=== PATIENT | male | born 1935 | race Caucasian/White ===

== ENCOUNTER 2022-06-15 12:22 | Inpatient (IN) | payer MEDICARE, SELFPAY ==
[2022-06-15] VITALS (39 sets, daily range): BP systolic 111–175; BP diastolic 77–107; PULSE 53–82; RESP 13–32; TEMP 36.3–36.6; O2SAT 97–100; BMI 18.9; BMI 19.1
--- NOTE | ~2022-06-15 | CT_ITS ---
CT head without contrast Indication: Confusion Technique: Serial scans were obtained through the brain without the administration of contrast. Dose reduction technique was used on this scan by utilizing automated exposure control and iterative recon struction technique. The dose-length product (DLP) was 605.33 mGy-cm. Findings: There is no evidence of intracranial hemorrhage, mass lesion, or acute infarct. The ventri cles and subarachnoid spaces are dilated, consistent with mild atrophy. Low attenuation regions are seen within the periventricular white matter bilaterally, likely representing changes from chronic mi crovascular ischemic disease. There is no evidence of edema, mass effect or midline shift. There is chronic left maxillary sinusitis. The remaining visualized paranasal sinuses and mastoid air cells ar e clear. Impression: No intracranial hemorrhage, mass, or acute infarct. Atrophy and chronic white matter changes, as above. Reviewed, dictated and finalized at location . Impression: No intracranial hemorrhage, mass, or acute infarct. Atrophy and chronic white matter changes, as above.
--- NOTE | ~2022-06-15 | XR_ITS ---
EXAMINATION: XR chest 1V DATE: 06/15/2022 13:25 INDICATION: Shortness of breath. Chest pressure. TECHNIQUE: A single frontal view of the chest was obtained. COMPARISON: None. FINDINGS: There are airspace opacities at left lung base. There is a small left pleural effusion. No pneumothorax. Cardiomegaly is noted. There are bilateral shoulder arthroplasties. Surgical clips over lie the mediastinum. IMPRESSION: 1. Airspace opacities at left lung base, consistent with atelectasis versus pneumonia. 2. Small left pleural effusion. 3. Cardiomegaly. Reviewed, dictated and finalized at location A. IMPRESSION: 1. Airspace opacities at left lung base, consistent with atelectasis versus pne umonia. 2. Small left pleural effusion. 3. Cardiomegaly.
--- NOTE | 2022-06-15 12:48 | ECG_ITS ---
Measurements Intervals [place] Rate: 68 P: [place]: 0 QRS: -1 QRSD: 99 T: 116 QT: 399 QTc: 427 Interpretive Statements ATRIAL FIBRILLATION WITH ABERRANT CONDUCTION OR VENTRICULAR PREMATURE COMPLEXES INCOMPLETE RIGHT BUNDLE BRANCH BLOCK [90+ ms QRS DURATION, TERMINAL R IN V1/V2, 40+ ms S IN I/aVL/V4/V5/V6] SEPTAL MYOCARDIAL INFARCTION , PROBABLY OLD [40+ ms Q WAVE IN V1/V2] NO PREVIOUS ECG AVAILABLE FOR COMPARISON Electronically Signed On 06-15-2022 18:19:34 CDT by Maribell Daniel M.D.
[2022-06-15 13:13] LABS: Basophils Absolute Auto 0.1 K/mm3 (0.0-0.1); Basophils Percent Auto 1.2 % (0.2-1.2); Eosinophils Absolute Auto 0.1 K/mm3 (0-0.3); Eosinophils Percent Auto 0.9 % (0-4.4); Hematocrit 44.5 % (42.0-52.0); Hemoglobin 13.6 g/dL (14.0-18.0); Immature Granulocyte Absolute 0.02 K/mm3 (0.00-0.031); Immature Granulocyte Percent A 0.3 % (0-0.5); Lymphocytes Absolute Auto 1.02 K/mm3 (0.9-3.2); Lymphocytes Percent Auto 14.7 % (18.3-44.2); Mean Corpuscular HGB Conc 30.6 g/dl (32-36); Mean Corpuscular Hemoglobin 33.1 pg (26-34); Mean Corpuscular Volume 108.3 fl (80-100); Monocytes Absolute Auto 0.7 K/mm3 (0.1-0.6); Monocytes Percent Auto 10.2 % (2.6-8.5); Neutrophils Absolute Auto 5.1 K/mm3 (1.3-6.7); Neutrophils Percent Auto 72.7 % (45.5-73.1); Platelet Count Result 187 k/mm3 (150-375); Red Blood Count 4.11 M/mm3 (4.6-6.20); Red Cell Distribution Width 17.2 % (11.5-14.5); White Blood Count 6.9 K/mm3 (4.5-10.0)
[2022-06-15 13:22] LABS: Alanine Aminotransferase 40 U/L (6-50); Albumin Level 3.9 g/dL (3.5-5.1); Alkaline Phosphatase 66 U/L (38-126); Anion Gap 7 mmol/L (8-16); Aspartate Amino Transferase 44 U/L (17-59); Bilirubin,Total 0.9 mg/dL (0.2-1.3); Blood Urea Nitrogen 29 mg/dL (9-20); Carbon Dioxide 24 mmol/L (22-30); Chloride 107 mmol/L (98-107); Estimated CRCL calculation 44 ml/min; Estimated Glomerular Filt Rate > 60; Glucose 101 mg/dL (65-110); Potassium 4.4 mmol/L (3.4-5.0); Sodium 138 mmol/L (137-145)
[2022-06-15 13:37] LABS: Platelet Estimate Adequate (Adequate)
[2022-06-15 13:38] LABS: Burr Cells 2+ (NORMAL); Macrocytosis 1+ (NORMAL); Schistocytes None Seen (NORMAL); Troponin I 0.083 ng/mL (0.000-0.034)
--- NOTE | 2022-06-15 13:59 | ED.SOB ---
HPI - SOB/Dyspnea General Chief Complaint: Shortness of Breath/Dyspnea <Socorro Bolanos PA-C - Last Filed: 06/15/22 15:47> Stated Complaint: sob <Socorro Bolanos PA-C - Last Filed: 06/15/22 15:47> Time Seen by Provider: 06/15/22 13:44 <Socorro Bolanos PA-C - Last Filed: 06/15/22 15:47> History of Present Illness HPI Narrative: Patient is an 87-year-old male with a history of atrial fibrillation on Eliquis, hypertension, here due to chest tightness and shortness of breath earlier today. Patient states that he was walking with his walker when he suddenly felt winded and had a tightness in the center of his chest. States that the pain disappeared at rest. Then about an hour later he had another episode of tightness and shortness of breath which prompted him to call an ambulance. At time the ambulance arrived he was asymptomatic and denied any chest tightness or shortness of breath. Patient currently denies any symptoms. He has never had chest tightness or shortness of breath like this in the past. He has had no cough, fevers, congestion or upper respiratory infectious symptoms. Reportedly patient was admitted for 5 days last month at [facility] for anemia and shortness of breath, but patient states I am never going back there in my life . He has never had a cardiac catheterization. <Socorro Bolanos PA-C - Last Filed: 06/15/22 15:47> Related Data Home Medications: Home Medications Medication Instructions Recorded Confirmed Allergy (chlorpheniramine) 4 mg PO HS 06/15/22 06/15/22 B Complex-Vitamin B12 1 tablet PO DAILY 06/15/22 06/15/22 Vitamin D3 25 mcg PO DAILY 06/15/22 06/15/22 Zaditor 1 drp EACH EYE BID 06/15/22 06/15/22 acetaminophen 1,000 mg PO BID 06/15/22 06/15/22 apixaban 5 mg tablet (Eliquis) 5 mg PO BID 06/15/22 06/15/22 ascorbic acid (vitamin C) 500 mg PO DAILY 06/15/22 06/15/22 azelastine 137 mcg (0.1 %) nasal 1 - 2 spray intranasal DIRECTED 06/15/22 06/15/22 spray aerosol benazepril 20 mg tablet 20 mg PO DAILY 06/15/22 06/15/22 cetirizine 10 mg PO DAILY 06/15/22 06/15/22 coenzyme Q10 10 mg PO DAILY 06/15/22 06/15/22 denosumab 60 mg subcut DIRECTED 06/15/22 06/15/22 ferrous sulfate 325 mg PO BID 06/15/22 06/15/22 finasteride 5 mg tablet 5 mg PO DIRECTED 06/15/22 06/15/22 latanoprost 0.005 % eye drops 1 drp EACH EYE HS 06/15/22 06/15/22 metoprolol succinate 25 mg 25 mg PO DAILY 06/15/22 06/15/22 tablet,extended release 24 hr <Socorro Bolanos PA-C - Last Filed: 06/15/22 15:47> Allergies/Adverse Reactions: Allergies Allergy/AdvReac Type Severity Reaction Status Date / Time clarithromycin [From Biaxin] Allergy Gastrointestinal Verified 06/15/22 14:15 Upset atorvastatin AdvReac Muscle Pain Verified 06/15/22 20:27 rofecoxib AdvReac Nausea and Verified 06/15/22 20:28 Vomiting [id number] Reductase AdvReac Muscle Pain Verified 06/15/22 20:28 Inhibitor <Socorro Bolanos PA-C - Last Filed: 06/15/22 15:47> Review of Systems Review of Systems: Gen.: Denies fevers or chills Eyes: Denies eye pain or visual change ENT: Denies congestion Respiratory: reports shortness of breath CV: reports chest pain GI: Denies abdominal pain nausea, emesis or diarrhea : denies burning, urgency, frequency or hematuria Musculoskeletal: Denies back pain or muscle pain Neuro: Denies numbness, tingling, weakness or focal weakness Skin: Denies rash Except as documented, all other systems reviewed and negative <NIGEL Gan Last Filed: 06/15/22 15:47> [facility] Family History Family History: Family History (Updated 06/15/22 @ 19:58 by Stephon Syed RN) Mother Cerebrovascular accident Father Testicle cancer Sibling Malignant neoplasm of prostate <Socorro Bolanos PA-C - Last Filed: 06/15/22 15:47> Social History Social History: Social History Smoking packs per day: 3 Smo
--- NOTE | 2022-06-15 14:10 | PC.NURSE ---
Pt comes in c/o SOB earlier today. States his day started normally and while sitting down in his chair and started becoming SOB. States he had pressure in the middle of his chest. States he felt like he was being suffocated and while he was waiting to catch his breath, believes he fell asleep. States he woke up later with the symptoms resolved. A short time later started having the SOB and decided to be evaluated. States he had a similar episode that happened yesterday. Pt denies any SOB or chest pressure at this time. States every time these episodes have started he was in the cold.
[2022-06-15] MEDS: Please add drug allergy info to patient profile. 1 EACH XX (14:17)
--- NOTE | 2022-06-15 14:18 | PC.NURSE ---
States he was seen at [facility] in Apr for anemia. States his blood pressure medications were changed. States he was told to stop taking Amlodipine and start taking metoprolol.
[2022-06-15] MEDS: ASPIRIN 81 MG CHEWABLE TABLET 324 MG PO (14:26)
[2022-06-15 14:27] LABS: Magnesium 2.1 mg/dL (1.6-2.3)
[2022-06-15 14:36] LABS: INR 1.5; Prothrombin Time 17.6 Seconds (11.1-14.7)
[2022-06-15 14:37] LABS: NT Pro B Type Natriuretic Pept 11700 pg/mL (19.9-100)
[2022-06-15 17:03] LABS: Troponin I 0.086 ng/mL (0.000-0.034)
--- NOTE | 2022-06-15 18:24 | PC.NURSE ---
While getting pt ready to be taken upstairs, he started c/o chest tightness in the middle of his chest that started about 10-15 minutes prior. Rates the pain a 2/10 at this time. Reported to ERP who agreed to administer a PRN nitro. RN completes orders.
[2022-06-15] MEDS: NITROGLYCERIN SL 0.4 MG TABLET SUBLINGUAL (18:26)
--- NOTE | 2022-06-15 19:11 | ADMGEN ---
Addendum entered by Glendy Romero RN 06/15/22 19:11: patient arrived at 1841 Original Note: This patient, Jamey Cuadra, was admitted to IMU Room 231-01. Patient/family oriented to hospital policies and general routines including ID bracelet, bed and alarms, visiting hours, pain management, procedures, bathroom and other care routines, personal items, smoking policy, room service/diet, and visiting hours. Information on how to activate the Rapid Response Team has been discussed. Patient/Family are encouraged to report perceived risks to care and to ask questions if they do not understand what they are told or what they should do.
--- NOTE | 2022-06-15 20:31 | PM.IMHP ---
H&P: HPI History of Present Illness Date/Time: 06/15/22 20:31 Chief Complaint: Shortness of breath Narrative: This is an 87-year-old male patient who has a history of a atrial fibrillation on Eliquis and he has hypertension. The patient has had no prior history of coronary artery disease. The patient came to the emergency room today with complaints of chest tightness and shortness of breath. This happened all of a sudden when he was walking with his walker. The patient felt winded and had the tightness in his chest. The pain will disappear with rest. The pain then came back when he attempted to ambulate again. Therefore an ambulance was notified. When the ambulance arrived he was asymptomatic and denied any further chest tightness or shortness of breath. The patient was recently admitted to [facility] with anemia and shortness of breath. The patient stated that he did not want to go back to [facility]. His H&H is 13.6 and 44.5. MCV is 108.3. His troponin is 0.083, 0.086, [place] 0[place] [address]. EKG was read as atrial fibrillation heart rate in the 60s. The patient has a known history of AFib and is on Eliquis. Chest x-ray was read as the following?Airspace opacities at left lung base, consistent with atelectasis versus pneumonia. 2. Small left pleural effusion. 3. Cardiomegaly. The patient was given an aspirin in the emergency room. Cardiology has been consulted. The patient is being admitted to observation status on the date of service of 06/15/2022 Review of Systems Review of Systems: All systems reviewed & are unremarkable except as noted in HPI and below Constitutional: Constitutional: Reports as per HPI and Reports no additional constitutional complaints Eyes: Eyes: Reports as per HPI and Reports no additional eye complaints ENT: Reports system reviewed and no additional complaints, except as documented and Reports Normal hearing present Cardiovascular: Cardiovascular: Reports no additional cardiovascular complaints Respiratory: Respiratory: Reports no additional respiratory complaints and Reports no additional respiratory complaints Gastrointestinal: Gastrointestinal: Reports as per HPI and Reports no additional gastrointestinal complaints Musculoskeletal: Musculoskeletal: Reports no additional musculoskeletal complaints Integumentary/Breasts: Skin/Breast: Reports system reviewed and no additional complaints, except as docu and Reports as per HPI Neurologic: Reports system reviewed and no additional complaints, except as documented, Reports as per HPI and Reports Normal hearing present Psychiatric: Psychiatric: Reports no additional psychiatric complaints and Reports as per HPI Endocrine: Endocrine: Reports no additional endocrine complaints Hematologic/Lymphatic: Hematologic/Lymphatic: Reports no additional hematologic/lymphatic complaints Allergic/Immunologic: Allergic/Immunologic: Reports no additional allergic/immunologic complaints [facility] Past Medical History Medical History (Updated 06/16/22 @ 00:49 by Sis Mueller NP) Atrial fibrillation Basal cell carcinoma Glaucoma Hypertension Iron deficiency anemia Surgical History Surgical History (Updated 06/16/22 @ 00:44 by Sis Mueller NP) H/O cataract extraction H/O hemorrhoidectomy H/O shoulder replacement H/O thyroidectomy History of removal of skin mole History of tonsillectomy Family History Family History Mother Cerebrovascular accident Father Testicle cancer Sibling Malignant neoplasm of prostate Social History Social History (Updated 06/16/22 @ 00:45 by Sis Mueller NP) Social History: 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 He has 1 child. Code status full code Smoking packs per day: 3 Smoking cigarettes per day: 60.0 Years smoked: 31 Smoking pack-years: 93.00 Smoking status: Former smoker
[2022-06-15 21:26] LABS: Troponin I 0.092 ng/mL (0.000-0.034)
[2022-06-16] VITALS (13 sets, daily range): BP systolic 130–157; BP diastolic 71–90; PULSE 64–110; RESP 18–24; TEMP 36.2–36.5; O2SAT 95–100
--- NOTE | 2022-06-16 | ECHO_ITS ---
Patient Info Name: Jamey Cuadra Age: 87 years : 1935 Gender: Male Ht: 68 in Wt: 125 lbs BSA: 1.64 m2 HR: 83 bpm BP: 126 / 69 mmHg Heart Rhythm: Atrial Fibrillation Exam Date: 06/16/2022 10:20 AM Exam Location: [facility] Patient Status: Inpatient Admit Date: 06/15/2022 Staff Ordering Physician: Sis Mueller NP Ecology Teacher: Trev Weaver, MIKE, RT Attending Provider: Benji Morales MD Referring Physician: Ami ROBBINS; Exam Type: CA echo doppler color flow Study Info Indications R07.9 - Chest pain, unspecified Complete two-dimensional, color flow and Doppler transthoracic echocardiogram is performed. Strain analysis performed. Summary 1. Complete two-dimensional, color flow and Doppler transthoracic echocardiogram is performed. 2. Left ventricular chamber dimension is normal. 3. Left ventricular systolic function is severely reduced, estimated at 15-20%. 4. There is moderately increased left ventricular wall thickness. 5. Right ventricular systolic function is reduced. 6. Left atrial chamber dimension is moderately enlarged. 7. Right atrial chamber dimension is moderately enlarged. 8. The mitral valve has thickened leaflets. 9. The mitral valve annulus is mildly calcified. 10. There is severe mitral valve regurgitation. 11. There is mild tricuspid valve regurgitation. 12. Dilated inferior vena cava with >50% collapse upon inspiration consistent with elevated right atrial pressure, 8 mmHg. 13. There is trivial pericardial effusion. 14. Left pleural effusion present. Left Ventricle Left ventricular chamber dimension is normal. Left ventricular systolic function is severely reduced, estimated at 15-20%. There is moderately increased left ventricular wall thickness. Global longitudinal strain is abnormal at -8 %. Right Ventricle Right ventricular chamber dimension is normal. Right ventricular systolic function is reduced. Left Atria Left atrial chamber dimension is moderately enlarged. Right Atria Right atrial chamber dimension is moderately enlarged. Aortic Valve The aortic valve is probable trileaflet. There is no aortic valve stenosis. There is no aortic valve regurgitation. There is moderate aortic valve calcification. Pulmonic Valve The pulmonic valve is not well visualized. Mitral Valve The mitral valve has thickened leaflets. There is severe mitral valve regurgitation. The mitral valve annulus is mildly calcified. Tricuspid Valve There is mild tricuspid valve regurgitation. Pericardium/Pleural Left pleural effusion present. There is trivial pericardial effusion. Inferior Vena Cava Dilated inferior vena cava with >50% collapse upon inspiration consistent with elevated right atrial pressure, 8 mmHg. Aorta The aortic root size at the sinus of Valsalva is normal. Left Ventricular Outflow Tract Name Value Normal LVOT 2D LVOT Diameter 2.1 cm LVOT Doppler LVOT Peak Gradient 1 mmHg LVOT Mean Gradient 1 mmHg LVOT VTI 9 cm LVOT VTI
[2022-06-16 05:08] LABS: Basophils Absolute Auto 0.1 K/mm3 (0.0-0.1); Basophils Percent Auto 1.2 % (0.2-1.2); Eosinophils Absolute Auto 0.1 K/mm3 (0-0.3); Eosinophils Percent Auto 1.5 % (0-4.4); Hematocrit 43.3 % (42.0-52.0); Hemoglobin 13.4 g/dL (14.0-18.0); Immature Granulocyte Absolute 0.03 K/mm3 (0.00-0.031); Immature Granulocyte Percent A 0.4 % (0-0.5); Lymphocytes Absolute Auto 1.36 K/mm3 (0.9-3.2); Lymphocytes Percent Auto 18.4 % (18.3-44.2); Mean Corpuscular HGB Conc 30.9 g/dl (32-36); Mean Corpuscular Hemoglobin 32.6 pg (26-34); Mean Corpuscular Volume 105.4 fl (80-100); Monocytes Absolute Auto 0.8 K/mm3 (0.1-0.6); Monocytes Percent Auto 11.4 % (2.6-8.5); Neutrophils Percent Auto 67.1 % (45.5-73.1); Platelet Count Result 195 k/mm3 (150-375); Red Blood Count 4.11 M/mm3 (4.6-6.20); Red Cell Distribution Width 17.2 % (11.5-14.5); White Blood Count 7.4 K/mm3 (4.5-10.0)
[2022-06-16 05:23] LABS: Alanine Aminotransferase 39 U/L (6-50); Albumin Level 3.7 g/dL (3.5-5.1); Alkaline Phosphatase 69 U/L (38-126); Anion Gap 8 mmol/L (8-16); Aspartate Amino Transferase 48 U/L (17-59); Bilirubin,Total 0.8 mg/dL (0.2-1.3); Blood Urea Nitrogen 32 mg/dL (9-20); Calcium 8.5 mg/dL (8.4-10.2); Carbon Dioxide 27 mmol/L (22-30); Chloride 104 mmol/L (98-107); Estimated CRCL calculation 29 ml/min; Estimated Glomerular Filt Rate 52; Glucose 87 mg/dL (65-110); Lipase 121 U/L (23-300); Potassium 4.1 mmol/L (3.4-5.0); Sodium 139 mmol/L (137-145)
[2022-06-16 05:38] LABS: Macrocytosis 2+ (NORMAL); Platelet Estimate Adequate (Adequate)
[2022-06-16 05:40] LABS: Schistocytes None Seen (NORMAL)
[2022-06-16 05:43] LABS: Lactic Acid Reflex 1.3 mmol/L (0.7-2.0)
--- NOTE | 2022-06-16 06:24 | PC.NURSE ---
Patient had 12 beat run of v-tach at 0345. Patient asymptomatic. Notified Dr. Schwab. No new orders continue to monitor.
[2022-06-16] MEDS: VITAMIN B COMPLEX CAPSULE 1 CAP PO (08:18)
[2022-06-16] MEDS: METOPROLOL SUCCINATE EXT REL 25 MG TABCR PO (08:18)
[2022-06-16] MEDS: FINASTERIDE 5 MG TABLET PO (08:18)
[2022-06-16] MEDS: lisinopriL 20 MG TABLET PO (08:19)
[2022-06-16] MEDS: FERROUS SULFATE 324 MG TABLET PO (08:19)
--- NOTE | 2022-06-16 12:19 | PM.IMPN ---
Progress Note: A&P Assessment and Plan (1) Chest pain: Code(s): R07.9 - Chest pain, unspecified Status: Acute Assessment and Plan: The patient was having chest pain with exertion. Chest pain was relieved with rest Continue with an aspirin Continue with metoprolol Had mildly elevated troponin but they are all level Cardiology has been consulted An echo has been ordered (2) Glaucoma: Code(s): H40.9 - Unspecified glaucoma Status: Acute Assessment and Plan: Continue with home eye drops. (3) Iron deficiency anemia: Code(s): D50.9 - Iron deficiency anemia, unspecified Status: Acute Assessment and Plan: Continue with ferrous sulfate (4) Hypertension: Code(s): I10 - Essential (primary) hypertension Status: Acute Assessment and Plan: Continue with metoprolol Continue with benazepril (5) Atrial fibrillation: Code(s): I48.91 - Unspecified atrial fibrillation Status: Acute Assessment and Plan: Continue with metoprolol on continue with Eliquis Rate is controlled. The patient remains in atrial fibrillation. Subjective Date/time seen: 06/16/22 12:19 Patient reports feeling short of breath although he is on room air Review of Systems Review of Systems: All systems reviewed & are unremarkable except as noted in HPI and below Constitutional: Constitutional: Reports as per HPI and Reports no additional constitutional complaints Eyes: Eyes: Reports as per HPI and Reports no additional eye complaints ENT: Reports system reviewed and no additional complaints, except as documented and Reports Normal hearing present Cardiovascular: Cardiovascular: Reports no additional cardiovascular complaints Respiratory: Respiratory: Reports no additional respiratory complaints and Reports no additional respiratory complaints Gastrointestinal: Gastrointestinal: Reports as per HPI and Reports no additional gastrointestinal complaints Musculoskeletal: Musculoskeletal: Reports no additional musculoskeletal complaints Integumentary/Breasts: Skin/Breast: Reports system reviewed and no additional complaints, except as docu and Reports as per HPI Neurologic: Reports system reviewed and no additional complaints, except as documented, Reports as per HPI and Reports Normal hearing present Psychiatric: Psychiatric: Reports no additional psychiatric complaints and Reports as per HPI Endocrine: Endocrine: Reports no additional endocrine complaints Hematologic/Lymphatic: Hematologic/Lymphatic: Reports no additional hematologic/lymphatic complaints Allergic/Immunologic: Allergic/Immunologic: Reports no additional allergic/immunologic complaints Exam Const: General: cooperative, healthy appearing, comfortable, no acute distress, well developed, alert, awake, Physically active and thin Nutritional Appearance: thin Orientation/consciousness: oriented to person and oriented to place Limitations: no limitations HENMT: Head: normal to inspection, No palpable skull fracture present, normocephalic, atraumatic and abrasion Ears: external ears normal, TM's normal bilaterally and hearing grossly impaired Face/Nose/Sinus: Normal external nose present and Normal nares present Eyes: General: appearance normal, both eyes and all related structures Alignment and Position: alignment normal Periorbital: periorbital findings normal Eyelids: eyelids normal Sclera: sclerae normal Pupils: Equal, round and reactive pupils present EOM: EOMs intact bilaterally Neck: Neck: normal visual inspection, full ROM, no lymphadenopathy, trachea midline and supple Carotids: normal carotid upstroke Chest: Chest palpation & inspection: normal inspection of the chest Resp: Effort & Inspection: normal respiratory effort Auscultation: clear to auscultation bilaterally Cardio: Palpation: normal PMI Rate: regular rate Rhythm: abnormal rhythm irregularly irregular Heart sounds: S1 hiram
[2022-06-16] MEDS: APIXABAN 5 MG TABLET PO (12:32)
[2022-06-16] MEDS: FUROSEMIDE 40 MG TABLET PO (12:32)
--- NOTE | 2022-06-16 16:46 | PM.CNCAR ---
Assessment and Plan Assessment and plan (1) Chest pain: Code(s): R07.9 - Chest pain, unspecified Status: Acute Assessment and Plan: Atypical symptoms. Troponins are flat. EKG without ischemic changes. Reportedly had a pharmacologic MPI done at [facility] about a month ago for similar symptoms and was reportedly negative. Will obtain a copy of his MPI results from [facility]. Records requested. Requested cardiology records from [facility]. Does not clearly appear to be ACS. Echo pending. Has small left pleural effusion, given dose of Lasix, possible component of heart failure to his symptoms. Medical management as this time. Does not clearly appear to be ACS. Given his advanced age, patient does not want invasive procedures at this time anyways and prefers medical management. (2) Elevated troponin: Code(s): R77.8 - Other specified abnormalities of plasma proteins Status: Acute Assessment and Plan: Atypical symptoms. Troponins are flat. EKG without ischemic changes. Reportedly had a pharmacologic MPI done at [facility] about a month ago for similar symptoms and was reportedly negative. Will obtain a copy of his MPI results from [facility]. Records requested. Requested cardiology records from [facility]. Does not clearly appear to be ACS. Echo pending. (3) Atrial fibrillation: Code(s): I48.91 - Unspecified atrial fibrillation Status: Acute Assessment and Plan: Chronic. Rate controlled. Continue beta kristina and Eliquis. History of Present Illness History of Present Illness Consult date/time: 06/16/22 16:46 Requesting physician: Sis Mueller NP Consult reason: chest pain Reason For Visit: NSTEMI Narrative: We are consulted for elevated troponins. This is an 87-year-old male with a history of atrial fibrillation on Eliquis, recent anemia requiring blood transfusion about a month ago at [facility], hypertension who presented with chest tightness. Patient reports chest tightness and shortness of breath that occurs intermittently. No clear association with exertion. Had similar symptoms when he was admitted to [facility] about a month ago. Patient reports that he had anemia that required blood transfusion. Underwent chemical stress test that was negative. Was supposed to follow up with Cardiology at [facility] but has difficulty getting to his clinic appointments there due to difficulty in parking. Patient is not very functional. Cannot walk much, and when he does, he requires walker. EKG showed rate controlled atrial fibrillation, IRBBB, probably old septal infarction. No prior EKG available for comparison. Troponins have been flat with 0.083 --> 0.086 --> 0.092. BNP elevated at 11,700. CXR with small left pleural effusion. Review of Systems Review of Systems: All systems reviewed & are unremarkable except as noted in HPI and below (HPI) [facility] Past Medical History Medical History Atrial fibrillation Basal cell carcinoma Glaucoma Hypertension Iron deficiency anemia Surgical History Surgical History H/O cataract extraction H/O hemorrhoidectomy H/O shoulder replacement H/O thyroidectomy History of removal of skin mole History of tonsillectomy Family History Family History Mother Cerebrovascular accident Father Testicle cancer Sibling Malignant neoplasm of prostate Social History Social History Social History: 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 He has 1 child. Code status full code Smoking packs per day: 3 Smoking cigarettes per day: 60.0 Years smoked: 31 Smoking pack-years: 93.00 Smoking status: Former smoker Tobacco type: cigarettes Alcohol intake: current Substance use: never Lack of Transportation: No Lack of Food:
[2022-06-16] MEDS: OLANZapine 10 MG INJ VIAL 5 MG IM (18:00)
[2022-06-16] MEDS: LORazepam INJ (*CRX) 2 MG/ML VIAL 1 MG IV PUSH (18:59)
--- NOTE | 2022-06-16 20:38 | PC.NURSE ---
Patient started to more frequently stand up and set off chair alarm around 1630. When asked where he was going, patient would say he just wanted to move around. Patient was educated on how high of a fall risk he was and that he couldn't be moving around in the room without supervision especially without his walker. Starting at 1645, supervisor public health nursing started to sit with patient to prevent a fall. at 1740, patient ripped off their electronic device monitor and said he was going to walk home. Family was called, after which patient would momentarily calm down. However, patient would soon become frustrated again and try to walk without walker and leave the room. It took several staff members to catch the patient as he stumbled around in his room and return him to his bed. Once he was in bed, he kept getting agitated and swinging at staffing members who were around his bed trying to talk to him and keep him in bed. Order for 5mg Zyprexa IM was obtained and administered in left upper arm. Patient then grabbed seafood technology specialist's arm and attempted to kick this nurse. Nichole hart was called. When help arrived, patient was moved safely back up in bed and soft wrist restraints were applied. Patient then attempted to sit on the side of the bed while restrained and kick this nurse again. Patient was then placed in bilateral soft ankle restraints. Dr. Lee arrived at bedside within 15minutes of restraints being placed to assess the patient and agree that they were necessary. Order placed.
[2022-06-16] MEDS: LATANOPROST 0.005% OP SOLN 2.5 ML BTL 1 DROP EACH EYE (21:15)
[2022-06-17] VITALS (15 sets, daily range): BP systolic 123–154; BP diastolic 61–109; PULSE 63–118; RESP 18–20; TEMP 36.2–37; O2SAT 90–100
[2022-06-17] MEDS: METOPROLOL SUCCINATE EXT REL 25 MG TABCR PO (08:56)
[2022-06-17] MEDS: FERROUS SULFATE 324 MG TABLET PO (08:56)
[2022-06-17] MEDS: VITAMIN B COMPLEX CAPSULE 1 CAP PO (08:57)
[2022-06-17] MEDS: lisinopriL 20 MG TABLET PO (08:57)
[2022-06-17] MEDS: APIXABAN 5 MG TABLET PO ×2 (08:57→17:10)
[2022-06-17] MEDS: FINASTERIDE 5 MG TABLET PO (08:57)
--- NOTE | 2022-06-17 11:37 | PM.IMPN ---
Progress Note: A&P Assessment and Plan (1) Chest pain: Code(s): R07.9 - Chest pain, unspecified Status: Acute Assessment and Plan: Continue with an aspirin Continue with metoprolol Had mildly elevated troponin but they are all level Cardiology has been consulted Echo shows severely depressed ejection fraction 15-20%. Also shows severe mitral regurgitation (2) Glaucoma: Code(s): H40.9 - Unspecified glaucoma Status: Acute Assessment and Plan: Continue with home eye drops. (3) Iron deficiency anemia: Code(s): D50.9 - Iron deficiency anemia, unspecified Status: Acute Assessment and Plan: Continue with ferrous sulfate (4) Hypertension: Code(s): I10 - Essential (primary) hypertension Status: Acute Assessment and Plan: Continue with metoprolol and benazepril (5) Atrial fibrillation: Code(s): I48.91 - Unspecified atrial fibrillation Status: Acute Assessment and Plan: Continue with metoprolol. continue with Eliquis Rate is controlled. The patient remains in atrial fibrillation. Plan Will consult PT and OT for possible placement. Subjective Date/time seen: 06/17/22 11:37 Patient is confused this morning and last night. I believe this is hospital induced delirium Review of Systems Review of Systems: ROS unobtainable: Yes unobtainable due to mental status Exam Const: Other: Elderly frail man HENMT: Mouth: Yes moist mucous membranes Eyes: General: appearance normal, both eyes and all related structures Sclera: sclerae normal Resp: Effort & Inspection: normal respiratory effort Auscultation: diminished lung sounds Cardio: Rhythm: abnormal rhythm irregularly irregular GI: GI Palp: Yes Soft to palpation and No Tenderness to palpation present (GI) Skin: General skin exam: normal color Neuro: Speech: normal speech Extrem: General: normal to inspection Psych: Mental Status: mental status grossly normal Affect: normal affect Objective Data Vital Signs Vital Signs: Vital Signs - 24 hr 06/16/22 12:00 06/16/22 12:00 06/16/22 14:00 Temperature 97.1 F L Pulse Rate 70 81 100 Respiratory Rate 24 H Blood Pressure 157/84 H Pulse Oximetry 100 Oxygen Delivery 06/16/22 12:00 06/16/22 16:00 06/16/22 16:00 Temperature 97.3 F L Pulse Rate 78 78 Respiratory Rate 18 Blood Pressure 147/90 H Pulse Oximetry 100 Oxygen Delivery Room Air 06/16/22 16:00 06/16/22 17:40 06/16/22 20:00 Temperature 97.2 F L Pulse Rate 110 H 75 Respiratory Rate 20 Blood Pressure 130/71 Pulse Oximetry 100 Oxygen Delivery Room Air 06/16/22 20:00 06/17/22 00:00 06/17/22 04:00 Temperature Pulse Rate Respiratory Rate Blood Pressure Pulse Oximetry Oxygen Delivery Room Air Room Air Room Air 06/17/22 00:00 06/17/22 04:00 06/16/22 20:00 Temperature 98.6 F Pulse Rate 98 112 H 92 Respiratory Rate 20 18 Blood Pressure 145/70 H 123/95 H Pulse Oximetry 90 94 Oxygen Delivery 06/16/22 22:00 06/17/22 00:00 06/17/22 02:00 Temperature Pulse Rate 101 H 79 86 Respiratory Rate Blood Pressure Pulse Oximetry Oxygen Delivery 06/17/22 04:00 06/17/22 06:00 06/17/22 08:56 Temperature Pulse Rate 118 H 108 H 108 H Respiratory Rate Blood Pressure Pulse Oximetry Oxygen Delivery 06/17/22 08:00 06/17/22 08:00 06/17/22 10:00 Temperature 97.8 F Pulse Rate 110 H 95 98 Respiratory Rate 20 Blood Pressure 154/109 H Pulse Oximetry 95 Oxygen Delivery Intake/Output Intake/Output: Intake & Output 06/14/22 06/15/22 06/16/22 06/17/22 23:59 23:59 23:59 23:59 Intake Total 240 / 240 340 / 340 100 / 100 Output Total 600 / 600 Balance 240 / 240 -260 / -260 100 / 100 Meds/Results Medications: Active Medications Generic Name Dose Route Start Last Admin Trade Name Freq PRN Reason Stop Dose Admin Apixaban 5 mg
--- NOTE | 2022-06-17 12:56 | PM.PNCARD ---
Progress Note: A&P Assessment and Plan (1) Chest pain: Code(s): R07.9 - Chest pain, unspecified Status: Acute Assessment and Plan: Atypical symptoms. Troponins are flat. EKG without ischemic changes. Reportedly had a pharmacologic MPI done at [facility] about a month ago for similar symptoms and was reportedly negative. Requested cardiology records from [facility]. Does not clearly appear to be ACS, probably a component of heart failure to his symptoms as he does have a severe cardiomyopathy. Medical management is being pursued. (2) Elevated troponin: Code(s): R77.8 - Other specified abnormalities of plasma proteins Status: Acute Assessment and Plan: Atypical symptoms. Troponins are flat. EKG without ischemic changes. Reportedly had a pharmacologic MPI done at [facility] about a month ago for similar symptoms and was reportedly negative. (3) Atrial fibrillation: Code(s): I48.91 - Unspecified atrial fibrillation Status: Acute Assessment and Plan: Chronic. Rate controlled. Continue beta kristina and Eliquis. (4) Cardiomyopathy: Code(s): I42.9 - Cardiomyopathy, unspecified Status: Acute Assessment and Plan: Echocardiogram shows severe LV systolic function with an EF of 15-20%. According to the patient's family, this is a new finding. Discontinue lisinopril. Will shift to Entresto, may start 36 hours after last dose of lisinopril. Start Jardiance, spironolactone. Continue beta-kristina. Family unsure if they want to pursue life vest at this time Subjective Date/time seen: 06/17/22 12:56 cardiology follow-up for elevated troponin, cardiomyopathy He is confused today. He denies any chest pain, palpitations, shortness of breath. Family at the bedside. Review of Systems Review of Systems: All systems reviewed & are unremarkable except as noted in HPI and below (HPI) Exam Const: General: comfortable and no acute distress Other: Elderly frail man HENMT: Mouth: Yes moist mucous membranes Eyes: General: appearance normal, both eyes and all related structures Sclera: sclerae normal Resp: Effort & Inspection: normal respiratory effort Auscultation: diminished lung sounds Cardio: Rate: regular rate Rhythm: abnormal rhythm irregularly irregular Skin: General skin exam: normal color Neuro: Speech: normal speech Extrem: General: normal to inspection Other: No edema Psych: Mental Status: mental status grossly normal Affect: normal affect Objective Data Vital Signs Vital Signs: Vital Signs - 24 hr 06/16/22 14:00 06/16/22 16:00 06/16/22 16:00 Temperature 36.3 C L Pulse Rate 100 78 78 Respiratory Rate 18 Blood Pressure 147/90 H Pulse Oximetry 100 Oxygen Delivery 06/16/22 16:00 06/16/22 17:40 06/16/22 20:00 Temperature 36.2 C L Pulse Rate 110 H 75 Respiratory Rate 20 Blood Pressure 130/71 Pulse Oximetry 100 Oxygen Delivery Room Air 06/16/22 20:00 06/17/22 00:00 06/17/22 04:00 Temperature Pulse Rate Respiratory Rate Blood Pressure Pulse Oximetry Oxygen Delivery Room Air Room Air Room Air 06/17/22 00:00 06/17/22 04:00 06/16/22 20:00 Temperature 37.0 C Pulse Rate 98 112 H 92 Respiratory Rate 20 18 Blood Pressure 145/70 H 123/95 H Pulse Oximetry 90 94 Oxygen Delivery 06/16/22 22:00 06/17/22 00:00 06/17/22 02:00 Temperature Pulse Rate 101 H 79 86 Respiratory Rate Blood Pressure Pulse Oximetry Oxygen Delivery 06/17/22 04:00 06/17/22 06:00 06/17/22 08:56 Temperature Pulse Rate 118 H 108 H 108 H Respiratory Rate Blood Pressure Pulse Oximetry Oxygen Delivery 06/17/22 08:00 06/17/22 08:00 06/17/22 10:00 Temperature 36.6 C Pulse Rate 110 H 95 98 Respiratory Rate 20 Blood Pressure 154/109 H Pulse Oximetry 95 Oxygen Delivery 06/17/22 12:00 Temperature 36.5 C Pulse Rate 80 Respiratory Rate
--- NOTE | 2022-06-17 13:23 | PCCPR ---
Visited Rolling at bedside in IMU. His son there to visit. Overview of program discussed pt verbalized interest in program. His son agreed. His son mentioned he would be going to a rehab facility for strength trng before discharging to home. Explained we will follow up in a couple of weeks once we have an order from his MD.
[2022-06-17] MEDS: FUROSEMIDE 20 MG TABLET PO (17:10)
[2022-06-17] MEDS: LATANOPROST 0.005% OP SOLN 2.5 ML BTL 1 DROP EACH EYE (20:37)
[2022-06-17] MEDS: QUEtiapine FUMARATE 25 MG TABLET PO (20:38)
[2022-06-18] VITALS (17 sets, daily range): BP systolic 104–137; BP diastolic 58–75; PULSE 50–110; RESP 16–20; TEMP 36.1–36.7; O2SAT 94–100
[2022-06-18] MEDS: APIXABAN 5 MG TABLET PO ×2 (10:04→18:21)
[2022-06-18] MEDS: EMPAGLIFLOZIN 10 MG TABLET PO (10:05)
[2022-06-18] MEDS: FERROUS SULFATE 324 MG TABLET PO (10:05)
[2022-06-18] MEDS: FUROSEMIDE 20 MG TABLET PO (10:05)
[2022-06-18] MEDS: SPIRONOLACTONE 12.5 MG TABLET PO (10:06)
[2022-06-18] MEDS: VITAMIN B COMPLEX CAPSULE 1 CAP PO (10:06)
[2022-06-18] MEDS: METOPROLOL SUCCINATE EXT REL 25 MG TABCR PO (10:06)
--- NOTE | 2022-06-18 11:49 | PM.IMPN ---
Progress Note: A&P Assessment and Plan (1) Chest pain: Code(s): R07.9 - Chest pain, unspecified Status: Acute Assessment and Plan: Continue aspirin, metoprolol, troponin slightly elevated but flattened, do not suspect ACS Echo shows severely depressed ejection fraction 15-20%. Also shows severe mitral regurgitation Working on GDMT, Entresto to be started, Jardiance, appreciate cardiology consultation (2) Glaucoma: Code(s): H40.9 - Unspecified glaucoma Status: Acute Assessment and Plan: Continue with home eye drops. (3) Iron deficiency anemia: Code(s): D50.9 - Iron deficiency anemia, unspecified Status: Acute Assessment and Plan: Continue with ferrous sulfate (4) Hypertension: Code(s): I10 - Essential (primary) hypertension Status: Acute Assessment and Plan: Continue with metoprolol and benazepril (5) Atrial fibrillation: Code(s): I48.91 - Unspecified atrial fibrillation Status: Acute Assessment and Plan: Continue with metoprolol. continue with Eliquis Rate is controlled. The patient remains in atrial fibrillation. Plan DVT prophylaxis with eliquis GI prophylaxis not indicated Code status full code Subjective Date/time seen: 06/18/22 11:49 Interval history: 87-year-old male with history of AFib on Eliquis and hypertension is presenting with shortness of breath and chest pain and found to have severe heart failure with an EF of 15-20%. No overnight events noted. No nausea, vomiting or diarrhea. No fevers or chills. He is complaining of severe shortness of breath and chest tightness, about the same as yesterday. Review of Systems Review of Systems: 12 point review of systems was assessed and was negative except as noted in the HPI Exam Narrative: General: No acute distress, alert and oriented per baseline HEENT: Atraumatic, normocephalic, mucous membranes moist CV: Irregularly irregular, S1, S2 Lungs: Clear to auscultation throughout, somewhat diminished at bases Abdomen: Soft, nontender, nondistended Extremities: Normal to inspection, no edema Skin: No rashes noted, no lesions or wounds seen Psych: Euthymic, normal affect Objective Data Vital Signs Vital Signs: Vital Signs - 24 hr 06/17/22 12:00 06/17/22 13:05 06/17/22 12:00 Temperature 97.7 F Pulse Rate 80 Respiratory Rate 20 Blood Pressure 140/79 Pulse Oximetry 98 Oxygen Delivery Room Air Room Air 06/17/22 16:08 06/17/22 12:00 06/17/22 14:00 Temperature 97.2 F L Pulse Rate 100 117 H 112 H Respiratory Rate Blood Pressure 131/69 Pulse Oximetry 99 Oxygen Delivery 06/17/22 16:00 06/17/22 18:00 06/17/22 16:00 Temperature Pulse Rate 106 H 110 H Respiratory Rate Blood Pressure Pulse Oximetry Oxygen Delivery Room Air 06/17/22 20:00 06/17/22 20:00 06/17/22 20:00 Temperature 97.8 F Pulse Rate 72 97 Respiratory Rate 20 Blood Pressure 139/68 Pulse Oximetry 100 Oxygen Delivery Room Air 06/17/22 23:42 06/17/22 22:00 06/18/22 00:00 Temperature 97.7 F Pulse Rate 63 74 63 Respiratory Rate 18 Blood Pressure 128/61 Pulse Oximetry 98 Oxygen Delivery 06/18/22 00:00 06/18/22 02:00 06/18/22 04:00 Temperature 97.6 F Pulse Rate 75 79 Respiratory Rate 16 Blood Pressure 131/69 Pulse Oximetry 99 Oxygen Delivery Room Air 06/18/22 04:00 06/18/22 04:00 06/18/22 06:00 Temperature Pulse Rate 50 L 82 Respiratory Rate Blood Pressure Pulse Oximetry Oxygen Delivery Room Air 06/18/22 08:00 06/18/22 08:35 06/18/22 08:00 Temperature 97.7 F Pulse Rate 69 72 Respiratory Rate 20 Blood Pressure 125/67 Pulse Oximetry 94 Oxygen Delivery Room Air 06/18/22 10:06 06/18/22 10:00 Temperature Pulse Rate 102 H 88 Respiratory Rate Blood Pressure Pulse Oximetry Oxygen Delivery
[2022-06-18] MEDS: QUEtiapine FUMARATE 25 MG TABLET PO (20:42)
[2022-06-18] MEDS: LATANOPROST 0.005% OP SOLN 2.5 ML BTL 1 DROP EACH EYE (20:42)
[2022-06-19] VITALS (16 sets, daily range): BP systolic 102–153; BP diastolic 54–86; PULSE 52–97; RESP 16–20; TEMP 35.7–36.8; O2SAT 96–100
[2022-06-19] MEDS: VITAMIN B COMPLEX CAPSULE 1 CAP PO (08:48)
[2022-06-19] MEDS: FUROSEMIDE 20 MG TABLET PO (08:48)
[2022-06-19] MEDS: EMPAGLIFLOZIN 10 MG TABLET PO (08:48)
[2022-06-19] MEDS: METOPROLOL SUCCINATE EXT REL 25 MG TABCR PO (08:48)
[2022-06-19] MEDS: APIXABAN 5 MG TABLET PO ×2 (08:48→16:39)
[2022-06-19] MEDS: SPIRONOLACTONE 12.5 MG TABLET PO (08:48)
[2022-06-19] MEDS: FERROUS SULFATE 324 MG TABLET PO (08:49)
--- NOTE | 2022-06-19 13:11 | PM.IMPN ---
Progress Note: A&P Assessment and Plan (1) Chest pain: Code(s): R07.9 - Chest pain, unspecified Status: Acute Assessment and Plan: Continue aspirin, metoprolol, troponin slightly elevated but flattened, do not suspect ACS Echo shows severely depressed ejection fraction 15-20%. Also shows severe mitral regurgitation Working on GDMT, Entresto to be started, Jardiance, appreciate cardiology consultation (2) Glaucoma: Code(s): H40.9 - Unspecified glaucoma Status: Acute Assessment and Plan: Continue with home eye drops. (3) Iron deficiency anemia: Code(s): D50.9 - Iron deficiency anemia, unspecified Status: Acute Assessment and Plan: Continue with ferrous sulfate (4) Hypertension: Code(s): I10 - Essential (primary) hypertension Status: Acute Assessment and Plan: Continue with metoprolol and benazepril (5) Atrial fibrillation: Code(s): I48.91 - Unspecified atrial fibrillation Status: Acute Assessment and Plan: Continue with metoprolol. continue with Eliquis Rate is controlled. The patient remains in atrial fibrillation. Plan DVT prophylaxis with eliquis GI prophylaxis not indicated Code status full code Subjective Date/time seen: 06/19/22 13:11 Interval history: 87-year-old male with history of AFib on Eliquis and hypertension is presenting with shortness of breath and chest pain and found to have severe heart failure with an EF of 15-20%. No overnight events noted. No nausea, vomiting or diarrhea. No fevers or chills. He states he feels much better than yesterday. Review of Systems Review of Systems: 12 point review of systems was assessed and was negative except as noted in the HPI Exam Narrative: General: No acute distress, alert and oriented per baseline HEENT: Atraumatic, normocephalic, mucous membranes moist CV: Regular rate and rhythm, S1, S2 Lungs: Clear to auscultation bilaterally, no rales or crackles noted, no wheezes, good air entry Abdomen: Soft, nontender, nondistended Extremities: Normal to inspection Skin: No rashes noted, no lesions or wounds seen Psych: Euthymic, normal affect Objective Data Vital Signs Vital Signs: Vital Signs - 24 hr 06/18/22 14:00 06/18/22 16:00 06/18/22 17:32 Temperature 97.7 F Pulse Rate 77 78 83 Respiratory Rate 20 Blood Pressure 104/58 L Pulse Oximetry 100 Oxygen Delivery 06/18/22 18:00 06/18/22 16:00 06/18/22 20:00 Temperature 97.5 F L Pulse Rate 85 110 H Respiratory Rate 18 Blood Pressure 110/58 L Pulse Oximetry 98 Oxygen Delivery Room Air 06/18/22 23:17 06/19/22 04:00 06/18/22 20:00 Temperature 98.1 F 98.1 F Pulse Rate 70 63 Respiratory Rate 16 16 Blood Pressure 129/75 136/78 Pulse Oximetry 99 99 Oxygen Delivery Room Air 06/19/22 00:00 06/19/22 04:00 06/18/22 20:00 Temperature Pulse Rate 66 Respiratory Rate Blood Pressure Pulse Oximetry Oxygen Delivery Room Air Room Air 06/18/22 22:00 06/19/22 00:00 06/19/22 02:00 Temperature Pulse Rate 65 65 65 Respiratory Rate Blood Pressure Pulse Oximetry Oxygen Delivery 06/19/22 04:00 06/19/22 06:00 06/19/22 08:17 Temperature 96.2 F L Pulse Rate 52 L 79 86 Respiratory Rate 20 Blood Pressure 153/86 H Pulse Oximetry 96 Oxygen Delivery 06/19/22 08:48 06/19/22 08:00 06/19/22 08:00 Temperature Pulse Rate 93 60 Respiratory Rate Blood Pressure Pulse Oximetry Oxygen Delivery Room Air 06/19/22 10:00 06/19/22 12:31 Temperature 97.1 F L Pulse Rate 97 90 Respiratory Rate 18 Blood Pressure 120/54 L Pulse Oximetry 96 Oxygen Delivery Intake/Output Intake/Output: Intake & Output 06/16/22 06/17/22 06/18/22 06/19/22 23:59 23:59 23:59 23:59 Intake Total 340 880 720 840 Output Total 600 1000 1625 400 Yeavjlc -260 120 -560 440 M
--- NOTE | 2022-06-19 15:19 | PM.PNCARD ---
Progress Note: A&P Assessment and Plan (1) Cardiomyopathy: Code(s): I42.9 - Cardiomyopathy, unspecified Status: Acute Assessment and Plan: Echocardiogram shows severe LV systolic function with an EF of 15-20%. According to the patient's family, this is a new finding. Started Jardiance, spironolactone. Continue beta-kristina. Tolerating the changes so far, titrate later. Start Entresto now since he has been off his THONG-inhibitor Will hold Lasix since the patient appears euvolemic, and he may need a little volume to tolerate Entresto. Family unsure if they want to pursue life vest at this time Check BMP Hopefully discharge tomorrow. (2) Chest pain: Code(s): R07.9 - Chest pain, unspecified Status: Acute Assessment and Plan: Atypical symptoms. Troponins are flat. EKG without ischemic changes. Reportedly had a pharmacologic MPI done at [facility] about a month ago for similar symptoms and was reportedly negative. Requested cardiology records from [facility]. Does not clearly appear to be ACS, probably a component of heart failure to his symptoms as he does have a severe cardiomyopathy. Medical management is being pursued. (3) Atrial fibrillation: Code(s): I48.91 - Unspecified atrial fibrillation Status: Acute Assessment and Plan: Chronic. Rate controlled. Continue beta kristina and Eliquis. (4) Acute on chronic systolic CHF (congestive heart failure): Code(s): I50.23 - Acute on chronic systolic (congestive) heart failure Status: Acute Assessment and Plan: Currently taking furosemide 20 mg daily. Appears euvolemic, will hold for now and push CHF medications instead. (5) Nonsustained ventricular tachycardia: Code(s): I47.29 - Other ventricular tachycardia Status: Acute Assessment and Plan: Patient has had some PVCs and nonsustained VT of 5-6 beats. --continue beta-kristina --check potassium and magnesium Subjective Date/time seen: Cardiology follow-up for atypical chest pain and elevated troponin, cardiomyopathy with EF 15-20%, mild CHF, persistent atrial fibrillation. 06/17/2022: He is confused today.? He denies any chest pain, palpitations, shortness of breath.? Family at the bedside. Stop lisinopril, start Entresto after 36 hours, start Jardiance and spironolactone. Family unsure if they want a LifeVest. 06/19/22 15:19 diuresing. On room air. Seems to be tolerating the medication changes with systolic blood pressure of 100-120 mmHg. Hoping to get Vinson out and home soon. Review of Systems Review of Systems: No chest pain, shortness of breath, dizziness or abdominal discomfort. Had have a Vinson placed because of urinary retention yesterday. Exam Const: General: cooperative and comfortable; No confusion Orientation/consciousness: oriented to person, patient oriented x3 and No confusion Other: Thin, frail older male sitting up in chair, family surrounding him, no distress. Quite alert and conversant. HENMT: Mouth: Yes moist mucous membranes Eyes: General: appearance normal, both eyes and all related structures Neck: Neck: supple and no JVD Resp: Effort & Inspection: normal respiratory effort Auscultation: clear to auscultation bilaterally Cardio: Rate: regular rate Rhythm: regular rhythm and abnormal rhythm irregularly irregular Heart sounds: Murmur heart sound present Other: 1/6 GOKUL left sternal border GI: Inspection: normal to inspection GI Palp: No abdominal tenderness Urinary Catheter: Urinary Catheter: patent and draining and urine clear Skin: General skin exam: normal color and no rashes or lesions noted Neuro: General: oriented to person, patient oriented x3 and No confusion Other: Asked intelligent questions, do not seem confused today. Extrem: Right lower extremity: no edema Left lower extremity: no edema Psych: Appearance: grossly normal Mental Status: mental status grossly nor
[2022-06-19] MEDS: LATANOPROST 0.005% OP SOLN 2.5 ML BTL 1 DROP EACH EYE (20:59)
[2022-06-19] MEDS: QUEtiapine FUMARATE 25 MG TABLET PO (20:59)
[2022-06-19] MEDS: SACUBITRIL/VALSARTAN 12-13 MG TABLET 1 TAB PO (20:59)
[2022-06-20] VITALS (14 sets, daily range): BP systolic 105–130; BP diastolic 64–79; PULSE 52–109; RESP 16–20; TEMP 36.3–36.8; O2SAT 98–100
[2022-06-20 05:09] LABS: Anion Gap 6 mmol/L (8-16); Blood Urea Nitrogen 38 mg/dL (9-20); Calcium 7.9 mg/dL (8.4-10.2); Carbon Dioxide 35 mmol/L (22-30); Chloride 100 mmol/L (98-107); Estimated CRCL calculation 38 ml/min; Estimated Glomerular Filt Rate > 60; Glucose 107 mg/dL (65-110); Potassium 3.7 mmol/L (3.4-5.0); Sodium 141 mmol/L (137-145)
[2022-06-20] MEDS: ACETAMINOPHEN 500 MG TABLET 1000 MG PO (05:35)
--- NOTE | 2022-06-20 08:23 | PCPTNOTE ---
Attempted to see patient for PT, however patient was having to eat his breakfast.
[2022-06-20] MEDS: VITAMIN B COMPLEX CAPSULE 1 CAP PO (09:09)
[2022-06-20] MEDS: METOPROLOL SUCCINATE EXT REL 25 MG TABCR PO (09:09)
[2022-06-20] MEDS: FERROUS SULFATE 324 MG TABLET PO (09:09)
[2022-06-20] MEDS: EMPAGLIFLOZIN 10 MG TABLET PO (09:09)
[2022-06-20] MEDS: APIXABAN 5 MG TABLET PO ×2 (09:09→16:48)
[2022-06-20] MEDS: SPIRONOLACTONE 12.5 MG TABLET PO (09:09)
[2022-06-20] MEDS: FINASTERIDE 5 MG TABLET PO (09:10)
[2022-06-20] MEDS: SACUBITRIL/VALSARTAN 12-13 MG TABLET 1 TAB PO ×2 (09:10→20:44)
--- NOTE | 2022-06-20 14:27 | PC.NURSE ---
Patient bladder appeared distended. Patient was able to void 100 ml, postvoid bladder scan noted to have greater than 680 ml of urine present in bladder. Notified Dr. Garcia, orders obtained to reinsert alas catheter, and consult urology.
--- NOTE | 2022-06-20 14:38 | PM.IMPN ---
Progress Note: A&P Assessment and Plan (1) Chest pain: Code(s): R07.9 - Chest pain, unspecified Status: Acute Assessment and Plan: Continue aspirin, metoprolol, troponin slightly elevated but flattened, do not suspect ACS Echo shows severely depressed ejection fraction 15-20%. Also shows severe mitral regurgitation Working on GDMT, Entresto to be started, Jardiance, appreciate cardiology consultation Labs are good this AM unfortunately pt is unable to pass urine easily and alas has been placed and urology consulted (2) Glaucoma: Code(s): H40.9 - Unspecified glaucoma Status: Acute Assessment and Plan: Continue with home eye drops. (3) Iron deficiency anemia: Code(s): D50.9 - Iron deficiency anemia, unspecified Status: Acute Assessment and Plan: Continue with ferrous sulfate (4) Hypertension: Code(s): I10 - Essential (primary) hypertension Status: Acute Assessment and Plan: Continue with metoprolol and benazepril (5) Atrial fibrillation: Code(s): I48.91 - Unspecified atrial fibrillation Status: Acute Assessment and Plan: Continue with metoprolol. continue with Eliquis Rate is controlled. Subjective Date/time seen: 06/20/22 14:38 Interval history: 87-year-old male with history of AFib on Eliquis and hypertension is presenting with shortness of breath and chest pain and found to have severe heart failure with an EF of 15-20%. Labs this morning were good bp is ok unfortunately pt is unable to urinate today alas placed and urology consulted. Pt and family wants to take the patient home on DC not to SNF Review of Systems Review of Systems: Mild SOB on ambulation, no chest pain All systems reviewed & are unremarkable except as noted in HPI and below ROS unobtainable: Yes unobtainable due to mental status Exam Narrative: General: No acute distress HEENT: Atraumatic, normocephalic, mucous membranes moist CV: Regular rate and rhythm, S1, S2 Lungs: Clear to auscultation bilaterally, no rales or crackles noted, no wheezes, good air entry Abdomen: Soft, nontender, nondistended Extremities: Normal to inspection Skin: No rashes noted, no lesions or wounds seen Psych: Euthymic, normal affect Objective Data Vital Signs Vital Signs: Vital Signs - 24 hr 06/19/22 15:30 06/19/22 16:00 06/19/22 16:00 Temperature 36.2 C L Pulse Rate 80 78 Respiratory Rate 18 Blood Pressure 102/72 Pulse Oximetry 100 Oxygen Delivery Room Air 06/19/22 18:00 06/19/22 20:00 06/19/22 20:00 Temperature 36.8 C Pulse Rate 81 76 68 Respiratory Rate 16 Blood Pressure 122/70 Pulse Oximetry 99 Oxygen Delivery 06/19/22 20:00 06/19/22 22:00 06/20/22 00:00 Temperature 36.6 C Pulse Rate 66 57 L Respiratory Rate 18 Blood Pressure 130/67 Pulse Oximetry 99 100 Oxygen Delivery Room Air 06/20/22 00:00 06/20/22 00:00 06/20/22 02:00 Temperature Pulse Rate 61 109 H Respiratory Rate Blood Pressure Pulse Oximetry 100 Oxygen Delivery Room Air 06/20/22 04:00 06/20/22 04:00 06/20/22 04:00 Temperature 36.8 C Pulse Rate 87 52 L Respiratory Rate 16 Blood Pressure 127/79 Pulse Oximetry 100 100 Oxygen Delivery Room Air 06/20/22 06:00 06/20/22 08:00 06/20/22 09:09 Temperature Pulse Rate 78 64 85 Respiratory Rate Blood Pressure Pulse Oximetry Oxygen Delivery 06/20/22 08:00 06/20/22 08:00 06/20/22 10:00 Temperature 36.3 C L Pulse Rate 82 85 80 Respiratory Rate 20 20 Blood Pressure 113/74 Pulse Oximetry 98 98 Oxygen Delivery Room Air 06/20/22 12:00 06/20/22 12:00 06/20/22 12:00 Temperature 36.6 C Pulse Rate 76 81 80 Respiratory Rate 16 Blood Pressure 105/64 Pulse Oximetry 100 Oxygen Delivery Room Air Intake/Output Intake/Output: Intake & Output 06/17/22 06/18/22 06/19/22
--- NOTE | 2022-06-20 16:26 | WPDURCON ---
Assessment and Plan Assessment and plan (1) Retention of urine: Code(s): R33.9 - Retention of urine, unspecified Status: Acute Assessment and Plan: Procced with alas placement. We discussed the need to keep alas in for 7-10 days and f/u in the office for a voiding trial. He is unable to add Tamsulosin d/t hypotension. (2) BPH (benign prostatic hyperplasia): Code(s): N40.0 - Benign prostatic hyperplasia without lower urinary tract symptoms Status: Acute Assessment and Plan: Start taking Finasteride daily instead of 3x/week. If he fails a voiding trial in the office we discussed evaluation in preparation of a TURP. Ok to discharge home with alas at anytime per urology. Urology Consult Note HPI Date Seen: 06/20/22 Time Seen: 16:15 Requesting Physician: Benji Morales MD Primary Care Provider: STONEWORK TRACER PHYSICIAN Consult Narrative Reason for consult: Retention Narrative: Jamey Cuadra is a 87 year old male who was admitted to the hospital on 06/15/22 for evaluation of chest pain and shortness of breath. He had a catheter placed and removed, and unfortunately failed a voiding trial today. His bladder scan is 680cc today and he is unable to urinate more than 100cc. He has the urge to go but cannot. He has been on Finasteride for years and is a patient of Dr. Sanchez. He states he did not have any trouble urinating at home prior to coming into the hospital. WBC is 7.4, Creatinine 1.00. He states he was taking Finasteride only 3 days a week for years as this was effective for him. Review of Systems Cardiovascular: Cardiovascular: Denies chest pain Respiratory: Respiratory: Reports no additional respiratory complaints Gastrointestinal: Gastrointestinal: Denies abdominal pain, Denies nausea and Denies vomiting Genitourinary: Genitourinary: Denies hematuria, Denies dysuria, Denies flank pain, Denies urinary frequency, Denies urinary hesitancy, Denies urinary incontinence and Denies urinary urgency FOR[facility] Past Medical History Medical History Atrial fibrillation Basal cell carcinoma Glaucoma Hypertension Iron deficiency anemia Surgical History Surgical History H/O cataract extraction H/O hemorrhoidectomy H/O shoulder replacement H/O thyroidectomy History of removal of skin mole History of tonsillectomy Family History Family History Mother Cerebrovascular accident Father Testicle cancer Sibling Malignant neoplasm of prostate Social History Social History Social History: The patient is and he is retired from [employer]. 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 He has 1 child. Code status full code Smoking packs per day: 3 Smoking cigarettes per day: 60.0 Years smoked: 31 Smoking pack-years: 93.00 Smoking status: Former smoker Tobacco type: cigarettes Alcohol intake: current Substance use: never Lack of Transportation: No Lack of Food: Never True Current Housing: I Have Housing Concerned About Future Housing: No Difficulty Paying Gas/Electric Bills: No Difficulty Paying for Meds: No Currently Unemployed: No Education: High School Diploma/GED Difficulty w/ Childcare or Family Care: No Spiritual care concerns: No (Methodist) Meds Home Medications and Allergies Home Medications Medication Instructions Recorded Confirmed Type Allergy (chlorpheniramine) 4 mg PO HS 06/15/22 06/15/22 History B Complex-Vitamin B12 1 tablet PO DAILY 06/15/22 06/15/22 History Vitamin D3 25 mcg PO DAILY 06/15/22 06/15/22 History Zaditor 1 drp EACH EYE BID 06/15/22 06/15/22 History acetaminophen 1,000 mg PO BID 06/15/22 06/15/22 History apixaban 5 mg tablet (Eliquis) 5 mg PO BID 06/15/22 06/15/22 History ascorbic acid (ty
[2022-06-20] MEDS: QUEtiapine FUMARATE 25 MG TABLET PO (20:44)
[2022-06-20] MEDS: LATANOPROST 0.005% OP SOLN 2.5 ML BTL 1 DROP EACH EYE (20:50)
[2022-06-21] VITALS (10 sets, daily range): BP systolic 112–118; BP diastolic 57–74; PULSE 56–94; RESP 14–16; TEMP 36.6–36.9; O2SAT 98–100
--- NOTE | 2022-06-21 02:30 | PC.NURSE ---
Spoke with DR. Leyva regarding 10 beat run of vtach. New orders received
[2022-06-21 04:58] LABS: Anion Gap 1 mmol/L (8-16); Blood Urea Nitrogen 37 mg/dL (9-20); Calcium 7.5 mg/dL (8.4-10.2); Carbon Dioxide 34 mmol/L (22-30); Chloride 101 mmol/L (98-107); Estimated CRCL calculation 38 ml/min; Estimated Glomerular Filt Rate > 60; Glucose 98 mg/dL (65-110); Magnesium 2.1 mg/dL (1.6-2.3); Phosphorus 3.4 mg/dL (2.5-4.5); Potassium 4.1 mmol/L (3.4-5.0); Sodium 136 mmol/L (137-145)
[2022-06-21] MEDS: VITAMIN B COMPLEX CAPSULE 1 CAP PO (08:19)
[2022-06-21] MEDS: APIXABAN 5 MG TABLET PO (08:19)
[2022-06-21] MEDS: SPIRONOLACTONE 12.5 MG TABLET PO (08:19)
[2022-06-21] MEDS: FINASTERIDE 5 MG TABLET PO (08:20)
[2022-06-21] MEDS: FERROUS SULFATE 324 MG TABLET PO (08:20)
[2022-06-21] MEDS: SACUBITRIL/VALSARTAN 12-13 MG TABLET 1 TAB PO (08:20)
[2022-06-21] MEDS: METOPROLOL SUCCINATE EXT REL 25 MG TABCR PO (08:20)
[2022-06-21] MEDS: EMPAGLIFLOZIN 10 MG TABLET PO (08:20)
--- NOTE | 2022-06-21 15:08 | PM.DS ---
DS: Admitting Diagnosis Discharge Date 06/21/2022 Admitting Diagnosis Shortness of breath DS: Discharge Diagnosis Discharge Diagnosis (1) Chest pain: Code(s): R07.9 - Chest pain, unspecified Status: Acute Assessment and Plan: Continue aspirin, metoprolol, troponin slightly elevated but flattened, do not suspect ACS Echo shows severely depressed ejection fraction 15-20%. Also shows severe mitral regurgitation Working on GDMT, Entresto to be started, Jardiance, appreciate cardiology consultation Labs are good this AM unfortunately pt is unable to pass urine easily and alas has been placed and urology consulted. Pt dc with alas in situ (2) Glaucoma: Code(s): H40.9 - Unspecified glaucoma Status: Acute Assessment and Plan: Continue with home eye drops. (3) Iron deficiency anemia: Code(s): D50.9 - Iron deficiency anemia, unspecified Status: Acute Assessment and Plan: Continue with ferrous sulfate (4) Hypertension: Code(s): I10 - Essential (primary) hypertension Status: Acute Assessment and Plan: Continue with metoprolol and benazepril (5) Atrial fibrillation: Code(s): I48.91 - Unspecified atrial fibrillation Status: Acute Assessment and Plan: Continue with metoprolol. continue with Eliquis Rate is controlled. DS: Summary Hospital Course Hospital Course: 87-year-old male with history of AFib on Eliquis and hypertension is presenting with shortness of breath and chest pain and found to have severe heart failure with an EF of 15-20%. Labs this morning were good bp is ok unfortunately pt is unable to urinate today alas placed and urology consulted. Pt discharged with alas insitu. Pt and family wants to take the patient home on DC not to SNF Time Spent with Patient Time attestation: Total time spent providing and/or coordinating discharge services: Exam Narrative: General: No acute distress HEENT: Atraumatic, normocephalic, mucous membranes moist CV: Regular rate and rhythm, S1, S2 Lungs: Clear to auscultation bilaterally, no rales or crackles noted, no wheezes, good air entry Abdomen: Soft, nontender, nondistended Extremities: Normal to inspection Skin: No rashes noted, no lesions or wounds seen Psych: Euthymic, normal affect DS: Data Data Completed and Pending Labs on day of discharge: Labs from last 24 hours 04/18/23 04:29 Sodium 136 L Potassium 4.1 Chloride 101 Carbon Dioxide 34 H Anion Gap 1 L BUN 37 H Creatinine 1.00 Estim Creat Clear Calc 38 Estimated GFR > 60 Glucose 98 Calcium 7.5 L Phosphorus 3.4 Magnesium 2.1 Discharge Plan Discharge Attending physician on discharge: Olivia Butterfield Consulting providers: Seng Hutson; Maribell Danile; Rosamaria Ochoa; Sis Mueller; Nohemi Shields; Olivia Butterfield; Benji Morales; Antony Murillo V.; Tanesha Alexandra; Rajesh Matute; Brad Cameron Discharging Clinician: Olivia Butterfield Patient Disposition: Home, Self-Care Activity: as tolerated Diet: as tolerated and heart healthy Discharge Instructions: dc with alas in situ Patient Instructions: Antibiotic Form, Apixaban (By mouth) Stand Alone Forms: General Discharge Information Follow-up/Referrals: Jarvis Ness MD [Physician] - PHYSICIAN,AIRCRAFT DETAIL DRAFTSPERSON [Primary Care Provider] - Heber Fisher MD [Physician] - Discharge Medications: New Jardiance 10 mg Tablet 10 mg PO DAILY 30 Days Qty: 30 0RF quetiapine [Seroquel] 25 mg Tablet 25 mg PO HS 30 Days Qty: 30 0RF furosemide 20 mg Tablet 20 mg PO DAILY 30 Days Qty: 30 0RF spironolactone [Aldactone] 25 mg tablet 12.5 mg PO DAILY 30 Days Qty: 15 0RF tamsulosin 0.4 mg capsule 0.4 mg PO DAILY Qty: 30 1RF Continued metoprolol succinate 25 mg tablet extended release 24 hr 25 mg PO DAILY azelastine 13
== END 2022-06-21 15:53 | disposition home or self-care (01) | DRG 291 ==
LOC: ANHED 15:47 → ANHIMU 17:37
PROVIDERS: Emergency Medicine; Internal Medicine; Internal Medicine Cardiovascular Disease; Nurse Practitioner; Admitting Provider Family Medicine; Emergency Provider Physician Assistant; Visit Provider Family Medicine
DX: I11.0 Hypertensive heart disease with heart failure (principal); I50.23 Acute on chronic systolic (congestive) heart failure; I47.29 Other ventricular tachycardia; I48.19 Other persistent atrial fibrillation; I43 Cardiomyopathy in diseases classified elsewhere; H40.9 Unspecified glaucoma; I34.0 Nonrheumatic mitral (valve) insufficiency; I25.10 Atherosclerotic heart disease of native coronary artery without angina pectoris; D50.9 Iron deficiency anemia, unspecified; R77.8 Other specified abnormalities of plasma proteins; R41.0 Disorientation, unspecified; N40.0 Benign prostatic hyperplasia without lower urinary tract symptoms; R33.8 Other retention of urine; Z79.01 Long term (current) use of anticoagulants; Z87.891 Personal history of nicotine dependence; Z85.828 Personal history of other malignant neoplasm of skin; Z98.49 Cataract extraction status, unspecified eye; Z90.89 Acquired absence of other organs; Z96.619 Presence of unspecified artificial shoulder joint
CPT/HCPCS: 36415; 70450; 71045; 80048; 80053; 83605; 83690; 83735; 83880; 84100; 84443; 84484; 85025; 85610; 85730; 93005; 93306; 96372; 97110; 97116; 97162; 97166; 97530; 97535; 99285; A9270; G0378; J2060

== ENCOUNTER 2023-05-11 14:47 | Outpatient (CLI) | payer MEDICARE, SELFPAY ==
--- NOTE | ~2023-05-11 | XR_ITS ---
EXAMINATION: XR chest 2V DATE: 05/11/2023 15:07 INDICATION: Shortness of breath. TECHNIQUE: Frontal and lateral views of the chest were obtained. COMPARISON: Chest single view 06/15/2022 FINDINGS: There are airspace opacities at the lung bases. No pleural effusion or pneumothorax. Cardio megaly is noted. There is a prominent left paracardial fat pad. There are bilateral shoulder arthropl asties. Surgical clips overlie the superior mediastinum. IMPRESSION: 1. Airspace opacities at the lung bases, consistent with atelectasis versus pneumonia. 2. Cardiomegaly. Reviewed, dictated and finalized at location E. ILE SAW SETUP OPERATOR IMPRESSION: 1. Airspace opacities at the lung bases, consistent with atelectasis versus pne umonia. 2. Cardiomegaly.
== END 2023-05-11 14:48 | disposition home or self-care (01) ==
PROVIDERS: Visit Provider Nurse Practitioner Adult Health
DX: R91.8 Other nonspecific abnormal finding of lung field (principal); I51.7 Cardiomegaly; R06.02 Shortness of breath
CPT/HCPCS: 71046

== ENCOUNTER 2023-07-18 13:51 | Inpatient (IN) | payer MEDICARE, SELFPAY ==
--- NOTE | ~2023-07-18 | XR_ITS ---
EXAMINATION: XR chest 1V portable Exam Date/Time: 07/23/2023 18:40 CDT HISTORY: sob Comparison: 07/18/2023. RESULT: Lines, tubes, and devices: Bilateral shoulder arthroplasty hardware. Surgical clips over the base of the neck. Lungs and pleura: Increasing mild diffuse reticular opacities. Increasing bilateral costophrenic ang le blunting. Increased segmental left and subsegmental right basilar opacities. Cardiomediastinal silhouette: Stable. Other: No acute osseous or upper abdominal finding. IMPRESSION: Increasing segmental left and subsegmental right basilar atelectasis/consolidation. Increasing but st ill small bilateral effusions, slightly greater on the left. Slightly worsening interstitial edema. Reviewed, dictated and finalized at location K. IMPRESSION: Increasing segmental left and subsegmental right basilar atelectasis/consolidat ion. Increasing but still small bilateral effusions, slightly greater on the le ft. Slightly worsening interstitial edema.
--- NOTE | ~2023-07-18 | US_ITS ---
EXAMINATION: US arterial duplex LE DATE: 07/23/2023 14:35 INDICATION: Peripheral vascular disease. TECHNIQUE: Multiple grayscale and Doppler ultrasound images of the lower extremity arteries were obta ined. COMPARISON: None FINDINGS: On the right, peak systolic velocity is 83 cm/s in common femoral artery, 52 cm/s in profun da femoral artery, 88 cm/s in proximal superficial femoral artery, 64 cm/s in mid superficial femoral artery, 63 cm/s in distal superficial femoral artery, 54 cm/s in proximal popliteal artery, 62 cm/s in distal popliteal artery, 73 cm/s in posterior tibial artery, 32 cm/s in anterior tibial artery, an d 17 cm/s in dorsalis pedis. On the left, peak systolic velocity is 60 cm/s in common femoral artery, 63 cm/s in profunda femoral artery, 38 cm/s in proximal superficial femoral artery, 75 cm/s and in superficial femoral artery, 54 cm/s in distal superficial femoral artery, 71 cm/s in proximal popliteal artery, 46 cm/s in distal p opliteal artery, 67 cm/s in posterior tibial artery, 63 cm/s in anterior tibial artery, and 60 cm/s d orsalis pedis. IMPRESSION: 1. No significant arterial occlusive disease. Reviewed, dictated and finalized at location A.
--- NOTE | ~2023-07-18 | CT_ITS ---
EXAMINATION: CT brain wo con DATE: 07/18/2023 15:25 INDICATION: head injury . TECHNIQUE: Computed tomography (CT) of the head was performed without intravenous contrast. The mA wa s adjusted according to patient size. Iterative reconstruction technique was employed. The dose-lengt h product was 756.67 mGy-cm. COMPARISON: 06/16/2022. FINDINGS: No acute intracranial hemorrhage or extra-axial fluid collection. No hydrocephalus, mass, or herniation. No acute ischemic infarct. Unremarkable dural venous sinus attenuation. No acute osseous abnormality. Metastases maxillary opacification and surrounding sclerosis, the remaining aerated spaces are clear. Moderate atrophy and chronic white matter change. Atherosclerotic intracranial calcification. Bilater al lens replacements. IMPRESSION: No acute intracranial process. Chronic left maxillary sinusitis. Reviewed, dictated and finalized at location K.
--- NOTE | ~2023-07-18 | XR_ITS ---
EXAMINATION: XR chest 2V DATE: 07/18/2023 14:18 INDICATION: Weakness. Falls. TECHNIQUE: Frontal and lateral views of the chest were obtained. COMPARISON: Chest 2 views 05/11/2023 FINDINGS: There are small pleural effusions. There is an interstitial pattern in the lungs, consisten t with mild pulmonary edema. There are airspace opacities at left lung base. No pneumothorax. Cardiom egaly is noted. There are bilateral shoulder arthroplasties. Surgical clips overlie the neck. IMPRESSION: 1. Mild pulmonary edema. 2. Small pleural effusions. 3. Airspace opacities at left lung base, consistent with atelectasis versus pneumonia. 4. Cardiomegaly. Reviewed, dictated and finalized at location A. IMPRESSION: 1. Mild pulmonary edema. 2. Small pleural effusions. 3. Airspace opacities at left lung base, consistent with atelectasis versus pne umonia. 4. Cardiomegaly.
[2023-07-18 13:53] VITALS: BP 107/92; PULSE 91; RESP 20; TEMP 36.6; O2SAT 100
--- NOTE | 2023-07-18 13:56 | ECG_ITS ---
SEE SCANNED COPY FOR CONFIRMED REPORT MTDD
[2023-07-18 14:12] LABS: Basophils Percent Auto 0.4 % (0.2-1.2); Eosinophils Percent Auto 0.1 % (0-4.4); Hematocrit 43.2 % (42.0-52.0); Hemoglobin 14.1 g/dL (14.0-18.0); Immature Granulocyte Absolute 0.02 K/mm3 (0.00-0.031); Immature Granulocyte Percent A 0.3 % (0-0.5); Lymphocytes Percent Auto 5.1 % (18.3-44.2); Mean Corpuscular HGB Conc 32.6 g/dl (32-36); Mean Corpuscular Hemoglobin 35.1 pg (26-34); Mean Corpuscular Volume 107.5 fl (80-100); Mean Platelet Volume 11.5 fl (7.4-10.4); Monocytes Absolute Auto 0.8 K/mm3 (0.1-0.6); Neutrophils Absolute Auto 6.5 K/mm3 (1.3-6.7); Neutrophils Percent Auto 84.1 % (45.5-73.1); Platelet Count Result 196 k/mm3 (150-375); Red Blood Count 4.02 M/mm3 (4.6-6.20); Red Cell Distribution Width 14.8 % (11.5-14.5); White Blood Count 7.8 K/mm3 (4.5-10.0)
[2023-07-18 14:22] LABS: Alanine Aminotransferase 28 U/L (6-50); Albumin Level 3.5 g/dL (3.5-5.1); Alkaline Phosphatase 86 U/L (38-126); Anion Gap 5 mmol/L (4-12); Aspartate Amino Transferase 45 U/L (17-59); Bilirubin,Total 1.5 mg/dL (0.2-1.3); Blood Urea Nitrogen 33 mg/dL (9-20); Calcium 8.5 mg/dL (8.4-10.2); Carbon Dioxide 25 mmol/L (22-30); Chloride 111 mmol/L (98-107); Estimated CRCL calculation 41 ml/min; Estimated Glomerular Filt Rate > 60; Glucose 103 mg/dL (65-110); Potassium 4.1 mmol/L (3.4-5.0); Sodium 141 mmol/L (137-145)
[2023-07-18 14:27] LABS: Macrocytosis 1+ (NORMAL); Platelet Estimate Adequate (Adequate); Schistocytes None Seen
--- NOTE | 2023-07-18 15:20 | ED.FALL ---
HPI - Fall General Chief Complaint: Fall Stated Complaint: frequent falls Time Seen by Provider: 07/18/23 14:52 History of Present Illness HPI Narrative: 88-year-old male present to the emergency department for evaluation for increased generalized weakness over the course of the last 3 months. Patient did have COVID over winter and parents state that he has had worsening weakest since then. Patient does have a prior history of CVA. Patient does live at home with his son. Patient states he has had multiple falls over the last few days. Patient's son states that the patient has also been noncompliant with his medications a few times over the last few days. Patient states he has struck his head. Patient does have multiple abrasions secondary to the falls. Patient has a slow healing wound on his left lower extremity. Related Data Home Medications Medication Instructions Recorded Confirmed Allergy (chlorpheniramine) 4 mg PO HS 06/15/22 06/15/22 B Complex-Vitamin B12 1 tablet PO DAILY 06/15/22 06/15/22 Vitamin D3 25 mcg PO DAILY 06/15/22 06/15/22 Zaditor 1 drp EACH EYE BID 06/15/22 06/15/22 acetaminophen 1,000 mg PO BID 06/15/22 06/15/22 apixaban 5 mg tablet (Eliquis) 5 mg PO BID 06/15/22 06/15/22 ascorbic acid (vitamin C) 500 mg PO DAILY 06/15/22 06/15/22 azelastine 137 mcg (0.1 %) nasal 1 - 2 spray intranasal DIRECTED 06/15/22 06/15/22 spray aerosol cetirizine 10 mg PO DAILY 06/15/22 06/15/22 coenzyme Q10 10 mg PO DAILY 06/15/22 06/15/22 denosumab 60 mg subcut DIRECTED 06/15/22 06/15/22 ferrous sulfate 325 mg PO BID 06/15/22 06/15/22 finasteride 5 mg tablet 5 mg PO DIRECTED 06/15/22 06/15/22 latanoprost 0.005 % eye drops 1 drp EACH EYE HS 06/15/22 06/15/22 metoprolol succinate 25 mg 25 mg PO DAILY 06/15/22 06/15/22 tablet,extended release 24 hr Allergies Allergy/AdvReac Type Severity Reaction Status Date / Time clarithromycin [From Biaxin] Allergy Gastrointestinal Verified 06/15/22 14:15 Upset atorvastatin AdvReac Muscle Pain Verified 06/15/22 20:27 rofecoxib AdvReac Nausea and Verified 06/15/22 20:28 Vomiting [id number] Reductase AdvReac Muscle Pain Verified 06/15/22 20:28 Inhibitor Review of Systems Review of Systems: All systems reviewed & are unremarkable except as noted in HPI and below PMFSH Past Medical History Medical History Atrial fibrillation Basal cell carcinoma Glaucoma Hypertension Iron deficiency anemia Surgical History Surgical History H/O cataract extraction H/O hemorrhoidectomy H/O shoulder replacement H/O thyroidectomy History of removal of skin mole History of tonsillectomy Family History Family History Mother Cerebrovascular accident Father Testicle cancer Sibling Malignant neoplasm of prostate Social History Social History Social History: 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 He has 1 child. Code status full code Smoking packs per day: 3 Smoking cigarettes per day: 60.0 Years smoked: 31 Smoking pack-years: 93.00 Smoking status: Former smoker Tobacco type: cigarettes Alcohol intake: current Substance use: never Lack of Transportation: No Lack of Food: Never True Current Housing: I Have Housing Concerned About Future Housing: No Difficulty Paying Gas/Electric Bills: No Difficulty Paying for Meds: No Currently Unemployed: No Education: High School Diploma/GED Difficulty w/ Childcare or Family Care: No Spiritual care concerns: No (Hindu) Exam Narrative: APPEARANCE: Well appearing, no pain, no distress, well-nourished. HEAD: normocephalic, atraumatic. EYES: PERRLA/EOMI, conjunctivae clear. NOSE: Normal no drainage EARS:T
[2023-07-18 16:28] VITALS: BP 138/78; PULSE 77; RESP 20; O2SAT 100
[2023-07-18 16:30] LABS: Influenza A QL RT-PCR Negative (Negative); Influenza B QL RT-PCR Negative (Negative); RSV RNA, RT-PCR Negative (Negative); SARS-CoV-2 RNA PCR Negative (Negative)
[2023-07-18 17:12] LABS: Appearance Urine Cloudy (Clear); Bacteria Urine None Seen /hpf; Bilirubin Urine Negative (Negative); Blood Urine 1+ (Negative); Color Urine Yellow (Yellow); Glucose Urine UA Negative (Negative); Ketones Urine Trace mg/dL (Negative); Leukocyte Esterase Ur 2+ LEU/UL (Negative); Nitrate Urine Negative (Negative); Non Pathogenic Casts 0-2; Protein Urine 3+ mg/dL (Negative); Specific Grav Ur 1.022 (1.001-1.035); Squamous Epithelial Cell Urine None Seen /hpf (Few); WBC Urine >100 /hpf (0-3); pH Urine 5.5 (5.0-9.0)
[2023-07-18 17:15] LABS: Add Urine Microscopic? YES
[2023-07-18 17:51] VITALS: BP 124/82; PULSE 75; RESP 20; O2SAT 97
[2023-07-18 18:45] VITALS: BP 141/90; PULSE 87; RESP 18; O2SAT 98
[2023-07-18 19:30] VITALS: BP 157/87; PULSE 76; RESP 18; O2SAT 98
[2023-07-18 20:15] VITALS: BP 122/69; PULSE 66; RESP 24; TEMP 36.8; O2SAT 94
[2023-07-18 20:58] VITALS: BMI 21.4
--- NOTE | 2023-07-18 21:02 | ADMGEN ---
This patient, Jamey Cuadra, was admitted to 3 [facility] Surg Room 322-01. Patient/family oriented to hospital policies and general routines including ID bracelet, bed and alarms, visiting hours, pain management, procedures, bathroom and other care routines, personal items, smoking policy, room service/diet, and visiting hours. Information on how to activate the Rapid Response Team has been discussed. Patient/Family are encouraged to report perceived risks to care and to ask questions if they do not understand what they are told or what they should do.
--- NOTE | 2023-07-18 23:54 | PM.IMHP ---
H&P: HPI History of Present Illness Date/Time: 07/18/23 22:45 Chief Complaint: Weakness and falls. Narrative: This is an 88-year-old male with history of stroke, heart failure with reduced ejection fraction, paroxysmal atrial fibrillation, and hypertension who presented to the emergency department via private vehicle accompanied by family members for evaluation of weakness and falls. The patient is quite confused and is unable to provide much in the way of history. Family members are not available at this hour and thus a majority the following is obtained via a review of his EMR. He lives with his son who reports that the patient had COVID in winter of 2022 and seems to have gone downhill since that time. He is becoming progressively more weak and he has had several falls in the last few days, 1 in which he did strike his head but there was no loss of consciousness. He has been refusing to take his medicines for couple of days as well. At the time of my evaluation the patient is aware that he is in the hospital but cannot provide me with any information as to why he was brought here or kept in the hospital overnight. He is unable to tell me how he has been falling. He denies headache, fever, chest pain, shortness of breath, abdominal pain, nausea, vomiting, diarrhea, dysuria, and joint pain. In the ED: He was afebrile on arrival with stable vital signs. Labs were significant for WBC count of 7.8, hemoglobin 14.1, MCV 107.5, platelet 196, BUN 33, creatinine 0.90, total bilirubin 1.5. Urine was positive for 3+ protein, trace ketones, 1+ blood, 2+ leukocyte esterase, 3 to 5 RBC, greater than 100 WBC. He tested negative for influenza, RSV, and COVID. No acute findings were noted on brain CT. Chest x-ray showed mild pulmonary edema with small effusions, cardiomegaly, airspace opacities the left lung base consistent with atelectasis versus pneumonia. He was given a dose of ceftriaxone is being admitted in this setting for further treatment and evaluation. Review of Systems Review of Systems: Unable to be obtained accurately given clinical condition. FORMERLY [facility] Past Medical History Medical History (Updated 07/19/23 @ 00:04 by Carito Cherry PA-C) Atrial fibrillation Basal cell carcinoma Chronic anticoagulation Glaucoma 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 Hypertension Iron deficiency anemia Surgical History Surgical History H/O cataract extraction H/O hemorrhoidectomy H/O shoulder replacement H/O thyroidectomy History of removal of skin mole History of tonsillectomy Family History Family History Mother Cerebrovascular accident Father Testicle cancer Sibling Malignant neoplasm of prostate Social History Social History (Updated 07/18/23 @ 23:59 by Carito Cherry PA-C) Social History: Code status: Do not resuscitate. Smoking packs per day: 3 Smoking cigarettes per day: 60.0 Years smoked: 31 Smoking pack-years: 93.00 Smoking status: Former smoker Tobacco type: cigarettes Second hand tobacco smoke exposure: No Alcohol intake: never Substance use: never Substance use type: does not use Do You Feel Safe in your Home?: Yes Lack of Transportation: No Lack of Food: Never True Current Housing: I Have Housing Concerned About Future Housing: No Difficulty Paying Gas/Electric Bills: No Difficulty Paying for Meds: No Currently Unemployed: No Education: Associate Degree Difficulty w/ Childcare or Family Care: No Additional living arrangements comments: Lives with son. 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 Spiritual care concerns: No Meds Home Medications and Allergies Home Medications Medication Instructions Rec
[2023-07-19] MEDS: FUROSEMIDE INJ 40 MG/4 ML VIAL 20 MG IV PUSH (02:46)
[2023-07-19 05:30] VITALS: BP 131/65; PULSE 62; RESP 18; TEMP 36.7; O2SAT 95
[2023-07-19 05:45] LABS: Anion Gap 10 mmol/L (4-12); Blood Urea Nitrogen 30 mg/dL (9-20); Calcium 8.2 mg/dL (8.4-10.2); Carbon Dioxide 23 mmol/L (22-30); Chloride 112 mmol/L (98-107); Estimated CRCL calculation 46 ml/min; Estimated Glomerular Filt Rate > 60; Glucose 102 mg/dL (65-110); Magnesium 2.1 mg/dL (1.6-2.3); Potassium 3.7 mmol/L (3.4-5.0); Sodium 145 mmol/L (137-145)
[2023-07-19 06:47] LABS: Folic Acid 11.6 ng/mL (2.76->20)
[2023-07-19 08:00] VITALS: BP 134/83; PULSE 74; RESP 18; TEMP 36.3; O2SAT 99
[2023-07-19 14:00] VITALS: BP 123/85; PULSE 77; RESP 18; TEMP 36.3; O2SAT 99
--- NOTE | 2023-07-19 14:04 | PM.IMPN ---
Progress Note: A&P Assessment and Plan (1) Heart failure with reduced ejection fraction: Code(s): I50.20 - Unspecified systolic (congestive) heart failure Status: Acute (2) Frequent falls: Code(s): R29.6 - Repeated falls Status: Acute (3) UTI (urinary tract infection): Code(s): N39.0 - Urinary tract infection, site not specified Status: Acute (4) General weakness: Code(s): R53.1 - Weakness Status: Acute (5) Abnormal urinalysis: Code(s): R82.90 - Unspecified abnormal findings in urine Status: Acute (6) Elevated MCV: Code(s): R71.8 - Other abnormality of red blood cells Status: Acute (7) Atrial fibrillation: Code(s): I48.91 - Unspecified atrial fibrillation Status: Acute (8) Chronic anticoagulation: Code(s): Z79.01 - [facility] (current) use of anticoagulants Status: Acute Plan The patient presented to the emergency department for evaluation of frequent falls and increasing weakness as detailed in HPI. PT/OT has been consulted. Check orthostatic vital signs. Anticoagulation will be held. Urine is abnormal and he has been started on ceftriaxone, pending urine culture. . His home medications will be reviewed and resumed as appropriate. We will have to get in touch with his family members tomorrow to see if confusion is new or an old finding for the patient. Pt is very confused wanting to go home Possibility of early dementia. Subjective Date/time seen: 07/19/23 14:04 Interval history: 88-year-old male with history of stroke, heart failure with reduced ejection fraction, paroxysmal atrial fibrillation, and hypertension who presented to the emergency department via private vehicle accompanied by family members for evaluation of weakness and falls. The patient is quite confused and is unable to provide much in the way of history. Family members are not available at this hour and thus a majority the following is obtained via a review of his EMR. He lives with his son who reports that the patient had COVID in winter of 2022 and seems to have gone downhill since that time. He is becoming progressively more weak and he has had several falls in the last few days, 1 in which he did strike his head but there was no loss of consciousness. He has been refusing to take his medicines for couple of days as well. At the time of my evaluation the patient is aware that he is in the hospital but cannot provide me with any information as to why he was brought here or kept in the hospital overnight. Pt will confusion ? likely early dementia and falls and UTI Review of Systems Review of Systems: Pt will confused statements, pt wants to go home Exam Narrative: General: Thin, frail elderly gentleman in the semi-Randhawa position in bed. Weight: 63.9 kg. BMI: 24.1. HEENT: PERRL, EOMI. Sclera anicteric. Tacky mucous membranes. Neck: Supple. No obvious bruits though he had difficulties holding his breath. No midline vertebral tenderness. Respiratory: Respirations are nonlabored lung sounds are clear to auscultation. Cardiovascular: Regular rate and rhythm with S1-S2. Soft murmur at the left lower sternal border. Gastrointestinal: Abdomen is soft, scaphoid nontender with positive bowel. Skin: Warm and dry. Bruising noted throughout the back and left lower leg into the left foot and toes. There is a skin tear on the left lateral mid curry. Extremities: No cyanosis or clubbing. Lower extremities are edematous. Musculoskeletal: No pain with active and passive range of motion of the hips, knees, and ankles. Neurological: Alert to name and age. He is aware that he is in the hospital but cannot provide me and what contacts. He did not answer any other orientation questions. Cranial nerves 2-12 are grossly intact. Speech is clear. No facial asymmetry. No obvious pronator drift. Hand hydrodynamicist and foot pushes are equal bilaterally. He did not participate in
[2023-07-19 18:53] VITALS: BP 118/83; BP 121/61; O2SAT 100; O2SAT 74
--- NOTE | 2023-07-19 21:18 | PC.NURSE ---
Pt refusing to take HS medications, very difficult to redirect, did not want to return to his bed after using the bathroom. Attempted to call family member to help with redirecting left a message for family to call back. Pt currently sitting in chair at bedside with alarm active and call light in reach.
[2023-07-19 22:00] VITALS: BP 134/82; PULSE 76; RESP 16; TEMP 36.7; O2SAT 98
[2023-07-20] VITALS (10 sets, daily range): BP systolic 120–154; BP diastolic 68–97; PULSE 60–102; RESP 18; TEMP 36.2–36.6; O2SAT 93–100
[2023-07-20 06:28] LABS: Hematocrit 46.8 % (42.0-52.0); Hemoglobin 14.5 g/dL (14.0-18.0); Mean Corpuscular Hemoglobin 34.4 pg (26-34); Mean Corpuscular Volume 111.2 fl (80-100); Mean Platelet Volume 11.7 fl (7.4-10.4); Platelet Count Result 214 k/mm3 (150-375); Red Blood Count 4.21 M/mm3 (4.6-6.20); Red Cell Distribution Width 14.6 % (11.5-14.5); White Blood Count 7.2 K/mm3 (4.5-10.0)
[2023-07-20 06:52] LABS: Anion Gap 8 mmol/L (4-12); Blood Urea Nitrogen 26 mg/dL (9-20); Calcium 7.7 mg/dL (8.4-10.2); Carbon Dioxide 25 mmol/L (22-30); Chloride 107 mmol/L (98-107); Estimated CRCL calculation 45 ml/min; Estimated Glomerular Filt Rate > 60; Glucose 112 mg/dL (65-110); Potassium 3.6 mmol/L (3.4-5.0); Sodium 140 mmol/L (137-145)
[2023-07-20] MEDS: METOPROLOL SUCCINATE EXT REL 25 MG TABCR PO (08:49)
[2023-07-20] MEDS: SACUBITRIL/VALSARTAN 24-26 MG TABLET 1 TAB PO ×2 (08:49→22:14)
[2023-07-20] MEDS: TAMSULOSIN HCL 0.4 MG CAPSULE PO (08:49)
[2023-07-20] MEDS: APIXABAN 5 MG TABLET PO ×2 (08:50→22:14)
[2023-07-20] MEDS: ACETAMINOPHEN 500 MG TABLET 1000 MG PO ×2 (08:50→17:21)
[2023-07-20] MEDS: FERROUS SULFATE 325 MG TABLET DR PO ×2 (08:50→17:21)
[2023-07-20] MEDS: FINASTERIDE 5 MG TABLET PO (08:55)
--- NOTE | 2023-07-20 10:51 | PM.IMPN ---
Progress Note: A&P Assessment and Plan (1) Heart failure with reduced ejection fraction: Code(s): I50.20 - Unspecified systolic (congestive) heart failure Status: Acute (2) Frequent falls: Code(s): R29.6 - Repeated falls Status: Acute (3) UTI (urinary tract infection): Code(s): N39.0 - Urinary tract infection, site not specified Status: Acute (4) General weakness: Code(s): R53.1 - Weakness Status: Acute (5) Abnormal urinalysis: Code(s): R82.90 - Unspecified abnormal findings in urine Status: Acute (6) Elevated MCV: Code(s): R71.8 - Other abnormality of red blood cells Status: Acute (7) Atrial fibrillation: Code(s): I48.91 - Unspecified atrial fibrillation Status: Acute (8) Chronic anticoagulation: Code(s): Z79.01 - [facility] home (current) use of anticoagulants Status: Acute Plan The patient presented to the emergency department for evaluation of frequent falls and increasing weakness as detailed in HPI. PT/OT has been consulted. Check orthostatic vital signs. Anticoagulation will be held. Urine is abnormal and he has been started on ceftriaxone, pending urine culture. . His home medications will be reviewed and resumed as appropriate. We will have to get in touch with his family members tomorrow to see if confusion is new or an old finding for the patient. Pt is very confused wanting to go home Possibility of early dementia. CXR 1. Mild pulmonary edema. 2. Small pleural effusions. 3. Airspace opacities at left lung base, consistent with atelectasis versus pneumonia. 4. Cardiomegaly. CT head is negative Pt to have SLUMS assessment with ST Pt will benefit from placement UC is negative SCD for DVT prop Subjective Date/time seen: 07/20/23 10:51 Interval history: 88-year-old male with history of stroke, heart failure with reduced ejection fraction, paroxysmal atrial fibrillation, and hypertension who presented to the emergency department via private vehicle accompanied by family members for evaluation of weakness and falls. The patient is quite confused and is unable to provide much in the way of history. Family members are not available at this hour and thus a majority the following is obtained via a review of his EMR. He lives with his son who reports that the patient had COVID in winter of 2022 and seems to have gone downhill since that time. He is becoming progressively more weak and he has had several falls in the last few days, 1 in which he did strike his head but there was no loss of consciousness. He has been refusing to take his medicines for couple of days as well. At the time of my evaluation the patient is aware that he is in the hospital but cannot provide me with any information as to why he was brought here or kept in the hospital overnight. Pt will confusion ? likely early dementia and falls and UTI long discussion with pt we will do SLUMs assessment in hospital ST consulted Pt will likely need placement for MCI pt not taking his meds at home forgetting things at home safety risk for himself as per his son Review of Systems Review of Systems: short term memory forgetting confused Exam Narrative: General: Thin, frail elderly gentleman confused statements Respiratory: Respirations are nonlabored lung sounds are clear to auscultation. Cardiovascular: Regular rate and rhythm with S1-S2. Soft murmur at the left lower sternal border. Gastrointestinal: Abdomen is soft, scaphoid nontender with positive bowel. Extremities: No cyanosis or clubbing. Lower extremities are edematous. Musculoskeletal: No pain with active and passive range of motion of the hips, knees, and ankles. Neurological: Alert to name and age. confused statements, where am i? etc Cranial nerves 2-12 are grossly intact. Speech is clear. No facial asymmetry. Psychiatric: Confused, but pleasant Objective Data Vital Signs Vital
[2023-07-20] MEDS: LATANOPROST 0.005% OP SOLN 2.5 ML BTL 1 DROP EACH EYE (22:14)
[2023-07-21 06:00] VITALS: BP 124/81; PULSE 60; RESP 18; TEMP 35.8; O2SAT 93
[2023-07-21 08:00] VITALS: BP 126/58; PULSE 98; RESP 18; TEMP 36.3; O2SAT 97
[2023-07-21] MEDS: METOPROLOL SUCCINATE EXT REL 25 MG TABCR PO (09:53)
[2023-07-21] MEDS: ACETAMINOPHEN 500 MG TABLET 1000 MG PO ×2 (09:53→18:17)
[2023-07-21] MEDS: FERROUS SULFATE 325 MG TABLET DR PO ×2 (09:53→18:17)
[2023-07-21] MEDS: SACUBITRIL/VALSARTAN 24-26 MG TABLET 1 TAB PO (09:54)
[2023-07-21] MEDS: APIXABAN 5 MG TABLET PO (09:54)
[2023-07-21] MEDS: TAMSULOSIN HCL 0.4 MG CAPSULE PO (09:54)
[2023-07-21] MEDS: FINASTERIDE 5 MG TABLET PO (09:57)
[2023-07-21 13:46] VITALS: BP 116/68; PULSE 71; RESP 18; TEMP 36.3; O2SAT 97
--- NOTE | 2023-07-21 13:54 | PM.IMPN ---
Progress Note: A&P Assessment and Plan (1) Heart failure with reduced ejection fraction: Code(s): I50.20 - Unspecified systolic (congestive) heart failure Status: Acute (2) Frequent falls: Code(s): R29.6 - Repeated falls Status: Acute (3) UTI (urinary tract infection): Code(s): N39.0 - Urinary tract infection, site not specified Status: Acute (4) General weakness: Code(s): R53.1 - Weakness Status: Acute (5) Abnormal urinalysis: Code(s): R82.90 - Unspecified abnormal findings in urine Status: Acute (6) Elevated MCV: Code(s): R71.8 - Other abnormality of red blood cells Status: Acute (7) Atrial fibrillation: Code(s): I48.91 - Unspecified atrial fibrillation Status: Acute (8) Chronic anticoagulation: Code(s): Z79.01 - [facility] use of anticoagulants Status: Acute Plan 88-year-old male with history of stroke, heart failure with reduced ejection fraction, paroxysmal atrial fibrillation, and hypertension who presented to the emergency department via private vehicle accompanied by family members for evaluation of weakness and falls. The patient lives with his son who reports that the patient had COVID in winter of 2022 and seems to have gone downhill since that time. He is becoming progressively more weak and he has had several falls in the last few days, 1 in which he did strike his head but there was no loss of consciousness. He has been refusing to take his medicines for couple of days as well. He was afebrile stable signs on ED evaluation. Labs were significant for WBC count of 7.8 hemoglobin of 14.1 platelet of 196 BUN 33 creatinine 0.9 total bilirubin is 1.5. Urine was positive for 3+ protein trace ketones 1+ blood 2+ leukocyte esterase 3-5 RBC greater than 100 WBC. He tested negative for influenza RSV and COVID. Head CT was negative for any acute abnormality. Chest x-ray showed mild pulmonary edema with small effusions cardiomegaly airspace opacities left lung base consistent with atelectasis versus pneumonia. He received ceftriaxone and was admitted for further treatment. Leg ulcer with black necrotic tissue. Possibly need some debridement in the area. Continue IV ceftriaxone. Will add vancomycin IV. Wound Care was consulted. Recommended general surgery consultation for debridement. Subjective Date/time seen: 07/21/23 13:54 Interval history: 88-year-old male with history of stroke, heart failure with reduced ejection fraction, paroxysmal atrial fibrillation, and hypertension who presented to the emergency department via private vehicle accompanied by family members for evaluation of weakness and falls. The patient lives with his son who reports that the patient had COVID in winter of 2022 and seems to have gone downhill since that time. He is becoming progressively more weak and he has had several falls in the last few days, 1 in which he did strike his head but there was no loss of consciousness. He has been refusing to take his medicines for couple of days as well. He was afebrile stable signs on ED evaluation. Labs were significant for WBC count of 7.8 hemoglobin of 14.1 platelet of 196 BUN 33 creatinine 0.9 total bilirubin is 1.5. Urine was positive for 3+ protein trace ketones 1+ blood 2+ leukocyte esterase 3-5 RBC greater than 100 WBC. He tested negative for influenza RSV and COVID. Head CT was negative for any acute abnormality. Chest x-ray showed mild pulmonary edema with small effusions cardiomegaly airspace opacities left lung base consistent with atelectasis versus pneumonia. He received ceftriaxone and was admitted for further treatment. Leg ulcer with black necrotic tissue. Possibly need some debridement in the area. Continue IV ceftriaxone Review of Systems Review of Systems: All systems reviewed & are unremarkable except as noted in HPI and below Exam Narrative: General: Thin, frail
[2023-07-21] MEDS: VANCOMYCIN 1,750 MG/NS 500 ML 1,750 MG/500 ML BAG 250 MG IVPB (17:19)
[2023-07-21 17:29] VITALS: BP 110/72; PULSE 72; RESP 18; TEMP 36.3; O2SAT 97
[2023-07-21 17:30] VITALS: BP 134/82; PULSE 81; RESP 18; TEMP 36.3; O2SAT 97
[2023-07-21] MEDS: FLUTICASONE PROPIONATE 0.05% NA SPR 16 GM BTL (*BKC) 1 SPRAY NASAL (18:17)
[2023-07-21 20:01] VITALS: BP 150/94; PULSE 50; RESP 18; TEMP 36.7; O2SAT 94
[2023-07-22 06:02] VITALS: BP 137/92; PULSE 90; TEMP 36.6; O2SAT 97
[2023-07-22 07:34] LABS: Basophils Absolute Auto 0.1 K/mm3 (0.0-0.1); Eosinophils Absolute Auto 0.1 K/mm3 (0-0.3); Eosinophils Percent Auto 1.4 % (0-4.4); Hematocrit 44.5 % (42.0-52.0); Hemoglobin 14.5 g/dL (14.0-18.0); Immature Granulocyte Absolute 0.02 K/mm3 (0.00-0.031); Immature Granulocyte Percent A 0.4 % (0-0.5); Lymphocytes Percent Auto 11.8 % (18.3-44.2); Mean Corpuscular HGB Conc 32.6 g/dl (32-36); Mean Corpuscular Hemoglobin 34.7 pg (26-34); Mean Corpuscular Volume 106.5 fl (80-100); Mean Platelet Volume 11.5 fl (7.4-10.4); Monocytes Absolute Auto 0.5 K/mm3 (0.1-0.6); Neutrophils Absolute Auto 3.8 K/mm3 (1.3-6.7); Neutrophils Percent Auto 75.4 % (45.5-73.1); Platelet Count Result 195 k/mm3 (150-375); Red Blood Count 4.18 M/mm3 (4.6-6.20); Red Cell Distribution Width 14.5 % (11.5-14.5); White Blood Count 5.1 K/mm3 (4.5-10.0)
[2023-07-22 07:50] LABS: Alanine Aminotransferase 23 U/L (6-50); Albumin Level 3.3 g/dL (3.5-5.1); Alkaline Phosphatase 90 U/L (38-126); Anion Gap 6 mmol/L (4-12); Aspartate Amino Transferase 36 U/L (17-59); Blood Urea Nitrogen 28 mg/dL (9-20); Calcium 7.7 mg/dL (8.4-10.2); Carbon Dioxide 26 mmol/L (22-30); Chloride 106 mmol/L (98-107); Estimated CRCL calculation 61 ml/min; Estimated Glomerular Filt Rate > 60; Glucose 94 mg/dL (65-110); Magnesium 2.1 mg/dL (1.6-2.3); Potassium 3.6 mmol/L (3.4-5.0); Sodium 138 mmol/L (137-145)
[2023-07-22 08:46] VITALS: PULSE 80
[2023-07-22] MEDS: SACUBITRIL/VALSARTAN 24-26 MG TABLET 1 TAB PO (08:46)
[2023-07-22] MEDS: ACETAMINOPHEN 500 MG TABLET 1000 MG PO ×2 (08:46→17:44)
[2023-07-22] MEDS: FERROUS SULFATE 325 MG TABLET DR PO ×2 (08:46→17:44)
[2023-07-22] MEDS: TAMSULOSIN HCL 0.4 MG CAPSULE PO (08:46)
[2023-07-22] MEDS: METOPROLOL SUCCINATE EXT REL 25 MG TABCR PO (08:46)
[2023-07-22] MEDS: LORATADINE 10 MG TABLET PO (08:47)
[2023-07-22] MEDS: APIXABAN 5 MG TABLET PO (08:47)
[2023-07-22] MEDS: FLUTICASONE PROPIONATE 0.05% NA SPR 16 GM BTL (*BKC) 1 SPRAY NASAL ×2 (09:05→17:43)
[2023-07-22 10:27] LABS: Macrocytosis 1+ (NORMAL); Poikilocytosis 1+; Schistocytes None Seen
[2023-07-22 10:28] LABS: Platelet Estimate Adequate (Adequate)
--- NOTE | 2023-07-22 11:10 | WPDCN ---
Assessment and Plan Assessment and plan (1) Leg wound, left: Code(s): S81.802A - Unspecified open wound, left lower leg, initial encounter Status: Acute Assessment and Plan: Left lower extremity wound has a necrotic eschar with some mild cellulitis. There may be some more necrotic tissue underneath it as sharp. Plan on surgical debridement of the eschar and any nonviable tissue underneath. Then allowed the wound to heal by secondary intention. Continue present management. We will try to get him on schedule for early next week. He will not need to stop his Eliquis for the debridement. HPI Data of Consult Date/Time: 07/22/23 11:10 Requesting Physician: Belle Rock MD Primary Care Provider: PHYSICIAN NOT ON STAFF Consult Narrative Reason for consult: Left lower extremity Narrative: Jamey Cuadra is a 88 year old male admitted to the hospital for weakness. 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 A dry black eschar on it and draining a small amount fluid. The traumatic since he is on chronic anticoagulation and had developed a hematoma which has now drained and has chronic skin. I have been asked to evaluate the patient for possible debridement of the necrotic eschar. Review of Systems Review of Systems: The remainder of the review of systems to include constitutional, HEENT, cardiovascular, respiratory, GI, , integumentary, musculoskeletal, endocrine, immunologic, hematologic, psychiatric, and neurologic are all negative except for which is mentioned above in the HPI. [facility] Past Medical History Medical History Atrial fibrillation Basal cell carcinoma Chronic anticoagulation Glaucoma 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 Hypertension Iron deficiency anemia Surgical History Surgical History H/O cataract extraction H/O hemorrhoidectomy H/O shoulder replacement H/O thyroidectomy History of removal of skin mole History of tonsillectomy Family History Family History Mother Cerebrovascular accident Father Testicle cancer Sibling Malignant neoplasm of prostate Social History Social History Social History: Code status: Do not resuscitate. Smoking packs per day: 3 Smoking cigarettes per day: 60.0 Years smoked: 31 Smoking pack-years: 93.00 Smoking status: Former smoker Tobacco type: cigarettes Second hand tobacco smoke exposure: No Alcohol intake: never Substance use: never Substance use type: does not use Do You Feel Safe in your Home?: Yes Lack of Transportation: No Lack of Food: Never True Current Housing: I Have Housing Concerned About Future Housing: No Difficulty Paying Gas/Electric Bills: No Difficulty Paying for Meds: No Currently Unemployed: No Education: Associate Degree Difficulty w/ Childcare or Family Care: No Additional living arrangements comments: Lives with son. 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 Spiritual care concerns: No Meds Home Medications and Allergies Home Medications Medication Instructions Recorded Confirmed Type Allergy (chlorpheniramine) 4 mg PO HS 06/15/22 07/19/23 History Zaditor 1 drp EACH EYE BID 06/15/22 07/19/23 History acetaminophen 1,000 mg PO BID 06/15/22 07/19/23 History apixaban 5 mg tablet (Eliquis) 5 mg PO BID 06/15/22 07/19/23 History azelastine 137 mcg (0.1 %) nasal 1 - 2 spray intranasal DIRECTED 06/15/22 07/19/23 History spray aerosol cetirizine 10 mg PO DAILY 06/15/22 07/19/23 History ferrous sulfate 325 mg PO BID 06/15/22
--- NOTE | 2023-07-22 12:17 | PM.IMPN ---
Progress Note: A&P Assessment and Plan (1) Heart failure with reduced ejection fraction: Code(s): I50.20 - Unspecified systolic (congestive) heart failure Status: Acute (2) Frequent falls: Code(s): R29.6 - Repeated falls Status: Acute (3) UTI (urinary tract infection): Code(s): N39.0 - Urinary tract infection, site not specified Status: Acute (4) General weakness: Code(s): R53.1 - Weakness Status: Acute (5) Abnormal urinalysis: Code(s): R82.90 - Unspecified abnormal findings in urine Status: Acute (6) Elevated MCV: Code(s): R71.8 - Other abnormality of red blood cells Status: Acute (7) Atrial fibrillation: Code(s): I48.91 - Unspecified atrial fibrillation Status: Acute (8) Chronic anticoagulation: Code(s): Z79.01 - [facility] (current) use of anticoagulants Status: Acute Plan 88-year-old male with history of stroke, heart failure with reduced ejection fraction, paroxysmal atrial fibrillation, and hypertension who presented to the emergency department via private vehicle accompanied by family members for evaluation of weakness and falls. The patient lives with his son who reports that the patient had COVID in winter of 2022 and seems to have gone downhill since that time. He is becoming progressively more weak and he has had several falls in the last few days, 1 in which he did strike his head but there was no loss of consciousness. He has been refusing to take his medicines for couple of days as well. He was afebrile stable signs on ED evaluation. Labs were significant for WBC count of 7.8 hemoglobin of 14.1 platelet of 196 BUN 33 creatinine 0.9 total bilirubin is 1.5. Urine was positive for 3+ protein trace ketones 1+ blood 2+ leukocyte esterase 3-5 RBC greater than 100 WBC. He tested negative for influenza RSV and COVID. Head CT was negative for any acute abnormality. Chest x-ray showed mild pulmonary edema with small effusions cardiomegaly airspace opacities left lung base consistent with atelectasis versus pneumonia. He received ceftriaxone and was admitted for further treatment. Leg ulcer with black necrotic tissue. Possibly need some debridement in the area. Continue IV ceftriaxone. Will add vancomycin IV. Wound Care was consulted. Recommended general surgery consultation for debridement. General surgery consulted and plan for debridement next week Subjective Date/time seen: 07/22/23 12:17 Interval history: Feels better no new complaints. Awaiting General surgery evaluation. Review of Systems Review of Systems: All systems reviewed & are unremarkable except as noted in HPI and below Exam Narrative: General: Thin, frail elderly gentleman confused statements Respiratory: Respirations are nonlabored lung sounds are clear to auscultation. Cardiovascular: Regular rate and rhythm with S1-S2. Soft murmur at the left lower sternal border. Gastrointestinal: Abdomen is soft, scaphoid nontender with positive bowel. Extremities: No cyanosis or clubbing. Lower extremities are edematous. Musculoskeletal: No pain with active and passive range of motion of the hips, knees, and ankles. Neurological: Alert to name and age. confused statements, where am i? etc Cranial nerves 2-12 are grossly intact. Speech is clear. No facial asymmetry. Psychiatric: Confused, but pleasant Objective Data Vital Signs Vital Signs: Vital Signs - 24 hr 07/21/23 13:46 07/21/23 17:29 07/21/23 17:30 Temperature 97.3 F L 97.4 F L 97.4 F L Pulse Rate 71 72 81 Respiratory Rate 18 18 18 Blood Pressure 116/68 110/72 134/82 Pulse Oximetry 97 97 97 Oxygen Delivery 07/21/23 20:01 07/22/23 06:02 07/22/23 08:46 Temperature 98.1 F 97.9 F Pulse Rate 50 L 90 80 Respiratory Rate 18 Blood Pressure 150/94 H 137/92 H Pulse Oximetry 94 97 Oxygen Delivery 07/22/23 08:45 Temperature Pulse Rate Respiratory Rate Blo
[2023-07-22] MEDS: VANCOMYCIN 1,250 MG/NS 250 ML 1,250 MG/250 ML BAG 166.67 MG IVPB (13:09)
[2023-07-22 13:48] VITALS: BP 117/62; PULSE 56; RESP 16; TEMP 36.3; O2SAT 98
[2023-07-22 21:04] VITALS: PULSE 82; RESP 24; O2SAT 97
[2023-07-23 03:00] VITALS: BP 162/80; PULSE 87; RESP 22; TEMP 36.3; O2SAT 95
[2023-07-23 05:34] VITALS: BP 151/100; RESP 20; TEMP 36.5; O2SAT 95
[2023-07-23 06:40] LABS: Estimated CRCL calculation 55 ml/min; Estimated Glomerular Filt Rate > 60
[2023-07-23 06:49] LABS: Vancomycin Trough 13.6 ug/mL (10.0-20.0)
[2023-07-23 08:45] VITALS: PULSE 85
[2023-07-23] MEDS: APIXABAN 5 MG TABLET PO ×2 (08:45→20:17)
[2023-07-23] MEDS: FERROUS SULFATE 325 MG TABLET DR PO ×2 (08:45→17:59)
[2023-07-23] MEDS: METOPROLOL SUCCINATE EXT REL 25 MG TABCR PO (08:45)
[2023-07-23] MEDS: SACUBITRIL/VALSARTAN 24-26 MG TABLET 1 TAB PO ×2 (08:45→20:17)
[2023-07-23] MEDS: LORATADINE 10 MG TABLET PO (08:45)
[2023-07-23] MEDS: FLUTICASONE PROPIONATE 0.05% NA SPR 16 GM BTL (*BKC) 1 SPRAY NASAL ×2 (08:46→17:59)
[2023-07-23] MEDS: AZELASTINE HCL NASAL 0.1% 137 MCG/SPR 30 ML BTL 1 SPRAY NASAL ×2 (08:46→17:59)
[2023-07-23] MEDS: VANCOMYCIN 1,500 MG/NS 500 ML 1,500 MG/500 ML BAG 333.33 MG IVPB (08:48)
--- NOTE | 2023-07-23 09:39 | WPDPN ---
Progress Note: A&P Assessment and Plan (1) Leg wound, left: Code(s): S81.802A - Unspecified open wound, left lower leg, initial encounter Status: Acute Assessment and Plan: Left lower leg wound is stable. Will need operative debridement of the necrotic as showing underlying tissue tomorrow. We will try to add onto the surgical schedule for tomorrow to be done under IV sedation. NPO after midnight in case surgery can be done tomorrow. Subjective Date/time seen: 07/23/23 09:39 Interval history: Patient doing well without acute changes surgically. Exam Extrem: Other: Left lower extremity anterior tibial wound still with necrotic as shower and drainage of serous fluid. No spreading erythema. Objective Data Vital Signs Vital Signs: Vital Signs - 24 hr 07/22/23 13:48 07/22/23 21:04 07/22/23 19:55 Temperature 36.3 C L Pulse Rate 56 L 82 Respiratory Rate 16 24 H Blood Pressure 117/62 Pulse Oximetry 98 97 Oxygen Delivery Room Air 07/23/23 03:00 07/23/23 05:34 07/23/23 08:45 Temperature 36.3 C L 36.5 C Pulse Rate 87 85 Respiratory Rate 22 H 20 Blood Pressure 162/80 H 151/100 H Pulse Oximetry 95 95 Oxygen Delivery Intake/Output Intake/Output: Intake & Output 07/20/23 07/21/23 07/22/23 07/23/23 23:59 23:59 23:59 23:59 Intake Total 2308 1710 1680 Output Total 1 Balance 2308 1710 1679 Meds/Results Medications: Active Medications Generic Name Dose Route Start Last Admin Trade Name Freq PRN Reason Stop Dose Admin Acetaminophen 650 mg 07/19/23 00:08 Acetaminophen 325 Mg Tablet PO Q6H PRN Mild Pain (1-3) or Fever Acetaminophen 1,000 mg 07/20/23 09:00 07/23/23 08:47 Acetaminophen 500 Mg Tablet PO 08/19/23 08:59 Not Given BID OMID Apixaban 5 mg 07/20/23 09:00 07/23/23 08:45 Apixaban 5 Mg Tablet PO 5 mg Q12HR OMID Administration Azelastine HCl 1 spray 07/21/23 17:00 07/23/23 08:46 Azelastine Hcl Nasal 0.1% 137 Mcg/Spr 30 Ml Btl NASAL 1 spray BID OMID Administration Ferrous Sulfate 325 mg 07/20/23 09:00 07/23/23 08:45 Ferrous Sulfate [address] PO 08/19/23 08:59 325 mg BID OMID Administration Finasteride 5 mg 07/20/23 09:00 07/21/23 09:57 Finasteride 5 Mg Tablet PO 5 mg [id number] OMID Administration Fluticasone Propionate 1 spray 07/21/23 17:00 07/23/23 08:46 Fluticasone Propionate 0.05% Na Spr 16 Gm Btl (*Bkc) NASAL 1 spray BID [facility] Administration Ceftriaxone Sodium 1 gm in 50 mls @ 100 mls/hr 07/19/23 18:00 07/22/23 17:43 Rocephin 1 Gm/Ns 50 Ml IVPB 100 mls/hr Q24H [facility] Administration Vancomycin HCl 1,500 mg in 500 mls @ 333.333 mls/hr 07/23/23 08:00 07/23/23 08:48 Vancomycin 1,500 Mg/Ns 500 Ml IVPB 333.33 mls/hr Q18H [facility] Administration Latanoprost 1 drop 07/19/23 21:00 07/22/23 21:37 Latanoprost 0.005% Op Soln 2.5 Ml Btl EACH EYE Not Given HS OMID Loratadine 10 mg 07/22/23 09:00 07/23/23 08:45 Loratadine 10 Mg Tablet PO 10 mg QAM [facility] Administration Metoprolol Succinate 25 mg 07/20/23 09:00 07/23/23 08:45 Metoprolol Succinate Ext Rel 25 Mg Tabcr PO 25 mg DAILY [facility] Administration Miscellaneous Information 1 each 07/22/23 00:01 07/23/23 00:35 Nonformulary Drug (Zaditor 1 Drop) Can XX 08/21/23 00:00 Not Given CLARIFY [facility] Non-Formulary Medication 1 drop 07/20/23 09:00 Zaditor EACH EYE 08/19/23 08:59 BID OMID Sacubitril/Valsartan 1 tab 07/19/23 21:00 07/23/23 08:45 Sacubitril/Valsartan 24-26 Mg Tablet PO 1 tab Q12HR [facility] Administration Tamsulosin HCl 0.4 mg 07/20/23 09:00 07/23/23 08:45 Tamsulosin Hcl 0.4 Mg Capsule PO Not Given DAILY [facility] Radiology Results: ITS Impressions Chest X-Ray 07/18/23 14:26 IMPRESSION: 1. Mild pulmonary edema. 2. Small pleural effusions. 3. Airspace opacities at left lung base, consistent with atelectasis versus pneumonia. 4.
--- NOTE | 2023-07-23 13:11 | PM.IMPN ---
Progress Note: A&P Assessment and Plan (1) Heart failure with reduced ejection fraction: Code(s): I50.20 - Unspecified systolic (congestive) heart failure Status: Acute (2) Frequent falls: Code(s): R29.6 - Repeated falls Status: Acute (3) UTI (urinary tract infection): Code(s): N39.0 - Urinary tract infection, site not specified Status: Acute (4) General weakness: Code(s): R53.1 - Weakness Status: Acute (5) Abnormal urinalysis: Code(s): R82.90 - Unspecified abnormal findings in urine Status: Acute (6) Elevated MCV: Code(s): R71.8 - Other abnormality of red blood cells Status: Acute (7) Atrial fibrillation: Code(s): I48.91 - Unspecified atrial fibrillation Status: Acute (8) Chronic anticoagulation: Code(s): Z79.01 - halfway (current) use of anticoagulants Status: Acute Plan 88-year-old male with history of stroke, heart failure with reduced ejection fraction, paroxysmal atrial fibrillation, and hypertension who presented to the emergency department via private vehicle accompanied by family members for evaluation of weakness and falls. The patient lives with his son who reports that the patient had COVID in winter of 2022 and seems to have gone downhill since that time. He is becoming progressively more weak and he has had several falls in the last few days, 1 in which he did strike his head but there was no loss of consciousness. He has been refusing to take his medicines for couple of days as well. He was afebrile stable signs on ED evaluation. Labs were significant for WBC count of 7.8 hemoglobin of 14.1 platelet of 196 BUN 33 creatinine 0.9 total bilirubin is 1.5. Urine was positive for 3+ protein trace ketones 1+ blood 2+ leukocyte esterase 3-5 RBC greater than 100 WBC. He tested negative for influenza RSV and COVID. Head CT was negative for any acute abnormality. Chest x-ray showed mild pulmonary edema with small effusions cardiomegaly airspace opacities left lung base consistent with atelectasis versus pneumonia. He received ceftriaxone and was admitted for further treatment. Leg ulcer with black necrotic tissue. Possibly need some debridement in the area. Continue IV ceftriaxone. Will add vancomycin IV. Wound Care was consulted. Recommended general surgery consultation for debridement. General surgery consulted and plan for debridement next week Lower extremity edema bruise discoloration will check LORELEI. Give a dose of Lasix oral right. Echo 0 06/26 with EF 50-20%. Co on November 2022 with EF 50-55% moderate MR moderate concentric left ventricular hypertrophy reduced right ventricular systolic function severe LUE severe RA E go Atrial fibrillation metoprolol and Eliquis Congestive heart failure chronic diastolic systolic DVT prophylaxis Eliquis Subjective Date/time seen: 07/23/23 13:11 Interval history: No overnight events. Right leg is a bit swollen. Remains afebrile. Review of Systems Review of Systems: All systems reviewed & are unremarkable except as noted in HPI and below Exam Narrative: General: Thin, frail elderly gentleman confused statements Respiratory: Respirations are nonlabored lung sounds are clear to auscultation. Cardiovascular: Regular rate and rhythm with S1-S2. Soft murmur at the left lower sternal border. Gastrointestinal: Abdomen is soft, scaphoid nontender with positive bowel. Extremities: No cyanosis or clubbing. Lower extremities are edematous. Right more than left Musculoskeletal: No pain with active and passive range of motion of the hips, knees, and ankles. Neurological: Alert and oriented to time place and person Cranial nerves 2-12 are grossly intact. Speech is clear. No facial asymmetry. Psychiatric: Confused, but pleasant Objective Data Vital Signs Vital Signs: Vital Signs - 24 hr 07/22/23 13:48 07/22/23 21:04 07/22/23 19:55 Temperature 97.3 F
[2023-07-23 14:00] VITALS: BP 132/62; PULSE 96; RESP 18; TEMP 36.5; O2SAT 98
[2023-07-23] MEDS: FUROSEMIDE INJ 40 MG/4 ML VIAL 20 MG IV PUSH (18:03)
[2023-07-23] MEDS: ACETAMINOPHEN 325 MG TABLET 650 MG PO (20:17)
[2023-07-23] MEDS: LATANOPROST 0.005% OP SOLN 2.5 ML BTL 1 DROP EACH EYE (20:18)
[2023-07-23 21:23] VITALS: BP 135/101; PULSE 72; RESP 16; TEMP 36.3; O2SAT 98
[2023-07-24] VITALS (19 sets, daily range): BP systolic 110–146; BP diastolic 63–95; PULSE 54–88; RESP 16–25; TEMP 36.2–36.8; O2SAT 85–100
--- NOTE | 2023-07-24 | ECHO_ITS ---
Patient Info Name: Jamey Cuadra Age: 88 years : 1935 Gender: Male Ht: 68 in Wt: 152 lbs BSA: 1.82 m2 HR: 75 bpm BP: 134 / 91 mmHg Heart Rhythm: Atrial Fibrillation Technical Quality: Fair Exam Date: 07/24/2023 8:43 AM Exam Location: Echo Lab Patient Status: Inpatient Admit Date: 07/19/2023 Staff Ordering Physician: Bairon Smyth MD Escrow Manager: Yady Chang RDCS Attending Provider: Belle Rock MD Exam Type: CA echo doppler color flow Study Info Indications - chf Complete two-dimensional, color flow and Doppler transthoracic echocardiogram is performed. Summary 1. Complete two-dimensional, color flow and Doppler transthoracic echocardiogram is performed. 2. Left ventricular enlargement with severe global hypokinesia and low ejection fraction. 3. Severe biatrial dilation. 4. Moderate mitral regurgitation. 5. Mildly sclerotic but not stenotic aortic valve. 6. Concentric LVH. 7. Atrial fibrillation. Left Ventricle Left ventricular chamber dimension is moderately enlarged. Left ventricular systolic function is severely reduced, estimated at 20-25%. Right Ventricle Right ventricular chamber dimension is mildly enlarged. Right ventricular systolic function is reduced. Left Atria Left atrial chamber dimension is severely enlarged. Right Atria Right atrial chamber dimension is severely enlarged. Aortic Valve The aortic valve is trileaflet. There is mild aortic valve sclerosis. Pulmonic Valve The pulmonic valve is normal. Mitral Valve The mitral valve has normal leaflets. There is moderate mitral valve regurgitation. Tricuspid Valve The tricuspid valve leaflets are normal. Pericardium/Pleural There is small circumferential pericardial effusion. Aorta The aortic root size at the sinus of Valsalva is normal. Left Ventricular Outflow Tract Name Value Normal LVOT 2D LVOT Diameter 2.1 cm LVOT Doppler LVOT Peak Gradient 1 mmHg LVOT Mean Gradient 0 mmHg LVOT VTI 8 cm LVOT VTI/AV VTI Ratio 0.4 LVOT Stroke Volume 25 ml LVOT CO 1.7 l/min LVOT CI 0.9 l/min/m2 Pulmonic Valve Name Value Normal RVOT Doppler RVOT Peak Gradient 1 mmHg PV Doppler PV Peak Gradient 2 mmHg Mitral Valve Name Value Normal MV Doppler MV Decel [place] 798 cm/s2 MV PHT 37 ms MV Area (PHT)
[2023-07-24] MEDS: VANCOMYCIN 1,500 MG/NS 500 ML 1,500 MG/500 ML BAG 333 MG IVPB (02:56)
[2023-07-24] MEDS: SODIUM CHLORIDE 0.9% IV 250 ML 10 ML (02:56)
[2023-07-24 06:39] LABS: Basophils Absolute Auto 0.1 K/mm3 (0.0-0.1); Basophils Percent Auto 0.9 % (0.2-1.2); Eosinophils Absolute Auto 0.1 K/mm3 (0-0.3); Eosinophils Percent Auto 1.4 % (0-4.4); Hematocrit 43.9 % (42.0-52.0); Immature Granulocyte Absolute 0.02 K/mm3 (0.00-0.031); Immature Granulocyte Percent A 0.4 % (0-0.5); Lymphocytes Absolute Auto 0.62 K/mm3 (0.9-3.2); Mean Corpuscular HGB Conc 31.9 g/dl (32-36); Mean Corpuscular Hemoglobin 34.7 pg (26-34); Mean Corpuscular Volume 108.7 fl (80-100); Mean Platelet Volume 11.4 fl (7.4-10.4); Monocytes Absolute Auto 0.7 K/mm3 (0.1-0.6); Monocytes Percent Auto 11.7 % (2.6-8.5); Neutrophils Absolute Auto 4.2 K/mm3 (1.3-6.7); Neutrophils Percent Auto 74.6 % (45.5-73.1); Platelet Count Result 189 k/mm3 (150-375); Red Blood Count 4.04 M/mm3 (4.6-6.20); Red Cell Distribution Width 14.6 % (11.5-14.5); White Blood Count 5.6 K/mm3 (4.5-10.0)
[2023-07-24 06:50] LABS: Alanine Aminotransferase 27 U/L (6-50); Albumin Level 3.1 g/dL (3.5-5.1); Alkaline Phosphatase 100 U/L (38-126); Anion Gap 4 mmol/L (4-12); Aspartate Amino Transferase 40 U/L (17-59); Bilirubin,Total 0.8 mg/dL (0.2-1.3); Blood Urea Nitrogen 26 mg/dL (9-20); Calcium 7.5 mg/dL (8.4-10.2); Carbon Dioxide 24 mmol/L (22-30); Chloride 110 mmol/L (98-107); Estimated CRCL calculation 55 ml/min; Estimated Glomerular Filt Rate > 60; Glucose 93 mg/dL (65-110); Magnesium 2.1 mg/dL (1.6-2.3); Potassium 3.6 mmol/L (3.4-5.0); Sodium 138 mmol/L (137-145)
[2023-07-24 07:10] LABS: Anisocytosis 1+; Platelet Estimate Adequate (Adequate); Schistocytes None Seen
[2023-07-24] MEDS: FINASTERIDE 5 MG TABLET PO (07:44)
[2023-07-24] MEDS: FERROUS SULFATE 325 MG TABLET DR PO ×2 (07:44→17:05)
[2023-07-24] MEDS: ACETAMINOPHEN 500 MG TABLET 1000 MG PO ×2 (07:44→17:05)
[2023-07-24] MEDS: TAMSULOSIN HCL 0.4 MG CAPSULE PO (07:44)
[2023-07-24] MEDS: FLUTICASONE PROPIONATE 0.05% NA SPR 16 GM BTL (*BKC) 1 SPRAY NASAL (07:44)
[2023-07-24] MEDS: FUROSEMIDE 40 MG TABLET PO (07:44)
[2023-07-24] MEDS: SACUBITRIL/VALSARTAN 24-26 MG TABLET 1 TAB PO ×2 (07:44→20:37)
[2023-07-24] MEDS: METOPROLOL SUCCINATE EXT REL 25 MG TABCR PO (07:44)
[2023-07-24] MEDS: LORATADINE 10 MG TABLET PO (07:45)
[2023-07-24] MEDS: AZELASTINE HCL NASAL 0.1% 137 MCG/SPR 30 ML BTL 1 SPRAY NASAL (07:45)
--- NOTE | 2023-07-24 08:50 | PCOTNOTE ---
Attempted to see pt. for occupational therapy treatment. Pt. currently getting testing done in room with plan for I&D this afternoon. Following.
--- NOTE | 2023-07-24 11:17 | PC.NURSE ---
Pt. down to pre-op via bed.
--- NOTE | 2023-07-24 11:30 | PCOTNOTE ---
Attempted to see Patient at this time. Patient out of the room, Per RN, Patient went down for an IND procedure.
--- NOTE | 2023-07-24 11:48 | WPDHPUPDATE1 ---
History and Physical Update Update Date/Time: 07/24/23 11:48 History and Physical has been reviewed, including an updated exam of the patient. There are NO changes in the patient's condition. Risks, benefits, and alternatives have been discussed and questions answered. Patient agrees to proceed with procedure.
--- NOTE | 2023-07-24 11:57 | WPDANESEPPF ---
Anes - Initial Pre Proc Eval Procedure: Operation Date: 07/24/23 12:30 Proposed Procedures p Incision and Drainage Left Leg Wound - Davy Sandra MD Date/Time: 07/24/23 11:57 Surgeon: Belle Rock MD Pre Op Diagnosis: UTI,Frequent Falls Patient Data Age: 88 Gender: M Height: 1.73 m Weight: 68.6 kg Last Vital Signs Temp 97.3 F L 07/24/23 05: Pulse 76 07/24/23 09:40 Resp 18 07/24/23 05:27 BP 129/90 07/24/23 09:40 Pulse Ox 95 07/24/23 08:40 O2 Del Method Nasal Cannula 07/24/23 08:40 O2 Flow Rate 2 07/24/23 08:40 Allergies Allergy/AdvReac Type Severity Reaction Status Date / Time atorvastatin AdvReac Muscle Pain Verified 06/15/22 20:27 clarithromycin [From Biaxin] AdvReac Gastrointestinal Verified 07/23/23 13:16 Upset rofecoxib AdvReac Nausea and Verified 06/15/22 20:28 Vomiting [id number] Reductase AdvReac Muscle Pain Verified 06/15/22 20:28 Inhibitor Home Medications Medication Instructions Recorded Confirmed Type Allergy (chlorpheniramine) 4 mg PO HS 06/15/22 07/19/23 History Zaditor 1 drp EACH EYE BID 06/15/22 07/19/23 History acetaminophen 1,000 mg PO BID 06/15/22 07/19/23 History apixaban 5 mg tablet (Eliquis) 5 mg PO BID 06/15/22 07/19/23 History azelastine 137 mcg (0.1 %) nasal 1 - 2 spray intranasal DIRECTED 06/15/22 07/19/23 History spray aerosol cetirizine 10 mg PO DAILY 06/15/22 07/19/23 History ferrous sulfate 325 mg PO BID 06/15/22 07/19/23 History finasteride 5 mg tablet 5 mg PO DIRECTED 06/15/22 07/19/23 History latanoprost 0.005 % eye drops 1 drp EACH EYE HS 06/15/22 07/19/23 History metoprolol succinate 25 mg 25 mg PO DAILY 06/15/22 07/19/23 History tablet,extended release 24 hr tamsulosin 0.4 mg capsule 0.4 mg PO DAILY #30 caps 06/21/22 07/19/23 Rx sacubitril 24 mg-valsartan 26 mg 1 tablet PO BID 07/19/23 07/19/23 History tablet (Entresto) fluticasone propionate 50 1 spray intranasal BID 07/20/23 07/20/23 History mcg/actuation nasal spray,suspension Laboratory Tests 07/24/23 06:07 WBC 5.6 K/mm3 (4.5-10.0) RBC 4.04 L M/mm3 (4.6-6.20) Hgb 14.0 g/dL (14.0-18.0) Hct 43.9 % (42.0-52.0) MCV 108.7 H fl (80-100) MCH 34.7 H pg (26-34) MCHC 31.9 L g/dl (32-36) RDW 14.6 H % (11.5-14.5) Plt Count 189 k/mm3 (150-375) MPV 11.4 H fl (7.4-10.4) Immature Gran % (Auto) 0.4 % (0-0.5) Neut % (Auto) 74.6 H % (45.5-73.1) Lymph % (Auto) 11.0 L % (18.3-44.2) [place] % (Auto) 11.7 H % (2.6-8.5) Eos % (Auto) 1.4 % (0-4.4) Baso % (Auto) 0.9 % (0.2-1.2) Lymph # (Auto) 0.62 L K/mm3 (0.9-3.2) [place] # (Auto) 0.7 H K/mm3 (0.1-0.6) Eos # (Auto) 0.1 K/mm3 (0-0.3) Baso # (Auto) 0.1 K/mm3 (0.0-0.1) Abs Immat Gran (auto) 0.02 K/mm3 (0.00-0.031) Absolute Neuts (auto) 4.2 K/mm3 (1.3-6.7) Absolute Nucleated RBC 0.000 K/mm3 (0.0-0.012) Nucleated RBC % 0.0 % (0.0-0.2) Platelet Estimate Adequate (Adequate) Anisocytosis 1+ Schistocytes None seen Sodium 138 mmol/L (137-145) Potassium 3.6 mmol/L (3.4-5.0) Chloride 110 H mmol/L (98-107) Carbon Dioxide 24 mmol/L (22-30) Anion Gap 4 mmol/L (4-12) BUN 26 H mg/dL (9-20) Creatinine 0.80 mg/dL (0.7-1.3) Estim Creat Clear Calc 55 ml/min Estimated GFR > 60 (59 - ) Glucose 93 mg/dL (65-110) Calcium 7.5 L mg/dL (8.4-10.2) Magnesium 2.1 mg/dL (1.6-2.3) Total Bilirubin 0.8 mg/dL (0.2-1.3) AST 40 U/L (17-59) ALT 27 U/L (6-50) Alkaline Phosphatase 100 U/L (38-126) Total Protein 6.0 L g/dL (6.3-8.2) Albumin 3.1 L g/dL (3.5-5.1) Patient hx anesthesia problems: none Family hx anesthesia problems: none Results Review: All pre-operative results and documents have been reviewed as part of the pre-operative evaluation. [facility]
[2023-07-24] MEDS: LIDO 1%/EPINEPHRINE/PF 1:200,000 30 ML VIAL 5 ML XX (12:18)
[2023-07-24] MEDS: BUPivacaine HCL 0.5% 10 ML AMP 5 ML INFILTRATE (12:42)
--- NOTE | 2023-07-24 12:44 | PM.OP ---
Procedure Note - Brief Procedure Note - Brief Date of procedure: 07/24/23 LLE infected hematoma Post-op diagnosis: Same Surgeon: Davy Sandra MD Anesthesia: MAC Findings: 4 x 3 x 1 cm hematoma cavity LLE. Implants: none Estimated blood loss (mL): 10 Urine output (mL): 225 Drains: No Packing: Yes ( quarter-inch iodoform gauze) Pathology: None sent Complications: No immediate complications Condition: Stable Disposition: PACU
--- NOTE | 2023-07-24 13:44 | PC.NURSE ---
Pt. back from surgery at 1330.
--- NOTE | 2023-07-24 15:59 | PM.IMPN ---
Progress Note: A&P Assessment and Plan (1) Heart failure with reduced ejection fraction: Code(s): I50.20 - Unspecified systolic (congestive) heart failure Status: Acute (2) Frequent falls: Code(s): R29.6 - Repeated falls Status: Acute (3) UTI (urinary tract infection): Code(s): N39.0 - Urinary tract infection, site not specified Status: Acute (4) General weakness: Code(s): R53.1 - Weakness Status: Acute (5) Abnormal urinalysis: Code(s): R82.90 - Unspecified abnormal findings in urine Status: Acute (6) Elevated MCV: Code(s): R71.8 - Other abnormality of red blood cells Status: Acute (7) Atrial fibrillation: Code(s): I48.91 - Unspecified atrial fibrillation Status: Acute (8) Chronic anticoagulation: Code(s): Z79.01 - custodial (current) use of anticoagulants Status: Acute Plan 88-year-old male with history of stroke, heart failure with reduced ejection fraction, paroxysmal atrial fibrillation, and hypertension who presented to the emergency department via private vehicle accompanied by family members for evaluation of weakness and falls. The patient lives with his son who reports that the patient had COVID in winter of 2022 and seems to have gone downhill since that time. He is becoming progressively more weak and he has had several falls in the last few days, 1 in which he did strike his head but there was no loss of consciousness. He has been refusing to take his medicines for couple of days as well. He was afebrile stable signs on ED evaluation. Labs were significant for WBC count of 7.8 hemoglobin of 14.1 platelet of 196 BUN 33 creatinine 0.9 total bilirubin is 1.5. Urine was positive for 3+ protein trace ketones 1+ blood 2+ leukocyte esterase 3-5 RBC greater than 100 WBC. He tested negative for influenza RSV and COVID. Head CT was negative for any acute abnormality. Chest x-ray showed mild pulmonary edema with small effusions cardiomegaly airspace opacities left lung base consistent with atelectasis versus pneumonia. He received ceftriaxone and was admitted for further treatment. Leg ulcer with black necrotic tissue. Possibly need some debridement in the area. Continue IV ceftriaxone. Will add vancomycin IV. Wound Care was consulted. Recommended general surgery consultation for debridement. General surgery consulted and plan for debridement today Lower extremity edema bruise discoloration ultrasound duplex with no significant arterial occlusive disease. Echo 0 06/26 with EF 15-20%. Echo on November 2022 with EF 50-55% moderate MR moderate concentric left ventricular hypertrophy reduced right ventricular systolic function severe LUE severe RA E . Repeat echo with worsening EF down to 20-25% severe biatrial dilation moderate MR concentric LVH Atrial fibrillation metoprolol and Eliquis Congestive heart failure chronic diastolic systolic acute on chronic chest x-ray with congestive changes. EF as lower down to 20 25%. Continue diuresis follow-up with cardiology DVT prophylaxis Eliquis Subjective Date/time seen: 07/24/23 15:59 Interval history: confused overnight needed sitter. Was hypoxic needing oxygen supplementation. Denies any new complaints to me. No cough. Discussed with nursing staff. Discussed with General surgery. Going for debridement today. Review of Systems Review of Systems: All systems reviewed & are unremarkable except as noted in HPI and below Exam Narrative: General: Thin, frail elderly gentleman confused statements Respiratory: Respirations are nonlabored lung sounds are clear to auscultation. Cardiovascular: Regular rate and rhythm with S1-S2. Soft murmur at the left lower sternal border. Gastrointestinal: Abdomen is soft, scaphoid nontender with positive bowel. Extremities: No cyanosis or clubbing. Lower extremities are edematous. Right more than left This is improved Mus
--- NOTE | 2023-07-24 17:29 | P.OP_ITS ---
Procedure Note - Detailed Date of Procedure 07/24/23 Pre-op Diagnosis Left lower extremity hematoma Post-op Diagnosis Same Procedure Performed Incision and drainage of infected left lower extremity hematoma Surgeon Davy Sandra MD Anesthesia MAC Indications Patient is a 88-year-old gentleman who apparently had some trauma to his left lower extremity. He developed a hematoma in the anterior lateral mid tibia region which had redness and swelling around it and now a necrotic eschar on top of the area. He appears to infected hematoma. Presents now for incision drainage of the hematoma. Findings Patient had a hematoma with overlying necrotic skin and small amount of necrotic subcutaneous tissue. After removing the necrotic as shower and removing the hematoma the wound measured approximately [id number]. Description of Procedure After informed consent was obtained patient brought to the operating room was placed supine position and then IV sedation was administered by anesthesia. The procedure was performed in the patient's hospital bed. Time-out was then performed correctly identifying the patient as well as procedure to be performed. Site marking was verified. He was already on scheduled IV ant ibiotics. The left lower extremity was then prepped and draped usual sterile fashion. 1% lidocaine with epinephrine was injected around the wound for local anesthetic effect. I then used a scalpel to then sharply excised the necrotic eschar expose the underlying clotted blood I then removed the clot from the surrounding subcutaneous tissues and then irrigated out the with copious sterile saline solution. The resulting cavity measured [id number]. The underlying tissue and the surrounding skin after the excision of the necrotic eschar appeared healthy. Some bleeding from the base of the wound. Hemostasis was achieved utilized electrocautery. I packed the wound utilizing quarter-inch iodoform gauze. It was then covered with dry gauze and wrapped with Kerlix gauze. The patient tolerated the procedure well no complications. All sponges, needles, and instrument counts were correct at the end procedure. EBL was _10__cc. The patient was awakened and taken to recovery in stable and satisfactory condition. Implants None Estimated Blood Loss 10 Urine Output 225 Drains No Packing Yes (Quarter-inch iodoform gauze) Pathology None sent Complications No immediate complications Condition Stable Disposition PACU [facility] Billing Surgery - Charge Forward: Surgery Billing
[2023-07-24 19:40] LABS: Vancomycin Trough 18.3 ug/mL (10.0-20.0)
[2023-07-24] MEDS: ACETAMINOPHEN 325 MG TABLET 650 MG PO (20:37)
[2023-07-24] MEDS: APIXABAN 5 MG TABLET PO (20:37)
[2023-07-24] MEDS: LATANOPROST 0.005% OP SOLN 2.5 ML BTL 1 DROP EACH EYE (20:38)
[2023-07-24] MEDS: VANCOMYCIN 1,500 MG/NS 500 ML 1,500 MG/500 ML BAG 333.33 MG IVPB (20:38)
[2023-07-25 04:00] VITALS: BP 133/65; PULSE 63; RESP 20; TEMP 36.4; O2SAT 99
[2023-07-25 06:45] LABS: Basophils Absolute Auto 0.1 K/mm3 (0.0-0.1); Basophils Percent Auto 1.2 % (0.2-1.2); Eosinophils Absolute Auto 0.1 K/mm3 (0-0.3); Eosinophils Percent Auto 1.6 % (0-4.4); Hematocrit 43.3 % (42.0-52.0); Hemoglobin 13.7 g/dL (14.0-18.0); Immature Granulocyte Absolute 0.02 K/mm3 (0.00-0.031); Immature Granulocyte Percent A 0.4 % (0-0.5); Lymphocytes Absolute Auto 0.67 K/mm3 (0.9-3.2); Lymphocytes Percent Auto 13.2 % (18.3-44.2); Mean Corpuscular HGB Conc 31.6 g/dl (32-36); Mean Corpuscular Hemoglobin 34.5 pg (26-34); Mean Corpuscular Volume 109.1 fl (80-100); Mean Platelet Volume 11.8 fl (7.4-10.4); Monocytes Absolute Auto 0.6 K/mm3 (0.1-0.6); Monocytes Percent Auto 11.9 % (2.6-8.5); Neutrophils Absolute Auto 3.6 K/mm3 (1.3-6.7); Neutrophils Percent Auto 71.7 % (45.5-73.1); Platelet Count Result 194 k/mm3 (150-375); Red Blood Count 3.97 M/mm3 (4.6-6.20); Red Cell Distribution Width 14.5 % (11.5-14.5); White Blood Count 5.1 K/mm3 (4.5-10.0)
[2023-07-25 06:55] LABS: Alanine Aminotransferase 26 U/L (6-50); Albumin Level 2.9 g/dL (3.5-5.1); Alkaline Phosphatase 89 U/L (38-126); Anion Gap 6 mmol/L (4-12); Aspartate Amino Transferase 44 U/L (17-59); Bilirubin,Total 0.8 mg/dL (0.2-1.3); Blood Urea Nitrogen 24 mg/dL (9-20); Calcium 7.6 mg/dL (8.4-10.2); Carbon Dioxide 28 mmol/L (22-30); Chloride 107 mmol/L (98-107); Estimated CRCL calculation 55 ml/min; Estimated Glomerular Filt Rate > 60; Glucose 82 mg/dL (65-110); Potassium 3.3 mmol/L (3.4-5.0); Sodium 141 mmol/L (137-145)
[2023-07-25 07:45] VITALS: BP 121/93; PULSE 85; RESP 20; TEMP 36.2; O2SAT 98
[2023-07-25 08:00] VITALS: BP 140/81; PULSE 84; O2SAT 96
[2023-07-25] MEDS: TAMSULOSIN HCL 0.4 MG CAPSULE PO (08:00)
[2023-07-25] MEDS: SACUBITRIL/VALSARTAN 24-26 MG TABLET 1 TAB PO (08:00)
[2023-07-25] MEDS: LORATADINE 10 MG TABLET PO (08:01)
[2023-07-25] MEDS: FERROUS SULFATE 325 MG TABLET DR PO (08:01)
[2023-07-25] MEDS: APIXABAN 5 MG TABLET PO (08:01)
[2023-07-25] MEDS: FLUTICASONE PROPIONATE 0.05% NA SPR 16 GM BTL (*BKC) 1 SPRAY NASAL (08:06)
[2023-07-25] MEDS: AZELASTINE HCL NASAL 0.1% 137 MCG/SPR 30 ML BTL 1 SPRAY NASAL (08:06)
[2023-07-25 08:07] VITALS: PULSE 84
[2023-07-25] MEDS: METOPROLOL SUCCINATE EXT REL 25 MG TABCR PO (08:07)
[2023-07-25 08:14] LABS: Anisocytosis 1+; Ovalocytes 1+; Platelet Estimate Adequate (Adequate); Schistocytes None Seen
[2023-07-25] MEDS: FINASTERIDE 5 MG TABLET PO (09:29)
--- NOTE | 2023-07-25 10:34 | P.PNAN_ITS ---
Anes - Prog Note Post-Op Date/Time: 07/25/23 10:34 Cardiovascular status: normal Respiratory status: normal Airway patency: baseline Mental status: baseline Post-Op hydration status: normal Vital Signs: Last Vital Signs Temp 36.2 C L 07/25/23 07:45 Pulse 84 07/25/23 08:07 Resp 20 07/25/23 07:45 BP 140/81 07/25/23 08:00 Pulse Ox 96 07/25/23 08:00 O2 Del Method Room Air 07/25/23 08:00 O2 Flow Rate 2 07/24/23 11:58 Pain Score (VAS): 04/15 I/O: Intake & Output 07/24/23 07/25/23 07/25/23 23:59 07:59 15:59 Intake Total 838 0 240 Output Total 525 Balance 313 0 240 Laboratory Tests 07/25/23 06:16 07/25/23 06:16 07/24/23 07/25/23 19:06 06:16 WBC 5.1 RBC 3.97 L Hgb 13.7 L Hct 43.3 MCV 109.1 H MCH 34.5 H MCHC 31.6 L RDW 14.5 Plt Count 194 MPV 11.8 H Immature Gran % (Auto) 0.4 Neut % (Auto) 71.7 Lymph % (Auto) 13.2 L [place] % (Auto) 11.9 H Eos % (Auto) 1.6 Baso % (Auto) 1.2 Lymph # (Auto) 0.67 L [place] # (Auto) 0.6 Eos # (Auto) 0.1 Baso # (Auto) 0.1 Abs Immat Gran (auto) 0.02 Absolute Neuts (auto) 3.6 Absolute Nucleated RBC 0.000 Nucleated RBC % 0.0 Platelet Estimate Adequate Anisocytosis 1+ Ovalocytes 1+ Schistocytes None seen Sodium 141 Potassium 3.3 L Chloride 107 Carbon Dioxide 28 Anion Gap 6 BUN 24 H Creatinine 0.80 Estim Creat Clear Calc 55 Estimated GFR > 60 Glucose 82 Calcium 7.6 L Magnesium 2.0 Total Bilirubin 0.8 AST 44 ALT 26 Alkaline Phosphatase 89 Total Protein 6.0 L Albumin 2.9 L Vancomycin Trough 18.3 Post-procedural complaints: none Patient Feedback: Patient satisfied with anesthetic care.
[2023-07-25 12:00] VITALS: BP 131/60; PULSE 73; RESP 16; TEMP 36.4; O2SAT 97
--- NOTE | 2023-07-25 12:43 | PM.PNGS ---
Progress Note: A&P Assessment and Plan (1) Leg wound, left: Code(s): S81.802A - Unspecified open wound, left lower leg, initial encounter Status: Acute Assessment and Plan: Healing well s/p incision and drainage of infected left lower extremity hematoma. Continue daily iodoform packing dressing changes. Patient is surgically stable for discharge from our standpoint when medically stable. He can follow-up in 1-[address] Sandra in our office. The patient will discharge home with home health. His son is going to stay with the patient for a few weeks since he lives at home alone. I spoke with his son today who will do his dressing changes on the days that home health will not be available. Plan I have discussed the patient's case and plan of care with Dr. Sandra. Subjective Subjective Date/Time Seen: 07/25/23 12:43 Post Op day: 1 (Incision and drainage of infected left lower extremity hematoma) Patient reports: no new complaints and afebrile Interval history: Patient doing well today. He denies any pain in his left leg. No specific complaints at this time. Exam Const: General: comfortable and no acute distress Orientation/consciousness: patient oriented x3 Extrem: Other: Left lower leg dressing removed. There is a left lower extremity anterior tibial open wound with pink healthy tissue following clot evacuation, no active bleeding. No spreading erythema. Objective Data Vital Signs Vital Signs: Vital Signs - 24 hr 07/24/23 12:45 07/24/23 13:00 07/24/23 13:15 Temperature 98.2 F Pulse Rate 72 73 70 Respiratory Rate 25 H 19 18 Blood Pressure 130/71 130/71 146/80 H Pulse Oximetry 94 94 92 Oxygen Delivery Room Air Room Air Room Air 07/24/23 13:37 07/24/23 13:45 07/24/23 14:15 Temperature 97.7 F 97.8 F 97.6 F Pulse Rate 70 66 73 Respiratory Rate 20 20 20 Blood Pressure 110/71 120/85 137/95 H Pulse Oximetry 94 100 93 Oxygen Delivery 07/24/23 15:15 07/24/23 19:24 07/24/23 19:15 Temperature 97.7 F 97.7 F Pulse Rate 61 62 70 Respiratory Rate 22 H 18 Blood Pressure 111/63 117/63 115/77 Pulse Oximetry 96 98 Oxygen Delivery 07/24/23 19:20 07/24/23 19:25 07/24/23 23:34 Temperature 97.6 F Pulse Rate 82 81 75 Respiratory Rate 22 H Blood Pressure 111/64 126/92 H 119/83 Pulse Oximetry 95 Oxygen Delivery 07/25/23 04:00 07/25/23 07:45 07/25/23 08:07 Temperature 97.6 F 97.2 F L Pulse Rate 63 85 84 Respiratory Rate 20 20 Blood Pressure 133/65 121/93 H Pulse Oximetry 99 98 Oxygen Delivery 07/25/23 08:00 07/25/23 08:00 07/25/23 12:00 Temperature 97.5 F L Pulse Rate 84 73 Respiratory Rate 16 Blood Pressure 140/81 131/60 Pulse Oximetry 96 96 97 Oxygen Delivery Room Air Intake/Output Intake/Output: Intake & Output 07/22/23 07/23/23 07/24/23 07/25/23 23:59 23:59 23:59 23:59 Intake Total 1730 1820 838 240 Output Total 1 975 Balance 1729 1820 -137 240 Meds/Results Medications: Active Medications Generic Name Dose Route Start Last Admin Trade Name Freq PRN Reason Stop Dose Admin Acetaminophen 650 mg 07/19/23 00:08 07/24/23 20:37 Acetaminophen 325 Mg Tablet PO 650 mg Q6H PRN Administration Mild Pain (1-3) or Fever Acetaminophen 1,000 mg 07/20/23 09:00 07/25/23 09:26 Acetaminophen 500 Mg Tablet PO 08/19/23 08:59 Not Given BID OMID Apixaban 5 mg 07/20/23 09:00 07/25/23 08:01 Apixaban 5 Mg Tablet PO 5 mg Q12HR OMID Administration Azelastine HCl 1 spray 07/21/23 17:00 07/25/23 08:06 Azelastine Hcl Nasal 0.1% 137 Mcg/Spr 30 Ml Btl NASAL 1 spray BID OMID Administration Ferrous Sulfate 325 mg 07/20/23 09:00 07/25/23 08:01 Ferrous Sulfate [address] PO 08/19/23 08:59 325 mg BID OMID Administration Finasteride 5 mg 07/20/23 09:00 07/25/23 09:29 Finasteride 5 Mg Tablet PO 5 mg [id number]@0900 OMID Administration Fluticasone Propionate 1 spray 07/04
--- NOTE | 2023-07-25 13:59 | PM.DS ---
DS: Admitting Diagnosis Discharge Date 07/25/2023 Admitting Diagnosis Fall weakness DS: Discharge Diagnosis Discharge Diagnosis (1) Heart failure with reduced ejection fraction: Code(s): I50.20 - Unspecified systolic (congestive) heart failure Status: Acute (2) Frequent falls: Code(s): R29.6 - Repeated falls Status: Acute (3) UTI (urinary tract infection): Code(s): N39.0 - Urinary tract infection, site not specified Status: Acute (4) General weakness: Code(s): R53.1 - Weakness Status: Acute (5) Abnormal urinalysis: Code(s): R82.90 - Unspecified abnormal findings in urine Status: Acute (6) Elevated MCV: Code(s): R71.8 - Other abnormality of red blood cells Status: Acute (7) Atrial fibrillation: Code(s): I48.91 - Unspecified atrial fibrillation Status: Acute (8) Chronic anticoagulation: Code(s): Z79.01 - terminal superintendent (current) use of anticoagulants Status: Acute DS: Summary Hospital Course Hospital Course: 88-year-old male with history of stroke, heart failure with reduced ejection fraction, paroxysmal atrial fibrillation, and hypertension who presented to the emergency department via private vehicle accompanied by family members for evaluation of weakness and falls.? The patient lives with his son who reports that the patient had COVID in winter and seems to have gone downhill since that time. He is becoming progressively more weak and he has had several falls in the last few days, 1 in which he did strike his head but there was no loss of consciousness. He has been refusing to take his medicines for couple of days as well. He was afebrile stable signs on ED evaluation.? Labs were significant for WBC count of 7.8 hemoglobin of 14.1 platelet of 196 BUN 33 creatinine 0.9 total bilirubin is 1.5.? Urine was positive for 3+ protein trace ketones 1+ blood 2+ leukocyte esterase 3-5 RBC greater than 100 WBC.? He tested negative for influenza RSV and COVID.? Head CT was negative for any acute abnormality.? Chest x-ray showed mild pulmonary edema with small effusions cardiomegaly airspace opacities left lung base consistent with atelectasis versus pneumonia.? He received ceftriaxone for UTI and was admitted for further treatment.? So noted to have left Leg ulcer with black necrotic tissue.? Possibly need some debridement in the area.? Continue IV ceftriaxone.? Will add vancomycin IV.? Wound Care was consulted.? Recommended general surgery consultation for debridement.? General surgery consulted and?status post debridement on 07/24/2023. Noted to hematoma without much infection. He finished antibiotic course during the hospital antibiotics recommended. Will need wound care which will be done at home and home health will be arranged. Lower extremity edema bruise discoloration ? ultrasound duplex with no significant arterial occlusive disease. ? Echo 0 06/26 with EF? 15-20%.? ? Echo on November 2022 with EF 50-55% moderate MR moderate concentric left ventricular hypertrophy reduced right ventricular systolic function severe LUE severe RA E .? Repeat echo with worsening EF down to 20-25% severe biatrial dilation moderate MR concentric LVH Atrial fibrillation metoprolol and Eliquis Congestive heart failure chronic diastolic systolic acute on chronic chest x-ray with congestive changes.? EF as lower down to 20 25%.? Continue diuresis follow-up with cardiology. He did have these and worsening congestion the hospital stay with improved stone small dose of diuretic at discharge and allergy as an outpatient basis. DVT prophylaxis Eliquis Time Spent with Patient Time attestation: Total time spent providing and/or coordinating discharge services: 35 minutes Exam Narrative: General: Thin, frail elderly gentleman confused statements Respiratory: Respirations are nonlabored lung sounds are clear to auscultation. Cardiovascular: Regular rate
[2023-07-25] MEDS: POTASSIUM CHLORIDE 20 MEQ ER TABLET 40 MEQ PO (16:22)
== END 2023-07-25 16:35 | disposition home health service (06) | DRG 987 ==
LOC: ANHED 17:42 → ANH3MEDSUR 18:18
PROVIDERS: Family Medicine; Physician Assistant; Surgery; Admitting Provider General Practice; Emergency Provider Emergency Medicine; Visit Provider Internal Medicine
PROC: 0JCP0ZZ Extirpation of Matter from Left Lower Leg Subcutaneous Tissue and Fascia, Open Approach (ICD-10-PCS; principal; 2023-07-24 12:30)
DX: N39.0 Urinary tract infection, site not specified (principal); I50.43 Acute on chronic combined systolic (congestive) and diastolic (congestive) heart failure; L03.116 Cellulitis of left lower limb; S80.12XA Contusion of left lower leg, initial encounter; I11.0 Hypertensive heart disease with heart failure; I48.0 Paroxysmal atrial fibrillation; D50.9 Iron deficiency anemia, unspecified; R29.6 Repeated falls; Z20.822 Contact with and (suspected) exposure to COVID-19; Z96.619 Presence of unspecified artificial shoulder joint; Z79.01 Long term (current) use of anticoagulants; Z87.891 Personal history of nicotine dependence; Z86.73 Personal history of transient ischemic attack (TIA), and cerebral infarction without residual deficits
CPT/HCPCS: 36415; 70450; 71045; 71046; 80048; 80053; 80202; 81001; 82565; 82607; 82746; 83735; 84443; 85025; 85027; 87040; 87086; 87637; 92523; 93005; 93306; 93925; 96365; 96375; 97110; 97116; 97161; 97166; 97530; 97535; 99285; A9270; G0378; J0696; J1940; J2405; J2704; J3370; J7050

== ENCOUNTER 2023-08-01 14:21 | Outpatient (NON) | payer MEDICARE, SELFPAY ==
[2023-08-01 15:03] LABS: Anion Gap 8 mmol/L (4-12); Blood Urea Nitrogen 32 mg/dL (9-20); Calcium 8.5 mg/dL (8.4-10.2); Carbon Dioxide 29 mmol/L (22-30); Chloride 106 mmol/L (98-107); Estimated Glomerular Filt Rate > 60; Glucose 95 mg/dL (65-110); Potassium 4.3 mmol/L (3.4-5.0); Sodium 143 mmol/L (137-145)
== END 2023-08-01 14:22 | disposition home or self-care (01) ==
LOC: ANHLAB 14:28 → HOME HLTH 14:31
DX: I50.20 Unspecified systolic (congestive) heart failure (principal); N39.0 Urinary tract infection, site not specified
CPT/HCPCS: 80048

== ENCOUNTER 2023-08-08 09:51 | Inpatient (IN) | payer MEDICARE, SELFPAY ==
[2023-08-08] VITALS (7 sets, daily range): BP systolic 104–134; BP diastolic 51–83; PULSE 64–75; RESP 14–20; TEMP 36.9–37.6; O2SAT 96–98; BMI 20.7
--- NOTE | ~2023-08-08 | US_ITS ---
EXAMINATION: US venous doppler UE RT DATE: 08/11/2023 08:08 INDICATION: Right upper limb pain. TECHNIQUE: Grayscale ultrasound images without and with compression and Doppler ultrasound images of the right upper extremity veins were obtained. COMPARISON: None. FINDINGS: The visualized portions of the right internal jugular vein, subclavian vein, axillary vein, brachial veins, basilic vein, cephalic vein, radial vein, and ulnar vein are patent. IMPRESSION: 1. No deep venous thrombosis. Reviewed, dictated and finalized at location A.
--- NOTE | ~2023-08-08 | XR_ITS ---
Clinical Indication: Weakness, hypoxia AP and lateral views of the chest: Comparison: 07/23/2023 Findings: Small bilateral pleural effusions are present, left greater than right.. Cardiomediastinal silhouette is stable. Bilateral shoulder arthroplasties are again present. Impression: Small bilateral pleural effusions, left greater than right Reviewed, dictated and finalized at location . Impression: Small bilateral pleural effusions, left greater than right
--- NOTE | 2023-08-08 09:59 | ECG_ITS ---
[facility] [address] Test Date: 2023-08-08 Pat Name: Jamey Cuadra Department: Room: Gender: M Responder: : [id number] Requested By: Austyn Wyman Order Number: [id number] Kristina MD: Maribell Daniel M.D. Measurements Intervals Stollings Rate: 70 P: 0 OK: 0 QRS: -35 QRSD: 105 T: 248 QT: 391 QTc: 423 Interpretive Statements ATRIAL FIBRILLATION WITH ABERRANT CONDUCTION OR VENTRICULAR PREMATURE COMPLEXES MARKED LEFT AXIS DEVIATION [QRS AXIS < -30] INCOMPLETE RIGHT BUNDLE BRANCH BLOCK [90+ ms QRS DURATION, TERMINAL R IN V1/V2, 40+ ms S IN I/aVL/V4/V5/V6] MODERATE T-WAVE ABNORMALITY, CONSIDER INFERIOR ISCHEMIA [-0.1+ mV T WAVE IN II/aVF] No previous ECG available for comparison Electronically Signed On 08-08-2023 14:21:19 CDT by Maribell Daniel M.D.
[2023-08-08 10:21] LABS: Basophils Percent Auto 0.2 % (0.2-1.2); Hematocrit 48.5 % (42.0-52.0); Hemoglobin 15.9 g/dL (14.0-18.0); Immature Granulocyte Absolute 0.04 K/mm3 (0.00-0.031); Immature Granulocyte Percent A 0.4 % (0-0.5); Lymphocytes Absolute Auto 0.26 K/mm3 (0.9-3.2); Lymphocytes Percent Auto 2.9 % (18.3-44.2); Mean Corpuscular HGB Conc 32.8 g/dl (32-36); Mean Corpuscular Hemoglobin 35.3 pg (26-34); Mean Corpuscular Volume 107.5 fl (80-100); Mean Platelet Volume 11.7 fl (7.4-10.4); Monocytes Absolute Auto 0.7 K/mm3 (0.1-0.6); Monocytes Percent Auto 7.5 % (2.6-8.5); Platelet Count Result 175 k/mm3 (150-375); Red Blood Count 4.51 M/mm3 (4.6-6.20); Red Cell Distribution Width 15.3 % (11.5-14.5)
[2023-08-08 10:32] LABS: Alanine Aminotransferase 35 U/L (6-50); Albumin Level 3.8 g/dL (3.5-5.1); Alkaline Phosphatase 104 U/L (38-126); Anion Gap 10 mmol/L (4-12); Anisocytosis 1+; Aspartate Amino Transferase 56 U/L (17-59); Bilirubin,Total 1.8 mg/dL (0.2-1.3); Blood Urea Nitrogen 45 mg/dL (9-20); Calcium 8.6 mg/dL (8.4-10.2); Carbon Dioxide 26 mmol/L (22-30); Chloride 108 mmol/L (98-107); Estimated CRCL calculation 34 ml/min; Estimated Glomerular Filt Rate 57; Glucose 115 mg/dL (65-110); Macrocytosis 1+ (NORMAL); Platelet Estimate Adequate (Adequate); Potassium 3.9 mmol/L (3.4-5.0); Schistocytes None Seen; Sodium 144 mmol/L (137-145)
[2023-08-08 10:50] LABS: Appearance Urine Cloudy (Clear); Bacteria Urine None Seen /hpf; Bilirubin Urine Negative (Negative); Blood Urine 1+ (Negative); Color Urine Dark Yellow (Yellow); Glucose Urine UA Negative (Negative); Ketones Urine Trace mg/dL (Negative); Leukocyte Esterase Ur Trace LEU/UL (Negative); Need Manual Microscopic Reviewed; Nitrate Urine Negative (Negative); Protein Urine 3+ mg/dL (Negative); RBC Urine 0-2 /hpf (0-2); Specific Grav Ur 1.023 (1.001-1.035); Squamous Epithelial Cell Urine None Seen /hpf (Few); WBC Urine 0-5 /hpf (0-3)
[2023-08-08 10:51] LABS: Add Urine Microscopic? YES
[2023-08-08 11:12] LABS: NT Pro B Type Natriuretic Pept 17400 pg/mL (19.9-100)
--- NOTE | 2023-08-08 12:48 | ED.WEAKNESS ---
HPI - Weakness General Chief complaint: Weakness Stated complaint: weakness Time Seen by Provider: 08/08/23 10:02 Source: patient, family and EMS Mode of arrival: EMS Limitations: no limitations History of Present Illness HPI Narrative: 88-year-old with a history of AFib, CHF with EF of 15-20%, chronic wound to his left leg was brought in from home with the complaints of sudden onset of weakness. As per the son he was on the toilet was unable to get up. They were scheduled to see Dr. Sandra this morning for his leg ulcer. No history of fever or chills denies any chest pain. He also states that he has not been taking his Lasix for past 1 week. Family also reports that he was complaining of shortness of breath. He also states that his legs have been weeping for past few days MD Complaint: generalized weakness Duration: constant Related Data Home Medications Medication Instructions Recorded Confirmed Allergy (chlorpheniramine) 4 mg PO HS 06/15/22 07/19/23 Zaditor 1 drp EACH EYE BID 06/15/22 07/19/23 acetaminophen 1,000 mg PO BID 06/15/22 07/19/23 apixaban 5 mg tablet (Eliquis) 5 mg PO BID 06/15/22 07/19/23 azelastine 137 mcg (0.1 %) nasal 1 - 2 spray intranasal DIRECTED 06/15/22 07/19/23 spray aerosol cetirizine 10 mg PO DAILY 06/15/22 07/19/23 ferrous sulfate 325 mg PO BID 06/15/22 07/19/23 finasteride 5 mg tablet 5 mg PO DIRECTED 06/15/22 07/19/23 latanoprost 0.005 % eye drops 1 drp EACH EYE HS 06/15/22 07/19/23 metoprolol succinate 25 mg 25 mg PO DAILY 06/15/22 07/19/23 tablet,extended release 24 hr sacubitril 24 mg-valsartan 26 mg 1 tablet PO BID 07/19/23 07/19/23 tablet (Entresto) fluticasone propionate 50 1 spray intranasal BID 07/20/23 07/20/23 mcg/actuation nasal spray,suspension Allergies Allergy/AdvReac Type Severity Reaction Status Date / Time atorvastatin AdvReac Muscle Pain Verified 08/08/23 11:13 clarithromycin [From Biaxin] AdvReac Gastrointestinal Verified 08/08/23 11:13 Upset rofecoxib AdvReac Nausea and Verified 08/08/23 11:13 Vomiting [id number]-[id number] Reductase AdvReac Muscle Pain Verified 08/08/23 11:13 Inhibitor PMFSH Past Medical History Medical History Atrial fibrillation Basal cell carcinoma Chronic anticoagulation Glaucoma 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 Hypertension Iron deficiency anemia Surgical History Surgical History H/O cataract extraction H/O hemorrhoidectomy H/O shoulder replacement H/O thyroidectomy History of removal of skin mole History of tonsillectomy Family History Family History Mother Cerebrovascular accident Father Testicle cancer Sibling Malignant neoplasm of prostate Social History Social History Social History: Code status: Do not resuscitate. Smoking packs per day: 3 Smoking cigarettes per day: 60.0 Years smoked: 31 Smoking pack-years: 93.00 Smoking status: Former smoker Tobacco type: cigarettes Second hand tobacco smoke exposure: No Alcohol intake: never Substance use: never Substance use type: does not use Do You Feel Safe in your Home?: Yes Lack of Transportation: No Lack of Food: Never True Current Housing: I Have Housing Concerned About Future Housing: No Difficulty Paying Gas/Electric Bills: No Difficulty Paying for Meds: No Currently Unemployed: No Education: Associate Degree Difficulty w/ Childcare or Family Care: No Additional living arrangements comments: Lives with son. 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 Spiritual care concerns: No Exam Narrative: GENERAL: ill-appearing,thin and frai
[2023-08-08] MEDS: FUROSEMIDE INJ 40 MG/4 ML VIAL IV PUSH (13:32)
--- NOTE | 2023-08-08 14:34 | PC.NURSE ---
Pt complaining that he has to urinate but unable to go. Bladder scanner shows >600 in his bladder. VORB for alas.
--- NOTE | 2023-08-08 15:03 | ADMGEN ---
This patient, Jamey Cuadra, was admitted to Medical Room 244-. Patient/family oriented to hospital policies and general routines including ID bracelet, bed and alarms, visiting hours, pain management, procedures, bathroom and other care routines, personal items, smoking policy, room service/diet, and visiting hours. Information on how to activate the Rapid Response Team has been discussed. Patient/Family are encouraged to report perceived risks to care and to ask questions if they do not understand what they are told or what they should do.
--- NOTE | 2023-08-08 18:31 | PM.IMHP ---
H&P: HPI History of Present Illness Date/Time: 08/08/23 18:31 Chief Complaint: unresponsive short of breath Narrative: patient is a 88-year-old male with history of atrial fibrillation, CHF with reduced ejection fraction of 15-20%, in May and then the repeat 2D echo in November showed EF of 50%. chronic wound on the leg was brought to the emergency room complaining of sudden onset of weakness. As per the son patient was in the toilet and was unable to get up. Patient has been following the wound Dr. Kyle for his leg ulcers patient denied any fever or chills or any chest pain at the time of admission. Most of the history obtained through the medical records patient had the time of evaluation it is partially unresponsive but opens eyes spontaneously appears very pale and disconnected. In trying to get hold of the son as the prognosis looks poor patient is DNR spoke to the nursing staff in detail multiple times and. Patient had multiple runs of V-tach nonsustained Review of Systems Review of Systems: ROS unobtainable: Yes unobtainable due to medical condition PMFSH Past Medical History Medical History Atrial fibrillation Basal cell carcinoma Chronic anticoagulation Glaucoma 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 Hypertension Iron deficiency anemia Surgical History Surgical History H/O cataract extraction H/O hemorrhoidectomy H/O shoulder replacement H/O thyroidectomy History of removal of skin mole History of tonsillectomy Family History Family History Mother Cerebrovascular accident Father Testicle cancer Sibling Malignant neoplasm of prostate Social History Social History Social History: Code status: Do not resuscitate. Smoking packs per day: 3 Smoking cigarettes per day: 60.0 Years smoked: 31 Smoking pack-years: 93.00 Smoking status: Former smoker Tobacco type: cigarettes Second hand tobacco smoke exposure: No Alcohol intake: never Substance use: never Substance use type: does not use Do You Feel Safe in your Home?: Yes Lack of Transportation: No Lack of Food: Never True Current Housing: I Have Housing Concerned About Future Housing: No Difficulty Paying Gas/Electric Bills: No Difficulty Paying for Meds: No Currently Unemployed: No Education: High School Diploma/GED Difficulty w/ Childcare or Family Care: No Additional living arrangements comments: Lives with son. 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 Spiritual care concerns: No Meds Home Medications and Allergies Home Medications Medication Instructions Recorded Confirmed Type apixaban 5 mg tablet (Eliquis) 5 mg PO BID 06/15/22 08/08/23 History cetirizine 10 mg PO DAILY 06/15/22 08/08/23 History ferrous sulfate 325 mg PO BID 06/15/22 08/08/23 History finasteride 5 mg tablet 5 mg PO DAILY 06/15/22 08/08/23 History metoprolol succinate 25 mg 25 mg PO DAILY 06/15/22 08/08/23 History tablet,extended release 24 hr tamsulosin 0.4 mg capsule 0.4 mg PO DAILY #30 caps 06/21/22 08/08/23 Rx sacubitril 24 mg-valsartan 26 mg 1 tablet PO BID 07/19/23 08/08/23 History tablet (Entresto) furosemide 20 mg tablet (Lasix) 20 mg PO DAILY #30 tabs 07/25/23 08/08/23 Rx latanoprost 0.005 % eye drops See Rx Instructions .Route .COMPLEX 08/08/23 08/08/23 History Allergies Allergy/AdvReac Type Severity Reaction Status Date / Time atorvastatin AdvReac Muscle Pain Verified 08/08/23 11:13 clarithromycin [From Biaxin] AdvReac Gastrointestinal Verified 08/08/23 11:13 Upset rofecoxib AdvReac Nausea and Verified 08/08/23 11:13 Vomiting [id number]-[id number]-F
[2023-08-08] MEDS: APIXABAN 5 MG TABLET PO (21:28)
[2023-08-08] MEDS: SACUBITRIL/VALSARTAN 24-26 MG TABLET 1 TAB PO (21:28)
[2023-08-08] MEDS: FAMOTIDINE 20 MG/2 ML VIAL IV PUSH (21:28)
[2023-08-09] VITALS (12 sets, daily range): BP systolic 106–146; BP diastolic 52–80; PULSE 66–89; RESP 16–18; TEMP 36.6–37.2; O2SAT 95–100; BMI 20.7
[2023-08-09 04:52] LABS: Anion Gap 5 mmol/L (4-12); Blood Urea Nitrogen 38 mg/dL (9-20); Calcium 8.2 mg/dL (8.4-10.2); Carbon Dioxide 31 mmol/L (22-30); Chloride 107 mmol/L (98-107); Estimated CRCL calculation 40 ml/min; Estimated Glomerular Filt Rate > 60; Glucose 83 mg/dL (65-110); Potassium 3.4 mmol/L (3.4-5.0); Sodium 143 mmol/L (137-145)
[2023-08-09] MEDS: TAMSULOSIN HCL 0.4 MG CAPSULE PO (08:32)
[2023-08-09] MEDS: FERROUS SULFATE 325 MG TABLET DR PO ×2 (08:32→18:06)
[2023-08-09] MEDS: METOPROLOL SUCCINATE EXT REL 25 MG TABCR PO (08:33)
[2023-08-09] MEDS: FUROSEMIDE 20 MG TABLET PO (08:35)
[2023-08-09] MEDS: FINASTERIDE 5 MG TABLET PO (08:35)
[2023-08-09] MEDS: SACUBITRIL/VALSARTAN 24-26 MG TABLET 1 TAB PO ×2 (08:35→20:09)
[2023-08-09] MEDS: FAMOTIDINE 20 MG/2 ML VIAL IV PUSH ×2 (08:35→20:09)
[2023-08-09] MEDS: APIXABAN 5 MG TABLET PO ×2 (08:35→20:09)
--- NOTE | 2023-08-09 09:17 | PM.IMPN ---
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 Patient is DNR DNI per son. EKG BNP 85013 Chest x-ray Small bilateral pleural effusions are present, left greater than right. TTE EF 55% November 2022 Optimize Michael inhibitors and beta-kristina.Continue Entresto, metoprolol Daily weights Antiplatelet & Statin therapy Loop diuretics as indicate Optimize blood pressure < 130/80 Fall risk assessment Pneumonia and flu vaccine advised slitter helper recommended blood cultures and urine cultures pending gait instability fall precautions. PT OT eval and treat. Atrial fibrillation./ventricular arrhythmia Continue anticoagulation. With Eliquis Optimize beta-kristina and Michael inhibitors. Metoprolol Use GI prophylaxis with anticoagulation. 2D echo results as above. monitor heart rate. EDEMA /venous ulcers Chronic venous insufficiency Recommended leg elevation, exercise, compression therapy. Watch for local infections and wound care Watch for lymphedema Low-salt diet, Check serum albumin, urinalysis, Liver functions and CMP history of BPH cont finasteride. History of anemia continue ferrous sulfate Possible discharge tomorrow back to the senior living medically stable Subjective Date/time seen: 08/09/23 09:17 Interval history: Patient surprisingly much better alert and awake answering all questions sitting up on the chair eating very well has tolerated around 180 degree since last night. Understand follow commands makes proper complications engages and discussion no chest pain shortness are breath Review of Systems Review of Systems: All systems reviewed & are unremarkable except as noted in HPI and below Exam Narrative: GENERAL: Well appearing, no acute distress. HEAD: Normocephalic, atraumatic. NECK: Supple. No adenopathy, no masses. RESPIRATORY: respirations nonlabored. , no rales, wheezing. CARDIOVASCULAR: IRRegular rate and rhythm without murmurs, . Peripheral pulses 2+ and equal bilaterally. ABDOMINAL: Soft, nontender, nondistended, no hepatosplenomegaly. Normoactive BS. MUSCULOSKELETAL: no Epigastric and no hypochondrial tenderness SKIN: Warm, dry, NEURO: A&O X3. Moves all extremities Objective Data Vital Signs Vital Signs: Vital Signs - 24 hr 08/08/23 09:52 08/08/23 11:12 08/08/23 12:47 Temperature 36.9 C Pulse Rate 72 70 72 Respiratory Rate 14 16 20 Blood Pressure 124/83 104/77 128/71 Pulse Oximetry 96 96 98 Oxygen Delivery Room Air 08/08/23 13:39 08/08/23 15:08 08/08/23 15:03 Temperature 37.1 C Pulse Rate 74 66 Respiratory Rate 16 16 Blood Pressure 134/64 131/77 Pulse Oximetry 97 98 Oxygen Delivery Room A
[2023-08-09 09:38] LABS: Hematocrit 45.9 % (42.0-52.0); Hemoglobin 14.5 g/dL (14.0-18.0); Mean Corpuscular HGB Conc 31.6 g/dl (32-36); Mean Corpuscular Volume 110.9 fl (80-100); Mean Platelet Volume 12.3 fl (7.4-10.4); Platelet Count Result 167 k/mm3 (150-375); Red Blood Count 4.14 M/mm3 (4.6-6.20); Red Cell Distribution Width 15.7 % (11.5-14.5); White Blood Count 7.5 K/mm3 (4.5-10.0)
[2023-08-09 09:46] LABS: Alanine Aminotransferase 34 U/L (6-50); Albumin Level 3.2 g/dL (3.5-5.1); Alkaline Phosphatase 81 U/L (38-126); Aspartate Amino Transferase 65 U/L (17-59); Bilirubin,Total 1.9 mg/dL (0.2-1.3)
[2023-08-09 09:56] LABS: NT Pro B Type Natriuretic Pept 12000 pg/mL (19.9-100)
--- NOTE | 2023-08-09 15:18 | P.CDI_ITS ---
CDI Query Clarification Request BMI 20.7 Nutritional Diagnostic Statement: Severe Protein Calorie Malnutrition as related to inadequate protein intake with increased protein-energy needs in setting of chronic disease as evidenced by minimal oral intake reported; severe subcutaneous fat loss (orbital fat pads) and severe muscle wasting (temporalis): 2+edma at legs. Please refer to the comprehensive nutrition assessment for further information. If you agree with the diagnosis of protein calorie malnutrition, please add to the problem list specifying severity: * Mild * Moderate * Severe * Other/Unknown <HENRY Terry - Last Filed: 08/09/23 15:20> Clarified Diagnosis Clarified Diagnosis: severe protein calorie malnutrition <Milind Knapp MD - Last Filed: 08/10/23 07:32>
--- NOTE | 2023-08-09 15:39 | PM.CNGS ---
Assessment and Plan Assessment and plan (1) Wound, open, leg: Qualifiers: Encounter type: subsequent encounter Laterality: left Qualified Code(s): S81.802D - Unspecified open wound, left lower leg, subsequent encounter Code(s): S81.809A - Unspecified open wound, unspecified lower leg, initial encounter Status: Acute Assessment and Plan: This is the reason for our consultation. The patient is s/p incision and drainage infected left lower leg hematoma on 07/24/23 and now has an open wound that is coming down in size and appears stable. He has edema in the right leg, but his left leg does not have any significant swelling that would be impairing the healing process of this wound. We would recommend to continue local wound care daily with silver gel and gauze dressing changes. No indication for any surgical intervention at this time. It appears his overall health and mental status have declined since seen last and there is potential for discharge to correction instead of back home, which seems appropriate. They can continue local wound care at the SNF and if he does end up going back home, then he could eventually follow-up in the wound clinic until this heals. We will sign off at this time. Please call with any surgical questions or concerns. Plan I have discussed the patient's case and plan of care with Dr. Sandra. History of Present Illness Consult details Consult date: 08/09/23 Reason for consult: other (Left lower leg ulcer) Requesting physician: Austyn Wyman MD Narrative: This is an 88-year-old man who is known to our service from a recent incision and drainage of infected left lower extremity hematoma by Dr. Sandra on 07/24/2023. He lives at home alone and was discharged home with home health. The plan on discharge from the hospitalization was that son would help with dressing changes on the days home health would not be coming to the house. He has a history of atrial fibrillation on Eliquis and congestive heart failure with an EF of 20-25%. The patient is currently lethargic and unable to provide any history, therefore his history is obtained by review of the electronic medical record. He was brought into the ER for evaluation yesterday for sudden onset of generalized weakness. He was unable to get up off of the toilet[place] [address]. Chest x-ray showed small bilateral pleural effusions. He was admitted for his CHF and has also been having episodes of nonsustained V-tach on telemetry. Our service was consulted by the ED physician for wound care of the left lower extremity wound. Per nursing he has been confused all day and has been more lethargic this afternoon. She also reports that he was similar to this yesterday afternoon and then woke up and was more alert this morning. He ate his breakfast and was able to hold a conversation. He has no complaints with his left lower extremity. Per staff, he has also been combative at times. He was calm for me and would answer a few questions and quickly fall back asleep. Review of Systems Review of Systems: ROS unobtainable: Yes unobtainable due to mental status PMFSH Past Medical History Medical History (Updated 08/09/23 @ 16:10 by SITA Desouza) Atrial fibrillation Basal cell carcinoma Chronic anticoagulation Glaucoma 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 Hypertension Iron deficiency anemia Surgical History Surgical History H/O cataract extraction H/O hemorrhoidectomy H/O shoulder replacement H/O thyroidectomy History of incision and drainage I&D of infected left lower extremity hematoma by Dr. Sandra on 07/24/23 History of removal of skin mole History of tonsillectomy Family History Family History Mother
[2023-08-09] MEDS: LATANOPROST 0.005% OP SOLN 2.5 ML BTL 1 DROP EACH EYE (20:09)
[2023-08-10] VITALS (9 sets, daily range): BP systolic 101–142; BP diastolic 62–86; PULSE 62–90; RESP 16–18; TEMP 36.3–36.6; O2SAT 96–100
[2023-08-10 08:20] LABS: Glucose Point of Care 84 mg/dl (65-105)
--- NOTE | 2023-08-10 08:29 | PM.DS ---
DS: Admitting Diagnosis Discharge Date 08/10/2023 Admitting Diagnosis Congestive heart failure DS: Discharge Diagnosis Discharge Diagnosis (1) Wound, open, leg: Qualifiers: Encounter type: subsequent encounter Laterality: left Qualified Code(s): S81.802D - Unspecified open wound, left lower leg, subsequent encounter Code(s): S81.809A - Unspecified open wound, unspecified lower leg, initial encounter Status: Acute (2) Leg edema: Code(s): R60.0 - Localized edema Status: Acute (3) Non-healing ulcer of lower extremity: Qualifiers: Laterality: left Non-pressure ulcer stage: with fat layer exposed Qualified Code(s): L97.922 - Non-pressure chronic ulcer of unspecified part of left lower leg with fat layer exposed Code(s): L97.909 - Non-pressure chronic ulcer of unspecified part of unspecified lower leg with unspecified severity Status: Acute (4) Heart failure with reduced ejection fraction: Code(s): I50.20 - Unspecified systolic (congestive) heart failure Status: Acute (5) Chronic anticoagulation: Code(s): Z79.01 - FPC (current) use of anticoagulants Status: Acute (6) Frequent falls: Code(s): R29.6 - Repeated falls Status: Acute (7) General weakness: Code(s): R53.1 - Weakness Status: Acute DS: Summary Hospital Course Reason for hospitalization: Shortness of breath atrial fibrillation Hospital Course: patient is a 88-year-old male with history of atrial fibrillation, CHF with reduced ejection fraction of 15-20%, in May and then the repeat 2D echo in November showed EF of 50%. chronic wound on the leg was brought to the emergency room complaining of sudden onset of weakness. As per the son patient was in the toilet and was unable to get up. Patient has been following the wound Dr. Kyle for his leg ulcers patient denied any fever or chills or any chest pain at the time of admission. Most of the history obtained through the medical records patient had the time of evaluation it is partially unresponsive but opens eyes spontaneously appears very pale and disconnected. In trying to get hold of the son as the prognosis looks poor patient is DNR spoke to the nursing staff in detail multiple times and. Patient had multiple runs of V-tach nonsustained. During the hospital stay patient became more unresponsive and started having some arrhythmia for literally 24 hours. Spoke to son regarding the long-term care still stated as DNR patient . Patient denied any chest pain shortness was much more alert awake oriented time place and person wound Care is following for his leg venous stasis and ulcers patient is cleared for discharge patient has severe protein calorie malnutrition advised to see the dietitian. Patient's most recent echo shows severe biatrial dilatation with EF of 25% prognosis is poor. Patient has severe global hypokinesis EF family aware Status at Discharge Cognitive/behavioral status at discharge: Stable Time Spent with Patient Time attestation: Total time spent providing and/or coordinating discharge services: Exam Narrative: GENERAL: Well appearing, no acute distress. HEAD: Normocephalic, atraumatic. NECK: Supple. No adenopathy, no masses. RESPIRATORY: respirations nonlabored. , no rales, wheezing. CARDIOVASCULAR: IRRegular rate and rhythm without murmurs, . Peripheral pulses 2+ and equal bilaterally. ABDOMINAL: Soft, nontender, nondistended, no hepatosplenomegaly. Normoactive BS. MUSCULOSKELETAL: no Epigastric and no hypochondrial tenderness SKIN: Warm, dry, NEURO: A&O X3. Moves all extremities DS: Data Data Completed and Pending Labs on day of discharge: Labs from last 24 hours 08/10/23 08/09/23 08:05 04:04 WBC 7.5 RBC 4.14 L Hgb 14.5 Hct 45.9 MCV 110.9 H MCH 35.0 H MCHC 31.6 L RDW 15.7 H Plt Count 167 MPV 12.3 H POC Capillary Glucose 84 Total
[2023-08-10] MEDS: FINASTERIDE 5 MG TABLET PO (08:46)
[2023-08-10] MEDS: METOPROLOL SUCCINATE EXT REL 25 MG TABCR PO (08:46)
[2023-08-10] MEDS: APIXABAN 5 MG TABLET PO ×2 (08:46→20:04)
[2023-08-10] MEDS: FERROUS SULFATE 325 MG TABLET DR PO (08:46)
[2023-08-10] MEDS: TAMSULOSIN HCL 0.4 MG CAPSULE PO (08:47)
[2023-08-10] MEDS: FUROSEMIDE 20 MG TABLET PO (08:47)
[2023-08-10] MEDS: FAMOTIDINE 20 MG/2 ML VIAL IV PUSH (08:47)
[2023-08-10] MEDS: SACUBITRIL/VALSARTAN 24-26 MG TABLET 1 TAB PO ×2 (08:47→20:04)
[2023-08-10 08:50] LABS: Hematocrit 47.1 % (42.0-52.0); Mean Corpuscular HGB Conc 31.8 g/dl (32-36); Mean Corpuscular Volume 109.8 fl (80-100); Mean Platelet Volume 11.8 fl (7.4-10.4); Platelet Count Result 158 k/mm3 (150-375); Red Blood Count 4.29 M/mm3 (4.6-6.20); White Blood Count 6.5 K/mm3 (4.5-10.0)
[2023-08-10 09:38] LABS: Alanine Aminotransferase 33 U/L (6-50); Albumin Level 3.2 g/dL (3.5-5.1); Alkaline Phosphatase 83 U/L (38-126); Anion Gap 6 mmol/L (4-12); Aspartate Amino Transferase 56 U/L (17-59); Bilirubin,Total 1.5 mg/dL (0.2-1.3); Blood Urea Nitrogen 37 mg/dL (9-20); Calcium 7.7 mg/dL (8.4-10.2); Carbon Dioxide 31 mmol/L (22-30); Chloride 106 mmol/L (98-107); Estimated CRCL calculation 40 ml/min; Estimated Glomerular Filt Rate > 60; Glucose 92 mg/dL (65-110); Potassium 3.3 mmol/L (3.4-5.0); Sodium 143 mmol/L (137-145)
[2023-08-10] MEDS: ACETAMINOPHEN 325 MG TABLET 650 MG PO (13:56)
[2023-08-10 14:06] LABS: SARS-CoV-2 RNA PCR Negative (Negative)
--- NOTE | 2023-08-10 14:44 | PCOTNOTE ---
Per RN, Patient is supposed to be discharged. RN stated she went in the room to notify Patient and he is complaining of increased pain. Per RN, Patient is going to go down for a test, Patient is yelling in the room and not appropriate to be seen at this time.
[2023-08-10] MEDS: HYDROcodone/acetaminophen (*CRX) 5-325 MG TABLET 1 TAB PO (18:04)
--- NOTE | 2023-08-10 18:23 | PC.NURSE ---
Patient refusing medication. Refused doppler of R UE. Refusing to put child monitor back on. Refusing IV placement. Patient using vulgar language and yelling at staff members. MD aware of patient refusal.
[2023-08-10] MEDS: LATANOPROST 0.005% OP SOLN 2.5 ML BTL 1 DROP EACH EYE (20:06)
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
[2023-08-11 06:47] VITALS: BP 117/74; PULSE 76; RESP 20; TEMP 36.3; O2SAT 98
[2023-08-11] MEDS: TAMSULOSIN HCL 0.4 MG CAPSULE PO (08:34)
[2023-08-11 08:35] VITALS: PULSE 78
[2023-08-11] MEDS: ACETAMINOPHEN 325 MG TABLET 650 MG PO (08:35)
[2023-08-11] MEDS: FINASTERIDE 5 MG TABLET PO (08:35)
[2023-08-11] MEDS: SACUBITRIL/VALSARTAN 24-26 MG TABLET 1 TAB PO (08:35)
[2023-08-11] MEDS: METOPROLOL SUCCINATE EXT REL 25 MG TABCR PO (08:35)
[2023-08-11] MEDS: FERROUS SULFATE 325 MG TABLET DR PO (08:35)
[2023-08-11] MEDS: FUROSEMIDE 20 MG TABLET PO (08:35)
[2023-08-11] MEDS: APIXABAN 5 MG TABLET PO (08:35)
--- NOTE | 2023-08-11 12:07 | PM.DS ---
DS: Admitting Diagnosis Discharge Date 08/11/2023 Admitting Diagnosis Non healing ulcer of lower extremity Heart failure with reduced EF Chronic anticoagulation General weakness Nonsustained vtach BPH Frequent falls DS: Discharge Diagnosis Discharge Diagnosis (1) Wound, open, leg: Qualifiers: Encounter type: subsequent encounter Laterality: left Qualified Code(s): S81.802D - Unspecified open wound, left lower leg, subsequent encounter Code(s): S81.809A - Unspecified open wound, unspecified lower leg, initial encounter Status: Acute (2) Leg edema: Code(s): R60.0 - Localized edema Status: Acute (3) Non-healing ulcer of lower extremity: Qualifiers: Laterality: left Non-pressure ulcer stage: with fat layer exposed Qualified Code(s): L97.922 - Non-pressure chronic ulcer of unspecified part of left lower leg with fat layer exposed Code(s): L97.909 - Non-pressure chronic ulcer of unspecified part of unspecified lower leg with unspecified severity Status: Acute (4) Heart failure with reduced ejection fraction: Code(s): I50.20 - Unspecified systolic (congestive) heart failure Status: Acute (5) Chronic anticoagulation: Code(s): Z79.01 - buttermaker continuous churn (current) use of anticoagulants Status: Acute (6) Frequent falls: Code(s): R29.6 - Repeated falls Status: Acute (7) General weakness: Code(s): R53.1 - Weakness Status: Acute DS: Summary Hospital Course Reason for hospitalization: Non healing ulcer of lower extremity Heart failure with reduced EF Chronic anticoagulation General weakness Nonsustained vtach BPH Frequent falls Hospital Course: 88-year-old male with history of atrial fibrillation, CHF with reduced ejection fraction of 15-20% and a chronic wound on the leg was brought to the emergency room complaining of sudden onset of weakness. Heart failure GDMT optimized during admission. Per son patient has been noncompliant with his medications. Patient was mildly hypokalemic on lasix. Started on potassium supplement and will obtain a CMP outpatient. Surgery consulted for the left lower extremity wound and there was no indication for surigcal intervention this admission. Patient is to continue having wound care treat this area. Patient was suppose to be discharged yesterday, however he complained of right arm pain. A venous doppler was ordered and negative for DVT. Prior to discharge patient denied any pain and was able to move his arm without noted pain. Patient discharged to SNF in a stable condition. He is to follow up with his PCP in 1 week. Status at Discharge Functional status at discharge: uses cane/walker Time Spent with Patient Time attestation: Total time spent providing and/or coordinating discharge services: Time spent: Greater than 30 minutes Exam Narrative: General: male in no acute respiratory distress who is nontoxic appearing, sitting up in chair HEENT: Normocephalic. Atraumatic. Pupils equal round reactive to light. Extraocular movement intact. Sclera clear and anicteric. No facial asymmetry. Chest: Lungs are clear but diminished to auscultation bilaterally. No wheezes or crackles. CV: Heart was regular rate and rhythm. S1/S2. No murmurs, gallops, or rubs. Abd: Abdomen was soft. Nontender. Nondistended. Positive bowel sounds. No organomegaly or masses. Ext: No clubbing, cyanosis, or edema. 2+ DP pulses bilaterally. Neuro: Cranial nerves 2-12 are intact. Speech is clear. Psych: Normal mood and affect. Patient is pleasant and cooperative. Skin: Warm and dry. Gauze dressing on the left lower extremity wound. DS: Data Data Completed and Pending Completed studies during hospitalization: Venous doppler Chest XR Labs on day of discharge: Labs from last 24 hours 08/10/23 12:00 SARS-CoV-2 RNA (RT-PCR) Negative Preliminary micro results at discharge 08/08/23 19:03 Blood Culture -
--- NOTE | 2023-08-11 13:00 | PC.NURSE ---
pt refused wound care today, reviewed with pt and family that they will be doing a full skin check at [facility] when pt arrives, after being compliant today with PT. OT and US pt did not want any further treatments
== END 2023-08-11 13:02 | DRG 291 ==
LOC: ANHED 12:53 → ANH2MED 14:50
PROVIDERS: Admitting Provider Hospitalist; Emergency Provider Family Medicine; Visit Provider Internal Medicine
DX: I11.0 Hypertensive heart disease with heart failure (principal); E43 Unspecified severe protein-calorie malnutrition; I50.23 Acute on chronic systolic (congestive) heart failure; I48.20 Chronic atrial fibrillation, unspecified; L97.822 Non-pressure chronic ulcer of other part of left lower leg with fat layer exposed; I47.29 Other ventricular tachycardia; I87.2 Venous insufficiency (chronic) (peripheral); D50.9 Iron deficiency anemia, unspecified; N40.0 Benign prostatic hyperplasia without lower urinary tract symptoms; E87.6 Hypokalemia; M79.601 Pain in right arm; R29.6 Repeated falls; Z96.619 Presence of unspecified artificial shoulder joint; Z68.20 Body mass index [BMI] 20.0-20.9, adult; Z87.891 Personal history of nicotine dependence; Z79.01 Long term (current) use of anticoagulants; Z91.148 Patient's other noncompliance with medication regimen for other reason; Z11.52 Encounter for screening for COVID-19
CPT/HCPCS: 36415; 71046; 80048; 80053; 80076; 81001; 82948; 83880; 85025; 85027; 87040; 87086; 87635; 93005; 93971; 96374; 96375; 96376; 97110; 97161; 97165; 97530; 97535; 99285; A9270; G0378; J1940

== ENCOUNTER 2023-08-28 14:42 | Inpatient (IN) | payer MEDICARE, SELFPAY ==
[2023-08-28] VITALS (17 sets, daily range): BP systolic 110–140; BP diastolic 63–87; PULSE 76–106; RESP 20–30; TEMP 37.3–37.8; O2SAT 88–99
--- NOTE | ~2023-08-28 | XR_ITS ---
EXAMINATION: XR chest 1V portable DATE: 08/28/2023 16:11 INDICATION: Shortness of breath TECHNIQUE: frontal view of the chest was obtained. COMPARISON: Chest radiograph dated 08/08/2023 FINDINGS: Cardiomegaly with pulmonary vascular congestion. There is diffuse increased interstitial pattern thro ughout both lungs consistent with associated mild pulmonary edema. Small left and tiny right pleural effusions. Retrocardiac airspace opacities in the bilateral lower lungs most likely atelectasis altho ugh differential includes pneumonia. Atherosclerotic aorta. Bilateral shoulder arthroplasties. IMPRESSION: 1. Congestive heart failure with cardiomegaly and mild pulmonary edema. 2. Small left and tiny right pleural effusions with bibasilar opacities which could represent atelect asis or pneumonia. Reviewed, dictated and finalized at location B. IMPRESSION: 1. Congestive heart failure with cardiomegaly and mild pulmonary edema. 2. Small left and tiny right pleural effusions with bibasilar opacities which c ould represent atelectasis or pneumonia.
--- NOTE | ~2023-08-28 | CT_ITS ---
EXAMINATION: CTA chest PE protocol DATE: 09/02/2023 18:07 INDICATION: Shortness of breath. TECHNIQUE: Computed tomography angiography (CTA) of the chest was performed with 100 mL Omnipaque-350 intravenous contrast timed to evaluate the pulmonary arteries. Coronal maximum intensity projection 3D-reconstructions were created by the technologist. Automated exposure control and iterative reconst ruction technique were employed. The dose-length product was 292.82 mGy-cm. COMPARISON: None. FINDINGS: There is mild emphysema. There is septal thickening in the lungs. There are groundglass opa cities in the upper lobes. There are small pleural effusions. Cardiomegaly is noted. There are hilario ry artery calcifications. No pericardial effusion. There is no pulmonary embolus. There are cysts in the liver measuring up to 15 mm. There is severe thoracic spondylosis. IMPRESSION: 1. No pulmonary embolus. 2. Mild pulmonary edema. Pneumonia cannot be excluded. 3. Mild emphysema. 4. Small pleural effusions. Reviewed, dictated and finalized at location E.
--- NOTE | ~2023-08-28 | CT_ITS ---
CT cervical spine wo con Ordering provider: Shruthi Tinoco PA-C History: . falls . Comparison: None. Technique: CT of the cervical spine was performed without contrast. Sagittal and coronal reformatted images were also obtained and reviewed. Automated exposure control and iterative reconstruction leola hnique were employed. The dose-length product was 605.33 mGy-cm. FINDINGS: VERTEBRAE: Anterolisthesis seen at the level of C7-T1. Minimal anterolisthesis at the level of C4-C5. Minimal retrolisthesis at the level of C2-C3. Otherwise No subluxation or acute fracture. The occipi darin condyles are intact. Dextroscoliosis. DISC SPACES: Narrowing of the disc C3-C3, C3-C4, C4-C5, C5-C6, C6-C7 and C7/T1. Multilevel uncoverteb ral joint osteoarthritic changes. Multilevel facet joint disease. Bilateral narrowing of the foramina at the level of C3-C4, C4-C5, C5-C6 and C6-C7. PARASPINOUS SOFT TISSUES: Normal. Emphysematous changes of the lungs. Bilateral pleural effusion. IMPRESSION: Multilevel anterolisthesis with no definite fractures. Otherwise, No acute osseous abnormality cervic al spine. Multilevel degenerative disc disease. Reviewed, dictated and finalized at location A. IMPRESSION: Multilevel anterolisthesis with no definite fractures. Otherwise, No acute osse ous abnormality cervical spine. Multilevel degenerative disc disease.
--- NOTE | ~2023-08-28 | XR_ITS ---
XR ankle LT min 3V Ordering provider: Shruthi Tinoco PA-C History: . ulcer to distal left lateral tibia . Comparison: None. FINDINGS: BONES: No acute fracture or dislocation. Small chip of bone seen in the subcutaneous tissues on the dorsum and on the plantar aspect which may be soft tissue ossification or foreign bodies. JOINT SPACES: The ankle mortise is normal. SOFT TISSUES: Normal. IMPRESSION: No acute osseous abnormality left ankle. Reviewed, dictated and finalized at location A.
--- NOTE | ~2023-08-28 | US_ITS ---
RIGHT UPPER EXTREMITY VENOUS ULTRASOUND Ordering provider: Shruthi Tinoco PA-C History: . large heamtoma w/ pitting edema, r/o dvt . Comparison: None. FINDINGS: --JUGULAR: Patent and free of thrombus. Normal compressibility, phasic flow and augmentation. --SUBCLAVIAN: Patent and free of thrombus. Normal compressibility, phasic flow and augmentation. --AXILLARY: Patent and free of thrombus. Normal compressibility, phasic flow and augmentation. --BRACHIAL: Patent and free of thrombus. Normal compressibility, phasic flow and augmentation. --CEPHALIC: Patent and free of thrombus. Normal compressibility, phasic flow and augmentation. --BASILIC: Patent and free of thrombus. Normal compressibility, phasic flow and augmentation. --RADIAL: Patent and free of thrombus. Normal compressibility, phasic flow and augmentation. --ULNAR: Patent and free of thrombus. Normal compressibility, phasic flow and augmentation. IMPRESSION: Negative right upper extremity venous US. No deep vein thrombosis. Reviewed, dictated and finalized at location A.
--- NOTE | ~2023-08-28 | XR_ITS ---
EXAMINATION: XR chest 1V portable DATE: 08/31/2023 13:33 INDICATION: Congestive heart failure. TECHNIQUE: A single frontal view of the chest was obtained. COMPARISON: Chest single view 08/28/2023 FINDINGS: There is a diffuse interstitial pattern, consistent mild pulmonary edema. There are airspac e opacities at left lung base. There is a small left pleural effusion. No pneumothorax. Cardiomegaly is noted. There are bilateral shoulder arthroplasties. IMPRESSION: 1. Mild pulmonary edema. 2. Stable small left pleural effusion. 3. Worsened airspace opacities at left lung base, consistent with atelectasis versus pneumonia. 4. Cardiomegaly. Reviewed, dictated and finalized at location A. IMPRESSION: 1. Mild pulmonary edema. 2. Stable small left pleural effusion. 3. Worsened airspace opacities at left lung base, consistent with atelectasis v ersus pneumonia. 4. Cardiomegaly.
--- NOTE | ~2023-08-28 | CT_ITS ---
CT brain wo con Ordering provider: Shruthi Tinoco PA-C History: 88 years Male with . falls . Comparison: July 18, 2023 Technique: CT of the head without contrast. Radiation reduction technique utilized. DLP is 605.33 mGy . FINDINGS: BRAIN PARENCHYMA AND CSF SPACES: Mild leukoaraiosis and diffuse cortical atrophy. Mild atheromatous d isease. No midline shift, mass effect or hemorrhage. The brain parenchyma and CSF spaces are otherwi se normal. VISUALIZED PARANASAL SINUSES: Cause of thickening of the left maxillary sinus with thickening of the bone suggestive of chronic sinusitis. MASTOIDS: Well aerated. BONES: The bones appear intact. SOFT TISSUES: Visualized nasopharynx is normal. Superficial soft tissues are normal. IMPRESSION: No acute intracranial findings. Reviewed, dictated and finalized at location A.
--- NOTE | 2023-08-28 15:16 | ECG_ITS ---
Test Date: 2023-08-28 15:49:56 Measurements Intervals [place] Rate: 89 P: 0 AR: 0 QRS: 41 QRSD: 98 T: 125 QT: 358 QTc: 436 Interpretive Statements ATRIAL FIBRILLATION WITH ABERRANT CONDUCTION OR VENTRICULAR PREMATURE COMPLEXES SEPTAL MYOCARDIAL INFARCTION , PROBABLY OLD [40+ ms Q WAVE IN V1/V2] NONSPECIFIC T-WAVE ABNORMALITY ABNORMAL ECG Compared to ECG 08/08/2023 09:57:52 PVC ARE FEWER Electronically Signed On 08-28-2023 16:04:28 CDT by Brad Cameron M.D.
[2023-08-28 15:28] LABS: Basophils Percent Auto 0.3 % (0.2-1.2); Eosinophils Percent Auto 0.3 % (0-4.4); Hematocrit 38.2 % (42.0-52.0); Hemoglobin 12.5 g/dL (14.0-18.0); Immature Granulocyte Absolute 0.03 K/mm3 (0.00-0.031); Immature Granulocyte Percent A 0.4 % (0-0.5); Lymphocytes Absolute Auto 0.34 K/mm3 (0.9-3.2); Lymphocytes Percent Auto 4.7 % (18.3-44.2); Mean Corpuscular HGB Conc 32.7 g/dl (32-36); Mean Corpuscular Hemoglobin 35.3 pg (26-34); Mean Corpuscular Volume 107.9 fl (80-100); Mean Platelet Volume 10.9 fl (7.4-10.4); Monocytes Absolute Auto 0.7 K/mm3 (0.1-0.6); Monocytes Percent Auto 9.4 % (2.6-8.5); Neutrophils Absolute Auto 6.1 K/mm3 (1.3-6.7); Neutrophils Percent Auto 84.9 % (45.5-73.1); Platelet Count Result 234 k/mm3 (150-375); Red Blood Count 3.54 M/mm3 (4.6-6.20); Red Cell Distribution Width 13.8 % (11.5-14.5); White Blood Count 7.2 K/mm3 (4.5-10.0)
[2023-08-28 15:46] LABS: Alanine Aminotransferase 25 U/L (6-50); Albumin Level 3.5 g/dL (3.5-5.1); Alkaline Phosphatase 86 U/L (38-126); Anion Gap 6 mmol/L (4-12); Aspartate Amino Transferase 37 U/L (17-59); Bilirubin,Total 1.5 mg/dL (0.2-1.3); Blood Urea Nitrogen 28 mg/dL (9-20); Calcium 7.5 mg/dL (8.4-10.2); Carbon Dioxide 32 mmol/L (22-30); Chloride 105 mmol/L (98-107); Estimated CRCL calculation 56 ml/min; Estimated Glomerular Filt Rate > 60; Glucose 89 mg/dL (65-110); Potassium 3.9 mmol/L (3.4-5.0); Sodium 143 mmol/L (137-145)
[2023-08-28 15:55] LABS: Troponin I 0.112 ng/mL (0.000-0.034)
[2023-08-28 15:56] LABS: INR 1.5; Prothrombin Time 18.7 Seconds (11.1-14.7)
[2023-08-28 15:57] LABS: Partial Thromboplastin Time 40.6 Seconds (22.3-36.8)
[2023-08-28 16:01] LABS: Anisocytosis 1+; Platelet Estimate Adequate (Adequate)
[2023-08-28 16:02] LABS: Macrocytosis 1+ (NORMAL); Schistocytes None Seen
[2023-08-28 16:20] LABS: NT Pro B Type Natriuretic Pept 12100 pg/mL (19.9-100)
--- NOTE | 2023-08-28 19:02 | ED.SOB ---
HPI - SOB/Dyspnea General Chief Complaint: Shortness of Breath/Dyspnea <Shruthi Tinoco PA-C - Last Filed: 08/29/23 02:22> Stated Complaint: DYSPNEA <Shruthi Tinoco PA-C - Last Filed: 08/29/23 02:22> Time Seen by Provider: 08/28/23 18:34 <Shruthi Tinoco PA-C - Last Filed: 08/29/23 02:22> History of Present Illness HPI Narrative: 88-year-old male with history of left distal tibia chronic wound, BPH, cardiomyopathy, systolic CHF, AFib chronically anticoagulated on Eliquis presents to the emergency department for shortness of breath and acute hypoxic respiratory failure. Patient presents via EMS from [facility] with his son at bedside. The son states that the patient has had increased frequent falls, had a fall a few days ago where he injured his right arm which is edematous with diffuse ecchymosis. States he had an x-ray performed at [facility] which was negative. He states that the patient has had increasing shortness of breath over the past few weeks. The patient denies chest pain but he is endorsing some shortness of breath and lower extremity edema. He denies abdominal pain, nausea vomiting, cough or congestion, head injury or trauma. He denies vision changes, focal numbness or weakness. The son states that the patient seems more confused over the past few weeks as well but is unsure of any head injury, however does state the patient is frequently falling. Patient's son also notes that the patient was not compliant with his Lasix prior to being admitted to [facility] on 08/11/2023. States he believes he has been compliant with medications while in [facility]. Pt was placed on 2L nasal cannula prior to arrival. He is not on O2 at baseline. Per chart review, patient was taken to the OR with While on 07/24/2023 for an infected ulceration to the lateral left tibia. Patient's son states that [facility] has been dressing the wound daily. echo on 07/24/2023 showed: 1. Complete two-dimensional, color flow and Doppler transthoracic echocardiogram is performed. 2. Left ventricular enlargement with severe global hypokinesia and low ejection fraction. - EF 20-25% 3. Severe biatrial dilation. 4. Moderate mitral regurgitation. 5. Mildly sclerotic but not stenotic aortic valve. 6. Concentric LVH. 7. Atrial fibrillation Discussed code status with patient's son/ POA at bedside who states patient is DNR/DNI but still desires full treatment. <Shruthi Tinoco PA-C - Last Filed: 08/29/23 02:22> Related Data Home Medications: Home Medications Medication Instructions Recorded Confirmed apixaban 5 mg tablet (Eliquis) 5 mg PO BID 06/15/22 08/29/23 cetirizine 10 mg PO DAILY 06/15/22 08/29/23 ferrous sulfate 325 mg PO BID 06/15/22 08/29/23 finasteride 5 mg tablet 5 mg PO DAILY 06/15/22 08/29/23 metoprolol succinate 25 mg 25 mg PO DAILY 06/15/22 08/29/23 tablet,extended release 24 hr sacubitril 24 mg-valsartan 26 mg 1 tablet PO BID 07/19/23 08/29/23 tablet (Entresto) latanoprost 0.005 % eye drops 1 drp EACH EYE HS 08/08/23 08/29/23 arginine-vitamin C-vitamin E oral 9.2 g PO BID 08/29/23 08/29/23 4.5 gram-156 mg/9.2 gram powder pkt (Arginaid) azelastine 137 mcg (0.1 %) nasal 137 mcg intranasal DAILY 08/29/23 08/29/23 spray aerosol chlorpheniramine maleate 4 mg 4 mg PO BID PRN allergy relief 08/29/23 08/29/23 tablet fluticasone propionate 50 2 spray intranasal DAILY 08/29/23 08/29/23 mcg/actuation nasal spray,suspension furosemide 20 mg tablet 20 mg PO DAILY 08/29/23 08/29/23 furosemide 20 mg tablet (Lasix) 40 mg PO DAILY 08/29/23 08/29/23 <Shruthi Tinoco PA-C - Last Filed: 08/29/23 02:22> Allergies/Adverse Reactions: Allergies Allergy/AdvReac Type Severity Reaction Status Date / Time atorvastatin AdvReac Muscle Pain Verified 08/28/23 16:02 clarithromycin [From Biaxin] AdvReac Gastrointestinal Verified 08/28/23 16:02 Upset r
[2023-08-28] MEDS: FUROSEMIDE INJ 40 MG/4 ML VIAL IV PUSH (19:12)
--- NOTE | 2023-08-28 19:41 | ECG_ITS ---
Test Date: 2023-08-28 19:46:47 Measurements Intervals [place] Rate: 93 P: 0 WA: 0 QRS: 12 QRSD: 101 T: 93 QT: 384 QTc: 478 Interpretive Statements ATRIAL FIBRILLATION WITH ABERRANT CONDUCTION OR VENTRICULAR PREMATURE COMPLEXES SEPTAL MYOCARDIAL INFARCTION , PROBABLY OLD [40+ ms Q WAVE IN V1/V2] NONSPECIFIC T-WAVE ABNORMALITY Compared to ECG 08/28/2023 15:49:56 NO SIGNIFICANT CHANGES Electronically Signed On 08-29-2023 13:30:18 CDT by Maribell Daniel M.D.
[2023-08-28] MEDS: PIPERACILLN/TAZ 3.375GM/NS50ML 3.375 GM/50 ML BAG IVPB (19:45)
[2023-08-28 19:47] LABS: Alveolar/Arterial O2 Gradient 76.3 mmHg; Base Excess ABG 3.8 mEq/l (+/-2.0); Fractional Inspired Oxygen 30 %; HCO3 ABG 26.6 mEq/l (22.0-26.0); Oxygen Content ABG 17.2 %vol (16.0-22.0); PCO2 ABG 34.1 mmHg (35.0-45.0); PO2 ABG 97.5 mmHg (80.0-100.0); PO2 FiO2 Ratio Arterial Blood 3.25 %; Total Hemoglobin 12.5 g/dL (12.0-18.0)
[2023-08-28] MEDS: ACETAMINOPHEN 325 MG TABLET 650 MG PO (19:49)
[2023-08-28 19:51] LABS: Device NON-INVASIVE VENT; Site Drawn LEFT BRACHIAL
[2023-08-28 19:52] LABS: Non-Invasive Expiratory Pressure 5 CMH2O; Non-Invasive Inspiratory Pressure 12 CMH2O; Non-Invasive Vent Rate 14 /MIN
[2023-08-28 19:58] LABS: Appearance Urine Clear (Clear); Bacteria Urine None Seen /hpf; Bilirubin Urine Negative (Negative); Blood Urine Negative (Negative); Color Urine Yellow (Yellow); Glucose Urine UA Negative (Negative); Ketones Urine Negative (Negative); Leukocyte Esterase Ur Trace LEU/UL (Negative); Nitrate Urine Negative (Negative); Protein Urine 2+ mg/dL (Negative); RBC Urine 0-2 /hpf (0-2); Specific Grav Ur 1.016 (1.001-1.035); Squamous Epithelial Cell Urine None Seen /hpf (Few); WBC Urine 0-5 /hpf (0-3)
[2023-08-28 20:05] LABS: Lactic Acid Reflex 1.6 mmol/L (0.7-2.0); Magnesium 1.9 mg/dL (1.6-2.3)
[2023-08-28 20:17] LABS: Add Urine Microscopic? YES
[2023-08-28 20:19] LABS: Troponin I 0.114 ng/mL (0.000-0.034)
[2023-08-28] MEDS: VANCOMYCIN 1,500 MG/NS 500 ML 1,500 MG/500 ML BAG 250 MG IVPB (20:39)
[2023-08-28 21:40] LABS: MRSA (PCR) NOT DETECTED (NOT DETECTE)
--- NOTE | 2023-08-28 21:47 | PC.NURSE ---
EDP Shruthi VORB 1mg IVP ativan. This RN overrode medication in pyxis and verbalized dosage at bedside.
[2023-08-28] MEDS: LORazepam INJ (*CRX) 2 MG/ML VIAL 1 MG IV PUSH (21:49)
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
[2023-08-28 23:32] LABS: Troponin I 0.108 ng/mL (0.000-0.034)
[2023-08-29] VITALS (25 sets, daily range): BP systolic 103–150; BP diastolic 58–87; PULSE 74–100; RESP 17–40; TEMP 36.2–37.1; O2SAT 91–100; BMI 20.5; BMI 20.2
[2023-08-29] MEDS: TETANUS,DIPHTHERIA,AC PERTUSSIS ADULT (0.5 ML) BOOSTRIX IM (00:37)
--- NOTE | 2023-08-29 00:55 | PM.IMHP ---
H&P: HPI History of Present Illness Date/Time: 08/29/23 00:55 Chief Complaint: sob Narrative: This is an 88 [facility] male [facility] with CHF EF=15%,non healing wound, multiple falls. Was brought for evaluation to ED due to sob, has been falling, AMS. In ED patient became hypoxic requiring BiPAP. AT the time of my visit patient was obtunded and on continuous BiPAP, unable to contribute to history taking. Preliminary work up was significant for chest xr with likely infiltrate, also found to have infected ulcer. Patient has been admitted for further evaluation, management and treatment. EXAMINATION: XR chest 1V portable DATE: 08/28/2023 16:11 INDICATION: Shortness of breath TECHNIQUE: frontal view of the chest was obtained. COMPARISON: Chest radiograph dated 08/08/2023 FINDINGS: Cardiomegaly with pulmonary vascular congestion. There is diffuse increased interstitial pattern throughout both lungs consistent with associated mild pulmonary edema. Small left and tiny right pleural effusions. Retrocardiac airspace opacities in the bilateral lower lungs most likely atelectasis although differential includes pneumonia. Atherosclerotic aorta. Bilateral shoulder arthroplasties. IMPRESSION: 1. Congestive heart failure with cardiomegaly and mild pulmonary edema. 2. Small left and tiny right pleural effusions with bibasilar opacities which could represent atelectasis or pneumonia. RIGHT UPPER EXTREMITY VENOUS ULTRASOUND Ordering provider: Shruthi Tinoco PA-C History: . large heamtoma w/ pitting edema, r/o dvt . Comparison: None. FINDINGS: --JUGULAR: Patent and free of thrombus. Normal compressibility, phasic flow and augmentation. --SUBCLAVIAN: Patent and free of thrombus. Normal compressibility, phasic flow and augmentation. --AXILLARY: Patent and free of thrombus. Normal compressibility, phasic flow and augmentation. --BRACHIAL: Patent and free of thrombus. Normal compressibility, phasic flow and augmentation. --CEPHALIC: Patent and free of thrombus. Normal compressibility, phasic flow and augmentation. --BASILIC: Patent and free of thrombus. Normal compressibility, phasic flow and augmentation. --RADIAL: Patent and free of thrombus. Normal compressibility, phasic flow and augmentation. --ULNAR: Patent and free of thrombus. Normal compressibility, phasic flow and augmentation. IMPRESSION: Negative right upper extremity venous US. No deep vein thrombosis. CT brain wo con Ordering provider: Shruthi Tinoco PA-C History: 88 years Male with . falls . Comparison: July 18, 2023 Technique: CT of the head without contrast. Radiation reduction technique utilized. DLP is 605.33 mGy. FINDINGS: BRAIN PARENCHYMA AND CSF SPACES: Mild leukoaraiosis and diffuse cortical atrophy. Mild atheromatous disease. No midline shift, mass effect or hemorrhage. The brain parenchyma and CSF spaces are otherwise normal. VISUALIZED PARANASAL SINUSES: Cause of thickening of the left maxillary sinus with thickening of the bone suggestive of chronic sinusitis. MASTOIDS: Well aerated. BONES: The bones appear intact. SOFT TISSUES: Visualized nasopharynx is normal. Superficial soft tissues are normal. IMPRESSION: No acute intracranial findings. Review of Systems Review of Systems: ROS unobtainable: Yes unobtainable due to mental status (lethargy/obtundation) [facility] Past Medical History Medical History Atrial fibrillation Basal cell carcinoma Chronic anticoagulation Glaucoma 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 Hypertension Iron deficiency anemia Surgical History Surgical History H/O cataract extraction H/O hemorrhoidectomy H/O shoulder replacement H/O thyroidectomy H
--- NOTE | 2023-08-29 01:47 | ADMGEN ---
This patient, Jamey Cuadra, was admitted to IMU Room 213-01. Patient/family oriented to hospital policies and general routines including ID bracelet, bed and alarms, visiting hours, pain management, procedures, bathroom and other care routines, personal items, smoking policy, room service/diet, and visiting hours. Information on how to activate the Rapid Response Team has been discussed. Patient/Family are encouraged to report perceived risks to care and to ask questions if they do not understand what they are told or what they should do. Pt arrived to room 213 at 0140
[2023-08-29] MEDS: PIPERACILLN/TAZ 3.375GM/NS50ML 3.375 GM/50 ML BAG IVPB ×2 (02:24→05:24)
[2023-08-29 04:35] LABS: Estimated CRCL calculation 55 ml/min; Estimated Glomerular Filt Rate > 60
[2023-08-29] MEDS: APIXABAN 5 MG TABLET PO (08:30)
[2023-08-29] MEDS: METOPROLOL SUCCINATE EXT REL 25 MG TABCR PO (08:30)
[2023-08-29] MEDS: SACUBITRIL/VALSARTAN 24-26 MG TABLET 1 TAB PO ×2 (08:31→20:25)
[2023-08-29] MEDS: LORATADINE 10 MG TABLET PO (08:31)
[2023-08-29] MEDS: FINASTERIDE 5 MG TABLET PO (08:31)
[2023-08-29] MEDS: AZELASTINE HCL NASAL 0.1% 137 MCG/SPR 30 ML BTL 2 SPRAY NASAL (08:31)
[2023-08-29] MEDS: TAMSULOSIN HCL 0.4 MG CAPSULE PO (08:31)
[2023-08-29] MEDS: FLUTICASONE PROPIONATE 0.05% NA SPR 16 GM BTL (*BKC) 2 SPRAY NASAL (08:31)
[2023-08-29] MEDS: FERROUS SULFATE 325 MG TABLET DR BY MOUTH ×2 (08:31→17:06)
--- NOTE | 2023-08-29 10:20 | PM.IMPN ---
Progress Note: A&P Assessment and Plan (1) Acute hypoxic respiratory failure: Code(s): J96.01 - Acute respiratory failure with hypoxia Status: Acute Assessment and Plan: Admit to IMU Currently on continuous BiPAP Combined pneumonia/pulmonary edema as suspected cause Cover for healthcare related pneumonia, MRSA nares negative (2) CAP (community acquired pneumonia): Qualifiers: Laterality: unspecified laterality Qualified Code(s): J18.9 - Pneumonia, unspecified organism Code(s): J18.9 - Pneumonia, unspecified organism Status: Acute Assessment and Plan: On Vanc, Flagyl and Zosyn await cx 08/28: High dose Zosyn and doxycycline to preserve renal function after conversation with ID Pharmacist ID Pharm consult ordered (3) Infected stasis ulcer: Qualifiers: Laterality: left Qualified Code(s): I83.229 - Varicose veins of left lower extremity with both ulcer of unspecified site and inflammation; L97.929 - Non-pressure chronic ulcer of unspecified part of left lower leg with unspecified severity Code(s): I83.209 - Varicose veins of unspecified lower extremity with both ulcer of unspecified site and inflammation; L97.909 - Non-pressure chronic ulcer of unspecified part of unspecified lower leg with unspecified severity Status: Acute Assessment and Plan: Local care (4) Frequent falls: Code(s): R29.6 - Repeated falls Status: Acute Assessment and Plan: Fall precautions (5) Altered mental state: Qualifiers: Altered mental status type: delirium Qualified Code(s): R41.0 - Disorientation, unspecified Code(s): R41.82 - Altered mental status, unspecified Status: Acute Assessment and Plan: likely secondary to multifactorial reasons (6) Acute on chronic systolic CHF (congestive heart failure): Code(s): I50.23 - Acute on chronic systolic (congestive) heart failure Status: Acute Assessment and Plan: EF=15-20% Daily intake and output gentle diuresis (7) Cardiomyopathy: Code(s): I42.9 - Cardiomyopathy, unspecified Status: Acute Assessment and Plan: continue home meds as needed (8) Severe protein-calorie malnutrition: Code(s): E43 - Unspecified severe protein-calorie malnutrition Status: Acute Assessment and Plan: Severe protein calorie malnutrition related to chronic loss of appetite as evidenced by intakes <75% needs > month; weight loss 6%/1 month; moderate fat loss and severe muscle wasting to temporalis, clavicles (9) Atrial fibrillation: Code(s): I48.91 - Unspecified atrial fibrillation Status: Acute Assessment and Plan: on eliquis and metoprolol afib controlled ventricular response with PVCs on school lunch monitor per my interpretation Time Spent With Patient Time with patient: Greater than 35 minutes Subjective Date/time seen: 08/29/23 10:20 Interval history: This is an 88-year-old male patient resides at local nursing facility admitted to the hospital due to hypoxic respiratory failure likely combination pneumonia and pulmonary edema. Patient also suffers multiple falls or healing peripheral vascular disease heart failure with EF 15-20% who has not been taking his Lasix as prescribed because he does not want to urinate at night. Patient admitted BiPAP initially altered mental status and obtunded treated with vancomycin and Zosyn for severe pneumonia possibly healthcare related pneumonia. Patient does have extensive prior smoking history 3 packs a day for 31 years. patient was asleep on BiPAP but when he awakened to participate in examination he became tachypneic mildly anxious. He was more alert and able to answer questions. He denied pain with stated he was having difficulty breathing. Patient reported he was feeling thirsty. Cardiology was consulted to assist in medical management of severe heart failure and hypoxic res
--- NOTE | 2023-08-29 11:02 | PM.CNCAR ---
Assessment and Plan Assessment and plan (1) Acute hypoxic respiratory failure: Code(s): J96.01 - Acute respiratory failure with hypoxia Status: Acute Assessment and Plan: Secondary to pneumonia and CHF. Improving with diuresis and antibiotics. BiPAP. Management per hospitalist service. (2) CAP (community acquired pneumonia): Qualifiers: Laterality: unspecified laterality Qualified Code(s): J18.9 - Pneumonia, unspecified organism Code(s): J18.9 - Pneumonia, unspecified organism Status: Acute Assessment and Plan: Abx and management per hospitalist service. (3) Heart failure with reduced ejection fraction: Code(s): I50.20 - Unspecified systolic (congestive) heart failure Status: Acute Assessment and Plan: Acute on chronic systolic heart failure secondary to medication noncompliance. Continue diuresis with IV furosemide for now. Continue medical therapy with Entresto, Toprol XL. (4) Chronic anticoagulation: Code(s): Z79.01 - [facility] (current) use of anticoagulants Status: Acute Assessment and Plan: Apixaban dose adjusted because of age and weight. He also falls frequently so may need to consider stopping A/c altogether. (5) Acute on chronic systolic CHF (congestive heart failure): Code(s): I50.23 - Acute on chronic systolic (congestive) heart failure Status: Acute Assessment and Plan: Improving. Daily weights, accurate intake & output. History of Present Illness History of Present Illness Consult date/time: 08/29/23 11:02 Reason For Visit: Acute hypoxic respiratory failure Narrative: Jamey Cuadra Is an 88-year-old male with cardiomyopathy (EF 20-25%) and atrial fibrillation. He comes to the hospital with shortness of breath. Patient's son reports patient has not been taking his furosemide at home because he doesn't like getting up in the night to urinate. Has been compliant with other medications. Being treated with intermittent BiPAP for respiratory failure secondary to pneumonia and CHF. Cardiology has been asked to see him as he is an established patient of Dr. Daniel and for assistance with medical management. Review of Systems Review of Systems: All systems reviewed & are unremarkable except as noted in HPI and below PMFSH Past Medical History Medical History Atrial fibrillation Basal cell carcinoma Chronic anticoagulation Glaucoma 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 Hypertension Iron deficiency anemia Surgical History Surgical History H/O cataract extraction H/O hemorrhoidectomy H/O shoulder replacement H/O thyroidectomy History of incision and drainage I&D of infected left lower extremity hematoma by Dr. Sandra on 07/24/23 History of removal of skin mole History of tonsillectomy Family History Family History Mother Cerebrovascular accident Father Testicle cancer Sibling Malignant neoplasm of prostate Social History Social History Social History: Code status: Do not resuscitate. Smoking packs per day: 3 Smoking cigarettes per day: 60.0 Years smoked: 31 Smoking pack-years: 93.00 Smoking status: Unknown if ever smoked Tobacco type: cigarettes Second hand tobacco smoke exposure: No Alcohol intake: never Substance use: never Substance use type: does not use Do You Feel Safe in your Home?: Yes Lack of Transportation: No Lack of Food: Never True Current Housing: Decline to Answer Concerned About Future Housing: Decline to Answer Difficulty Paying Gas/Electric Bills: Decline to Answer Difficulty Paying for Meds: Decline
[2023-08-29] MEDS: DOXYCYCLINE HYCLATE 100 MG TABLET PO ×2 (12:17→20:25)
[2023-08-29] MEDS: MAGNESIUM OXIDE 400 MG TABLET PO (12:17)
[2023-08-29] MEDS: FUROSEMIDE INJ 40 MG/4 ML VIAL IV PUSH (12:17)
[2023-08-29] MEDS: POTASSIUM CHLORIDE 20 MEQ ER TABLET PO (12:17)
[2023-08-29] MEDS: PIPERACILLIN/TAZ 4.5G/NS 100ML 4.5 GM/100 ML BAG IVPB ×2 (12:17→17:06)
--- NOTE | 2023-08-29 12:45 | P.CDI_ITS ---
CDI Query Clarification Request BMI 20.2 Nutritional Diagnostic Statement: Severe protein calorie malnutrition related to chronic loss of appetite as evidenced by intakes <75% needs > month; weight loss 6%/1 month; moderate fat loss and severe muscle wasting to temporalis, clavicles Please refer to the comprehensive nutrition assessment for further information. If you agree with the diagnosis of protein calorie malnutrition, please add to problem list including severity: * Mild * Moderate * Severe * Other/Unknown <HENRY Terry - Last Filed: 08/29/23 12:47> Clarified Diagnosis Clarified Diagnosis: Severe protein calorie malnutrition related to chronic loss of appetite as evidenced by intakes <75% needs > month; weight loss 6%/1 month; moderate fat loss and severe muscle wasting to temporalis, clavicles <Jules Montenegro APRN - Last Filed: 08/29/23 13:07>
--- NOTE | 2023-08-29 13:17 | P.PNINF_ITS ---
Pharmacy ID Consult - Stewardship Interventions Type of Interventions: De-escalation, Escalation Pharmacy ID Note: Subjective Pharmacy was consulted by Julio César Montenegro regarding infectious diseases for Jamey Cuadra. Jamey Cuadra is a 88 year old M with concerns regarding pot ential pneumonia and skin and soft tissue infection. Background The patient is currently receiving Piperacillin/Tazobactam and Doxycycline (Full First Day for Both). The patient's PMH includes falls, AF, and HF among others as noted by provider notes. Additionally, the patient was started on vancomycin and zosyn initially on presentation and was requiring additional oxygen while not being on O2 at baseline. MRSA nares was negative (08/28/23) Ankle culture and blood cultures were obtained (below) and are pending with initial gram stain in wound culture showing gram-positive cocci. Microbiology 08/28/23 22:50 Ankle Left Wound Culture - Preliminary Assessment/Recommendation/Discussion Spoke with consulting provider earlier today regarding this patient. Emphasis was placed on conserving this patient's renal function to avoid possible nephrotoxicity especially with the (at the time current) combination of [place] ncomycin and Zosyn. It was noted that the MRSA nares was negative and for this patient's pulmonary infection, atypical coverage was not on board. In order to help reduce the risk of nephrotoxicity, continue covering for aspiration and community-acquired pneumonia as well as a skin infection that may require MRSA coverage, doxycycline (100 mg BID) was added and vancomycin was continued - current therapy Zosyn and Doxycycline to cover for S. pneumoniae, M. catarhallis, H. influenzae, atypical pathogens, P. aeruginosa (given recent admission for HF among other risk factors per provider), anaerobic pathogens, MSSA, MRSA, Beta-hemolytic Streptococcus and other skin and respiratory pathogens. Follow cultures to help target therapy upon patient improvement. Will continue to follow. Thank you for the interesting consult. Mckay Daniel, PharmD Infectious Disease/Antimicrobial Stewardship Pharmacist 08/29/23; 1317 WBC 7.2 K/mm3 (4.5-10.0) 08/28/23 15:19 Creatinine 0.70 mg/dL (0.7-1.3) 08/29/23 04:13 Estim Creat Clear Calc 55 ml/min 08/29/23 04:13
[2023-08-29] MEDS: ALBUTEROL SULFATE NEB 2.5 MG/3 ML INH INHALATION (13:45)
[2023-08-29] MEDS: APIXABAN 2.5 MG TABLET PO (20:25)
[2023-08-29] MEDS: LATANOPROST 0.005% OP SOLN 2.5 ML BTL 1 DROP EACH EYE (20:25)
[2023-08-30] VITALS (18 sets, daily range): BP systolic 96–124; BP diastolic 56–76; PULSE 64–94; RESP 20–32; TEMP 36.4–37.1; O2SAT 91–100
[2023-08-30] MEDS: PIPERACILLIN/TAZ 4.5G/NS 100ML 4.5 GM/100 ML BAG IVPB ×4 (01:19→18:00)
[2023-08-30 04:11] LABS: Basophils Absolute Auto 0.1 K/mm3 (0.0-0.1); Basophils Percent Auto 0.6 % (0.2-1.2); Eosinophils Absolute Auto 0.1 K/mm3 (0-0.3); Eosinophils Percent Auto 1.2 % (0-4.4); Hematocrit 34.5 % (42.0-52.0); Hemoglobin 11.3 g/dL (14.0-18.0); Immature Granulocyte Absolute 0.07 K/mm3 (0.00-0.031); Immature Granulocyte Percent A 0.8 % (0-0.5); Lymphocytes Absolute Auto 0.38 K/mm3 (0.9-3.2); Lymphocytes Percent Auto 4.5 % (18.3-44.2); Mean Corpuscular HGB Conc 32.8 g/dl (32-36); Mean Corpuscular Hemoglobin 35.1 pg (26-34); Mean Corpuscular Volume 107.1 fl (80-100); Mean Platelet Volume 10.7 fl (7.4-10.4); Monocytes Absolute Auto 0.7 K/mm3 (0.1-0.6); Monocytes Percent Auto 8.4 % (2.6-8.5); Neutrophils Absolute Auto 7.2 K/mm3 (1.3-6.7); Neutrophils Percent Auto 84.5 % (45.5-73.1); Platelet Count Result 237 k/mm3 (150-375); Red Blood Count 3.22 M/mm3 (4.6-6.20); Red Cell Distribution Width 13.5 % (11.5-14.5); White Blood Count 8.5 K/mm3 (4.5-10.0)
[2023-08-30 04:22] LABS: Alanine Aminotransferase 17 U/L (6-50); Albumin Level 2.7 g/dL (3.5-5.1); Alkaline Phosphatase 64 U/L (38-126); Anion Gap 5 mmol/L (4-12); Aspartate Amino Transferase 28 U/L (17-59); Bilirubin,Total 1.7 mg/dL (0.2-1.3); Blood Urea Nitrogen 28 mg/dL (9-20); Calcium 6.9 mg/dL (8.4-10.2); Carbon Dioxide 33 mmol/L (22-30); Chloride 102 mmol/L (98-107); Estimated CRCL calculation 39 ml/min; Estimated Glomerular Filt Rate > 60; Glucose 88 mg/dL (65-110); Magnesium 1.8 mg/dL (1.6-2.3); Sodium 140 mmol/L (137-145)
[2023-08-30 04:45] LABS: Anisocytosis 1+; Platelet Estimate Adequate (Adequate); Schistocytes None Seen
[2023-08-30] MEDS: POTASSIUM CHLORIDE 20 MEQ ER TABLET 40 MEQ PO (06:26)
[2023-08-30] MEDS: POTASSIUM CHLORIDE 20 MEQ ER TABLET PO (08:49)
[2023-08-30] MEDS: SACUBITRIL/VALSARTAN 24-26 MG TABLET 1 TAB PO ×2 (08:49→20:52)
[2023-08-30] MEDS: FERROUS SULFATE 325 MG TABLET DR BY MOUTH ×2 (08:49→18:00)
[2023-08-30] MEDS: TAMSULOSIN HCL 0.4 MG CAPSULE PO (08:50)
[2023-08-30] MEDS: DOXYCYCLINE HYCLATE 100 MG TABLET PO ×2 (08:50→20:52)
[2023-08-30] MEDS: FINASTERIDE 5 MG TABLET PO (08:50)
[2023-08-30] MEDS: METOPROLOL SUCCINATE EXT REL 25 MG TABCR PO (08:50)
[2023-08-30] MEDS: MAGNESIUM OXIDE 400 MG TABLET PO (08:50)
--- NOTE | 2023-08-30 08:51 | PM.IMPN ---
Progress Note: A&P Assessment and Plan (1) Severe protein-calorie malnutrition: Code(s): E43 - Unspecified severe protein-calorie malnutrition Status: Acute (2) Acute hypoxic respiratory failure: Code(s): J96.01 - Acute respiratory failure with hypoxia Status: Acute (3) CAP (community acquired pneumonia): Qualifiers: Laterality: unspecified laterality Qualified Code(s): J18.9 - Pneumonia, unspecified organism Code(s): J18.9 - Pneumonia, unspecified organism Status: Acute (4) Pulmonary edema: Qualifiers: Chronicity: acute Qualified Code(s): J81.0 - Acute pulmonary edema Code(s): J81.1 - Chronic pulmonary edema Status: Acute (5) Frequent falls: Code(s): R29.6 - Repeated falls Status: Acute (6) Altered mental state: Qualifiers: Altered mental status type: delirium Qualified Code(s): R41.0 - Disorientation, unspecified Code(s): R41.82 - Altered mental status, unspecified Status: Acute (7) Hypokalemia: Code(s): E87.6 - Hypokalemia Status: Acute (8) Wound, open, leg: Qualifiers: Encounter type: subsequent encounter Laterality: left Qualified Code(s): S81.802D - Unspecified open wound, left lower leg, subsequent encounter Code(s): S81.809A - Unspecified open wound, unspecified lower leg, initial encounter Status: Acute (9) Heart failure with reduced ejection fraction: Code(s): I50.20 - Unspecified systolic (congestive) heart failure Status: Acute (10) Chronic anticoagulation: Code(s): Z79.01 - detention (current) use of anticoagulants Status: Acute (11) General weakness: Code(s): R53.1 - Weakness Status: Acute (12) Atrial fibrillation: Code(s): I48.91 - Unspecified atrial fibrillation Status: Acute (13) Hypertension: Code(s): I10 - Essential (primary) hypertension Status: Acute Plan 88-year-old male with PMH paroxysmal atrial fibrillation on Eliquis, heart failure reduced ejection fraction, hypertension, iron deficiency anemia, recurrent falls, lower extremity wound, who was at permanent resident of [facility] presents with shortness of breath. Found to have pulmonary edema, patient was not taking Lasix because he did not want to urinate at night. Possible pneumonia. Admitted on 08/29/2023. # acute hypoxic respiratory failure due to acute decompensated heart failure reduced ejection fraction due to noncompliance -compliance encouraged -echo 07/27 severe global hypokinesia with EF 20-25% -presented requiring BiPAP. Now on 1 L. Continue to wean. -cardiology consulted. On [employer] Lasix 20 mg, currently on 40 mg IV daily. Continue [employer] metoprolol succinate 25 mg, Entresto 24-26 mg. on 08/29 starting spironolactone 25mg qday, consider starting jardiance if BP holds. -dailiy weights, I/O's, cardiac diet # paroxysmal atrial fibrillation -currently in a fib, rate controlled -eliquis reduced to 2.5mg po bid # infected leg wound, purulent -may require debridement. general surgery consulted -culture prelim gram stain gram positive cocci -cont zosyn and doxycycline -MRSA negative, vancomycin dc'ed # bacteria pneumonia -dxed with PNA on admission due to CXR findings. he has dry cough, no fever or leukocytosis -ctm for symptoms/sepsis. tailor abx to leg wound as above. # acute hypokalemia -08/29 3.0 --> replace with 40meq PO, starting spironolactone. # frequent falls, severe malnutrition, cardiac cachexia - PT/OT consulted. pt does not want to stop blood thinner at the moment. baseline uses wheeled walker at [facility] - dietary supplements Chronic Conditions -HTN: cont BP meds per CHF plan -iron def anemia: cont supplement F/E/N: Saline lock IV, replacing potassium. Cardiac diet with dietary supplements GI prophylaxis: Not indicated DVT prophylaxis: Eliquis 2.5 mg p.o. b.i.d. Lines: Peripheral IV. Remove Vinson
[2023-08-30] MEDS: LORATADINE 10 MG TABLET PO (09:00)
[2023-08-30] MEDS: FUROSEMIDE INJ 40 MG/4 ML VIAL IV PUSH (09:00)
[2023-08-30] MEDS: APIXABAN 2.5 MG TABLET PO (09:00)
--- NOTE | 2023-08-30 10:12 | PM.PNCARD ---
Progress Note: A&P Assessment and Plan (1) Acute hypoxic respiratory failure: Code(s): J96.01 - Acute respiratory failure with hypoxia Status: Acute Assessment and Plan: Secondary to pneumonia and CHF. Improving with diuresis and antibiotics. (2) Heart failure with reduced ejection fraction: Code(s): I50.20 - Unspecified systolic (congestive) heart failure Status: Acute Assessment and Plan: Continue IV Lasix for now. Continue Entresto. Continue Toprol. Spironolactone started today, if he tolerates this, then will plan to add Jardiance. (3) CAP (community acquired pneumonia): Qualifiers: Laterality: unspecified laterality Qualified Code(s): J18.9 - Pneumonia, unspecified organism Code(s): J18.9 - Pneumonia, unspecified organism Status: Acute Assessment and Plan: On antibiotics as per primary team. (4) Atrial fibrillation: Code(s): I48.91 - Unspecified atrial fibrillation Status: Acute Assessment and Plan: Rate controlled. Continue Toprol for rate control. Apixaban dose adjusted because of age and weight. He also falls frequently so may need to consider stopping anticoagulation altogether. Discussed this with the patient and risks vs benefits of continuing anticoagulation. Patient prefers to continue with anticoagulation for now, however, if issues with bleeding/bruising occur, then will revisit stopping anticoagulation then. 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 He also falls frequently so may need to consider stopping anticoagulation altogether. Discussed this with the patient and risks vs benefits of continuing anticoagulation. Patient prefers to continue with anticoagulation for now, however, if issues with bleeding/bruising occur, then will revisit stopping anticoagulation then. Plan Recommendations and plan discussed with Hospitalist. Subjective Date/time seen: 08/30/23 10:12 Interval history: Reason for visit: CHF HPI: Jamey Cuadra is an 88-year-old male with cardiomyopathy (EF 20-25%) and atrial fibrillation. He comes to the hospital with shortness of breath. Patient's son reports patient has not been taking his furosemide at home because he doesn't like getting up in the night to urinate. Has been compliant with other medications. Being treated with intermittent BiPAP for respiratory failure secondary to pneumonia and CHF. Cardiology has been asked to see him as he is an established patient of Dr. Daniel and for assistance with medical management. Date of service 08/29: Still with shortness of breath. No lower extremity swelling. Review of Systems Review of Systems: All systems reviewed & are unremarkable except as noted in HPI and below (HPI) Exam Const: General: no acute distress Other: Elderly frail appearing male HENMT: Mouth: Yes moist mucous membranes Eyes: General: appearance normal, both eyes and all related structures Sclera: sclerae normal Resp: Effort & Inspection: normal respiratory effort Other: On supplemental oxygen via nasal cannula. Cardio: Rate: regular rate Rhythm: regular rhythm Skin: General skin exam: normal color Extrem: Other: Dressing on left lower leg Psych: Mental Status: mental status grossly normal Affect: normal affect Objective Data Vital Signs Vital Signs: Vital Signs - 24 hr 08/29/23 10:42 08/29/23 12:00 08/29/23 12:00 Temperature 36.2 C L Pulse Rate 97 94 Respiratory Rate 40 H Blood Pressure 150/64 H Pulse Oximetry 100 100 100 Oxygen Delivery Nasal Cannula BiPAP Oxygen Flow Rate 3 Fraction of Inspired Oxygen 30 08/29/23 12:00 08/29/23 13:46 08/29/23 13:45 Temperature Pulse Rate 100 95 91 Respiratory Rate 20 Blood Pressure Pulse Oximetry 96 O
[2023-08-30] MEDS: FLUTICASONE PROPIONATE 0.05% NA SPR 16 GM BTL (*BKC) 2 SPRAY NASAL (10:56)
[2023-08-30] MEDS: AZELASTINE HCL NASAL 0.1% 137 MCG/SPR 30 ML BTL 2 SPRAY NASAL (10:56)
--- NOTE | 2023-08-30 11:36 | PM.CNGS ---
Assessment and Plan Assessment and plan (1) Wound, open, leg: Qualifiers: Encounter type: subsequent encounter Laterality: left Qualified Code(s): S81.802D - Unspecified open wound, left lower leg, subsequent encounter Code(s): S81.809A - Unspecified open wound, unspecified lower leg, initial encounter Status: Acute Assessment and Plan: This is a chronic left lower leg wound following I&D of an infected hematoma in July that appears to be healing well. There are no signs of infection or surrounding cellulitis. He also has CHF with reduced ejection fraction of 20-25% and does not have any edema in the left lower extremity that would affect wound healing either. There is no need for antibiotic coverage for the left leg wound as it is not infected. We would recommend continued local wound care with silver gel dressing changes. No indication for any surgical management. We will sign off at this time. Please call with any surgical questions or concerns. Plan I have discussed the patient's case and plan of care with Dr. Sandra. History of Present Illness Consult details Consult date: 08/30/23 Reason for consult: other (Left lower extremity wound) Requesting physician: Belle Rock MD Narrative: This is an 88-year-old man who is known to our service from a left lower leg wound following incision and drainage of an infected hematoma by Dr. Sandra on 07/24/2023. He has been seen multiple times since his I and D, and has been at a snf receiving local wound care for his left lower extremity wound. He presented back to the ER yesterday for complaints of shortness of breath and recent falls. He has multiple medical problems and is on Eliquis for atrial fibrillation. He was admitted for this hospitalization for acute respiratory failure, CHF, and possible pneumonia. He was started on IV antibiotics and admitted to the hospitalist service. Wound care was consulted and evaluated the patient yesterday. They saw no signs of infection of the left lower extremity wound and continued local wound care. The patient is now seen in the IMU. He reports improvement in his shortness of breath and he is currently on nasal cannula. He denies any complaints with his left leg wound. Denies any pain in his lower extremities. He reports recent falls and has extensive bruising in both upper extremities due to his falls, right worse than left. He reports the swelling and pain in his right arm is much better than yesterday. Review of Systems Review of Systems: All systems reviewed & are unremarkable except as noted in HPI and below PMFSH Past Medical History Medical History Atrial fibrillation Basal cell carcinoma Chronic anticoagulation Glaucoma 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 Hypertension Iron deficiency anemia Surgical History Surgical History H/O cataract extraction H/O hemorrhoidectomy H/O shoulder replacement H/O thyroidectomy History of incision and drainage I&D of infected left lower extremity hematoma by Dr. Sandar on 07/24/23 History of removal of skin mole History of tonsillectomy Family History Family History Mother Cerebrovascular accident Father Testicle cancer Sibling Malignant neoplasm of prostate Social History Social History Social History: Code status: Do not resuscitate. Smoking packs per day: 3 Smoking cigarettes per day: 60.0 Years smoked: 31 Smoking pack-years: 93.00 Smoking status: Unknown if ever smoked Tobacco type: cigarettes Second hand tobacco smoke exposure: No Alcohol intake: never Substance use: never Substance use type: does n
[2023-08-30] MEDS: SPIRONOLACTONE 25 MG TABLET PO (12:29)
--- NOTE | 2023-08-30 16:00 | PC.NURSE ---
Pt with several runs of VTach on tele monitor. Pt is asymptomatic. BP 118/64. Dr. Daniel notified. Labs reviewed. No orders received at this time.
[2023-08-30] MEDS: LATANOPROST 0.005% OP SOLN 2.5 ML BTL 1 DROP EACH EYE (20:52)
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
[2023-08-31] VITALS (15 sets, daily range): BP systolic 99–145; BP diastolic 46–91; PULSE 59–108; RESP 20–40; TEMP 36.2–37.2; O2SAT 90–100
[2023-08-31] MEDS: PIPERACILLIN/TAZ 4.5G/NS 100ML 4.5 GM/100 ML BAG IVPB ×2 (00:44→05:24)
[2023-08-31 04:34] LABS: Basophils Absolute Auto 0.1 K/mm3 (0.0-0.1); Basophils Percent Auto 0.8 % (0.2-1.2); Eosinophils Absolute Auto 0.2 K/mm3 (0-0.3); Hematocrit 35.4 % (42.0-52.0); Hemoglobin 11.4 g/dL (14.0-18.0); Immature Granulocyte Absolute 0.06 K/mm3 (0.00-0.031); Immature Granulocyte Percent A 0.7 % (0-0.5); Lymphocytes Absolute Auto 0.53 K/mm3 (0.9-3.2); Lymphocytes Percent Auto 6.3 % (18.3-44.2); Mean Corpuscular HGB Conc 32.2 g/dl (32-36); Mean Corpuscular Hemoglobin 34.5 pg (26-34); Mean Corpuscular Volume 107.3 fl (80-100); Mean Platelet Volume 10.7 fl (7.4-10.4); Monocytes Absolute Auto 0.9 K/mm3 (0.1-0.6); Monocytes Percent Auto 10.2 % (2.6-8.5); Neutrophils Absolute Auto 6.7 K/mm3 (1.3-6.7); Platelet Count Result 261 k/mm3 (150-375); Red Cell Distribution Width 13.6 % (11.5-14.5); White Blood Count 8.4 K/mm3 (4.5-10.0)
[2023-08-31 04:47] LABS: Alanine Aminotransferase 18 U/L (6-50); Albumin Level 2.8 g/dL (3.5-5.1); Alkaline Phosphatase 89 U/L (38-126); Anion Gap 3 mmol/L (4-12); Aspartate Amino Transferase 39 U/L (17-59); Bilirubin,Total 1.4 mg/dL (0.2-1.3); Blood Urea Nitrogen 31 mg/dL (9-20); Calcium 7.2 mg/dL (8.4-10.2); Carbon Dioxide 32 mmol/L (22-30); Chloride 103 mmol/L (98-107); Estimated CRCL calculation 38 ml/min; Estimated Glomerular Filt Rate > 60; Glucose 109 mg/dL (65-110); Magnesium 1.8 mg/dL (1.6-2.3); Sodium 138 mmol/L (137-145)
[2023-08-31 05:12] LABS: Macrocytosis 1+ (NORMAL); Ovalocytes 1+; Platelet Estimate Adequate (Adequate); Schistocytes None Seen
[2023-08-31] MEDS: POTASSIUM CHLORIDE 20 MEQ ER TABLET PO (08:02)
[2023-08-31] MEDS: FINASTERIDE 5 MG TABLET PO (08:02)
[2023-08-31] MEDS: SACUBITRIL/VALSARTAN 24-26 MG TABLET 1 TAB PO ×2 (08:03→19:57)
[2023-08-31] MEDS: SPIRONOLACTONE 25 MG TABLET PO (08:03)
[2023-08-31] MEDS: MAGNESIUM OXIDE 400 MG TABLET PO (08:03)
[2023-08-31] MEDS: TAMSULOSIN HCL 0.4 MG CAPSULE PO (08:03)
[2023-08-31] MEDS: AZELASTINE HCL NASAL 0.1% 137 MCG/SPR 30 ML BTL 2 SPRAY NASAL (08:03)
[2023-08-31] MEDS: FUROSEMIDE INJ 40 MG/4 ML VIAL IV PUSH (08:03)
[2023-08-31] MEDS: FERROUS SULFATE 325 MG TABLET DR BY MOUTH ×2 (08:03→19:58)
[2023-08-31] MEDS: LORATADINE 10 MG TABLET PO (08:03)
[2023-08-31] MEDS: METOPROLOL SUCCINATE EXT REL 25 MG TABCR PO (08:03)
[2023-08-31] MEDS: DOXYCYCLINE HYCLATE 100 MG TABLET PO (08:03)
[2023-08-31] MEDS: FLUTICASONE PROPIONATE 0.05% NA SPR 16 GM BTL (*BKC) 2 SPRAY NASAL (08:04)
--- NOTE | 2023-08-31 10:11 | PHA.ABX.ID ---
Pharmacy ID Consult - Stewardship Interventions Type of Interventions: De-escalation Pharmacy ID Note: Spoke with hospitalist provider for patient today: Patient on Zosyn (D4/3.5) and doxycycline (day 3) for supposed pneumonia (though per provider concern is low for this as cause of respiratory concerns and perhaps more aligned with fluid overload) and cellulitis. Blood cultures are NGTD but MSSA was found in wound culture. Transitioning patient to Augmentin for MSSA coverage as well as potential coverage for a wide range of microbes that can cause CAP. Augmentin 875 mg BID started to finish a total 7-day course. Thank you for the interesting consult. Will sign off at this time. Mckay Daniel, PharmD Infectious Disease/Antimicrobial Stewardship Pharmacist 08/31/23; 1011 WBC 8.4 K/mm3 (4.5-10.0) 08/31/23 04:01 Creatinine 1.00 mg/dL (0.7-1.3) 08/31/23 04:01 Estim Creat Clear Calc 38 ml/min 08/31/23 04:01 Initial note copied Subjective Pharmacy was consulted by Julio César Montenegro regarding infectious diseases for Jamey Cuadra. Jamey Cuadra is a 88 year old M with concerns regarding potential pneumonia and skin and soft tissue infection. Background The patient is currently receiving Piperacillin/Tazobactam and Doxycycline (Full First Day for Both). The patient's PMH includes falls, AF, and HF among others as noted by provider notes. Additionally, the patient was started on vancomycin and zosyn initially on presentation and was requiring additional oxygen while not being on O2 at baseline. MRSA nares was negative (08/28/23) Ankle culture and blood cultures were obtained (below) and are pending with initial gram stain in wound culture showing gram-positive cocci. Microbiology 08/28/23 22:50 Ankle Left Wound Culture - Preliminary Assessment/Recommendation/Discussion Spoke with consulting provider earlier today regarding this patient. Emphasis was placed on conserving this patient's renal function to avoid possible nephrotoxicity especially with the (at the time current) combination of vancomycin and Zosyn. It was noted that the MRSA nares was negative and for this patient's pulmonary infection, atypical coverage was not on board. In order to help reduce the risk of nephrotoxicity, continue covering for aspiration and community-acquired pneumonia as well as a skin infection that may require MRSA coverage, doxycycline (100 mg BID) was added and vancomycin was continued - current therapy Zosyn and Doxycycline to cover for S. pneumoniae, M. catarhallis, H. influenzae, atypical pathogens, P. aeruginosa (given recent admission for HF among other risk factors per provider), anaerobic pathogens, MSSA, MRSA, Beta-hemolytic Streptococcus and other skin and respiratory pathogens. Follow cultures to help target therapy upon patient improvement. Will continue to follow. Thank you for the interesting consult. Mckay Daniel, PharmD Infectious Disease/Antimicrobial Stewardship Pharmacist 08/29/23; 1317 WBC 7.2 K/mm3 (4.5-10.0) 08/28/23 15:19 Creatinine 0.70 mg/dL (0.7-1.3) 08/29/23 04:13 Estim Creat Clear Calc 55 ml/min 08/29/23 04:13
--- NOTE | 2023-08-31 11:35 | PM.PNCARD ---
Progress Note: A&P Assessment and Plan (1) Acute hypoxic respiratory failure: Code(s): J96.01 - Acute respiratory failure with hypoxia Status: Acute Assessment and Plan: Secondary to pneumonia and CHF. Improving with diuresis and antibiotics. (2) Heart failure with reduced ejection fraction: Code(s): I50.20 - Unspecified systolic (congestive) heart failure Status: Acute Assessment and Plan: Continue IV Lasix for now. Will obtain CXR to see if any interval improvement. Hopefully transition to PO Lasix in the next day or so. Continue Entresto. Continue Toprol. Continue Spironolactone. Will start Jardiance today. (3) CAP (community acquired pneumonia): Qualifiers: Laterality: unspecified laterality Qualified Code(s): J18.9 - Pneumonia, unspecified organism Code(s): J18.9 - Pneumonia, unspecified organism Status: Acute Assessment and Plan: On antibiotics as per primary team. (4) Atrial fibrillation: Code(s): I48.91 - Unspecified atrial fibrillation Status: Acute Assessment and Plan: Rate controlled. Continue Toprol for rate control. Apixaban dose adjusted because of age and weight. He also falls frequently so may need to consider stopping anticoagulation altogether. Discussed this with the patient and risks vs benefits of continuing anticoagulation. Patient prefers to continue with anticoagulation for now, however, if issues with bleeding/bruising occur, then will revisit stopping anticoagulation then. (5) Chronic anticoagulation: Code(s): Z79.01 - FDC (current) use of anticoagulants Status: Acute Assessment and Plan: Apixaban dose adjusted because of age and weight. He also falls frequently so may need to consider stopping anticoagulation altogether. Discussed this with the patient and risks vs benefits of continuing anticoagulation. Patient prefers to continue with anticoagulation for now, however, if issues with bleeding/bruising occur, then will revisit stopping anticoagulation then. Plan Recommendations and plan discussed with Hospitalist. Subjective Date/time seen: 08/31/23 11:35 Interval history: Reason for visit: CHF HPI: Jamey Cuadra is an 88-year-old male with cardiomyopathy (EF 20-25%) and atrial fibrillation. He comes to the hospital with shortness of breath. Patient's son reports patient has not been taking his furosemide at home because he doesn't like getting up in the night to urinate. Has been compliant with other medications. Being treated with intermittent BiPAP for respiratory failure secondary to pneumonia and CHF. Cardiology has been asked to see him as he is an established patient of Dr. Daniel and for assistance with medical management. Date of service 08/29: Still with shortness of breath. No lower extremity swelling. Date of service 08/30: Shortness of breath is improving. Remains on supplemental oxygen -- not on home oxygen. Review of Systems Review of Systems: All systems reviewed & are unremarkable except as noted in HPI and below (HPI) Exam Const: General: no acute distress Other: Elderly frail appearing male HENMT: Mouth: Yes moist mucous membranes Eyes: General: appearance normal, both eyes and all related structures Sclera: sclerae normal Resp: Effort & Inspection: normal respiratory effort Other: On supplemental oxygen via nasal cannula. Cardio: Rhythm: abnormal rhythm irregularly irregular Skin: General skin exam: normal color Extrem: Other: Dressing on left lower leg Psych: Mental Status: mental status grossly normal Affect: normal affect Objective Data Vital Signs Vital Signs: Vital Signs - 24 hr 08/30/23 12:03 08/30/23 12:00 08/30/23 13:42 Temperature 36.4 C Pulse Rate 94 94 Respiratory Rate 32 H Blood Pressure 96/56 L Pulse Oximetry 96 98 Oxygen Delivery Nasal Cannula Oxygen Flow Rate 1
[2023-08-31] MEDS: EMPAGLIFLOZIN 10 MG TABLET PO (11:48)
[2023-08-31] MEDS: AMOXICILLIN/CLAVULANATE K 875-125 MG TAB 1 TABLET PO ×2 (11:48→19:58)
--- NOTE | 2023-08-31 12:04 | PCNFU ---
Nutrition Follow-Up Complete: Severe protein calorie malnutrition related to chronic loss of appetite as evidenced by intakes <75% needs > month; weight loss 6%/1 month; moderate fat loss and severe muscle wasting to temporalis, clavicles Goal:Improve PO intake to 50% meals and supplements Pt current nutrition is Heart healthy. Nutrition recommendation: continue with current plan of care Last recorded weight is 58.4 kg. Bowel Motility: +BM 08/29 Labs Reviewed: Hgb:11.4, HCT:35.4, Alb:2.8, BUN:31 Meds Noted: lasix, KCL Skin: chronic venous stasis Additional Notes: Pt continues on a heart healthy diet, intake good at 100%. Ensure compact TID with meals. Monitoring respiratory status, intakes, weights, labs, supplement tolerance, plan of care Follow up in 5 days
--- NOTE | 2023-08-31 17:42 | PM.IMPN ---
Progress Note: A&P Assessment and Plan (1) Severe protein-calorie malnutrition: Code(s): E43 - Unspecified severe protein-calorie malnutrition Status: Acute (2) Acute hypoxic respiratory failure: Code(s): J96.01 - Acute respiratory failure with hypoxia Status: Acute (3) CAP (community acquired pneumonia): Qualifiers: Laterality: unspecified laterality Qualified Code(s): J18.9 - Pneumonia, unspecified organism Code(s): J18.9 - Pneumonia, unspecified organism Status: Acute (4) Pulmonary edema: Qualifiers: Chronicity: acute Qualified Code(s): J81.0 - Acute pulmonary edema Code(s): J81.1 - Chronic pulmonary edema Status: Acute (5) Frequent falls: Code(s): R29.6 - Repeated falls Status: Acute (6) Altered mental state: Qualifiers: Altered mental status type: delirium Qualified Code(s): R41.0 - Disorientation, unspecified Code(s): R41.82 - Altered mental status, unspecified Status: Acute (7) Hypokalemia: Code(s): E87.6 - Hypokalemia Status: Acute (8) Wound, open, leg: Qualifiers: Encounter type: subsequent encounter Laterality: left Qualified Code(s): S81.802D - Unspecified open wound, left lower leg, subsequent encounter Code(s): S81.809A - Unspecified open wound, unspecified lower leg, initial encounter Status: Acute (9) Heart failure with reduced ejection fraction: Code(s): I50.20 - Unspecified systolic (congestive) heart failure Status: Acute (10) Chronic anticoagulation: Code(s): Z79.01 - jail (current) use of anticoagulants Status: Acute (11) General weakness: Code(s): R53.1 - Weakness Status: Acute (12) Atrial fibrillation: Code(s): I48.91 - Unspecified atrial fibrillation Status: Acute (13) Hypertension: Code(s): I10 - Essential (primary) hypertension Status: Acute Plan 88-year-old male with PMH paroxysmal atrial fibrillation on Eliquis, heart failure reduced ejection fraction, hypertension, iron deficiency anemia, recurrent falls, lower extremity wound, who was at permanent resident of [place] presents with shortness of breath. Found to have pulmonary edema, patient was not taking Lasix because he did not want to urinate at night. Possible pneumonia. Admitted on 08/29/2023. # acute hypoxic respiratory failure due to acute decompensated heart failure reduced ejection fraction due to noncompliance -compliance encouraged -echo 07/27 severe global hypokinesia with EF 20-25% -presented requiring BiPAP. Now on 1 L. Continue to wean. -cardiology consulted. On AIR EXPORT COORDINATOR Lasix 20 mg, currently on 40 mg IV daily. Continue AIR EXPORT COORDINATOR metoprolol succinate 25 mg, Entresto 24-26 mg. on 08/29 starting spironolactone 25mg qday, Jardiance started 08/31/2023. -dailiy weights, I/O's, cardiac diet # paroxysmal atrial fibrillation -currently in a fib, rate controlled -eliquis reduced to 2.5mg po bid # leg wound. -healing well per surgery status post infected hematoma. Continue wound care. -culture prelim gram stain gram positive cocci -Zosyn and doxycycline switch to Augmentin p.o.. -MRSA negative, vancomycin dc'ed # bacteria pneumonia -dxed with PNA on admission due to CXR findings. he has dry cough, no fever or leukocytosis -taking Augmentin. # acute hypokalemia -08/29 3.0 --> resolved status post 40 mEq p.o. supplementation. Spironolactone started on 08/29. # frequent falls, severe malnutrition, cardiac cachexia - PT/OT consulted. pt does not want to stop blood thinner at the moment. baseline uses wheeled walker at [place] - dietary supplements Chronic Conditions -HTN: cont BP meds per CHF plan -iron def anemia: cont supplement F/E/N: Saline lock IV, replace lytes needed. Cardiac diet with dietary supplements GI prophylaxis: Not indicated DVT prophylaxis: Eliquis 2.5 mg p.o. b.i.d. Lines: Peripheral IV
[2023-08-31] MEDS: LATANOPROST 0.005% OP SOLN 2.5 ML BTL 1 DROP EACH EYE (19:58)
[2023-08-31] MEDS: APIXABAN 2.5 MG TABLET PO (19:58)
[2023-09-01] VITALS (13 sets, daily range): BP systolic 107–126; BP diastolic 77–81; PULSE 75–101; RESP 18–24; TEMP 36.4–38.1; O2SAT 94–100
[2023-09-01 03:42] LABS: Basophils Absolute Auto 0.1 K/mm3 (0.0-0.1); Eosinophils Absolute Auto 0.3 K/mm3 (0-0.3); Eosinophils Percent Auto 3.7 % (0-4.4); Hematocrit 34.8 % (42.0-52.0); Hemoglobin 11.1 g/dL (14.0-18.0); Immature Granulocyte Absolute 0.04 K/mm3 (0.00-0.031); Immature Granulocyte Percent A 0.6 % (0-0.5); Lymphocytes Absolute Auto 0.47 K/mm3 (0.9-3.2); Lymphocytes Percent Auto 6.7 % (18.3-44.2); Mean Corpuscular HGB Conc 31.9 g/dl (32-36); Mean Corpuscular Hemoglobin 34.8 pg (26-34); Mean Corpuscular Volume 109.1 fl (80-100); Mean Platelet Volume 10.8 fl (7.4-10.4); Monocytes Absolute Auto 0.9 K/mm3 (0.1-0.6); Monocytes Percent Auto 13.1 % (2.6-8.5); Neutrophils Absolute Auto 5.3 K/mm3 (1.3-6.7); Neutrophils Percent Auto 74.9 % (45.5-73.1); Platelet Count Result 252 k/mm3 (150-375); Red Blood Count 3.19 M/mm3 (4.6-6.20); Red Cell Distribution Width 13.7 % (11.5-14.5)
[2023-09-01 03:52] LABS: Alanine Aminotransferase 17 U/L (6-50); Albumin Level 2.6 g/dL (3.5-5.1); Alkaline Phosphatase 69 U/L (38-126); Anion Gap 3 mmol/L (4-12); Aspartate Amino Transferase 35 U/L (17-59); Blood Urea Nitrogen 29 mg/dL (9-20); Calcium 7.5 mg/dL (8.4-10.2); Carbon Dioxide 32 mmol/L (22-30); Chloride 103 mmol/L (98-107); Estimated CRCL calculation 38 ml/min; Estimated Glomerular Filt Rate > 60; Glucose 109 mg/dL (65-110); Magnesium 1.9 mg/dL (1.6-2.3); Potassium 3.7 mmol/L (3.4-5.0); Sodium 138 mmol/L (137-145)
[2023-09-01 03:54] LABS: Anisocytosis 1+; Macrocytosis 1+ (NORMAL); Ovalocytes 1+; Platelet Estimate Adequate (Adequate); Schistocytes None Seen
--- NOTE | 2023-09-01 08:56 | PM.PNCARD ---
Progress Note: A&P Assessment and Plan (1) Acute hypoxic respiratory failure: Code(s): J96.01 - Acute respiratory failure with hypoxia Status: Acute Assessment and Plan: Secondary to pneumonia and CHF. Improving with diuresis and antibiotics. (2) Heart failure with reduced ejection fraction: Code(s): I50.20 - Unspecified systolic (congestive) heart failure Status: Acute Assessment and Plan: Shift to p.o. lasix today Continue Entresto. Continue Toprol. Continue Spironolactone. Continue Jardiance (3) CAP (community acquired pneumonia): Qualifiers: Laterality: unspecified laterality Qualified Code(s): J18.9 - Pneumonia, unspecified organism Code(s): J18.9 - Pneumonia, unspecified organism Status: Acute Assessment and Plan: On antibiotics as per primary team. (4) Atrial fibrillation: Code(s): I48.91 - Unspecified atrial fibrillation Status: Acute Assessment and Plan: Rate controlled. Continue Toprol for rate control. Apixaban dose adjusted because of age and weight. He also falls frequently so may need to consider stopping anticoagulation altogether. Discussed this with the patient and risks vs benefits of continuing anticoagulation. Patient prefers to continue with anticoagulation for now, however, if issues with bleeding/bruising occur, then will revisit stopping anticoagulation then. (5) Chronic anticoagulation: Code(s): Z79.01 - half-way (current) use of anticoagulants Status: Acute Assessment and Plan: Apixaban dose adjusted because of age and weight. He also falls frequently so may need to consider stopping anticoagulation altogether. Discussed this with the patient and risks vs benefits of continuing anticoagulation. Patient prefers to continue with anticoagulation for now, however, if issues with bleeding/bruising occur, then will revisit stopping anticoagulation then. Subjective Date/time seen: 09/01/23 08:56 Interval history: Reason for visit: CHF HPI: Jamey Cuadra is an 88-year-old male with cardiomyopathy (EF 20-25%) and atrial fibrillation. He comes to the hospital with shortness of breath. Patient's son reports patient has not been taking his furosemide at home because he doesn't like getting up in the night to urinate. Has been compliant with other medications. Being treated with intermittent BiPAP for respiratory failure secondary to pneumonia and CHF. Cardiology has been asked to see him as he is an established patient of Dr. Daniel and for assistance with medical management. Date of service 08/29: Still with shortness of breath. No lower extremity swelling. Date of service 08/30: Shortness of breath is improving. Remains on supplemental oxygen -- not on home oxygen. Date of service 09/01/2023: Feels about the same today, still has some shortness of breath but improving Review of Systems Review of Systems: All systems reviewed & are unremarkable except as noted in HPI and below (HPI) Exam Narrative: Elderly chronically ill-appearing, frail, and fragile Const: General: comfortable, no acute distress, alert and awake Orientation/consciousness: patient oriented x3 Other: Elderly frail appearing male HENMT: Head: normal to inspection Mouth: Yes moist mucous membranes Eyes: General: appearance normal, both eyes and all related structures Sclera: sclerae normal Pupils: Equal, round and reactive pupils present Neck: Neck: normal visual inspection, supple and no JVD Carotids: normal carotid upstroke Resp: Effort & Inspection: normal respiratory effort Auscultation: rales and rhonchi Other: On supplemental oxygen via nasal cannula. Cardio: Rate: regular rate Rhythm: regular rhythm and abnormal rhythm irregularly irregular Heart sounds: S1 normal heart sound present, S2 normal heart sound present and no murmurs GI: Auscultation: normal bowel sounds Skin: Gen
[2023-09-01] MEDS: EMPAGLIFLOZIN 10 MG TABLET PO (09:12)
[2023-09-01] MEDS: SACUBITRIL/VALSARTAN 24-26 MG TABLET 1 TAB PO ×2 (09:12→21:43)
[2023-09-01] MEDS: SPIRONOLACTONE 25 MG TABLET PO (09:12)
[2023-09-01] MEDS: TAMSULOSIN HCL 0.4 MG CAPSULE PO (09:12)
[2023-09-01] MEDS: FUROSEMIDE INJ 40 MG/4 ML VIAL IV PUSH (09:12)
[2023-09-01] MEDS: AMOXICILLIN/CLAVULANATE K 875-125 MG TAB 1 TABLET PO ×2 (09:12→21:43)
[2023-09-01] MEDS: LORATADINE 10 MG TABLET PO (09:12)
[2023-09-01] MEDS: APIXABAN 2.5 MG TABLET PO ×2 (09:12→21:43)
[2023-09-01] MEDS: POTASSIUM CHLORIDE 20 MEQ ER TABLET PO (09:12)
[2023-09-01] MEDS: MAGNESIUM OXIDE 400 MG TABLET PO (09:12)
[2023-09-01] MEDS: METOPROLOL SUCCINATE EXT REL 25 MG TABCR PO (09:12)
[2023-09-01] MEDS: FINASTERIDE 5 MG TABLET PO (09:12)
[2023-09-01] MEDS: FERROUS SULFATE 325 MG TABLET DR BY MOUTH ×2 (09:12→16:43)
[2023-09-01] MEDS: FLUTICASONE PROPIONATE 0.05% NA SPR 16 GM BTL (*BKC) 2 SPRAY NASAL (09:22)
[2023-09-01] MEDS: AZELASTINE HCL NASAL 0.1% 137 MCG/SPR 30 ML BTL 2 SPRAY NASAL (11:54)
--- NOTE | 2023-09-01 18:31 | PM.IMPN ---
Progress Note: A&P Assessment and Plan (1) Severe protein-calorie malnutrition: Code(s): E43 - Unspecified severe protein-calorie malnutrition Status: Acute (2) Acute hypoxic respiratory failure: Code(s): J96.01 - Acute respiratory failure with hypoxia Status: Acute (3) CAP (community acquired pneumonia): Qualifiers: Laterality: unspecified laterality Qualified Code(s): J18.9 - Pneumonia, unspecified organism Code(s): J18.9 - Pneumonia, unspecified organism Status: Acute (4) Pulmonary edema: Qualifiers: Chronicity: acute Qualified Code(s): J81.0 - Acute pulmonary edema Code(s): J81.1 - Chronic pulmonary edema Status: Acute (5) Frequent falls: Code(s): R29.6 - Repeated falls Status: Acute (6) Altered mental state: Qualifiers: Altered mental status type: delirium Qualified Code(s): R41.0 - Disorientation, unspecified Code(s): R41.82 - Altered mental status, unspecified Status: Acute (7) Hypokalemia: Code(s): E87.6 - Hypokalemia Status: Acute (8) Wound, open, leg: Qualifiers: Encounter type: subsequent encounter Laterality: left Qualified Code(s): S81.802D - Unspecified open wound, left lower leg, subsequent encounter Code(s): S81.809A - Unspecified open wound, unspecified lower leg, initial encounter Status: Acute (9) Heart failure with reduced ejection fraction: Code(s): I50.20 - Unspecified systolic (congestive) heart failure Status: Acute (10) Chronic anticoagulation: Code(s): Z79.01 - [facility]PC (current) use of anticoagulants Status: Acute (11) General weakness: Code(s): R53.1 - Weakness Status: Acute (12) Atrial fibrillation: Code(s): I48.91 - Unspecified atrial fibrillation Status: Acute (13) Hypertension: Code(s): I10 - Essential (primary) hypertension Status: Acute Plan 88-year-old male with PMH paroxysmal atrial fibrillation on Eliquis, heart failure reduced ejection fraction, hypertension, iron deficiency anemia, recurrent falls, lower extremity wound, who was at permanent resident of [place] presents with shortness of breath. Found to have pulmonary edema, patient was not taking Lasix because he did not want to urinate at night. Possible pneumonia. Admitted on 08/29/2023. # acute hypoxic respiratory failure due to acute decompensated heart failure reduced ejection fraction due to noncompliance -compliance encouraged. On 08/31 he is again saying he will not take Lasix at home. Again encouraged compliance and educated on the risk of medical noncompliance. -echo 07/27 severe global hypokinesia with EF 20-25% -presented requiring BiPAP. Was on 1 L and increased to 5 L on 08/30. On 08/31 able to taken back down to 3 L. -cardiology consulted. On OUTSIDE SALES REPRESENTATIVE Lasix 20 mg, currently on 40 mg IV daily. Continue OUTSIDE SALES REPRESENTATIVE metoprolol succinate 25 mg, Entresto 24-26 mg. on 08/29 starting spironolactone 25mg qday, Jardiance started 08/31/2023. -dailiy weights, I/O's, cardiac diet -need to continue another day of diuresis. # paroxysmal atrial fibrillation -currently in a fib, rate controlled -eliquis reduced to 2.5mg po bid # leg wound. -healing well per surgery status post infected hematoma. Continue wound care. -culture prelim gram stain gram positive cocci -Zosyn and doxycycline switch to Augmentin p.o.. -MRSA negative, vancomycin dc'ed # bacteria pneumonia -dxed with PNA on admission due to CXR findings. he has dry cough, no fever or leukocytosis -taking Augmentin. # acute hypokalemia -08/29 3.0 --> resolved status post 40 mEq p.o. supplementation. Spironolactone started on 08/29. # frequent falls, severe malnutrition, cardiac cachexia - PT/OT consulted. pt does not want to stop blood thinner at the moment. baseline uses wheeled walker at [place] - dietary supplements Chronic Conditions -HTN: cont BP me
--- NOTE | 2023-09-01 19:27 | PC.NURSE ---
This patient, Jamey Cuadra, was transferred to [facility] on 09/01/23 at 1927. Personal belongings sent with patient. Report given to Yazmin RAMIREZ. Appropriate documentation sent with patient.
[2023-09-01] MEDS: ALBUTEROL SULFATE NEB 2.5 MG/3 ML INH INHALATION (22:11)
[2023-09-01] MEDS: LATANOPROST 0.005% OP SOLN 2.5 ML BTL 1 DROP EACH EYE (22:12)
[2023-09-02] VITALS (12 sets, daily range): BP systolic 114–124; BP diastolic 61–67; PULSE 60–94; RESP 18–30; TEMP 36.5–37.7; O2SAT 97–100
[2023-09-02 05:23] LABS: Basophils Absolute Auto 0.1 K/mm3 (0.0-0.1); Basophils Percent Auto 0.9 % (0.2-1.2); Eosinophils Absolute Auto 0.2 K/mm3 (0-0.3); Eosinophils Percent Auto 3.1 % (0-4.4); Hematocrit 34.6 % (42.0-52.0); Hemoglobin 11.1 g/dL (14.0-18.0); Immature Granulocyte Absolute 0.07 K/mm3 (0.00-0.031); Immature Granulocyte Percent A 0.9 % (0-0.5); Lymphocytes Absolute Auto 0.43 K/mm3 (0.9-3.2); Lymphocytes Percent Auto 5.8 % (18.3-44.2); Mean Corpuscular HGB Conc 32.1 g/dl (32-36); Mean Corpuscular Hemoglobin 34.7 pg (26-34); Mean Corpuscular Volume 108.1 fl (80-100); Mean Platelet Volume 10.6 fl (7.4-10.4); Monocytes Absolute Auto 0.9 K/mm3 (0.1-0.6); Monocytes Percent Auto 12.3 % (2.6-8.5); Neutrophils Absolute Auto 5.7 K/mm3 (1.3-6.7); Platelet Count Result 254 k/mm3 (150-375); Red Cell Distribution Width 13.6 % (11.5-14.5); White Blood Count 7.4 K/mm3 (4.5-10.0)
[2023-09-02 05:27] LABS: Alanine Aminotransferase 16 U/L (6-50); Albumin Level 2.8 g/dL (3.5-5.1); Alkaline Phosphatase 65 U/L (38-126); Anion Gap 2 mmol/L (4-12); Aspartate Amino Transferase 25 U/L (17-59); Bilirubin,Total 1.1 mg/dL (0.2-1.3); Blood Urea Nitrogen 31 mg/dL (9-20); Carbon Dioxide 32 mmol/L (22-30); Chloride 103 mmol/L (98-107); Estimated CRCL calculation 47 ml/min; Estimated Glomerular Filt Rate > 60; Glucose 103 mg/dL (65-110); Potassium 4.1 mmol/L (3.4-5.0); Sodium 137 mmol/L (137-145)
[2023-09-02] MEDS: SACUBITRIL/VALSARTAN 24-26 MG TABLET 1 TAB PO ×2 (10:29→20:45)
[2023-09-02] MEDS: EMPAGLIFLOZIN 10 MG TABLET PO (10:29)
[2023-09-02] MEDS: LORATADINE 10 MG TABLET PO (10:29)
[2023-09-02] MEDS: TAMSULOSIN HCL 0.4 MG CAPSULE PO (10:29)
[2023-09-02] MEDS: POTASSIUM CHLORIDE 20 MEQ ER TABLET PO (10:30)
[2023-09-02] MEDS: METOPROLOL SUCCINATE EXT REL 25 MG TABCR PO (10:30)
[2023-09-02] MEDS: AMOXICILLIN/CLAVULANATE K 875-125 MG TAB 1 TABLET PO ×2 (10:30→20:45)
[2023-09-02] MEDS: MAGNESIUM OXIDE 400 MG TABLET PO (10:30)
[2023-09-02] MEDS: FUROSEMIDE INJ 40 MG/4 ML VIAL IV PUSH (10:31)
[2023-09-02] MEDS: APIXABAN 2.5 MG TABLET PO ×2 (10:31→20:45)
[2023-09-02] MEDS: FERROUS SULFATE 325 MG TABLET DR BY MOUTH ×2 (10:31→16:51)
[2023-09-02] MEDS: SPIRONOLACTONE 25 MG TABLET PO (10:32)
[2023-09-02] MEDS: FINASTERIDE 5 MG TABLET PO (10:32)
[2023-09-02] MEDS: FLUTICASONE PROPIONATE 0.05% NA SPR 16 GM BTL (*BKC) 2 SPRAY NASAL (10:38)
--- NOTE | 2023-09-02 12:14 | PM.PNCARD ---
Progress Note: A&P Assessment and Plan (1) Acute hypoxic respiratory failure: Code(s): J96.01 - Acute respiratory failure with hypoxia Status: Acute Assessment and Plan: Secondary to pneumonia and CHF. Improving with diuresis and antibiotics. (2) Heart failure with reduced ejection fraction: Code(s): I50.20 - Unspecified systolic (congestive) heart failure Status: Acute Assessment and Plan: Continue IV Lasix for now. Continue Entresto. Continue Toprol. Continue Spironolactone. Cont Jardiance. (3) CAP (community acquired pneumonia): Qualifiers: Laterality: unspecified laterality Qualified Code(s): J18.9 - Pneumonia, unspecified organism Code(s): J18.9 - Pneumonia, unspecified organism Status: Acute Assessment and Plan: On antibiotics as per primary team. (4) Atrial fibrillation: Code(s): I48.91 - Unspecified atrial fibrillation Status: Acute Assessment and Plan: Rate controlled. Continue Toprol for rate control. cont OAC (5) Chronic anticoagulation: Code(s): Z79.01 - detention (current) use of anticoagulants Status: Acute Assessment and Plan: Apixaban dose adjusted because of age and weight. He also falls frequently so may need to consider stopping anticoagulation altogether. Discussed this with the patient and risks vs benefits of continuing anticoagulation. Patient prefers to continue with anticoagulation for now, however, if issues with bleeding/bruising occur, then will revisit stopping anticoagulation then. Plan Recommendations and plan discussed with Hospitalist. Subjective Date/time seen: 09/02/23 12:14 Interval history: no acute events was on BIPAP earlier and discontinued for breakfast but was SOB during breakfast Review of Systems Review of Systems: All systems reviewed & are unremarkable except as noted in HPI and below Exam Const: General: comfortable and no acute distress Other: Able to lie flat HENMT: Face/Nose/Sinus: Normal nares present and no epistaxis Mouth: Yes moist mucous membranes Neck: Neck: supple and no JVD Carotids: no bruits Resp: Auscultation: clear to auscultation bilaterally and lung sounds not diminished Other: No chest wall tenderness Cardio: Rate: regular rate Rhythm: regular rhythm Heart sounds: no gallops, no murmurs and no rubs GI: GI Palp: Yes Soft to palpation and No Tenderness to palpation present (GI) Auscultation: normal bowel sounds Skin: General skin exam: normal color, rashes and/or lesions noted and no erythema Other: Warm Objective Data Vital Signs Vital Signs: Vital Signs - 24 hr 09/01/23 16:00 09/01/23 16:00 09/01/23 20:11 Temperature 38.1 C H 36.6 C Pulse Rate 101 H 95 94 Respiratory Rate 24 H 18 Blood Pressure 107/81 122/77 Pulse Oximetry 100 100 Oxygen Delivery Oxygen Flow Rate Fraction of Inspired Oxygen 09/01/23 22:00 09/01/23 22:12 09/01/23 22:13 Temperature Pulse Rate 94 92 75 Respiratory Rate 22 H 19 19 Blood Pressure Pulse Oximetry 98 Oxygen Delivery BiPAP Oxygen Flow Rate Fraction of Inspired Oxygen 09/01/23 20:00 09/02/23 02:16 09/02/23 04:31 Temperature 36.5 C Pulse Rate 80 Respiratory Rate 24 H 18 Blood Pressure 124/63 Pulse Oximetry 100 99 Oxygen Delivery Nasal Cannula BiPAP Oxygen Flow Rate 2 Fraction of Inspired Oxygen 09/01/23 20:00 09/02/23 00:00 09/02/23 08:04 Temperature Pulse Rate 81 90 68 Respiratory Rate 23 H Blood Pressure Pulse Oximetry 99 Oxygen Delivery BiPAP Oxygen Flow Rate Fraction of Inspired Oxygen 09/02/23 09:00 09/02/23 08:00 Temperature Pulse Rate 60 Respiratory Rate Blood Pressure Pulse Oximetry Oxygen Delivery BiPAP Oxygen Flow Rate Fraction of Inspired Oxygen 30 Intake/Output Intake/Output: Intake & Output 08/30/23 08/31/23 09/01/2309/01
--- NOTE | 2023-09-02 16:55 | PM.IMPN ---
Progress Note: A&P Assessment and Plan (1) Severe protein-calorie malnutrition: Code(s): E43 - Unspecified severe protein-calorie malnutrition Status: Acute (2) Acute hypoxic respiratory failure: Code(s): J96.01 - Acute respiratory failure with hypoxia Status: Acute (3) CAP (community acquired pneumonia): Qualifiers: Laterality: unspecified laterality Qualified Code(s): J18.9 - Pneumonia, unspecified organism Code(s): J18.9 - Pneumonia, unspecified organism Status: Acute (4) Pulmonary edema: Qualifiers: Chronicity: acute Qualified Code(s): J81.0 - Acute pulmonary edema Code(s): J81.1 - Chronic pulmonary edema Status: Acute (5) Frequent falls: Code(s): R29.6 - Repeated falls Status: Acute (6) Altered mental state: Qualifiers: Altered mental status type: delirium Qualified Code(s): R41.0 - Disorientation, unspecified Code(s): R41.82 - Altered mental status, unspecified Status: Acute (7) Hypokalemia: Code(s): E87.6 - Hypokalemia Status: Acute (8) Wound, open, leg: Qualifiers: Encounter type: subsequent encounter Laterality: left Qualified Code(s): S81.802D - Unspecified open wound, left lower leg, subsequent encounter Code(s): S81.809A - Unspecified open wound, unspecified lower leg, initial encounter Status: Acute (9) Heart failure with reduced ejection fraction: Code(s): I50.20 - Unspecified systolic (congestive) heart failure Status: Acute (10) Chronic anticoagulation: Code(s): Z79.01 - FPC (current) use of anticoagulants Status: Acute (11) General weakness: Code(s): R53.1 - Weakness Status: Acute (12) Atrial fibrillation: Code(s): I48.91 - Unspecified atrial fibrillation Status: Acute (13) Hypertension: Code(s): I10 - Essential (primary) hypertension Status: Acute Plan 88-year-old male with PMH paroxysmal atrial fibrillation on Eliquis, heart failure reduced ejection fraction, hypertension, iron deficiency anemia, recurrent falls, lower extremity wound, history of COVID pneumonia, who was at permanent resident of [place] presents with shortness of breath. Found to have pulmonary edema, patient was not taking Lasix because he did not want to urinate at night. Possible pneumonia. Admitted on 08/29/2023. # acute hypoxic respiratory failure due to acute decompensated heart failure reduced ejection fraction due to noncompliance -compliance encouraged. On 08/31 he is again saying he will not take Lasix at home. Again encouraged compliance and educated on the risk of medical noncompliance. -echo 07/27 severe global hypokinesia with EF 20-25% -presented requiring BiPAP. -cardiology consulted. On CRITICAL CARE PARAMEDIC Lasix 20 mg, currently on 40 mg IV daily. Continue CRITICAL CARE PARAMEDIC metoprolol succinate 25 mg, Entresto 24-26 mg. on 08/29 started spironolactone 25mg qday, Jardiance started 08/31/2023. -dailiy weights, I/O's, cardiac diet -09/01: Patient is net negative 1 L since admission. Unclear if this is accurate. Patient requiring BiPAP for tachypnea today and unable to be weaned off of oxygen. Attempt to remove BiPAP and check ABG 30 minutes post. Also check CTA chest. His respiratory failure may not be solely due to pneumonia or CHF. discussed with nurse Caldwell. His son reports since he had COVID he has slowly deteriorated. 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 A pulmonology consult may be in order, pending chest CT on ABG. # paroxysmal atrial fibrillation -currently in a fib, rate controlled -eliquis reduced to 2.5mg po bid # leg wound, chronic. -healing well per surgery status post infected hematoma. Continue wound care. -culture prelim gram stain gram positive cocci -Zosyn and doxycycline switch to Augmentin p.o.. -MRSA negative, vancomycin dc'ed # bacteria pneumonia -dxed with PNA on admission due t
[2023-09-02 17:31] LABS: Alveolar/Arterial O2 Gradient 83.4 mmHg; Base Excess ABG 8.2 mEq/l (+/-2.0); Carboxyhemoglobin 0.8 % THb (0-2.0); Fractional Inspired Oxygen 26 %; HCO3 ABG 32.8 mEq/l (22.0-26.0); Methemoglobin ABG 0.3 %THb (0-1.5); Oxygen Content ABG 15.6 %vol (16.0-22.0); PCO2 ABG 45.6 mmHg (35.0-45.0); PO2 FiO2 Ratio Arterial Blood 1.84 %; Reduced Hemoglobin 14.6 %THb (0-5.0); Total Hemoglobin 13.2 g/dL (12.0-18.0); pH ABG 7.475 (7.350-7.450)
[2023-09-02 17:33] LABS: Oxyhemoglobin 84.3 % THb (90.0-100.0); PO2 ABG 47.9 mmHg (80.0-100.0)
[2023-09-02 17:34] LABS: Device NASAL CANNULA; Liters per Minute 1.5 LPM; Site Drawn LEFT BRACHIAL
[2023-09-02] MEDS: LATANOPROST 0.005% OP SOLN 2.5 ML BTL 1 DROP EACH EYE (20:45)
[2023-09-03] VITALS (13 sets, daily range): BP systolic 118–124; BP diastolic 63–70; PULSE 61–100; RESP 20–24; TEMP 36.8–37.5; O2SAT 91–98
[2023-09-03 05:17] LABS: Basophils Absolute Auto 0.1 K/mm3 (0.0-0.1); Basophils Percent Auto 0.9 % (0.2-1.2); Eosinophils Absolute Auto 0.3 K/mm3 (0-0.3); Eosinophils Percent Auto 2.9 % (0-4.4); Hematocrit 36.4 % (42.0-52.0); Hemoglobin 11.9 g/dL (14.0-18.0); Immature Granulocyte Absolute 0.08 K/mm3 (0.00-0.031); Immature Granulocyte Percent A 0.9 % (0-0.5); Lymphocytes Absolute Auto 0.44 K/mm3 (0.9-3.2); Lymphocytes Percent Auto 4.9 % (18.3-44.2); Mean Corpuscular HGB Conc 32.7 g/dl (32-36); Mean Corpuscular Hemoglobin 35.5 pg (26-34); Mean Corpuscular Volume 108.7 fl (80-100); Mean Platelet Volume 10.5 fl (7.4-10.4); Monocytes Percent Auto 10.8 % (2.6-8.5); Neutrophils Absolute Auto 7.1 K/mm3 (1.3-6.7); Neutrophils Percent Auto 79.6 % (45.5-73.1); Platelet Count Result 267 k/mm3 (150-375); Red Blood Count 3.35 M/mm3 (4.6-6.20); Red Cell Distribution Width 13.7 % (11.5-14.5); White Blood Count 8.9 K/mm3 (4.5-10.0)
[2023-09-03 05:29] LABS: Alanine Aminotransferase 18 U/L (6-50); Albumin Level 3.1 g/dL (3.5-5.1); Alkaline Phosphatase 85 U/L (38-126); Anion Gap 0 mmol/L (4-12); Aspartate Amino Transferase 29 U/L (17-59); Blood Urea Nitrogen 34 mg/dL (9-20); Calcium 8.4 mg/dL (8.4-10.2); Carbon Dioxide 37 mmol/L (22-30); Chloride 102 mmol/L (98-107); Estimated CRCL calculation 42 ml/min; Estimated Glomerular Filt Rate > 60; Glucose 110 mg/dL (65-110); Magnesium 2.3 mg/dL (1.6-2.3); Potassium 4.5 mmol/L (3.4-5.0); Sodium 139 mmol/L (137-145)
[2023-09-03 05:50] LABS: Anisocytosis 1+; Ovalocytes 1+; Platelet Estimate Adequate (Adequate); Schistocytes None Seen
[2023-09-03] MEDS: METOPROLOL SUCCINATE EXT REL 25 MG TABCR PO (08:49)
[2023-09-03] MEDS: MAGNESIUM OXIDE 400 MG TABLET PO (08:50)
[2023-09-03] MEDS: SPIRONOLACTONE 25 MG TABLET PO (08:50)
[2023-09-03] MEDS: APIXABAN 2.5 MG TABLET PO ×2 (08:50→22:18)
[2023-09-03] MEDS: EMPAGLIFLOZIN 10 MG TABLET PO (08:50)
[2023-09-03] MEDS: POTASSIUM CHLORIDE 20 MEQ ER TABLET PO (08:50)
[2023-09-03] MEDS: TAMSULOSIN HCL 0.4 MG CAPSULE PO (08:50)
[2023-09-03] MEDS: SACUBITRIL/VALSARTAN 24-26 MG TABLET 1 TAB PO ×2 (08:50→22:18)
[2023-09-03] MEDS: AMOXICILLIN/CLAVULANATE K 875-125 MG TAB 1 TABLET PO ×2 (08:50→22:18)
[2023-09-03] MEDS: FERROUS SULFATE 325 MG TABLET DR BY MOUTH ×2 (08:50→17:26)
[2023-09-03] MEDS: LORATADINE 10 MG TABLET PO (08:50)
[2023-09-03] MEDS: FUROSEMIDE INJ 40 MG/4 ML VIAL IV PUSH (08:50)
[2023-09-03] MEDS: FINASTERIDE 5 MG TABLET PO (08:50)
[2023-09-03] MEDS: FLUTICASONE PROPIONATE 0.05% NA SPR 16 GM BTL (*BKC) 2 SPRAY NASAL (08:50)
[2023-09-03] MEDS: AZELASTINE HCL NASAL 0.1% 137 MCG/SPR 30 ML BTL 2 SPRAY NASAL (08:51)
--- NOTE | 2023-09-03 11:00 | PM.DS ---
DS: Admitting Diagnosis Discharge Date September 03, 2023 Admitting Diagnosis Acute hypoxic respiratory DS: Discharge Diagnosis Discharge Diagnosis (1) Acute hypoxic respiratory failure: Code(s): J96.01 - Acute respiratory failure with hypoxia Status: Acute (2) CAP (community acquired pneumonia): Qualifiers: Laterality: unspecified laterality Qualified Code(s): J18.9 - Pneumonia, unspecified organism Code(s): J18.9 - Pneumonia, unspecified organism Status: Acute (3) Pulmonary edema: Qualifiers: Chronicity: acute Qualified Code(s): J81.0 - Acute pulmonary edema Code(s): J81.1 - Chronic pulmonary edema Status: Acute (4) Frequent falls: Code(s): R29.6 - Repeated falls Status: Acute (5) Severe protein-calorie malnutrition: Code(s): E43 - Unspecified severe protein-calorie malnutrition Status: Acute DS: Summary Hospital Course Hospital Course: 88-year-old male with PMH paroxysmal atrial fibrillation on Eliquis, heart failure reduced ejection fraction, hypertension, iron deficiency anemia, recurrent falls, lower extremity wound, history of COVID pneumonia, who was at permanent resident of [place] presents with shortness of breath. Found to have pulmonary edema, patient was not taking Lasix because he did not want to urinate at night. Possible pneumonia. Admitted on 08/29/2023. Patient is stable to be discharged to home with home health on 09/03/2023. He will be discharged with nasal cannula to keep SpO2 greater than 92%. He has been advised to follow-up with his primary care and also furnished with a number to call for pulmonology follow-up in the setting of previous tobacco abuse, respiratory failure, evidence of emphysema. The patient is refusing to go to SNF for rehab. He is also refusing to take Lasix. He has been heavily educated on multiple occasions by multiple medical reviewer on the risk of adhering to medical therapy. This includes readmission to the hospital, worsening of his heart failure, worsening of hypoxic respiratory failure, worsening deterioration, morbidity and even mortality. The patient was in understanding of this and he was again advised to adhere to medical therapy. Spoke with his son about this as well. The son is going to try to keep the patient compliant but he reports it has been very difficult up to date. He wished to be DNR during the admission. Please see the below list for individual problem assessment and plans: # acute hypoxic respiratory failure due to acute decompensated heart failure reduced ejection fraction due to noncompliance, improved. -as above, compliance encouraged. He will be discharged on Lasix 40 mg q.day. continue METAPHYSICIAN metoprolol succinate 25 mg p.o. q.day, Entresto 24-26 mg. Spironolactone and Jardiance has have added as well. -echo 07/27 severe global hypokinesia with EF 20-25% -patient was seen by Cardiology. Follow up with his usual take down sorter Dr. Daniel of the [facility] cardiology group. -the patient is requiring proximally 1-2 L on discharge. This is new for him. A CT scan performed on 09/01 which was negative for PE, positive for mild pulmonary edema, mild emphysema and small pleural effusions. The patient has a prior history of smoking and he has been furnished with a number to call pulmonology for follow-up. ABGs did not demonstrate significant hypercapnia. # paroxysmal atrial fibrillation -AFib rate controlled. -eliquis reduced to 2.5mg po bid from his METAPHYSICIAN 5 mg p.o. b.i.d.. Patient has history of recurrent falls and he was educated on the bleeding risk but he was adamant to continue the blood thinner at reduced dose for clot prevention. # leg wound, chronic. -healing well per surgery status post infected hematoma. Continue wound care. Home health ordered on discharge # bacteria pneumonia -dxed with PNA on admission due to CXR findings. he has dry cough, no fever or leukocytosis -Augm
--- NOTE | 2023-09-03 11:59 | PCRCNOTE ---
Unable to accurately complete home oxygen evaluation due to patient condition. Unable to obtain saturations. Attempted ear, nose and finger pulse ox probe. RN aware.
--- NOTE | 2023-09-03 15:58 | PM.PNCARD ---
Progress Note: A&P Assessment and Plan (1) Acute hypoxic respiratory failure: Code(s): J96.01 - Acute respiratory failure with hypoxia Status: Acute Assessment and Plan: Secondary to pneumonia and CHF. Improved with diuresis and antibiotics. (2) Heart failure with reduced ejection fraction: Code(s): I50.20 - Unspecified systolic (congestive) heart failure Status: Acute Assessment and Plan: Improving and change Lasix to 40 mg daily Continue Entresto. Continue Toprol. Continue Spironolactone. Cont Jardiance. (3) CAP (community acquired pneumonia): Qualifiers: Laterality: unspecified laterality Qualified Code(s): J18.9 - Pneumonia, unspecified organism Code(s): J18.9 - Pneumonia, unspecified organism Status: Acute Assessment and Plan: On antibiotics as per primary team. (4) Atrial fibrillation: Code(s): I48.91 - Unspecified atrial fibrillation Status: Acute Assessment and Plan: Rate controlled. Continue Toprol for rate control. 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 He also falls frequently so may need to consider stopping anticoagulation altogether. Discussed this with the patient and risks vs benefits of continuing anticoagulation. Patient prefers to continue with anticoagulation for now, however, if issues with bleeding/bruising occur, then will revisit stopping anticoagulation then. Plan Recommendations and plan discussed with Hospitalist. Subjective Date/time seen: 09/03/23 15:58 Interval history: No acute events Shortness of breath improving Review of Systems Review of Systems: All systems reviewed & are unremarkable except as noted in HPI and below Exam Const: General: comfortable and no acute distress Other: Able to lie flat Neck: Neck: supple and no JVD Carotids: no bruits Resp: Auscultation: wheezes (Scattered wheezes) and lung sounds not diminished Other: No chest wall tenderness Cardio: Rate: regular rate Rhythm: abnormal rhythm irregularly irregular Heart sounds: no gallops, no murmurs and no rubs Objective Data Vital Signs Vital Signs: Vital Signs - 24 hr 09/02/23 16:00 09/02/23 21:17 09/02/23 22:00 Temperature 37.4 C Pulse Rate 85 88 94 Respiratory Rate 23 H 20 Blood Pressure 114/67 Pulse Oximetry 100 100 Oxygen Delivery BiPAP Oxygen Flow Rate 09/03/23 05:34 09/02/23 20:00 09/02/23 20:00 Temperature 36.9 C Pulse Rate 61 92 Respiratory Rate 20 Blood Pressure 118/66 Pulse Oximetry 97 97 Oxygen Delivery Nasal Cannula Oxygen Flow Rate 2 09/03/23 00:00 09/03/23 04:00 09/03/23 08:35 Temperature Pulse Rate 100 90 Respiratory Rate Blood Pressure Pulse Oximetry 91 Oxygen Delivery Room Air Oxygen Flow Rate 09/03/23 08:49 09/03/23 08:50 09/03/23 14:10 Temperature 37.5 C Pulse Rate 92 78 Respiratory Rate 24 H Blood Pressure 124/63 Pulse Oximetry 98 95 Oxygen Delivery Nasal Cannula Oxygen Flow Rate 2 09/03/23 08:00 09/03/23 12:00 Temperature Pulse Rate 84 81 Respiratory Rate Blood Pressure Pulse Oximetry Oxygen Delivery Oxygen Flow Rate Intake/Output Intake/Output: Intake & Output 08/31/23 09/01/23 09/02/23 09/03/23 23:59 23:59 23:59 23:59 Intake Total 1030 1340 840 560 Output Total 1400 2150 1400 Balance 1030 -60 -1310 -840 Meds/Results Medications: Active Medications Generic Name Dose Route Start Last Admin Trade Name Freq PRN Reason Stop Dose Admin Albuterol 2.5 mg 08/29/23 12:39 09/01/23 22:11 Albuterol Sulfate Neb 2.5 Mg/3 Ml Inh INHALATION 2.5 mg Q4HRT PRN Administration Shortness Of Breath Amoxicillin/Clavulanate Potassium 1 tablet 08/31/23 12:00 09/03/23 08:50 Amox
[2023-09-03] MEDS: LATANOPROST 0.005% OP SOLN 2.5 ML BTL 1 DROP EACH EYE (22:19)
[2023-09-04] VITALS (12 sets, daily range): BP systolic 103–145; BP diastolic 59–90; PULSE 78–101; RESP 18–20; TEMP 37.2–37.3; O2SAT 90–97
[2023-09-04 06:27] LABS: Basophils Absolute Auto 0.1 K/mm3 (0.0-0.1); Eosinophils Absolute Auto 0.3 K/mm3 (0-0.3); Eosinophils Percent Auto 3.8 % (0-4.4); Hemoglobin 11.5 g/dL (14.0-18.0); Immature Granulocyte Absolute 0.06 K/mm3 (0.00-0.031); Immature Granulocyte Percent A 0.7 % (0-0.5); Lymphocytes Absolute Auto 0.52 K/mm3 (0.9-3.2); Lymphocytes Percent Auto 6.4 % (18.3-44.2); Mean Corpuscular HGB Conc 31.9 g/dl (32-36); Mean Corpuscular Hemoglobin 34.5 pg (26-34); Mean Corpuscular Volume 108.1 fl (80-100); Mean Platelet Volume 10.7 fl (7.4-10.4); Monocytes Absolute Auto 1.1 K/mm3 (0.1-0.6); Monocytes Percent Auto 13.7 % (2.6-8.5); Neutrophils Absolute Auto 6.1 K/mm3 (1.3-6.7); Neutrophils Percent Auto 74.4 % (45.5-73.1); Platelet Count Result 266 k/mm3 (150-375); Red Blood Count 3.33 M/mm3 (4.6-6.20); Red Cell Distribution Width 13.7 % (11.5-14.5); White Blood Count 8.2 K/mm3 (4.5-10.0)
[2023-09-04 06:44] LABS: Alanine Aminotransferase 17 U/L (6-50); Alkaline Phosphatase 71 U/L (38-126); Anion Gap 2 mmol/L (4-12); Aspartate Amino Transferase 29 U/L (17-59); Bilirubin,Total 1.2 mg/dL (0.2-1.3); Blood Urea Nitrogen 28 mg/dL (9-20); Calcium 8.1 mg/dL (8.4-10.2); Carbon Dioxide 33 mmol/L (22-30); Chloride 102 mmol/L (98-107); Estimated CRCL calculation 40 ml/min; Estimated Glomerular Filt Rate > 60; Glucose 98 mg/dL (65-110); Magnesium 2.4 mg/dL (1.6-2.3); Potassium 3.8 mmol/L (3.4-5.0); Sodium 137 mmol/L (137-145)
[2023-09-04 07:14] LABS: Anisocytosis 1+; Crenated RBC 2+; Ovalocytes 1+; Platelet Estimate Adequate (Adequate); Poikilocytosis 1+
[2023-09-04 07:15] LABS: Schistocytes None Seen
--- NOTE | 2023-09-04 08:57 | PC.NURSE ---
Patient found not wearing nasal cannula, asked patient if we can put the oxygen cannula back in his nose and patient became agitated and yelling he does not want the oxygen in his nose. O2 saturation is 88% on room air. Patients' nurse Marietta notified.
[2023-09-04 09:14] LABS: NT Pro B Type Natriuretic Pept 9170 pg/mL (19.9-100)
[2023-09-04] MEDS: APIXABAN 2.5 MG TABLET PO ×2 (09:39→20:43)
[2023-09-04] MEDS: FERROUS SULFATE 325 MG TABLET DR BY MOUTH ×2 (09:39→16:56)
[2023-09-04] MEDS: LORATADINE 10 MG TABLET PO (09:39)
[2023-09-04] MEDS: MAGNESIUM OXIDE 400 MG TABLET PO (09:39)
[2023-09-04] MEDS: METOPROLOL SUCCINATE EXT REL 25 MG TABCR PO (09:40)
[2023-09-04] MEDS: AMOXICILLIN/CLAVULANATE K 875-125 MG TAB 1 TABLET PO (09:40)
[2023-09-04] MEDS: TAMSULOSIN HCL 0.4 MG CAPSULE PO (09:41)
[2023-09-04] MEDS: EMPAGLIFLOZIN 10 MG TABLET PO (09:41)
[2023-09-04] MEDS: FLUTICASONE PROPIONATE 0.05% NA SPR 16 GM BTL (*BKC) 2 SPRAY NASAL (09:41)
[2023-09-04] MEDS: AZELASTINE HCL NASAL 0.1% 137 MCG/SPR 30 ML BTL 2 SPRAY NASAL (09:41)
[2023-09-04] MEDS: SACUBITRIL/VALSARTAN 24-26 MG TABLET 1 TAB PO ×2 (09:41→20:43)
[2023-09-04] MEDS: FUROSEMIDE INJ 40 MG/4 ML VIAL IV PUSH (09:41)
[2023-09-04] MEDS: FINASTERIDE 5 MG TABLET PO (09:41)
[2023-09-04] MEDS: SPIRONOLACTONE 25 MG TABLET PO (09:41)
[2023-09-04] MEDS: POTASSIUM CHLORIDE 20 MEQ ER TABLET PO (09:41)
--- NOTE | 2023-09-04 11:02 | PC.NURSE ---
Patient resting in bed for morning assessment. Patient is mildly confused but cooperative. Respiratory assessment happening when I entered the room. Patient trying to get comfortable wearing the mask. Patient saturating at 97% on RA. Patient able to swallow pills and administer nasal medications without difficulty. Sitter at bedside. Patient participate with therapy.
--- NOTE | 2023-09-04 11:34 | PM.CNPUL ---
Assessment and Plan Assessment and plan (1) Acute hypoxic respiratory failure: Code(s): J96.01 - Acute respiratory failure with hypoxia Status: Acute Assessment and Plan: Patient presented with hypoxemic respiratory failure without any evidence of hypercarbia. he does have mild apical predominant centrilobular and paraseptal emphysema on his CT scan from 09/02/2023. He has never been on inhalers. The patient has a cardiomyopathy with an EF of 20-25%, severe biatrial enlargement, moderate mitral regurgitation with decreased RV function and RV SP of 27. He presents with fluid overload and possible pneumonia. 09/04/23: Patient states he is still having some shortness of breath. He does not know when this started. The patient was on 2 L nasal cannula when I enter the room and his saturations were 97%. I decreased him to 1 L and then to room air and his saturations are 92%. White blood cell count is 8.2, BNP is 9170 which is a decrease from 12,100 on 08/28/2023. Weight is 55.4 kg with an admission weight of 62.2 kg and a net diuresis of 2.8 L since admission. The patient still has she has some shortness of breath at rest with no wheezing and minimal phlegm production. Plan: Today is day 8 of antibiotics (Vancomycin x1, Zosyn 08/27 through 08/30, doxycycline 08/28 through 08/30 and Augmentin 08/30 to current) and currenlty he does not require antibiotics from a pulmonary perspective as if he had pneumonia he has been adequately treated. Regarding his hypoxic respiratory failure this has improved with diuresis and antibiotics and currently he is on room air. Goal saturation 90-94%. Regarding his work of breathing and dyspnea on exertion, he will not qualify for home noninvasive ventilator at this time given he has no hypercarbic respiratory failure. If he needs ventilatory support during the hospitalization, he should try noninvasive ventilation with the AVAPS settings titer to best comfort settings of 12, tidal volume 500, EPAP 4, minimum inspiratory pressure 5, maximum inspiratory pressure 25, inspiratory time 1.2, rise of 5 the slowest and 30% FiO2. he said this was a little bit better but was not sure he would be able to tolerate even these settings. He remained very tachypneic on these settings with a respiratory rate of 26-30 despite recommendations to slow his breathing down. He will need outpatient PFTs to determine if he has COPD. In the meantime, I will initiate long-acting muscarinic antagonist for the possibility of COPD to see if this gives him any benefit. I will not prescribe beta agonist as he has a history of atrial fibrillation and I am not sure he has COPD at this time. No need for inhaled steroids or systemic steroids at this time. As aggressive diuresis as tolerated by the patient's cardiac and renal systems for his cardiomyopathy with fluid overload per hospitalist and Cardiology teams. Discussed with Dr. Miranda, will follow with you. History of Present Illness History of Present Illness Consult date: 09/04/23 Chief complaint: Acute hypoxic respiratory failure Narrative: 09/04/2023: This is a new pulmonary consult for shortness of breath. 88-year-old with a history of congestive heart failure with an EF of 15-20% on 06/16/2022 and 20-25% on 07/24/2023, AFib on anticoagulation, history of falls, BPH and chronic leg wound 2 lives at [facility]. The patient tells me he was taking nasal sprays at [facility] but not any inhalers. He does have as a last in and Flonase nasal sprays listed on his home medication list. there are no inhalers listed on his medication list. 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 He was previously admitted on 08/08/2023 through 08/11/2023 with weakness, noncompliance with his Lasix and treated for fluid overload. Patient was admitted on 08/29/2023 with shor
--- NOTE | 2023-09-04 12:10 | PCNFU ---
Nutrition Follow-Up Complete: Severe protein calorie malnutrition related to chronic loss of appetite as evidenced by intakes <75% needs > month; weight loss 6%/1 month; moderate fat loss and severe muscle wasting to temporalis, clavicles goal: Improve PO intake to 50% meals and supplements Patient will continue current goal. Pt current nutrition is Heart Healthy with Ensure compact BID. Last recorded weight is 55.4 kg, down from 60.2 kg on admit. Bowel Motility: +BM reported 09/02 Labs Reviewed:Mg 2.4, Alb 3.0,BUN 28 Meds Noted: Eliquis, Mag Ox, Lasix Skin: Chronic venous stasis ulcers Additional Notes: Patient remains on a heart healthy diet. Oral Intake today about 30% at breakfast. Patient discharge was cancelled today due to confusion not working with therapy and unable to complete 02 evaluation. Agree with diet orders at this time. Monitoring respiratory status, intakes, weights, labs, supplement tolerance, plan of care Follow up in 3 days
--- NOTE | 2023-09-04 14:41 | PM.IMPN ---
Progress Note: A&P Assessment and Plan (1) Acute hypoxic respiratory failure: Code(s): J96.01 - Acute respiratory failure with hypoxia Status: Acute (2) CAP (community acquired pneumonia): Qualifiers: Laterality: unspecified laterality Qualified Code(s): J18.9 - Pneumonia, unspecified organism Code(s): J18.9 - Pneumonia, unspecified organism Status: Acute (3) Pulmonary edema: Qualifiers: Chronicity: acute Qualified Code(s): J81.0 - Acute pulmonary edema Code(s): J81.1 - Chronic pulmonary edema Status: Acute (4) Frequent falls: Code(s): R29.6 - Repeated falls Status: Acute (5) Severe protein-calorie malnutrition: Code(s): E43 - Unspecified severe protein-calorie malnutrition Status: Acute Plan 88-year-old male with PMH paroxysmal atrial fibrillation on Eliquis, heart failure reduced ejection fraction, hypertension, iron deficiency anemia, recurrent falls, lower extremity wound, history of COVID pneumonia, who was at permanent resident of [place] presents with shortness of breath. Found to have pulmonary edema, patient was not taking Lasix because he did not want to urinate at night. Possible pneumonia. Admitted on 08/29/2023. # acute hypoxic respiratory failure due to acute decompensated heart failure reduced ejection fraction due to noncompliance -compliance encouraged. On 08/31 he is again saying he will not take Lasix at home. Again encouraged compliance and educated on the risk of medical noncompliance. -echo 07/27 severe global hypokinesia with EF 20-25% -presented requiring BiPAP. -cardiology consulted. On WATCH ASSEMBLER Lasix 20 mg, currently on 40 mg IV daily. Continue WATCH ASSEMBLER metoprolol succinate 25 mg, Entresto 24-26 mg. on 08/29 started spironolactone 25mg qday, Jardiance started 08/31/2023. -dailiy weights, I/O's, cardiac diet -09/01: Patient is net negative 1 L since admission. Unclear if this is accurate. Patient requiring BiPAP for tachypnea today and unable to be weaned off of oxygen. Attempt to remove BiPAP and check ABG 30 minutes post. Also check CTA chest. His respiratory failure may not be solely due to pneumonia or CHF. discussed with nurse Caldwell. His son reports since he had COVID he has slowly deteriorated. 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 A pulmonology consult may be in order, pending chest CT on ABG. Paroxysmal atrial fibrillation on Metoprolol, Eliquis 2.5 mg Leg wound, chronic. -healing well per surgery status post infected hematoma. Continue wound care. -culture prelim gram stain gram positive cocci -Zosyn and doxycycline switch to Augmentin p.o.. -MRSA negative, vancomycin dc'ed Bacteria pneumonia; CAP On Augmentin. Acute hypokalemia Replete and monitor; Spironolactone started on 08/29. Frequent falls, severe malnutrition, cardiac cachexia PT/OT consulted. Wheeled walker at [place]; Dietary supplements Chronic and stable conditions -Hypertension: cont BP meds per CHF plan -Iron def anemia: cont supplement Miscell F/E/N: Saline lock IV, replace lytes needed. Cardiac diet with dietary supplements GI prophylaxis: Not indicated DVT prophylaxis: Eliquis 2.5 mg p.o. b.i.d. Lines: Peripheral IV. Remove Vinson on 08/29 Code Status: Patient wishes to be DNR Dispo: Titrating heart failure medications. Still has shortness of breath and requires O2. workup ongoing. stable on medical floor. Discharge planning for SNF for rehab. Social Drivers of Health -Living arrangements and functional status: [facility] resident of [facility]. Uses wheeled walker at baseline. -Patient was screened for food insecurity, housing instability, transportation needs, utility difficulties, and interpersonal safety. tradeshow worker not consulted, no needs identified. -High risk for readmission: Yes due to severe cardiomyopathy and CHF reduced ejection fraction, persistent SOB Agents of Abuse
[2023-09-04] MEDS: UMECLIDINIUM BROMIDE 62.5 MCG ELLIPTA 1 PUFF INHALATION (15:12)
[2023-09-04] MEDS: LATANOPROST 0.005% OP SOLN 2.5 ML BTL 1 DROP EACH EYE (20:43)
[2023-09-05] VITALS (14 sets, daily range): BP systolic 109–133; BP diastolic 61–75; PULSE 77–98; RESP 16; TEMP 36.6–37.2; O2SAT 82–97
[2023-09-05 05:11] LABS: Basophils Absolute Auto 0.1 K/mm3 (0.0-0.1); Basophils Percent Auto 1.1 % (0.2-1.2); Eosinophils Absolute Auto 0.2 K/mm3 (0-0.3); Eosinophils Percent Auto 2.9 % (0-4.4); Hematocrit 37.6 % (42.0-52.0); Hemoglobin 12.1 g/dL (14.0-18.0); Immature Granulocyte Absolute 0.05 K/mm3 (0.00-0.031); Immature Granulocyte Percent A 0.6 % (0-0.5); Lymphocytes Percent Auto 6.1 % (18.3-44.2); Mean Corpuscular HGB Conc 32.2 g/dl (32-36); Mean Corpuscular Hemoglobin 34.6 pg (26-34); Mean Corpuscular Volume 107.4 fl (80-100); Mean Platelet Volume 10.8 fl (7.4-10.4); Monocytes Absolute Auto 1.1 K/mm3 (0.1-0.6); Monocytes Percent Auto 13.3 % (2.6-8.5); Neutrophils Absolute Auto 6.3 K/mm3 (1.3-6.7); Platelet Count Result 276 k/mm3 (150-375); Red Cell Distribution Width 13.5 % (11.5-14.5); White Blood Count 8.2 K/mm3 (4.5-10.0)
[2023-09-05 05:27] LABS: Alanine Aminotransferase 18 U/L (6-50); Albumin Level 3.2 g/dL (3.5-5.1); Alkaline Phosphatase 73 U/L (38-126); Anion Gap 5 mmol/L (4-12); Aspartate Amino Transferase 33 U/L (17-59); Bilirubin,Total 1.2 mg/dL (0.2-1.3); Blood Urea Nitrogen 34 mg/dL (9-20); Carbon Dioxide 31 mmol/L (22-30); Chloride 102 mmol/L (98-107); Estimated CRCL calculation 40 ml/min; Estimated Glomerular Filt Rate > 60; Glucose 120 mg/dL (65-110); Magnesium 2.5 mg/dL (1.6-2.3); Potassium 4.1 mmol/L (3.4-5.0); Sodium 138 mmol/L (137-145)
[2023-09-05 05:59] LABS: Ovalocytes 1+; Schistocytes None Seen
[2023-09-05 06:00] LABS: Anisocytosis 1+; Platelet Estimate Adequate (Adequate)
--- NOTE | 2023-09-05 08:42 | PM.PNPUL ---
Progress Note: A&P Assessment and Plan (1) Acute hypoxic respiratory failure: Code(s): J96.01 - Acute respiratory failure with hypoxia Status: Acute Assessment and Plan: Patient presented with hypoxemic respiratory failure without any evidence of hypercarbia. he does have mild apical predominant centrilobular and paraseptal emphysema on his CT scan from 09/02/2023. He has never been on inhalers. The patient has a cardiomyopathy with an EF of 20-25%, severe biatrial enlargement, moderate mitral regurgitation with decreased RV function and RV SP of 27. He presents with fluid overload and possible pneumonia. 09/04/23: Patient states he is still having some shortness of breath. He does not know when this started. The patient was on 2 L nasal cannula when I enter the room and his saturations were 97%. I decreased him to 1 L and then to room air and his saturations are 92%. White blood cell count is 8.2, BNP is 9170 which is a decrease from 12,100 on 08/28/2023. Weight is 55.4 kg with an admission weight of 62.2 kg and a net diuresis of 2.8 L since admission. The patient still has she has some shortness of breath at rest with no wheezing and minimal phlegm production. Plan: Today is day 8 of antibiotics (Vancomycin x1, Zosyn 08/27 through 08/30, doxycycline 08/28 through 08/30 and Augmentin 08/30 to current) and currenlty he does not require antibiotics from a pulmonary perspective as if he had pneumonia he has been adequately treated. Regarding his hypoxic respiratory failure this has improved with diuresis and antibiotics and currently he is on room air. Goal saturation 90-94%. Regarding his work of breathing and dyspnea on exertion, he will not qualify for home noninvasive ventilator at this time given he has no hypercarbic respiratory failure. If he needs ventilatory support during the hospitalization, he should try noninvasive ventilation with the AVAPS settings titer to best comfort settings of 12, tidal volume 500, EPAP 4, minimum inspiratory pressure 5, maximum inspiratory pressure 25, inspiratory time 1.2, rise of 5 the slowest and 30% FiO2. he said this was a little bit better but was not sure he would be able to tolerate even these settings. He remained very tachypneic on these settings with a respiratory rate of 26-30 despite recommendations to slow his breathing down. He will need outpatient PFTs to determine if he has COPD. In the meantime, I will initiate long-acting muscarinic antagonist for the possibility of COPD to see if this gives him any benefit. I will not prescribe beta agonist as he has a history of atrial fibrillation and I am not sure he has COPD at this time. No need for inhaled steroids or systemic steroids at this time. As aggressive diuresis as tolerated by the patient's cardiac and renal systems for his cardiomyopathy with fluid overload per hospitalist and Cardiology teams. 09/05/23: Patient states he has no shortness At rest but has dyspnea when moving in the bed. He has a cough but says his phlegm is better. Room air saturations 99%. Patient refused BiPAP last night and refused nasal cannula oxygen last night. Patient received 1 dose of Incruse but does not remember this. he does say at times he has phlegm which is difficult to expectorate I feel that his cardiac issues are the major component of his symptoms and any respiratory disease is a minor component. He may have COPD but will need outpatient PFTs to determine this. In the meantime will initiate treatment with [facility] in case he does have COPD. He says he will not wear BiPAP and has refused oxygen in the hospital now. Plan: from a pulmonary perspective patient is ready to be discharged on these pulmonary medications. Incruse Ellipta at 1 puff q.day Guaifenesin 1200 mg p.o. b.i.d. Rescue albuterol 2 puffs q.4 hours p.r.n. shortness of breath or wheezing Oxygen at rest and with activity per formal home O2 assessment which I have ordere
[2023-09-05] MEDS: APIXABAN 2.5 MG TABLET PO (09:31)
[2023-09-05] MEDS: FINASTERIDE 5 MG TABLET PO (09:31)
[2023-09-05] MEDS: FERROUS SULFATE 325 MG TABLET DR BY MOUTH ×2 (09:31→16:29)
[2023-09-05] MEDS: EMPAGLIFLOZIN 10 MG TABLET PO (09:31)
[2023-09-05] MEDS: SPIRONOLACTONE 25 MG TABLET PO (09:32)
[2023-09-05] MEDS: MAGNESIUM OXIDE 400 MG TABLET PO (09:32)
[2023-09-05] MEDS: guaiFENesin 12 HR 600 MG TABCR 1200 MG PO (09:32)
[2023-09-05] MEDS: TAMSULOSIN HCL 0.4 MG CAPSULE PO (09:32)
[2023-09-05] MEDS: SACUBITRIL/VALSARTAN 24-26 MG TABLET 1 TAB PO (09:32)
[2023-09-05] MEDS: METOPROLOL SUCCINATE EXT REL 25 MG TABCR PO (09:32)
[2023-09-05] MEDS: POTASSIUM CHLORIDE 20 MEQ ER TABLET PO (09:32)
[2023-09-05] MEDS: LORATADINE 10 MG TABLET PO (09:32)
[2023-09-05] MEDS: AZELASTINE HCL NASAL 0.1% 137 MCG/SPR 30 ML BTL 2 SPRAY NASAL (09:34)
[2023-09-05] MEDS: FLUTICASONE PROPIONATE 0.05% NA SPR 16 GM BTL (*BKC) 2 SPRAY NASAL (09:34)
[2023-09-05] MEDS: FUROSEMIDE INJ 40 MG/4 ML VIAL IV PUSH (09:44)
--- NOTE | 2023-09-05 12:11 | HOMEO2EVAL ---
Evaluation was performed at [facility] Home Oxygen Evaluation RC: Home Oxygen (O2) Evaluation Start: 09/03/23 10:52 Freq: ONCE Status: Active Protocol: RPE Activity Type Activity Date Activity User E-sign Co-sign Detail Recorded Client Recorded Date Recorded By Document 09/05/23 11:30 PAOLO [email or web address] 09/05/23 12:11 PAOLO Document 09/05/23 11:35 PAOLO [email or web address] 09/05/23 12:11 PAOLO Document 09/05/23 11:37 PAOLO [email or web address] 09/05/23 12:11 PAOLO Document 09/05/23 11:45 PAOLO [email or web address] 09/05/23 12:11 PAOLO 09/05/23 09/05/23 09/05/23 11:30 11:35 11:37 Home O2 Evaluation [Oxygen] -Test Phase Resting Exercise Exercise -Oxygen Delivery Room Air Room Air Nasal Cannula [Pulse Oximetry] -Pulse Oximetry (90-100 %) 94 82 L 90 [Evaluation] -Activity Tolerance Poor [Comments] -Home Oxygen Evaluation Comments PT STOOD APPROX PATIENT 30 SECONDS REQUIRES 2 L HOME O2 WITH ACTIVITY [Charges] -Evaluation Charges O2 Evaluation by Pulmonary 09/05/23 11:45 Home O2 Evaluation [Oxygen] -Test Phase Resting -Oxygen Delivery Room Air [Pulse Oximetry] -Pulse Oximetry (90-100 %) 92 [Evaluation] -Activity Tolerance [Comments] -Home Oxygen Evaluation Comments [Charges] -Evaluation Charges
--- NOTE | 2023-09-05 16:10 | PM.DS ---
DS: Admitting Diagnosis Discharge Date 09/05/23 Admitting Diagnosis 1. Acute hypoxic respiratory failure 2. Physical deconditioning 3. Atrial fibrillation 4. CHFrEF 5. Hypokalemia DS: Discharge Diagnosis Discharge Diagnosis (1) Acute hypoxic respiratory failure: Code(s): J96.01 - Acute respiratory failure with hypoxia Status: Acute (2) CAP (community acquired pneumonia): Qualifiers: Laterality: unspecified laterality Qualified Code(s): J18.9 - Pneumonia, unspecified organism Code(s): J18.9 - Pneumonia, unspecified organism Status: Acute (3) Pulmonary edema: Qualifiers: Chronicity: acute Qualified Code(s): J81.0 - Acute pulmonary edema Code(s): J81.1 - Chronic pulmonary edema Status: Acute (4) Frequent falls: Code(s): R29.6 - Repeated falls Status: Acute (5) Severe protein-calorie malnutrition: Code(s): E43 - Unspecified severe protein-calorie malnutrition Status: Acute Plan 88-year-old male with PMH paroxysmal atrial fibrillation on Eliquis, heart failure reduced ejection fraction, hypertension, iron deficiency anemia, recurrent falls, lower extremity wound, history of COVID pneumonia, who was at permanent resident of [place] presents with shortness of breath. Found to have pulmonary edema, patient was not taking Lasix because he did not want to urinate at night. Possible pneumonia. Admitted on 08/29/2023. Acute hypoxic respiratory failure due to acute decompensated heart failure reduced ejection fraction due to noncompliance -compliance encouraged. On 08/31 he is again saying he will not take Lasix at home. Again encouraged compliance and educated on the risk of medical noncompliance. -echo 07/27 severe global hypokinesia with EF 20-25% -presented requiring BiPAP. -cardiology consulted. On MANAGER STYLE Lasix 20 mg, currently on 40 mg IV daily. Continue MANAGER STYLE metoprolol succinate 25 mg, Entresto 24-26 mg. on 08/29 started spironolactone 25mg qday, Jardiance started 08/31/2023. -dailiy weights, I/O's, cardiac diet -09/01: Patient is net negative 1 L since admission. Unclear if this is accurate. Patient requiring BiPAP for tachypnea today and unable to be weaned off of oxygen. Attempt to remove BiPAP and check ABG 30 minutes post. Also check CTA chest. His respiratory failure may not be solely due to pneumonia or CHF. discussed with nurse Caldwell. His son reports since he had COVID he has slowly deteriorated. 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 A pulmonology consult may be in order, pending chest CT on ABG. Paroxysmal atrial fibrillation on Metoprolol, Eliquis 2.5 mg Leg wound, chronic. -healing well per surgery status post infected hematoma. Continue wound care. -culture prelim gram stain gram positive cocci -Zosyn and doxycycline switch to Augmentin p.o.. -MRSA negative, vancomycin dc'ed Bacteria pneumonia; CAP On Augmentin. Acute hypokalemia Replete and monitor; Spironolactone started on 08/29. Frequent falls, severe malnutrition, cardiac cachexia PT/OT consulted. Wheeled walker at [place]; Dietary supplements. Discharged home with [facility] Chronic and stable conditions -Hypertension: cont BP meds per CHF plan -Iron def anemia: cont supplement Miscellaneous care F/E/N: Saline lock IV, replace lytes needed. Cardiac diet with dietary supplements GI prophylaxis: Not indicated DVT prophylaxis: Eliquis 2.5 mg p.o. b.i.d. Lines: Peripheral IV. Remove Vinson on 08/29 Code Status: Patient wishes to be DNR Disposition: Home with [facility] Social Drivers of Health -Living arrangements and functional status: Permanent resident of assisted. Uses wheeled walker at baseline. -Patient was screened for food insecurity, housing instability, transportation needs, utility difficulties, and interpersonal safety. face worker not consulted, no needs identified. -High risk for readmission: Yes due to severe cardiomyopathy and CHF reduced ej
--- NOTE | 2023-09-05 16:27 | PCRCNOTE ---
HOME O2 EVAL DONE, PT REQUIRES 2 L WITH ACTIVITY. SET UP WITH [facility], THEY HAVE SPOKE TO SON FOR DROP OFF OF EQUIPMENT. WILL NEED TRANSPORT TANK FOR D/C HOME.
== END 2023-09-05 18:30 | disposition home health service (06) | DRG 291 ==
LOC: ANHED 08-29 00:56 → ANHIMU 08-29 01:04 → ANH2MED 09-01 18:59
PROVIDERS: Emergency Medicine; General Practice; Internal Medicine Pulmonary Disease; Nurse Practitioner; Admitting Provider Internal Medicine; Emergency Provider Physician Assistant; Visit Provider Internal Medicine
DX: I11.0 Hypertensive heart disease with heart failure (principal); E43 Unspecified severe protein-calorie malnutrition; I50.23 Acute on chronic systolic (congestive) heart failure; J96.01 Acute respiratory failure with hypoxia; J18.9 Pneumonia, unspecified organism; J15.9 Unspecified bacterial pneumonia; Z68.1 Body mass index [BMI] 19.9 or less, adult; I83.229 Varicose veins of left lower extremity with both ulcer of unspecified site and inflammation; L97.929 Non-pressure chronic ulcer of unspecified part of left lower leg with unspecified severity; Z91.148 Patient's other noncompliance with medication regimen for other reason; U09.9 Post COVID-19 condition, unspecified; I42.9 Cardiomyopathy, unspecified; E87.6 Hypokalemia; D50.9 Iron deficiency anemia, unspecified; H40.9 Unspecified glaucoma; I48.0 Paroxysmal atrial fibrillation; N40.0 Benign prostatic hyperplasia without lower urinary tract symptoms; I87.8 Other specified disorders of veins; J43.9 Emphysema, unspecified; S91.002A Unspecified open wound, left ankle, initial encounter; B95.61 Methicillin susceptible Staphylococcus aureus infection as the cause of diseases classified elsewhere; R29.6 Repeated falls; Z96.619 Presence of unspecified artificial shoulder joint; Z66 Do not resuscitate; Z79.01 Long term (current) use of anticoagulants; Z85.828 Personal history of other malignant neoplasm of skin; Z87.891 Personal history of nicotine dependence
CPT/HCPCS: 36415; 36600; 70450; 71045; 71275; 72125; 73610; 80053; 81001; 82104; 82375; 82565; 82805; 83050; 83605; 83735; 83880; 84484; 85025; 85610; 85730; 87040; 87070; 87081; 87181; 87205; 87641; 90471; 90715; 93005; 93971; 94002; 94003; 94618; 94640; 96365; 96366; 96367; 96375; 96376; 97110; 97161; 97165; 97530; 97535; 99285; A9270; G0378; J1940; J2060; J2543; J3370; Q9967

== ENCOUNTER 2023-09-05 19:02 | Observation (INO) | payer MEDICARE, SELFPAY ==
--- NOTE | ~2023-09-05 | XR_ITS ---
EXAMINATION: XR chest 1V portable Exam Date/Time: 09/05/2023 19:38 CDT HISTORY: weakness Comparison: 08/31/2023; CTPA 09/02/2023. RESULT: Lines, tubes, and devices: Bilateral shoulder arthroplasty hardware. Surgical clips over the lower n dash. Lungs and pleura: Mild diffuse reticular opacities, slightly improved. Mild uncinate change. Chronic left basilar airspace disease. Mild left costophrenic angle blunting. Cardiomediastinal silhouette: Stable. Other: No acute osseous or upper abdominal finding. IMPRESSION: Mild interstitial edema. Chronic left basilar atelectasis/consolidation. Small left pleural effusion. Reviewed, dictated and finalized at location [facility].
[2023-09-05 19:11] VITALS: BP 108/50; PULSE 97; RESP 18; TEMP 37.4; O2SAT 95
[2023-09-05 19:21] VITALS: PULSE 103
[2023-09-05 19:27] VITALS: O2SAT 98
[2023-09-05 19:28] VITALS: BP 111/77; PULSE 100; RESP 32; O2SAT 98
--- NOTE | 2023-09-05 19:29 | ECG_ITS ---
Test Date: 2023-09-05 19:28:10 Measurements Intervals [place] Rate: 98 P: 0 NV: 0 QRS: -26 QRSD: 96 T: 113 QT: 366 QTc: 467 Interpretive Statements ATRIAL FIBRILLATION VENTRICULAR PREMATURE COMPLEX CANNOT R/O SEPTAL INFARCT, AGE INDETERMINATE BORDERLINE ST-T WAVE ABNORMALITY- LAT/HIGH LAT LEADS BASELINE ARTIFACT- I, AVR, AVL ABNORMAL ECG Compared to ECG 08/28/2023 19:46:47 NO SIGNIFICANT CHANGE Electronically Signed On 09-06-2023 06:25:06 CDT by Carter Pool D.O.
[2023-09-05 19:46] LABS: Basophils Absolute Auto 0.1 K/mm3 (0.0-0.1); Basophils Percent Auto 0.9 % (0.2-1.2); Eosinophils Absolute Auto 0.2 K/mm3 (0-0.3); Eosinophils Percent Auto 2.4 % (0-4.4); Hemoglobin 12.1 g/dL (14.0-18.0); Immature Granulocyte Absolute 0.06 K/mm3 (0.00-0.031); Immature Granulocyte Percent A 0.7 % (0-0.5); Lymphocytes Absolute Auto 0.41 K/mm3 (0.9-3.2); Lymphocytes Percent Auto 5.1 % (18.3-44.2); Mean Corpuscular HGB Conc 33.6 g/dl (32-36); Mean Corpuscular Hemoglobin 34.9 pg (26-34); Mean Corpuscular Volume 103.7 fl (80-100); Mean Platelet Volume 10.7 fl (7.4-10.4); Monocytes Absolute Auto 1.2 K/mm3 (0.1-0.6); Monocytes Percent Auto 14.3 % (2.6-8.5); Neutrophils Absolute Auto 6.1 K/mm3 (1.3-6.7); Neutrophils Percent Auto 76.6 % (45.5-73.1); Platelet Count Result 296 k/mm3 (150-375); Red Blood Count 3.47 M/mm3 (4.6-6.20); Red Cell Distribution Width 13.6 % (11.5-14.5)
[2023-09-05 19:58] LABS: Alanine Aminotransferase 21 U/L (6-50); Albumin Level 3.2 g/dL (3.5-5.1); Alkaline Phosphatase 86 U/L (38-126); Anion Gap 5 mmol/L (4-12); Aspartate Amino Transferase 37 U/L (17-59); Blood Urea Nitrogen 40 mg/dL (9-20); Carbon Dioxide 31 mmol/L (22-30); Chloride 100 mmol/L (98-107); Estimated CRCL calculation 35 ml/min; Estimated Glomerular Filt Rate 57; Glucose 204 mg/dL (65-110); Potassium 4.5 mmol/L (3.4-5.0); Sodium 136 mmol/L (137-145)
--- NOTE | 2023-09-05 20:20 | ED.WEAKNESS ---
HPI - Weakness General Chief complaint: Weakness <Socorro Fregoso PA-C - Last Filed: 09/05/23 22:56> Stated complaint: weak, unable to stand <NIGEL Holder Last Filed: 09/05/23 22:56> Time Seen by Provider: 09/05/23 19:33 <Socorro Fregoso PA-C - Last Filed: 09/05/23 22:56> Source: patient and family <NIGEL Holder Last Filed: 09/05/23 22:56> Mode of arrival: EMS <NIGEL Holder Last Filed: 09/05/23 22:56> Limitations: dementia <NIGEL Holder Last Filed: 09/05/23 22:56> History of Present Illness HPI Narrative: This is a 88 year old male that presents to the ER as he would not go into his home. He had just been discharged from the hospital here. They took him home and he would not go inside. Family brought him back for possible retirement placement. Patient has no complaints currently. <Socorro Fregoso PA-C - Last Filed: 09/05/23 22:56> Related Data Home medications: Home Medications Medication Instructions Recorded Confirmed cetirizine 10 mg PO DAILY 06/15/22 09/06/23 ferrous sulfate 325 mg PO BID 06/15/22 09/06/23 finasteride 5 mg tablet 5 mg PO DAILY 06/15/22 09/06/23 metoprolol succinate 25 mg 25 mg PO DAILY 06/15/22 09/06/23 tablet,extended release 24 hr sacubitril 24 mg-valsartan 26 mg 1 tablet PO BID 07/19/23 09/06/23 tablet (Entresto) latanoprost 0.005 % eye drops 1 drp EACH EYE HS 08/08/23 09/06/23 arginine-vitamin C-vitamin E oral 9.2 g PO BID 08/29/23 09/06/23 4.5 gram-156 mg/9.2 gram powder pkt (Arginaid) azelastine 137 mcg (0.1 %) nasal 137 mcg intranasal DAILY 08/29/23 09/06/23 spray fluticasone propionate 50 2 spray intranasal DAILY 08/29/23 09/06/23 mcg/actuation nasal spray,suspension <Socorro Fregoso PA-C - Last Filed: 09/05/23 22:56> Allergies/Adverse reactions: Allergies Allergy/AdvReac Type Severity Reaction Status Date / Time atorvastatin AdvReac Muscle Pain Verified 09/05/23 19:27 clarithromycin [From Biaxin] AdvReac Gastrointestinal Verified 09/05/23 19:27 Upset rofecoxib AdvReac Nausea and Verified 09/05/23 19:27 Vomiting [id number] Reductase AdvReac Muscle Pain Verified 09/05/23 19:27 Inhibitor <Socorro Fregoso PA-C - Last Filed: 09/05/23 22:56> Review of Systems Review of Systems: ROS unobtainable: Yes unobtainable due to medical condition <Socorro Fregoso PA-C - Last Filed: 09/05/23 22:56> [facility] Past Medical History Medical History: Medical History Atrial fibrillation Basal cell carcinoma Chronic anticoagulation Glaucoma 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 Hypertension Iron deficiency anemia <NIGEL Holder Last Filed: 09/05/23 22:56> Surgical History Surgical History: Surgical History H/O cataract extraction H/O hemorrhoidectomy H/O shoulder replacement H/O thyroidectomy History of incision and drainage I&D of infected left lower extremity hematoma by Dr. Sandra on 07/24/23 History of removal of skin mole History of tonsillectomy <NIGEL Holder Last Filed: 09/05/23 22:56> Family History Family History: Family History Mother Cerebrovascular accident Father Testicle cancer Sibling Malignant neoplasm of prostate <NIGEL Holder Last Filed: 09/05/23 22:56> Social History Social History: Social History Social History: Code status: Do not resuscitate. Smoking packs per day: 3 Smoking cigarettes per day: 60.0 Years smoked: 31 Smoking pack-years: 93.00 Smoking status: Never smoker Tobacco type: cigarettes Second hand tobacco smoke
[2023-09-05 21:29] LABS: Appearance Urine Clear (Clear); Bacteria Urine None Seen /hpf; Bilirubin Urine Negative (Negative); Blood Urine Negative (Negative); Color Urine Yellow (Yellow); Glucose Urine UA 3+ mg/dL (Negative); Ketones Urine Negative (Negative); Leukocyte Esterase Ur Negative LEU/UL (Negative); Nitrate Urine Negative (Negative); Non Pathogenic Casts 0-2; Protein Urine 1+ mg/dL (Negative); Specific Grav Ur 1.018 (1.001-1.035); Squamous Epithelial Cell Urine None Seen /hpf (Few); WBC Urine 0-5 /hpf (0-3); pH Urine 7.5 (5.0-9.0)
[2023-09-05 21:36] LABS: Add Urine Microscopic? YES
[2023-09-05 23:32] VITALS: BP 149/71; PULSE 81; RESP 20; O2SAT 98
[2023-09-06] VITALS (7 sets, daily range): BP systolic 116–127; BP diastolic 66–74; PULSE 87–101; RESP 16–20; TEMP 36.7–36.8; O2SAT 94–96; BMI 18.3
--- NOTE | 2023-09-06 01:04 | PM.IMHP ---
H&P: HPI History of Present Illness Date/Time: 09/06/23 01:04 Chief Complaint: Deconditioning Narrative: This is 88-year-old male who was just discharged from [facility] on 09/05/2023. Atrial fibrillation on Eliquis, heart failure reduced ejection fraction, hypertension, iron deficiency anemia, recurrent falls, lower extremity wound, history of COVID pneumonia. He was treated for acute hypoxic respiratory failure due to acutely decompensated heart failure with reduced ejection fraction and sent home on nasal cannula. Treated for bacterial pneumonia acute hypokalemia. He was seen by pulmonology Dr. Conley and started on Incruse Ellipta, rescue inhaler, guaifenesin. The patient had COVID in the past year and since then has had decline in his functional and mental status. Approaching day of discharge, the patient has been increasingly cantankerous with staff and not wanting to participate with therapy or be medically compliant. He also has had tachypnea. He refused to go to SNF for rehab. Subsequently discharged to home with home health. took him home and when they got to the garage he sat in the car and refused to get up. He did not lose consciousness or have seizure activity but more so did not want to move. Subsequently brought back to [place] ER. Admitted on 09/06/2023 for group home placement. Review of Systems Review of Systems: All systems reviewed & are unremarkable except as noted in HPI and below (Subjective) [facility] Past Medical History Medical History Atrial fibrillation Basal cell carcinoma Chronic anticoagulation Glaucoma 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 Hypertension Iron deficiency anemia Surgical History Surgical History H/O cataract extraction H/O hemorrhoidectomy H/O shoulder replacement H/O thyroidectomy History of incision and drainage I&D of infected left lower extremity hematoma by Dr. Sandra on 07/24/23 History of removal of skin mole History of tonsillectomy Family History Family History Mother Cerebrovascular accident Father Testicle cancer Sibling Malignant neoplasm of prostate Social History Social History Social History: Code status: Do not resuscitate. Smoking packs per day: 3 Smoking cigarettes per day: 60.0 Years smoked: 31 Smoking pack-years: 93.00 Smoking status: Never smoker Tobacco type: cigarettes Second hand tobacco smoke exposure: No Alcohol intake: never Substance use: never Substance use type: does not use Do You Feel Safe in your Home?: Yes Lack of Transportation: No Lack of Food: Never True Current Housing: Decline to Answer Concerned About Future Housing: Decline to Answer Difficulty Paying Gas/Electric Bills: Decline to Answer Difficulty Paying for Meds: Decline to Answer Currently Unemployed: Decline to Answer Education: Associate Degree Difficulty w/ Childcare or Family Care: Decline to Answer Additional living arrangements comments: Lives with son. 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 Spiritual care concerns: No Meds Home Medications and Allergies Home Medications Medication Instructions Recorded Confirmed Type cetirizine 10 mg PO DAILY 06/15/22 09/06/23 History ferrous sulfate 325 mg PO BID 06/15/22 09/06/23 History finasteride 5 mg tablet 5 mg PO DAILY 06/15/22 09/06/23 History metoprolol succinate 25 mg 25 mg PO DAILY 06/15/22 09/06/23 History tablet,extended release 24 hr tamsulosin 0.4 mg capsule 0.4 mg PO DAILY #30 caps 06/21/22 09/06/23 Rx sacubitril 24 mg-valsartan 26 mg 1 tablet PO BID 07/19/23 09/06/23 Histor
[2023-09-06] MEDS: UMECLIDINIUM BROMIDE 62.5 MCG ELLIPTA 1 PUFF INHALATION (07:10)
[2023-09-06] MEDS: SPIRONOLACTONE 25 MG TABLET PO (09:46)
[2023-09-06] MEDS: TAMSULOSIN HCL 0.4 MG CAPSULE PO (09:46)
[2023-09-06] MEDS: FERROUS SULFATE 325 MG TABLET DR PO (09:46)
[2023-09-06] MEDS: guaiFENesin 12 HR 600 MG TABCR 1200 MG PO (09:46)
[2023-09-06] MEDS: FINASTERIDE 5 MG TABLET PO (09:46)
[2023-09-06] MEDS: FUROSEMIDE 40 MG TABLET PO (09:46)
[2023-09-06] MEDS: SACUBITRIL/VALSARTAN 24-26 MG TABLET 1 TAB PO (09:46)
[2023-09-06] MEDS: FLUTICASONE PROPIONATE 0.05% NA SPR 16 GM BTL (*BKC) 2 SPRAY NASAL (09:46)
[2023-09-06] MEDS: LORATADINE 10 MG TABLET PO (09:46)
[2023-09-06] MEDS: AZELASTINE HCL NASAL 0.1% 137 MCG/SPR 30 ML BTL 1 SPRAY NASAL (09:46)
[2023-09-06] MEDS: METOPROLOL SUCCINATE EXT REL 25 MG TABCR PO (09:47)
[2023-09-06] MEDS: APIXABAN 2.5 MG TABLET PO (09:47)
[2023-09-06] MEDS: POTASSIUM CHLORIDE 20 MEQ ER TABLET PO (09:47)
--- NOTE | 2023-09-06 12:18 | PCOTNOTE ---
Attempted to see pt. for occupational therapy evaluation. Pt. refused at this time. Nursing aware.
--- NOTE | 2023-09-06 15:04 | PM.IMPN ---
Progress Note: A&P Assessment and Plan (1) Adult failure to thrive: Code(s): R62.7 - Adult failure to thrive Status: Acute (2) Dementia: Qualifiers: Dementia behavioral or psychological symptom: with other behavioral disturbance Dementia severity: unspecified severity Dementia type: unspecified type Qualified Code(s): F03.918 - Unspecified dementia, unspecified severity, with other behavioral disturbance Code(s): F03.90 - Unspecified dementia, unspecified severity, without behavioral disturbance, psychotic disturbance, mood disturbance, and anxiety Status: Acute (3) Severe protein-calorie malnutrition: Code(s): E43 - Unspecified severe protein-calorie malnutrition Status: Acute (4) Chronic respiratory failure: Code(s): J96.10 - Chronic respiratory failure, unspecified whether with hypoxia or hypercapnia Status: Acute Plan He refused to go to SNF for rehab. Subsequently discharged to home with home health. took him home and when they got to the garage he sat in the car and refused to get up. He did not lose consciousness or have seizure activity but more so did not want to move. Subsequently brought back to [facility]. Readmission for fdc placement. Pt unable to look after himself not eating properly wandering in streets unsafe at home Subjective Date/time seen: 09/06/23 15:04 Interval history: Ongoing decline since covid infection several admissions in last 6 months for falls acutely decompensated heart failure unable to look after himself decline in cognitive abilities family in agreement awaiting accepting facility pt pleasant today agreeing to go to facility participating with PT Review of Systems Review of Systems: No acute issues Exam Const: General: comfortable and no acute distress Nutritional Appearance: overweight Orientation/consciousness: oriented to person Other: A&O x2. Pleasantly confused. HENMT: Head: normal to inspection Eyes: Pupils: Equal, round and reactive pupils present Neck: Neck: supple Resp: Effort & Inspection: normal respiratory effort Auscultation: diminished lung sounds Cardio: Rate: regular rate Rhythm: regular rhythm GI: Inspection: normal to inspection GI Palp: Yes Soft to palpation and No Tenderness to palpation present (GI) Auscultation: normal bowel sounds Neuro: General: oriented to person Extrem: General: no edema Objective Data Vital Signs Vital Signs: Vital Signs - 24 hr 09/05/23 19:11 09/05/23 19:21 09/05/23 19:27 Temperature 37.4 C Pulse Rate 97 103 H Respiratory Rate 18 Blood Pressure 108/50 L Pulse Oximetry 95 98 Oxygen Delivery Nasal Cannula Nasal Cannula Oxygen Flow Rate 2 2 09/05/23 19:28 09/05/23 23:32 09/06/23 00:20 Temperature Pulse Rate 100 81 Respiratory Rate 32 H 20 Blood Pressure 111/77 149/71 H Pulse Oximetry 98 98 94 Oxygen Delivery Nasal Cannula Oxygen Flow Rate 2 09/06/23 00:00 09/06/23 05:19 09/06/23 07:10 Temperature 36.7 C 36.8 C Pulse Rate 96 101 H 87 Respiratory Rate 20 16 18 Blood Pressure 116/74 127/66 Pulse Oximetry 95 94 96 Oxygen Delivery Nasal Cannula Oxygen Flow Rate 2 09/06/23 07:10 09/06/23 09:47 09/06/23 11:19 Temperature Pulse Rate 87 88 Respiratory Rate 18 Blood Pressure Pulse Oximetry Oxygen Delivery Room Air Oxygen Flow Rate Intake/Output Intake/Output: Intake & Output 09/03/23 09/04/23 09/05/23 09/06/23 23:59 23:59 23:59 23:59 Intake Total 480 Output Total 200 Balance 280 Meds/Results Medications: Active Medications Generic Name Dose Route Start Last Admin Trade Name Freq PRN Reason Stop Dose Admin Albuterol 2 puff 09/06/23 00:56 Albuterol Sulfate (*Sp) Aerosol 1 Puff INHALATION QIDRT PRN shortness of breath or wheezing Apixaban 2.5 mg 09/06/23 09:00 09/06/23 09:47 Apixaba
[2023-09-07 09:28] VITALS: PULSE 88
[2023-09-07] MEDS: FINASTERIDE 5 MG TABLET PO (09:28)
[2023-09-07] MEDS: SPIRONOLACTONE 25 MG TABLET PO (09:28)
[2023-09-07] MEDS: METOPROLOL SUCCINATE EXT REL 25 MG TABCR PO (09:28)
[2023-09-07] MEDS: POTASSIUM CHLORIDE 20 MEQ ER TABLET PO (09:28)
[2023-09-07] MEDS: FUROSEMIDE 40 MG TABLET PO (09:28)
[2023-09-07] MEDS: FERROUS SULFATE 325 MG TABLET DR PO ×2 (09:28→16:41)
[2023-09-07] MEDS: TAMSULOSIN HCL 0.4 MG CAPSULE PO (09:28)
[2023-09-07] MEDS: SACUBITRIL/VALSARTAN 24-26 MG TABLET 1 TAB PO ×2 (09:28→16:41)
[2023-09-07] MEDS: LORATADINE 10 MG TABLET PO (09:29)
[2023-09-07] MEDS: FLUTICASONE PROPIONATE 0.05% NA SPR 16 GM BTL (*BKC) 2 SPRAY NASAL (09:29)
[2023-09-07] MEDS: AZELASTINE HCL NASAL 0.1% 137 MCG/SPR 30 ML BTL 1 SPRAY NASAL (09:29)
[2023-09-07] MEDS: APIXABAN 2.5 MG TABLET PO ×2 (09:29→20:37)
[2023-09-07] MEDS: guaiFENesin 12 HR 600 MG TABCR 1200 MG PO ×2 (09:30→20:37)
--- NOTE | 2023-09-07 12:40 | PM.IMPN ---
Progress Note: A&P Assessment and Plan (1) Adult failure to thrive: Code(s): R62.7 - Adult failure to thrive Status: Acute (2) Dementia: Qualifiers: Dementia behavioral or psychological symptom: with other behavioral disturbance Dementia severity: unspecified severity Dementia type: unspecified type Qualified Code(s): F03.918 - Unspecified dementia, unspecified severity, with other behavioral disturbance Code(s): F03.90 - Unspecified dementia, unspecified severity, without behavioral disturbance, psychotic disturbance, mood disturbance, and anxiety Status: Acute (3) Severe protein-calorie malnutrition: Code(s): E43 - Unspecified severe protein-calorie malnutrition Status: Acute (4) Chronic respiratory failure: Code(s): J96.10 - Chronic respiratory failure, unspecified whether with hypoxia or hypercapnia Status: Acute Plan He refused to go to SNF for rehab. Subsequently discharged to home with home health. took him home and when they got to the garage he sat in the car and refused to get up. He did not lose consciousness or have seizure activity but more so did not want to move. Subsequently brought back to [facility]. Readmission for longterm placement. Pt unable to look after himself not eating properly wandering in streets unsafe at home Time Spent With Patient Time with patient: 25 - 35 minutes Subjective Date/time seen: 09/07/23 12:40 Interval history: Ongoing decline since covid infection several admissions in last 6 months for falls acutely decompensated heart failure unable to look after himself decline in cognitive abilities family in agreement awaiting accepting facility pt pleasant today agreeing to go to facility participating with PT Review of Systems Review of Systems: No acute issues All systems reviewed & are unremarkable except as noted in HPI and below (Subjective) Exam Const: General: comfortable and no acute distress Nutritional Appearance: overweight Orientation/consciousness: oriented to person Other: A&O x2. Pleasantly confused. HENMT: Head: normal to inspection Eyes: Pupils: Equal, round and reactive pupils present Neck: Neck: supple Resp: Effort & Inspection: normal respiratory effort Auscultation: diminished lung sounds Cardio: Rate: regular rate Rhythm: regular rhythm GI: Inspection: normal to inspection Auscultation: normal bowel sounds Neuro: General: oriented to person Cranial nerves: Yes Equal, round and reactive pupils present Extrem: General: no edema Objective Data Vital Signs Vital Signs: Vital Signs - 24 hr 09/06/23 22:05 09/06/23 20:00 09/07/23 09:28 Pulse Rate 88 Pulse Oximetry 95 Oxygen Delivery Room Air Room Air 09/07/23 08:00 Pulse Rate Pulse Oximetry Oxygen Delivery Room Air Intake/Output Intake/Output: Intake & Output 09/04/23 09/05/23 09/06/23 09/07/23 23:59 23:59 23:59 23:59 Intake Total 960 410 Output Total 200 250 Balance 760 160 Meds/Results Medications: Active Medications Generic Name Dose Route Start Last Admin Trade Name Freq PRN Reason Stop Dose Admin Albuterol 2 puff 09/06/23 00:56 Albuterol Sulfate (*Sp) Aerosol 1 Puff INHALATION QIDRT PRN shortness of breath or wheezing Apixaban 2.5 mg 09/06/23 09:00 09/07/23 09:29 Apixaban 2.5 Mg Tablet PO 2.5 mg Q12HR OMID Administration Azelastine HCl 1 spray 09/06/23 09:00 09/07/23 09:29 Azelastine Hcl Nasal 0.1% 137 Mcg/Spr 30 Ml Btl NASAL 1 spray DAILY OMID Administration Ferrous Sulfate 325 mg 09/06/23 09:00 09/07/23 09:28 Ferrous Sulfate [address] PO 10/06/23 08:59 325 mg BID OMID Administration Finasteride 5 mg 09/06/23 09:00 09/07/23 09:28 Finasteride 5 Mg Tablet PO 5 mg DAILY OMID Administration Fluticasone Propionate 2 spray 09/06/23 09:00 09/07/23 09:29 Fluticason
[2023-09-07 14:00] VITALS: BP 101/62; PULSE 94; RESP 16; TEMP 36.7; O2SAT 96
[2023-09-07] MEDS: LATANOPROST 0.005% OP SOLN 2.5 ML BTL 1 DROP EACH EYE (20:39)
[2023-09-07 22:00] VITALS: BP 116/74; PULSE 92; RESP 18; TEMP 36.6; O2SAT 95
[2023-09-08 06:00] VITALS: BP 130/59; PULSE 73; RESP 20; TEMP 37.3; O2SAT 97
[2023-09-08 08:00] VITALS: O2SAT 97
[2023-09-08 08:21] LABS: Potassium 4.6 mmol/L (3.4-5.0)
[2023-09-08 09:17] LABS: Anion Gap 5 mmol/L (4-12); Blood Urea Nitrogen 38 mg/dL (9-20); Calcium 7.8 mg/dL (8.4-10.2); Carbon Dioxide 29 mmol/L (22-30); Chloride 104 mmol/L (98-107); Estimated CRCL calculation 36 ml/min; Estimated Glomerular Filt Rate > 60; Glucose 120 mg/dL (65-110); Magnesium 2.5 mg/dL (1.6-2.3); Potassium 4.6 mmol/L (3.4-5.0); Sodium 138 mmol/L (137-145)
[2023-09-08 09:38] VITALS: PULSE 73
[2023-09-08] MEDS: SACUBITRIL/VALSARTAN 24-26 MG TABLET 1 TAB PO (09:38)
[2023-09-08] MEDS: FUROSEMIDE 40 MG TABLET PO (09:38)
[2023-09-08] MEDS: METOPROLOL SUCCINATE EXT REL 25 MG TABCR PO (09:38)
[2023-09-08] MEDS: FINASTERIDE 5 MG TABLET PO (09:38)
[2023-09-08] MEDS: SPIRONOLACTONE 25 MG TABLET PO (09:39)
[2023-09-08] MEDS: POTASSIUM CHLORIDE 20 MEQ ER TABLET PO (09:39)
[2023-09-08] MEDS: LORATADINE 10 MG TABLET PO (09:39)
[2023-09-08] MEDS: TAMSULOSIN HCL 0.4 MG CAPSULE PO (09:39)
[2023-09-08] MEDS: guaiFENesin 12 HR 600 MG TABCR 1200 MG PO (09:39)
[2023-09-08] MEDS: FERROUS SULFATE 325 MG TABLET DR PO (09:39)
[2023-09-08] MEDS: APIXABAN 2.5 MG TABLET PO (09:39)
[2023-09-08] MEDS: FLUTICASONE PROPIONATE 0.05% NA SPR 16 GM BTL (*BKC) 2 SPRAY NASAL (09:42)
[2023-09-08] MEDS: AZELASTINE HCL NASAL 0.1% 137 MCG/SPR 30 ML BTL 1 SPRAY NASAL (09:43)
[2023-09-08] MEDS: UMECLIDINIUM BROMIDE 62.5 MCG ELLIPTA 1 PUFF INHALATION (10:44)
[2023-09-08 10:45] VITALS: O2SAT 95
--- NOTE | 2023-09-08 11:39 | PM.DS ---
DS: Admitting Diagnosis Discharge Date 09/08/2023 Admitting Diagnosis adult failure to thrive, dementia, severe protein calorie malnutrition, chronic respiratory failure DS: Discharge Diagnosis Discharge Diagnosis (1) Adult failure to thrive: Code(s): R62.7 - Adult failure to thrive Status: Acute (2) Dementia: Qualifiers: Dementia behavioral or psychological symptom: with other behavioral disturbance Dementia severity: unspecified severity Dementia type: unspecified type Qualified Code(s): F03.918 - Unspecified dementia, unspecified severity, with other behavioral disturbance Code(s): F03.90 - Unspecified dementia, unspecified severity, without behavioral disturbance, psychotic disturbance, mood disturbance, and anxiety Status: Acute (3) Severe protein-calorie malnutrition: Code(s): E43 - Unspecified severe protein-calorie malnutrition Status: Acute (4) Chronic respiratory failure: Code(s): J96.10 - Chronic respiratory failure, unspecified whether with hypoxia or hypercapnia Status: Acute DS: Summary Hospital Course Hospital Course: Patient had been admitted for respiratory failure, COVID, CHF the end of August and was discharged home on 09/05/2023 but when he got home he refused to get out of the car and family brought him back to the hospital for facility placement. Patient was readmitted to the hospital and monitored without incident until placement could be arranged. Patient supposed to go to 1 of the 2 facilities that excepted placement but family was still wanting to try to take him home since he is doing better and not requiring oxygen now. It was explained to family that he is still accepted to both nursing homes and can be accepted from the community does not require readmission if they choose to go home. Is my understanding that they were going to choose 1 of the facilities that accepted him but Was later informed that family was taking him home. Status at Discharge Cognitive/behavioral status at discharge: Awake, alert, feeding himself, pleasantly confused Functional status at discharge: uses cane/walker Overall status at discharge: patient is progressing back to baseline Time Spent with Patient Time attestation: Total time spent providing and/or coordinating discharge services: 40 minutes Time spent: Greater than 30 minutes Exam Const: General: comfortable and no acute distress Orientation/consciousness: oriented to person Other: A&O x2. Pleasantly confused. HENMT: Head: normal to inspection Eyes: Pupils: Equal, round and reactive pupils present Neck: Neck: supple Resp: Effort & Inspection: normal respiratory effort Auscultation: diminished lung sounds Cardio: Rate: regular rate Rhythm: regular rhythm GI: Inspection: normal to inspection Auscultation: normal bowel sounds Neuro: General: oriented to person Cranial nerves: Yes Equal, round and reactive pupils present Extrem: General: no edema DS: Data Data Completed and Pending Labs on day of discharge: Labs from last 24 hours 09/08/23 09/08/23 08:06 08:03 Sodium 138 Potassium 4.6 4.6 Chloride 104 Carbon Dioxide 29 Anion Gap 5 BUN 38 H Creatinine 1.00 Estim Creat Clear Calc 36 Estimated GFR > 60 Glucose 120 H Calcium 7.8 L Magnesium 2.5 H Discharge Plan Discharge Discharging Clinician: Jules Montenegro Anticipated Discharge Date/Time: 09/08/23 16:00 Patient Disposition: Home Health Service Activity: as tolerated Diet: heart healthy Discharge Instructions: PT/OT Evaluate/Treat Resume home medications as per Med Rec information Contact primary care provider for new orders if needed Care Coordination: Patient to have [facility] for PT/OT eval and treat, and retirement. Their phone number is [phone] if you have any questions. They will contact you to schedule their first visit. Patient Inst
[2023-09-08 14:00] VITALS: BP 122/64; PULSE 98; RESP 18; TEMP 36.8; O2SAT 99
--- NOTE | 2023-09-08 16:18 | PC.NURSE ---
RN DC pt and DC info was provided to spouse and son Rafiq. pt family had no question at discharge.
== END 2023-09-08 16:20 | disposition home health service (06) ==
LOC: ANHED 22:47 → ANH3MEDSUR 09-08 11:33
PROVIDERS: Nurse Practitioner; Student in an Organized Health Care Education/Training Program; Admitting Provider General Practice; Emergency Provider Physician Assistant; PCP Internal Medicine; Visit Provider General Practice
DX: R62.7 Adult failure to thrive (principal); F03.918 Unspecified dementia, unspecified severity, with other behavioral disturbance; E43 Unspecified severe protein-calorie malnutrition; J96.10 Chronic respiratory failure, unspecified whether with hypoxia or hypercapnia; Z68.1 Body mass index [BMI] 19.9 or less, adult; R53.1 Weakness; I48.91 Unspecified atrial fibrillation; H40.9 Unspecified glaucoma; D50.9 Iron deficiency anemia, unspecified; I11.0 Hypertensive heart disease with heart failure; I50.9 Heart failure, unspecified; Z87.891 Personal history of nicotine dependence; Z79.01 Long term (current) use of anticoagulants; Z79.51 Long term (current) use of inhaled steroids; Z79.84 Long term (current) use of oral hypoglycemic drugs
CPT/HCPCS: 36415; 71045; 80048; 80053; 81001; 83735; 84132; 85025; 93005; 94640; 97116; 97161; 97166; 97530; 99285; A9270; G0378

== ENCOUNTER 2023-09-12 09:19 | Inpatient (IN) | payer MEDICARE, SELFPAY ==
[2023-09-12] VITALS (7 sets, daily range): BP systolic 97–120; BP diastolic 39–77; PULSE 80–88; RESP 15–20; TEMP 36.5–37.2; O2SAT 94–100; BMI 16.5
--- NOTE | ~2023-09-12 | CT_ITS ---
EXAMINATION: CT cervical spine wo con DATE: 09/12/2023 10:01 INDICATION: Head trauma TECHNIQUE: Computed tomography (CT) of the cervical spine was performed without intravenous contrast. Automated exposure control and iterative reconstruction technique were employed. The dose-length pro duct was 418.20 mGy-cm. COMPARISON: None FINDINGS: 22 degrees cervical dextroscoliosis. 2-3 mm anterolisthesis C2 on C3, retrolisthesis C3 on C4 and ant erolisthesis C4 on C5. L3-4 millimeter anterolisthesis C7 on T1. Vertebral body heights are normal. N o acute fracture. Multilevel severe disc height loss with degenerative endplate changes and severe un covertebral osteoarthritis from C2-C3 through C6-C7. Severe disc height loss but without significant degenerative endplate changes and with only mild uncovertebral osteoarthritis at C7-T1. There are sma ll posterior endplate osteophytes which along with the multilevel spondylolisthesis results in multil evel mild central canal stenosis, greatest at C3-C4. There is also multilevel bilateral cervical face t osteoarthritis severe on the left at C2-C3 through C4-C5, on the right at C6-C7 and bilaterally at C7-T1. This contributes to multilevel bilateral mild to moderate neural foraminal stenosis throughout the cervical spine most prominent on the left at C3-C4. Moderate emphysema in the visualized apices of the lungs. There surgical skin clips bilaterally in the anterior lower neck. IMPRESSION: 1. 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 No acute osseous abnormality . Reviewed, dictated and finalized at location A. IMPRESSION: 1. 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 No acu te osseous abnormality.
--- NOTE | ~2023-09-12 | CT_ITS ---
CT head without contrast Indication: Head injury COMPARISON: 08/28/2023 Technique: Serial scans were obtained through the brain without the administration of contrast. Dose reduction technique was used on this scan by utilizing automated exposure control and iterative recon struction technique. The dose-length product (DLP) was 681.00 mGy-cm. Findings: There is no evidence of intracranial hemorrhage, mass lesion, or acute infarct. The ventri cles and subarachnoid spaces are dilated, consistent with moderate atrophy. Low attenuation regions are seen within the periventricular white matter bilaterally, likely representing changes from chroni c microvascular ischemic disease. There is no evidence of edema, mass effect or midline shift. Chron ic left maxillary sinus disease present. The remaining visualized paranasal sinuses and mastoid air c ells are clear. Impression: No intracranial hemorrhage, mass, or acute infarct. Atrophy and chronic white matter changes, as above. Reviewed, dictated and finalized at [facility]. Impression: No intracranial hemorrhage, mass, or acute infarct. Atrophy and chronic white matter changes, as above.
--- NOTE | ~2023-09-12 | XR_ITS ---
EXAMINATION: XR chest 1V DATE: 09/12/2023 10:05 INDICATION: Altered mental status TECHNIQUE: Single seated AP view of the chest was obtained. COMPARISON: Chest radiograph dated 09/05/2023 FINDINGS: Persistent retrocardiac airspace opacities in the left lower lung zone partially obscuring the left h emidiaphragm. Persistent blunting at the costophrenic angle consistent with small left pleural effusi on. Skinfolds project over the lateral left midlung zone. Minimal linear discoid atelectasis at the r ight lung base. No pneumothorax or right-sided pleural effusion. As clinically . Surgical clips proje ct over the medial head of the right clavicle. There are bilateral shoulder arthroplasties. IMPRESSION: 1. Opacities in the left lower lung zone consistent with small left pleural effusion and associated a telectasis and/or pneumonia. 2. Cardiomegaly. Reviewed, dictated and finalized at location A. IMPRESSION: 1. Opacities in the left lower lung zone consistent with small left pleural eff usion and associated atelectasis and/or pneumonia. 2. Cardiomegaly.
--- NOTE | ~2023-09-12 | XR_ITS ---
SINGLE AP VIEW PELVIS Ordering provider: Jamal Gagnon MD History: . Fall, left thigh pain . Comparison: None. FINDINGS: BONES: No acute fracture or dislocation. HIP JOINT SPACES: Normal. SACROILIAC JOINT SPACES/LUMBAR SPINE: The sacroiliac joint spaces are normal. Mild degenerative read es of the visualized lower lumbar spine. PUBIC SYMPHYSIS: Normal. SOFT TISSUES: Prostatic calcifications. Possibility of a stone in the urinary bladder cannot be exclu ded with a calcific shadow projected in the mid pelvis. This also may be calcified lymph node. IMPRESSION: No acute osseous abnormality pelvis. Possible urinary bladder stone. Reviewed, dictated and finalized at location A.
--- NOTE | ~2023-09-12 | XR_ITS ---
EXAMINATION: XR femur LT min 2V DATE: 09/12/2023 12:58 INDICATION: Left femur pain post fall TECHNIQUE: Overlapping proximal and distal, AP and lateral views of the left femur were obtained. COMPARISON: None FINDINGS: Alignment is normal. No fracture. 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 Unchanged tiny het erotopic ossicle along the left greater trochanter. Left knee joint spaces appear relatively preserve d on nonweightbearing imaging with no significant osteophytosis. No knee joint effusion. Atherosclero tic calcifications along the left femoral and popliteal arteries. Multiple prosthetic calcifications. Penile prosthesis. IMPRESSION: 1. No acute osseous abnormality. Reviewed, dictated and finalized at location A.
--- NOTE | 2023-09-12 09:27 | ECG_ITS ---
Test Date: 2023-09-12 09:30:19 Measurements Intervals [place] Rate: 84 P: 0 MN: 0 QRS: -3 QRSD: 94 T: 128 QT: 372 QTc: 441 Interpretive Statements ATRIAL FIBRILLATION VENTRICULAR PREMATURE COMPLEX INCOMPLETE RRIGHT BUNDLE BRANCH BLOCK LEFT VENTRICULAR HYPERTROPHY WITH ST-T CHANGE BORDERLINE ST-T WAVE ABNORMALITY- HIGH LATERAL LEADS BASELINE ARTIFACT- I, III, AVR, AVL, AVF, V1-V6 ABNORMAL ECG Compared to ECG 09/05/2023 19:28:10 NO SIGNIFICANT CHANGE Electronically Signed On 09-12-2023 12:44:57 CDT by Carter Pool D.O.
[2023-09-12 10:00] LABS: INR 1.6; Partial Thromboplastin Time 32.1 Seconds (22.3-36.8); Prothrombin Time 19.6 Seconds (11.1-14.7)
[2023-09-12 10:05] LABS: Alanine Aminotransferase 25 U/L (6-50); Albumin Level 3.3 g/dL (3.5-5.1); Alkaline Phosphatase 111 U/L (38-126); Anion Gap 11 mmol/L (4-12); Aspartate Amino Transferase 32 U/L (17-59); Bilirubin,Total 0.9 mg/dL (0.2-1.3); Blood Urea Nitrogen 68 mg/dL (9-20); Calcium 8.3 mg/dL (8.4-10.2); Carbon Dioxide 27 mmol/L (22-30); Chloride 101 mmol/L (98-107); Estimated CRCL calculation 27 ml/min; Estimated Glomerular Filt Rate 52; Glucose 101 mg/dL (65-110); Potassium 4.5 mmol/L (3.4-5.0); Sodium 139 mmol/L (137-145)
[2023-09-12 10:11] LABS: Basophils Absolute Auto 0.1 K/mm3 (0.0-0.1); Basophils Percent Auto 0.7 % (0.2-1.2); Eosinophils Absolute Auto 0.5 K/mm3 (0-0.3); Hematocrit 37.7 % (42.0-52.0); Hemoglobin 12.6 g/dL (14.0-18.0); Immature Granulocyte Absolute 0.13 K/mm3 (0.00-0.031); Immature Granulocyte Percent A 1.3 % (0-0.5); Lymphocytes Absolute Auto 0.42 K/mm3 (0.9-3.2); Lymphocytes Percent Auto 4.3 % (18.3-44.2); Mean Corpuscular HGB Conc 33.4 g/dl (32-36); Mean Corpuscular Hemoglobin 35.2 pg (26-34); Mean Corpuscular Volume 105.3 fl (80-100); Monocytes Absolute Auto 0.8 K/mm3 (0.1-0.6); Monocytes Percent Auto 8.2 % (2.6-8.5); Neutrophils Absolute Auto 7.9 K/mm3 (1.3-6.7); Neutrophils Percent Auto 80.5 % (45.5-73.1); Platelet Count Result 358 k/mm3 (150-375); Red Blood Count 3.58 M/mm3 (4.6-6.20); Red Cell Distribution Width 13.5 % (11.5-14.5); White Blood Count 9.8 K/mm3 (4.5-10.0)
[2023-09-12 10:34] LABS: Anisocytosis 1+; Macrocytosis 2+ (NORMAL); Ovalocytes 1+; Platelet Estimate Adequate (Adequate); Schistocytes None Seen
[2023-09-12 11:34] LABS: Appearance Urine Cloudy (Clear); Bacteria Urine 4+ /hpf; Bilirubin Urine Negative (Negative); Blood Urine 2+ (Negative); Color Urine Yellow (Yellow); Glucose Urine UA Negative (Negative); Ketones Urine Negative (Negative); Leukocyte Esterase Ur 3+ LEU/UL (Negative); Nitrate Urine Negative (Negative); Non Pathogenic Casts 0-2; Protein Urine 1+ mg/dL (Negative); RBC Urine 0-2 /hpf (0-2); Specific Grav Ur 1.017 (1.001-1.035); Squamous Epithelial Cell Urine None Seen /hpf (Few); Urobilinogen Urine 0.2 mg/dL (<2.0); WBC Urine >100 /hpf (0-3); pH Urine 5.5 (5.0-9.0)
[2023-09-12 11:39] LABS: Add Urine Microscopic? YES
[2023-09-12] MEDS: CEFEPIME 1 GM/NS 50 ML 1 GM/50 ML BAG IVPB ×2 (12:01→22:05)
--- NOTE | 2023-09-12 12:59 | ED.AMS ---
HPI - Altered Mental Status General Chief Complaint: Altered Mental Status Stated Complaint: Altered mental status Time Seen by Provider: 09/12/23 09:33 History of Present Illness HPI narrative: This is an 88-year-old male, with history of diabetes and AFib and multiple admissions to this hospital in the past month for failure to thrive and pneumonia, who returns with his son after 2 falls at home. The patient's son, at bedside notes last night the patient was found on the floor after rolling out of his bed. He was again found early this morning crawling on the floor attempting to stand and required significant assistance. The patient complains of chronic low back pain, generalized weakness and reports increased urinary frequency. He denies loss of consciousness, focal weakness, chest pain or shortness of breath. He has no other complaints at this time. Related Data Home Medications Medication Instructions Recorded Confirmed cetirizine 10 mg PO DAILY 06/15/22 09/06/23 ferrous sulfate 325 mg PO BID 06/15/22 09/06/23 finasteride 5 mg tablet 5 mg PO DAILY 06/15/22 09/06/23 metoprolol succinate 25 mg 25 mg PO DAILY 06/15/22 09/06/23 tablet,extended release 24 hr sacubitril 24 mg-valsartan 26 mg 1 tablet PO BID 07/19/23 09/06/23 tablet (Entresto) latanoprost 0.005 % eye drops 1 drp EACH EYE HS 08/08/23 09/06/23 arginine-vitamin C-vitamin E oral 9.2 g PO BID 08/29/23 09/06/23 4.5 gram-156 mg/9.2 gram powder pkt (Arginaid) azelastine 137 mcg (0.1 %) nasal 137 mcg intranasal DAILY 08/29/23 09/06/23 spray fluticasone propionate 50 2 spray intranasal DAILY 08/29/23 09/06/23 mcg/actuation nasal spray,suspension Allergies Allergy/AdvReac Type Severity Reaction Status Date / Time atorvastatin AdvReac Muscle Pain Verified 09/05/23 19:27 clarithromycin [From Biaxin] AdvReac Gastrointestinal Verified 09/05/23 19:27 Upset rofecoxib AdvReac Nausea and Verified 09/05/23 19:27 Vomiting [id number] Reductase AdvReac Muscle Pain Verified 09/05/23 19:27 Inhibitor Review of Systems Review of Systems: All systems reviewed & are unremarkable except as noted in HPI and below PMFSH Past Medical History Medical History Atrial fibrillation Basal cell carcinoma Chronic anticoagulation Glaucoma 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 Hypertension Iron deficiency anemia Surgical History Surgical History H/O cataract extraction H/O hemorrhoidectomy H/O shoulder replacement H/O thyroidectomy History of incision and drainage I&D of infected left lower extremity hematoma by Dr. Sandra on 07/24/23 History of removal of skin mole History of tonsillectomy Family History Family History Mother Cerebrovascular accident Father Testicle cancer Sibling Malignant neoplasm of prostate Social History Social History Social History: Code status: Do not resuscitate. Smoking packs per day: 3 Smoking cigarettes per day: 60.0 Years smoked: 31 Smoking pack-years: 93.00 Smoking status: Never smoker Tobacco type: cigarettes Second hand tobacco smoke exposure: No Alcohol intake: never Substance use: never Substance use type: does not use Do You Feel Safe in your Home?: Yes Lack of Transportation: No Lack of Food: Never True Current Housing: Decline to Answer Concerned About Future Housing: Decline to Answer Difficulty Paying Gas/Electric Bills: Decline to Answer Difficulty Paying for Meds: Decline to Answer Currently Unemployed: Decline to Answer Education: Associate Degree Difficulty w/ Childcare or Family Care: Decline to Answer Additional li
--- NOTE | 2023-09-12 16:01 | PC.NURSE ---
This patient, Jamey Cuadra, was admitted to Medical [facility]- at 14:27. Patient/family oriented to hospital policies and general routines including ID bracelet, bed and alarms, visiting hours, pain management, procedures, bathroom and other care routines, personal items, smoking policy, room service/diet, and visiting hours. Information on how to activate the Rapid Response Team has been discussed. Patient/Family are encouraged to report perceived risks to care and to ask questions if they do not understand what they are told or what they should do.
--- NOTE | 2023-09-12 16:18 | PM.IMHP ---
H&P: HPI History of Present Illness Date/Time: 09/12/23 16:18 Chief Complaint: Falls, weakness. Narrative: Jamey Cuadra is an 88 year old male with PMH of atrial fibrillation, HFrEF (20%), and BPH who presents from home after having a fall last night. The patient reports his only symptoms at this time is irritant voiding symptoms and weakness. He denies pain, denies shortness of breath, and denies chest pain. His family routinely assist at home and state that he is often unable to rise after falls. He at times sleeps on the floor d/t having difficulty rising. On ED evaluation imaging included CT head, CXR, cervical spine ct, and pelvis/femur xr. Imaging did not reveal acute pathology. Labwork shows a normal wbc count, and hgb of 12.6. Electrolytes grossly wdl. BUN/Cr 68/1.3. Urinalysis noted for >100 wbc count, +4 bacteria, +3 leukocytes. He was started on cefepime. With his failure to thrive at home, acute infection, and multiple falls, Jamey is being admitted for further treatment and evaluation. Review of Systems Review of Systems: Negative across 14 systems except as noted above. 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 Hypertension Iron deficiency anemia Surgical History Surgical History H/O cataract extraction H/O hemorrhoidectomy H/O shoulder replacement H/O thyroidectomy History of incision and drainage I&D of infected left lower extremity hematoma by Dr. Sandra on 07/24/23 History of removal of skin mole History of tonsillectomy Family History Family History Mother Cerebrovascular accident Father Testicle cancer Sibling Malignant neoplasm of prostate Social History Social History Social History: Code status: Do not resuscitate. Smoking packs per day: 2 Smoking cigarettes per day: 40.0 Years smoked: 31 Smoking pack-years: 62.00 Smoking status: Former smoker Tobacco type: cigarettes Second hand tobacco smoke exposure: No Alcohol intake: never Substance use: never Substance use type: does not use Do You Feel Safe in your Home?: Yes Lack of Transportation: No Lack of Food: Never True Current Housing: I Have Housing Concerned About Future Housing: No Difficulty Paying Gas/Electric Bills: No Difficulty Paying for Meds: No Currently Unemployed: No Education: Decline to Answer Difficulty w/ Childcare or Family Care: No Additional living arrangements comments: Lives with son. 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 Spiritual care concerns: No Meds Home Medications and Allergies Home Medications Medication Instructions Recorded Confirmed Type cetirizine 10 mg PO DAILY 06/15/22 09/12/23 History ferrous sulfate 325 mg PO BID 06/15/22 09/12/23 History finasteride 5 mg tablet 5 mg PO DAILY 06/15/22 09/12/23 History metoprolol succinate 25 mg 25 mg PO DAILY 06/15/22 09/12/23 History tablet,extended release 24 hr tamsulosin 0.4 mg capsule 0.4 mg PO DAILY #30 caps 06/21/22 09/12/23 Rx sacubitril 24 mg-valsartan 26 mg 1 tablet PO BID 07/19/23 09/12/23 History tablet (Entresto) latanoprost 0.005 % eye drops 1 drp EACH EYE HS 08/08/23 09/12/23 History potassium chloride 20 mEq 20 meq PO DAILY #7 tabs 08/11/23 09/12/23 Rx tablet,extended release arginine-vitamin C-vitamin E oral 9.2 g PO BID 08/29/23 09/12/23 History 4.5 gram-156 mg/9.2 gram powder pkt (Arginaid) azelastine 137 mcg (0.1 %) nasal 137 mcg intranasal DAILY 08/29/23 09/12/23 Hi
[2023-09-12] MEDS: SACUBITRIL/VALSARTAN 24-26 MG TABLET 1 TAB PO (17:26)
[2023-09-12] MEDS: APIXABAN 2.5 MG TABLET PO (17:26)
[2023-09-12] MEDS: LACTATED RINGERS 1,000 ML 75 ML IV CONT (17:26)
[2023-09-12] MEDS: FERROUS SULFATE 325 MG TABLET DR BY MOUTH (17:26)
--- NOTE | 2023-09-12 17:38 | PC.NURSE ---
RN spoke with patient's son and son is requesting patient have SNF placement. Will pass in report to let care coordination know.
[2023-09-12] MEDS: ACETAMINOPHEN 325 MG TABLET 650 MG PO (17:59)
[2023-09-12] MEDS: LATANOPROST 0.005% OP SOLN 2.5 ML BTL 1 DROP EACH EYE (22:05)
[2023-09-13 05:00] VITALS: BP 108/83; PULSE 70; RESP 16; TEMP 36.4; O2SAT 97
[2023-09-13 06:07] LABS: Basophils Absolute Auto 0.1 K/mm3 (0.0-0.1); Basophils Percent Auto 1.1 % (0.2-1.2); Eosinophils Absolute Auto 0.9 K/mm3 (0-0.3); Eosinophils Percent Auto 10.3 % (0-4.4); Hematocrit 38.4 % (42.0-52.0); Hemoglobin 12.3 g/dL (14.0-18.0); Immature Granulocyte Percent A 1.2 % (0-0.5); Lymphocytes Absolute Auto 0.47 K/mm3 (0.9-3.2); Lymphocytes Percent Auto 5.7 % (18.3-44.2); Mean Corpuscular Hemoglobin 34.2 pg (26-34); Mean Corpuscular Volume 106.7 fl (80-100); Mean Platelet Volume 10.2 fl (7.4-10.4); Monocytes Absolute Auto 0.8 K/mm3 (0.1-0.6); Monocytes Percent Auto 9.1 % (2.6-8.5); Neutrophils Percent Auto 72.6 % (45.5-73.1); Platelet Count Result 327 k/mm3 (150-375); Red Cell Distribution Width 13.7 % (11.5-14.5); White Blood Count 8.3 K/mm3 (4.5-10.0)
[2023-09-13 06:26] LABS: Anion Gap 6 mmol/L (4-12); Blood Urea Nitrogen 53 mg/dL (9-20); Calcium 8.2 mg/dL (8.4-10.2); Carbon Dioxide 27 mmol/L (22-30); Chloride 105 mmol/L (98-107); Estimated CRCL calculation 32 ml/min; Estimated Glomerular Filt Rate > 60; Glucose 84 mg/dL (65-110); Magnesium 2.4 mg/dL (1.6-2.3); Potassium 4.6 mmol/L (3.4-5.0); Sodium 138 mmol/L (137-145)
[2023-09-13 06:28] LABS: Platelet Estimate Adequate (Adequate)
[2023-09-13 06:29] LABS: Macrocytosis 1+ (NORMAL); Schistocytes None Seen
[2023-09-13 08:58] VITALS: PULSE 70
[2023-09-13] MEDS: METOPROLOL SUCCINATE EXT REL 25 MG TABCR PO (08:58)
[2023-09-13] MEDS: FLUTICASONE PROPIONATE 0.05% NA SPR 16 GM BTL (*BKC) 2 SPRAY NASAL (08:58)
[2023-09-13] MEDS: EMPAGLIFLOZIN 10 MG TABLET PO (08:58)
[2023-09-13] MEDS: LACTATED RINGERS 1,000 ML 75 ML IV CONT ×2 (08:59→20:36)
[2023-09-13] MEDS: FERROUS SULFATE 325 MG TABLET DR BY MOUTH ×2 (08:59→16:49)
[2023-09-13] MEDS: FINASTERIDE 5 MG TABLET PO (08:59)
[2023-09-13] MEDS: SPIRONOLACTONE 25 MG TABLET PO (08:59)
[2023-09-13] MEDS: SACUBITRIL/VALSARTAN 24-26 MG TABLET 1 TAB PO ×2 (08:59→16:49)
[2023-09-13] MEDS: APIXABAN 2.5 MG TABLET PO ×2 (08:59→16:49)
[2023-09-13] MEDS: TAMSULOSIN HCL 0.4 MG CAPSULE PO (08:59)
[2023-09-13] MEDS: LORATADINE 10 MG TABLET PO (08:59)
[2023-09-13] MEDS: CEFEPIME 1 GM/NS 50 ML 1 GM/50 ML BAG IVPB ×2 (08:59→20:33)
[2023-09-13] MEDS: UMECLIDINIUM BROMIDE 62.5 MCG ELLIPTA 1 PUFF INHALATION (09:04)
[2023-09-13] MEDS: AZELASTINE HCL NASAL 0.1% 137 MCG/SPR 30 ML BTL 1 SPRAY NASAL (11:32)
[2023-09-13 11:59] VITALS: BMI 16.5
--- NOTE | 2023-09-13 12:57 | PM.IMPN ---
Progress Note: A&P Assessment and Plan (1) Acute UTI: Code(s): N39.0 - Urinary tract infection, site not specified Status: Acute (2) Adult failure to thrive: Code(s): R62.7 - Adult failure to thrive Status: Acute (3) Multiple falls: Code(s): R29.6 - Repeated falls Status: Acute (4) Dementia: Qualifiers: Dementia behavioral or psychological symptom: with other behavioral disturbance Dementia severity: unspecified severity Dementia type: unspecified type Qualified Code(s): F03.918 - Unspecified dementia, unspecified severity, with other behavioral disturbance Code(s): F03.90 - Unspecified dementia, unspecified severity, without behavioral disturbance, psychotic disturbance, mood disturbance, and anxiety Status: Acute Plan (1) Acute UTI: Code(s): N39.0 - Urinary tract infection, site not specified Status: Acute Assessment and Plan: - Acute UTI with significantly abnormal UA - cx is pending. Cefepime was started in the ED and will be continued pending further cx results. He does endorse irritative voiding symptoms. The patient is on Jardiance, and if having repeated UTI ongoing - therapy modification may be appropriate. (2) Adult failure to thrive: Code(s): R62.7 - Adult failure to thrive Status: Acute Assessment and Plan: Patient is having increasing difficulty with safety in the home with continued freq. falls and caregivers express some concern on his ability to thrive in the home setting. Will have pt and OT evaluation while here and I believe the patient may require a skilled placement for rehab to home versus the possibility of custodial care. (3) Multiple falls: Code(s): R29.6 - Repeated falls Status: Acute Assessment and Plan: - No acute fractures on imaging. Will have out of bed with assist only at this time. PT/OT eval for balance/gait training. (4) Dementia: Qualifiers: Dementia behavioral or psychological symptom: with other behavioral disturbance Dementia severity: unspecified severity Dementia type: unspecified type Qualified Code(s): F03.918 - Unspecified dementia, unspecified severity, with other behavioral disturbance Code(s): F03.90 - Unspecified dementia, unspecified severity, without behavioral disturbance, psychotic disturbance, mood disturbance, and anxiety Status: Acute Assessment and Plan: Oriented to self and situation and is at approximate baseline per family member at bedside. (5) Non-healing ulcer of lower extremity: Qualifiers: Laterality: left Non-pressure ulcer stage: with fat layer exposed Qualified Code(s): L97.922 - Non-pressure chronic ulcer of unspecified part of left lower leg with fat layer exposed Code(s): L97.909 - Non-pressure chronic ulcer of unspecified part of unspecified lower leg with unspecified severity Status: Acute Assessment and Plan: - Does not appear acutely infected on examination this afternoon. Conservative management with daily dressing changes. (6) Chronic anticoagulation: Code(s): Z79.01 - [facility] (current) use of anticoagulants Status: Acute Assessment and Plan: Cont. eliquis at 2.5mg bid. (7) Atrial fibrillation: Code(s): I48.91 - Unspecified atrial fibrillation Status: Acute Assessment and Plan: - On eliquis and metoprolol which will continue. Stable rate, grossly regular rhythm on auscultation. (8) Acute on chronic systolic CHF (congestive heart failure): Code(s): I50.23 - Acute on chronic systolic (congestive) heart failure Status: Acute Assessment and Plan: On entresto, aldactone, toprol, and lasix. Cont. at home doses with the exception of lasix which will be held d/t current mild dehydration. Subjective Date/time seen: 09/13/23 12:57 Interval history: I saw e
[2023-09-13 16:00] VITALS: BP 104/57; PULSE 78; RESP 16; TEMP 37; O2SAT 96
[2023-09-13] MEDS: LATANOPROST 0.005% OP SOLN 2.5 ML BTL 1 DROP EACH EYE (20:36)
[2023-09-13 23:07] VITALS: BP 134/74; PULSE 50; RESP 16; TEMP 36.3; O2SAT 95
[2023-09-14] MEDS: ACETAMINOPHEN 325 MG TABLET 650 MG PO ×2 (01:29→08:54)
[2023-09-14 06:12] VITALS: BP 128/67; PULSE 48; RESP 18; TEMP 36.2; O2SAT 95
[2023-09-14] MEDS: UMECLIDINIUM BROMIDE 62.5 MCG ELLIPTA 1 PUFF INHALATION (07:25)
[2023-09-14 07:26] VITALS: O2SAT 94
[2023-09-14] MEDS: CEFEPIME 1 GM/NS 50 ML 1 GM/50 ML BAG IVPB (08:50)
[2023-09-14 08:51] VITALS: PULSE 55
[2023-09-14] MEDS: EMPAGLIFLOZIN 10 MG TABLET PO (08:51)
[2023-09-14] MEDS: METOPROLOL SUCCINATE EXT REL 25 MG TABCR PO (08:51)
[2023-09-14] MEDS: LORATADINE 10 MG TABLET PO (08:51)
[2023-09-14] MEDS: FERROUS SULFATE 325 MG TABLET DR BY MOUTH ×2 (08:51→17:01)
[2023-09-14] MEDS: FINASTERIDE 5 MG TABLET PO (08:52)
[2023-09-14] MEDS: SACUBITRIL/VALSARTAN 24-26 MG TABLET 1 TAB PO ×2 (08:52→17:01)
[2023-09-14] MEDS: SPIRONOLACTONE 25 MG TABLET PO (08:52)
[2023-09-14] MEDS: APIXABAN 2.5 MG TABLET PO ×2 (08:53→17:01)
[2023-09-14] MEDS: FLUTICASONE PROPIONATE 0.05% NA SPR 16 GM BTL (*BKC) 2 SPRAY NASAL (08:55)
[2023-09-14] MEDS: AZELASTINE HCL NASAL 0.1% 137 MCG/SPR 30 ML BTL 1 SPRAY NASAL (08:55)
[2023-09-14] MEDS: TAMSULOSIN HCL 0.4 MG CAPSULE PO (08:55)
--- NOTE | 2023-09-14 09:20 | PM.IMPN ---
Progress Note: A&P Assessment and Plan (1) Acute UTI: Code(s): N39.0 - Urinary tract infection, site not specified Status: Acute (2) Adult failure to thrive: Code(s): R62.7 - Adult failure to thrive Status: Acute (3) Multiple falls: Code(s): R29.6 - Repeated falls Status: Acute (4) Dementia: Qualifiers: Dementia behavioral or psychological symptom: with other behavioral disturbance Dementia severity: unspecified severity Dementia type: unspecified type Qualified Code(s): F03.918 - Unspecified dementia, unspecified severity, with other behavioral disturbance Code(s): F03.90 - Unspecified dementia, unspecified severity, without behavioral disturbance, psychotic disturbance, mood disturbance, and anxiety Status: Acute Plan (1) Acute UTI: Code(s): N39.0 - Urinary tract infection, site not specified Status: Acute Assessment and Plan: - Acute UTI with significantly abnormal UA - cx is pending. Cefepime was started in the ED and will be continued pending further cx results. He does endorse irritative voiding symptoms. The patient is on Jardiance, and if having repeated UTI ongoing - therapy modification may be appropriate. (2) Adult failure to thrive: Code(s): R62.7 - Adult failure to thrive Status: Acute Assessment and Plan: Patient is having increasing difficulty with safety in the home with continued freq. falls and caregivers express some concern on his ability to thrive in the home setting. Will have pt and OT evaluation while here and I believe the patient may require a skilled placement for rehab to home versus the possibility of [facility] care. (3) Multiple falls: Code(s): R29.6 - Repeated falls Status: Acute Assessment and Plan: - No acute fractures on imaging. Will have out of bed with assist only at this time. PT/OT eval for balance/gait training. (4) Dementia: Qualifiers: Dementia behavioral or psychological symptom: with other behavioral disturbance Dementia severity: unspecified severity Dementia type: unspecified type Qualified Code(s): F03.918 - Unspecified dementia, unspecified severity, with other behavioral disturbance Code(s): F03.90 - Unspecified dementia, unspecified severity, without behavioral disturbance, psychotic disturbance, mood disturbance, and anxiety Status: Acute Assessment and Plan: Oriented to self and situation and is at approximate baseline per family member at bedside. (5) Non-healing ulcer of lower extremity: Qualifiers: Laterality: left Non-pressure ulcer stage: with fat layer exposed Qualified Code(s): L97.922 - Non-pressure chronic ulcer of unspecified part of left lower leg with fat layer exposed Code(s): L97.909 - Non-pressure chronic ulcer of unspecified part of unspecified lower leg with unspecified severity Status: Acute Assessment and Plan: - Does not appear acutely infected on examination this afternoon. Conservative management with daily dressing changes. (6) Chronic anticoagulation: Code(s): Z79.01 - [facility] (current) use of anticoagulants Status: Acute Assessment and Plan: Cont. eliquis at 2.5mg bid. (7) Atrial fibrillation: Code(s): I48.91 - Unspecified atrial fibrillation Status: Acute Assessment and Plan: - On eliquis and metoprolol which will continue. Stable rate, grossly regular rhythm on auscultation. (8) Acute on chronic systolic CHF (congestive heart failure): Code(s): I50.23 - Acute on chronic systolic (congestive) heart failure Status: Acute Assessment and Plan: On entresto, aldactone, toprol, and lasix. Cont. at home doses with the exception of lasix which will be held d/t current mild dehydration. optometric coordinator is working on placement. Patient is waiting for placement S
[2023-09-14 09:51] LABS: Hematocrit 38.5 % (42.0-52.0); Hemoglobin 12.4 g/dL (14.0-18.0); Mean Corpuscular HGB Conc 32.2 g/dl (32-36); Mean Corpuscular Hemoglobin 34.1 pg (26-34); Mean Corpuscular Volume 105.8 fl (80-100); Mean Platelet Volume 9.8 fl (7.4-10.4); Platelet Count Result 310 k/mm3 (150-375); Red Blood Count 3.64 M/mm3 (4.6-6.20); Red Cell Distribution Width 13.6 % (11.5-14.5); White Blood Count 6.8 K/mm3 (4.5-10.0)
[2023-09-14 10:13] LABS: Anion Gap 9 mmol/L (4-12); Blood Urea Nitrogen 37 mg/dL (9-20); Calcium 8.2 mg/dL (8.4-10.2); Carbon Dioxide 28 mmol/L (22-30); Chloride 102 mmol/L (98-107); Estimated CRCL calculation 32 ml/min; Estimated Glomerular Filt Rate > 60; Glucose 128 mg/dL (65-110); Sodium 139 mmol/L (137-145)
[2023-09-14] MEDS: LACTATED RINGERS 1,000 ML 75 ML IV CONT (12:25)
[2023-09-14 15:45] VITALS: BP 103/69; PULSE 60; RESP 16; TEMP 36.5; O2SAT 94
[2023-09-14 20:47] VITALS: BP 130/76; PULSE 103; RESP 30; TEMP 36.6; O2SAT 99
[2023-09-14 21:41] VITALS: O2SAT 98
[2023-09-14] MEDS: HYDROcodone/acetaminophen (*CRX) 5-325 MG TABLET 1 TAB PO (21:45)
[2023-09-14] MEDS: CEPHALEXIN 500 MG CAPSULE PO (21:48)
[2023-09-14] MEDS: LATANOPROST 0.005% OP SOLN 2.5 ML BTL 1 DROP EACH EYE (21:48)
[2023-09-15] MEDS: LACTATED RINGERS 1,000 ML 75 ML IV CONT (02:47)
[2023-09-15 06:45] VITALS: BP 98/60; PULSE 63; RESP 18; TEMP 36.7; O2SAT 98
[2023-09-15] MEDS: UMECLIDINIUM BROMIDE 62.5 MCG ELLIPTA 1 PUFF INHALATION (08:39)
[2023-09-15 08:40] VITALS: PULSE 60
[2023-09-15] MEDS: METOPROLOL SUCCINATE EXT REL 25 MG TABCR PO (08:40)
[2023-09-15 08:41] VITALS: O2SAT 96
[2023-09-15] MEDS: TAMSULOSIN HCL 0.4 MG CAPSULE PO (08:41)
[2023-09-15] MEDS: SACUBITRIL/VALSARTAN 24-26 MG TABLET 1 TAB PO (08:41)
[2023-09-15] MEDS: FINASTERIDE 5 MG TABLET PO (08:41)
[2023-09-15] MEDS: EMPAGLIFLOZIN 10 MG TABLET PO (08:41)
[2023-09-15] MEDS: CEPHALEXIN 500 MG CAPSULE PO (08:41)
[2023-09-15] MEDS: LORATADINE 10 MG TABLET PO (08:41)
[2023-09-15] MEDS: APIXABAN 2.5 MG TABLET PO (08:41)
[2023-09-15] MEDS: SPIRONOLACTONE 25 MG TABLET PO (08:41)
[2023-09-15] MEDS: FERROUS SULFATE 325 MG TABLET DR BY MOUTH (08:41)
[2023-09-15] MEDS: ACETAMINOPHEN 325 MG TABLET 650 MG PO (08:41)
[2023-09-15] MEDS: FLUTICASONE PROPIONATE 0.05% NA SPR 16 GM BTL (*BKC) 2 SPRAY NASAL (08:42)
[2023-09-15] MEDS: AZELASTINE HCL NASAL 0.1% 137 MCG/SPR 30 ML BTL 1 SPRAY NASAL (08:42)
--- NOTE | 2023-09-15 11:06 | PM.DS ---
DS: Admitting Diagnosis Discharge Date 09/15/2023 Admitting Diagnosis Multiple falls confusion DS: Discharge Diagnosis Discharge Diagnosis (1) Acute UTI: Code(s): N39.0 - Urinary tract infection, site not specified Status: Acute (2) Adult failure to thrive: Code(s): R62.7 - Adult failure to thrive Status: Acute (3) Multiple falls: Code(s): R29.6 - Repeated falls Status: Acute (4) Dementia: Qualifiers: Dementia behavioral or psychological symptom: with other behavioral disturbance Dementia severity: unspecified severity Dementia type: unspecified type Qualified Code(s): F03.918 - Unspecified dementia, unspecified severity, with other behavioral disturbance Code(s): F03.90 - Unspecified dementia, unspecified severity, without behavioral disturbance, psychotic disturbance, mood disturbance, and anxiety Status: Acute DS: Summary Hospital Course Hospital Course: This is an 88-year-old male with multiple prior admissions for failure to thrive and pneumonia presented after 2 falls at home. Patient was found on floor after rolling out of his bed. Patient reported chronic low back pain generalized weakness and increased urinary frequency. No loss of consciousness focal weakness chest pain shortness of breath. CT head without any intracranial hemorrhage or skull fracture. CT cervical spine not concerning for fracture dislocation. CBC demonstrated baseline anemia with hemoglobin of 12.6 otherwise unremarkable. Chemistry panel showed mild hypocalcemia with calcium of 8.3 but otherwise unremarkable. Urinalysis showed consistent with UTI. X-ray of the pelvis not concerning for fracture dislocation x-ray femur negative for fracture dislocation. EKG with atrial fibrillation with QTC of 441. Patient was started on IV cefepime. Underlying heart failure reduced ejection fraction of 20%. BPH. Chronic anticoagulation with apixaban. PT OT evaluated for multiple falls and failure to thrive. Underlying dementia Lower extremity nonhealing ulcer does not on look acutely infected UTI: Urine culture grew pansensitive E coli will transition to oral antibiotics. Failure to thrive/multiple falls Dementia DVT prophylaxis on apixaban Disposition: Going to ever care adverse feel Time Spent with Patient Time attestation: Total time spent providing and/or coordinating discharge services: Exam Narrative: GENERAL: Pleasant, in no acute distress. Well-nourished. - EYES: EOMI. Anicteric. - HENT: Moist mucous membranes. - LUNGS: Clear to auscultation bilaterally, no wheezing, rhonchi, or rales. - CARDIOVASCULAR: Regular rate and rhythm. No murmur. No JVD. - ABDOMEN: Soft, non-tender and non-distended. No palpable masses. - EXTREMITIES: No edema. Peripheral pulses 2+. Non-tender. - NEUROLOGIC: No focal neurological deficits. CN II-XII grossly intact. - PSYCHIATRIC: Awake, Alert and oriented x 3. Appropriate mood and affect. - SKIN: No rashes or lesions. Warm. - LYMPH: No cervical lymphadenopathy. DS: Data Imaging Radiologist's impression: ITS Impressions Head CT 09/12/23 10:08 Impression: No intracranial hemorrhage, mass, or acute infarct. Atrophy and chronic white matter changes, as above. Chest X-Ray 09/12/23 10:14 IMPRESSION: 1. Opacities in the left lower lung zone consistent with small left pleural effusion and associated atelectasis and/or pneumonia. 2. Cardiomegaly. Cervical Spine CT 09/12/23 10:16 IMPRESSION: 1. 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 No acute osseous abnormality. Pelvis X-Ray 09/12/23 10:18 IMPRESSION: No acute osseous abnormality pelvis. Possible urinary bladder stone. Femur X-Ray 09/12/23 13:12 IMPRESSION: 1. No acute osseous abnormality. Discharge Plan Discharge Attending physician on discharge: Bairon Smyth Consulting providers: Perry Jenkins
== END 2023-09-15 13:50 | DRG 689 ==
LOC: ANHED 09:54 → ANH3MED 13:45
PROVIDERS: Hospitalist; Nurse Practitioner Family; Admitting Provider Student in an Organized Health Care Education/Training Program; Emergency Provider Preventive Medicine Aerospace Medicine; PCP Internal Medicine; Visit Provider Internal Medicine
DX: N39.0 Urinary tract infection, site not specified (principal); I50.23 Acute on chronic systolic (congestive) heart failure; L97.922 Non-pressure chronic ulcer of unspecified part of left lower leg with fat layer exposed; B96.20 Unspecified Escherichia coli [E. coli] as the cause of diseases classified elsewhere; I11.0 Hypertensive heart disease with heart failure; R62.7 Adult failure to thrive; R29.6 Repeated falls; F03.90 Unspecified dementia, unspecified severity, without behavioral disturbance, psychotic disturbance, mood disturbance, and anxiety; N40.0 Benign prostatic hyperplasia without lower urinary tract symptoms; E11.9 Type 2 diabetes mellitus without complications; E86.0 Dehydration; I48.91 Unspecified atrial fibrillation; H40.9 Unspecified glaucoma; Z85.828 Personal history of other malignant neoplasm of skin; Z96.619 Presence of unspecified artificial shoulder joint; Z79.01 Long term (current) use of anticoagulants
CPT/HCPCS: 36415; 70450; 71045; 72125; 72170; 73552; 80048; 80053; 81001; 83735; 85025; 85027; 85610; 85730; 87077; 87086; 87088; 87186; 93005; 94640; 96361; 96365; 96366; 97162; 97166; 99285; A9270; G0378; J0692; J7120

== ENCOUNTER 2023-10-01 23:40 | Emergency (ER) | payer MEDICARE, SELFPAY ==
--- NOTE | ~2023-10-01 | CT_ITS ---
CT head without contrast Indication: Status post fall COMPARISON: 09/12/2023 Technique: Serial scans were obtained through the brain without the administration of contrast. Dose reduction technique was used on this scan by utilizing automated exposure control and iterative recon struction technique. The dose-length product (DLP) was 681.00 mGy-cm. Findings: There is no evidence of intracranial hemorrhage, mass lesion, or acute infarct. The ventri cles and subarachnoid spaces are dilated, consistent with mild to moderate atrophy. Low attenuation regions are seen within the periventricular white matter bilaterally, likely representing changes fro m chronic microvascular ischemic disease. There is no evidence of edema, mass effect or midline shif t. The visualized paranasal sinuses and mastoid air cells are clear. Impression: No intracranial hemorrhage, mass, or acute infarct. Atrophy and chronic white matter changes, as above. Reviewed, dictated and finalized at location M. Impression: No intracranial hemorrhage, mass, or acute infarct. Atrophy and chronic white matter changes, as above.
--- NOTE | ~2023-10-01 | XR_ITS ---
Right elbow Technique: AP and lateral views were obtained. Clinical History: Pain Findings: No acute fracture or dislocation is seen. Osseous alignment is anatomic. Joint spaces are p reserved. There is no displacement of the fat pads, and soft tissues are unremarkable. Impression: Unremarkable radiographs. Reviewed, dictated and finalized at location . Impression: Unremarkable radiographs.
[2023-10-01 23:42] VITALS: BP 128/90; PULSE 80; RESP 16; TEMP 36.6; O2SAT 99
[2023-10-02] MEDS: ACETAMINOPHEN 325 MG TABLET 650 MG PO (00:05)
--- NOTE | 2023-10-02 00:27 | ED.FALL ---
HPI - Fall General Chief Complaint: Fall Stated Complaint: fall Time Seen by Provider: 10/01/23 23:43 History of Present Illness HPI Narrative: This is an 88-year-old male presenting from his nursing home facility for concerns of a ground level mechanical fall. Patient is presently awake alert and oriented and states that he was trying to get up to use the restroom with the lights off and tripped and fell on the ground. He denies striking his head or losing consciousness but states he is not sure how she landed but thinks he might his right elbow. He does have a minor abrasion to his right elbow without any active bleeding. He has complained of some right elbow discomfort. Denies any headache, vision changes, loss of consciousness, nausea, vomiting, chest pain, shortness a breath. He states he is otherwise in his normal state of health and has no other acute complaints today. EMR documentation knows that he is on Eliquis but patient states he is only taking Plavix. Related Data Home Medications Medication Instructions Recorded Confirmed cetirizine 10 mg PO DAILY 06/15/22 09/12/23 ferrous sulfate 325 mg PO BID 06/15/22 09/12/23 finasteride 5 mg tablet 5 mg PO DAILY 06/15/22 09/12/23 metoprolol succinate 25 mg 25 mg PO DAILY 06/15/22 09/12/23 tablet,extended release 24 hr sacubitril 24 mg-valsartan 26 mg 1 tablet PO BID 07/19/23 09/12/23 tablet (Entresto) latanoprost 0.005 % eye drops 1 drp EACH EYE HS 08/08/23 09/12/23 arginine-vitamin C-vitamin E oral 9.2 g PO BID 08/29/23 09/12/23 4.5 gram-156 mg/9.2 gram powder pkt (Arginaid) azelastine 137 mcg (0.1 %) nasal 137 mcg intranasal DAILY 08/29/23 09/12/23 spray fluticasone propionate 50 2 spray intranasal DAILY 08/29/23 09/12/23 mcg/actuation nasal spray,suspension Allergies Allergy/AdvReac Type Severity Reaction Status Date / Time atorvastatin AdvReac Muscle Pain Verified 09/12/23 15:49 clarithromycin [From Biaxin] AdvReac Gastrointestinal Verified 09/12/23 15:49 Upset rofecoxib AdvReac Nausea and Verified 09/12/23 15:49 Vomiting [id number] Reductase AdvReac Muscle Pain Verified 09/12/23 15:49 Inhibitor Review of Systems Review of Systems: As reviewed above in the HPI [facility] Past Medical History Medical History Atrial fibrillation Basal cell carcinoma Chronic anticoagulation Glaucoma 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 Hypertension Iron deficiency anemia Surgical History Surgical History H/O cataract extraction H/O hemorrhoidectomy H/O shoulder replacement H/O thyroidectomy History of incision and drainage I&D of infected left lower extremity hematoma by Dr. Sandra on 07/24/23 History of removal of skin mole History of tonsillectomy Family History Family History Mother Cerebrovascular accident Father Testicle cancer Sibling Malignant neoplasm of prostate Social History Social History Social History: Code status: Do not resuscitate. Smoking packs per day: 2 Smoking cigarettes per day: 40.0 Years smoked: 31 Smoking pack-years: 62.00 Smoking status: Former smoker Tobacco type: cigarettes Second hand tobacco smoke exposure: No Alcohol intake: never Substance use: never Substance use type: does not use Do You Feel Safe in your Home?: Yes Lack of Transportation: No Lack of Food: Never True Current Housing: I Have Housing Concerned About Future Housing: No Difficulty Paying Gas/Electric Bills: No Difficulty Paying for Meds: No Currently Unemployed: No Education: Decline to Answer Difficulty w/ Childcare or Fam
[2023-10-02 01:53] VITALS: BP 128/81; PULSE 73; RESP 14; O2SAT 100
--- NOTE | 2023-10-02 02:11 | PC.NURSE ---
Report called to longterm with full discharge instructions at this time.
== END 2023-10-02 02:51 ==
PROVIDERS: Emergency Provider Student in an Organized Health Care Education/Training Program
DX: M25.521 Pain in right elbow (principal); I48.91 Unspecified atrial fibrillation; I11.0 Hypertensive heart disease with heart failure; I50.9 Heart failure, unspecified; D64.9 Anemia, unspecified; W01.0XXA Fall on same level from slipping, tripping and stumbling without subsequent striking against object, initial encounter
CPT/HCPCS: 70450; 73070; 99284; A9270

== ENCOUNTER 2023-10-10 21:38 | Emergency (ER) | payer MEDICARE, SELFPAY ==
--- NOTE | ~2023-10-10 | CT_ITS ---
CORRECTED REPORT corrected examination description [facility] [place] 10/12/23 This report was recreated on 10/12/23. Original report was Noncontrast CT scan of the thoracolumbar spine CLINICAL HISTORY: Status post fall TECHNIQUE: Axial noncontrast imaging of the thoracolumbar spine was performed. Sagittal and coronal reformatted images were constructed. Dose reduction technique was used on this scan by utilizing automated exposure control and iterative reconstruction technique. The dose-length product (DLP) was 1152.69 mGy-cm. FINDINGS: No acute fracture or subluxation seen in the thoracic or lumbar spine. There is dextroscoliosis of the lumbar spine. There is severe degenerative disc narrowing at T8-T9 and T9-T10. There are minimal scattered degenerative disc changes in the remainder of the thoracic spine. No significant disc bulge or herniation evident. Thoracic level. No definite spinal canal stenosis or cord compression in the thoracic spine. There is mild facet arthropathy at T9-T10. There is probable bilateral neural foraminal narrowing at T9-T10, right worse than left. At L1-L2, there is severe degenerative disc narrowing. There is minimal disc bulge and mild facet arthropathy. No central canal stenosis. There is moderate left neural foraminal narrowing. Right neural foramen probably preserved. At L2-L3, there is severe degenerative disc narrowing. There is minimal disc bulge and mild facet arthropathy. No definite central canal stenosis. There is moderate to advanced left neural foraminal narrowing, and moderate to advanced right neural foraminal narrowing. At L3-L4, there is severe degenerative disc narrowing. There is mild disc bulge and mild facet arthropathy. No definite central canal stenosis. There is severe left neural foraminal narrowing, and mild right neural foraminal narrowing. At L4-L5, there is moderate to advanced degenerative disc narrowing. There is mild disc bulge and mild facet arthropathy. No central canal stenosis. There is severe right neural foraminal narrowing. Left neural foramen preserved. At L5-S1, there is advanced degenerative disc narrowing. There is minimal disc bulge. There is mild facet arthropathy. No central canal stenosis or left neural foraminal narrowing. There is moderate right neural foraminal narrowing. Paravertebral soft tissues are unremarkable. Vinson catheter in place with 1 cm urinary bladder stone present. Mild emphysema noted in the visualized lungs. Impression: No acute fracture or subluxation of the thoracolumbar spine. Dextro scoliosis of the lumbar spine. Degenerative spondylitic changes in the spine, as detailed above. Reviewed, dictated and finalized at [facility]. MTDD Impression: No acute fracture or subluxation of the thoracolumbar spine. Dextro scoliosis of the lumbar spine. Degenerative spondylitic changes in the spine, as detailed above.
--- NOTE | ~2023-10-10 | CT_ITS ---
EXAMINATION: CT cervical spine wo con DATE: 10/10/2023 22:26 INDICATION: fall, head injury TECHNIQUE: Computed tomography (CT) of the cervical spine was performed without intravenous contrast. Automated exposure control and iterative reconstruction technique were employed. The dose-length pro duct was 605.33 mGy-cm. COMPARISON: None. FINDINGS: Vertebral Body Alignment: Stable multilevel degenerative listheses. Craniocervical and atlantoaxial alignment: Moderate degenerative change. Alignment intact. Osseous structures/fracture: No evidence of a lytic or blastic process in the visualized spine. No e vidence of acute fracture. Old type I odontoid fracture fragment. Cervical soft tissues: The paraspinal soft tissues planes are maintained. Emphysematous changes in th e lungs. Biapical scarring. Surgical clips over the anterior lower neck/thoracic inlet. Degenerative changes: Degenerative changes, without severe neural foraminal or central canal narrowin g. IMPRESSION: No acute fracture or traumatic malalignment in the cervical spine. Reviewed, dictated and finalized at location K.
--- NOTE | ~2023-10-10 | CT_ITS ---
EXAMINATION: CT brain wo con DATE: 10/10/2023 22:26 INDICATION: fall, head injury . TECHNIQUE: Computed tomography (CT) of the head was performed without intravenous contrast. The mA wa s adjusted according to patient size. Iterative reconstruction technique was employed. The dose-lengt h product was 605.33 mGy-cm. COMPARISON: 10/02/2023. FINDINGS: No acute intracranial hemorrhage or extra-axial fluid collection. No hydrocephalus, mass, or herniation. No acute ischemic infarct. Unremarkable dural venous sinus attenuation. No acute osseous abnormality. Near-complete opacification of the left maxillary sinus with surrounding osseous sclerosis, the remai lisa aerated spaces are clear. Moderate atrophy and chronic white matter change. Atherosclerotic intracranial calcification. Bilater al lens replacements. IMPRESSION: No acute intracranial process. Chronic left maxillary sinusitis. Reviewed, dictated and finalized at location K.
[2023-10-10 21:45] VITALS: BP 120/52; PULSE 70; RESP 18; TEMP 37.1; O2SAT 99
--- NOTE | 2023-10-10 21:59 | ED.HEATRA ---
HPI - Head Injury General Chief complaint: Head Injury Stated complaint: FALL, HEAD WOUND Time Seen by Provider: 10/10/23 21:49 Source: patient Mode of arrival: EMS Limitations: no limitations History of Present Illness HPI Narrative: This is the 88-year-old male who presents to the ED via EMS from [facility] for head injury this evening. Patient got tangled up in his depends and accidentally fell backwards. States that he hit the back of his head and has pain in the occiput. Denies neck pain. Denies LOC, numbness, weakness, any further sites of pain or injury. Related Data Home Medications Medication Instructions Recorded Confirmed cetirizine 10 mg PO DAILY 06/15/22 09/12/23 ferrous sulfate 325 mg PO BID 06/15/22 09/12/23 finasteride 5 mg tablet 5 mg PO DAILY 06/15/22 09/12/23 metoprolol succinate 25 mg 25 mg PO DAILY 06/15/22 09/12/23 tablet,extended release 24 hr sacubitril 24 mg-valsartan 26 mg 1 tablet PO BID 07/19/23 09/12/23 tablet (Entresto) latanoprost 0.005 % eye drops 1 drp EACH EYE HS 08/08/23 09/12/23 arginine-vitamin C-vitamin E oral 9.2 g PO BID 08/29/23 09/12/23 4.5 gram-156 mg/9.2 gram powder pkt (Arginaid) azelastine 137 mcg (0.1 %) nasal 137 mcg intranasal DAILY 08/29/23 09/12/23 spray fluticasone propionate 50 2 spray intranasal DAILY 08/29/23 09/12/23 mcg/actuation nasal spray,suspension Allergies Allergy/AdvReac Type Severity Reaction Status Date / Time atorvastatin AdvReac Muscle Pain Verified 09/12/23 15:49 clarithromycin [From Biaxin] AdvReac Gastrointestinal Verified 09/12/23 15:49 Upset rofecoxib AdvReac Nausea and Verified 09/12/23 15:49 Vomiting [id number] Reductase AdvReac Muscle Pain Verified 09/12/23 15:49 Inhibitor Review of Systems Review of Systems: All systems as dictated in HPI [facility] Past Medical History Medical History Atrial fibrillation Basal cell carcinoma Chronic anticoagulation Glaucoma 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 Hypertension Iron deficiency anemia Surgical History Surgical History H/O cataract extraction H/O hemorrhoidectomy H/O shoulder replacement H/O thyroidectomy History of incision and drainage I&D of infected left lower extremity hematoma by Dr. Sandra on 07/24/23 History of removal of skin mole History of tonsillectomy Family History Family History Mother Cerebrovascular accident Father Testicle cancer Sibling Malignant neoplasm of prostate Social History Social History Social History: Code status: Do not resuscitate. Smoking packs per day: 2 Smoking cigarettes per day: 40.0 Years smoked: 31 Smoking pack-years: 62.00 Smoking status: Former smoker Tobacco type: cigarettes Second hand tobacco smoke exposure: No Alcohol intake: never Substance use: never Substance use type: does not use Do You Feel Safe in your Home?: Yes Lack of Transportation: No Lack of Food: Never True Current Housing: I Have Housing Concerned About Future Housing: No Difficulty Paying Gas/Electric Bills: No Difficulty Paying for Meds: No Currently Unemployed: No Education: Decline to Answer Difficulty w/ Childcare or Family Care: No Additional living arrangements comments: Lives with son. 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 Spiritual care concerns: No Exam Narrative: GENERAL: Well-appearing, well-nourished, and in no acute distress. HEAD: Normocephalic, atraumatic. Mild soft tissue hematoma noted to the occiput. EYES: PERRLA and EOMI. ENT: Nares clear, no
[2023-10-10] MEDS: ACETAMINOPHEN 500 MG TABLET 1000 MG PO (23:00)
[2023-10-11] VITALS (10 sets, daily range): BP systolic 103–119; BP diastolic 59–73; O2SAT 99–100
[2023-10-11 00:20] LABS: Add Urine Microscopic? YES; Appearance Urine Cloudy (Clear); Bacteria Urine 4+ /hpf; Bilirubin Urine Negative (Negative); Blood Urine 1+ (Negative); Color Urine Yellow (Yellow); Glucose Urine UA Negative (Negative); Ketones Urine Negative (Negative); Leukocyte Esterase Ur 3+ LEU/UL (Negative); Nitrate Urine Positive (Negative); Non Pathogenic Casts 0-2; Protein Urine 1+ mg/dL (Negative); Specific Grav Ur 1.014 (1.001-1.035); Squamous Epithelial Cell Urine None Seen /hpf (Few); Urobilinogen Urine 0.2 mg/dL (<2.0); WBC Urine >100 /hpf (0-3); pH Urine 5.5 (5.0-9.0)
[2023-10-11] MEDS: CEFDINIR 300 MG CAPSULE PO (01:14)
[2023-10-11 01:51] LABS: Basophils Absolute Auto 0.1 K/mm3 (0.0-0.1); Eosinophils Absolute Auto 0.1 K/mm3 (0-0.3); Eosinophils Percent Auto 0.9 % (0-4.4); Hematocrit 34.8 % (42.0-52.0); Hemoglobin 10.8 g/dL (14.0-18.0); Immature Granulocyte Absolute 0.12 K/mm3 (0.00-0.031); Immature Granulocyte Percent A 1.5 % (0-0.5); Lymphocytes Absolute Auto 0.92 K/mm3 (0.9-3.2); Lymphocytes Percent Auto 11.2 % (18.3-44.2); Mean Corpuscular Hemoglobin 33.5 pg (26-34); Mean Corpuscular Volume 108.1 fl (80-100); Mean Platelet Volume 10.6 fl (7.4-10.4); Monocytes Absolute Auto 0.9 K/mm3 (0.1-0.6); Monocytes Percent Auto 11.4 % (2.6-8.5); Neutrophils Absolute Auto 6.1 K/mm3 (1.3-6.7); Platelet Count Result 247 k/mm3 (150-375); Red Blood Count 3.22 M/mm3 (4.6-6.20); Red Cell Distribution Width 13.6 % (11.5-14.5); White Blood Count 8.2 K/mm3 (4.5-10.0)
[2023-10-11 02:15] LABS: Alanine Aminotransferase 11 U/L (6-50); Albumin Level 3.5 g/dL (3.5-5.1); Alkaline Phosphatase 122 U/L (38-126); Anion Gap 10 mmol/L (4-12); Aspartate Amino Transferase 27 U/L (17-59); Bilirubin,Total 0.5 mg/dL (0.2-1.3); Blood Urea Nitrogen 75 mg/dL (9-20); Calcium 8.8 mg/dL (8.4-10.2); Carbon Dioxide 25 mmol/L (22-30); Chloride 101 mmol/L (98-107); Estimated CRCL calculation 33 ml/min; Estimated Glomerular Filt Rate 52; Glucose 71 mg/dL (65-110); Potassium 4.8 mmol/L (3.4-5.0); Sodium 136 mmol/L (137-145)
[2023-10-11 02:31] LABS: Platelet Estimate Adequate (Adequate)
[2023-10-11 02:32] LABS: Anisocytosis 1+; Schistocytes None Seen
[2023-10-11 02:45] LABS: CRP < 0.5 mg/dL (<1.0)
--- NOTE | 2023-10-11 04:48 | PC.NURSE ---
marianna blake given report @ [facility]
== END 2023-10-11 07:15 ==
PROVIDERS: Emergency Provider Physician Assistant
DX: S09.90XA Unspecified injury of head, initial encounter (principal); N39.0 Urinary tract infection, site not specified; I48.91 Unspecified atrial fibrillation; I11.0 Hypertensive heart disease with heart failure; I50.9 Heart failure, unspecified; Z87.891 Personal history of nicotine dependence; W19.XXXA Unspecified fall, initial encounter
CPT/HCPCS: 36415; 51702; 70450; 72125; 72128; 72129; 72131; 72132; 80053; 81001; 85025; 86140; 87077; 87086; 87088; 87186; 99284; A9270; Q9967

== ENCOUNTER 2023-10-14 19:28 | Emergency (ER) | payer MEDICARE, SELFPAY ==
--- NOTE | ~2023-10-14 | CT_ITS ---
EXAMINATION: CT abdomen pelvis w con DATE: 10/14/2023 21:25 INDICATION: Abdominal pain. TECHNIQUE: Computed tomography (CT) of the abdomen and pelvis was performed with 100 mL Omnipaque 350 intravenous contrast. Automated exposure control and iterative reconstruction technique were employe d. The dose-length product was 228.20 mGy-cm. COMPARISON: None. FINDINGS: The visualized portions of lung bases demonstrate mild atelectasis. No pleural effusion. Ca rdiomegaly is noted. There are coronary artery calcifications. No pericardial effusion. There are cys ts in the liver measuring up to 15 mm. There are gallstones in the gallbladder, which is normal in si ze. The spleen, pancreas, and adrenal glands are normal. There is cortical thinning of the kidneys. T here are cysts in right kidney measuring up to 10 mm. There is a 19 mm stone in the bladder. A penile prosthesis is noted. There is diverticulosis of the colon without evidence of diverticulitis. There are no dilated loops of bowel. There are no pathologically enlarged lymph nodes. There is no free int raperitoneal fluid. There is lumbar dextroscoliosis and severe spondylosis. There are old left rib fr actures. There is mild chronic anterior wedging of multiple vertebral bodies. IMPRESSION: 1. Cholelithiasis. 2. Bladder stone. Reviewed, dictated and finalized at location E.
--- NOTE | ~2023-10-14 | CT_ITS ---
EXAMINATION: CT brain wo con DATE: 10/14/2023 21:24 INDICATION: Head injury. TECHNIQUE: Computed tomography (CT) of the head was performed without intravenous contrast. The mA wa s adjusted according to patient size. Iterative reconstruction technique was employed. The dose-lengt h product was 605.33 mGy-cm. COMPARISON: Head CT 10/10/2023 FINDINGS: There are old infarcts in the bilateral basal ganglia. There are scattered areas of low att enuation in the cerebral white matter. There is no intracranial hemorrhage, acute infarction, or abno rmal intracranial mass lesion. The ventricles are normal in size. There are likely changes of ocular lens replacement surgeries. There is mild mucosal thickening in the ethmoid sinuses. There is near co mplete opacification of left maxillary sinus with thickening and sclerosis of the sinus boykin, consis tent with chronic sinusitis. The mastoid air cells are normal. IMPRESSION: 1. Old infarcts in the bilateral basal ganglia. 2. Stable extensive nonspecific cerebral white matter disease, which likely represents chronic small vessel ischemic disease. 3. Chronic left maxillary sinusitis. Reviewed, dictated and finalized at location E. IMPRESSION: 1. Old infarcts in the bilateral basal ganglia. 2. Stable extensive nonspecific cerebral white matter disease, which likely rep resents chronic small vessel ischemic disease. 3. Chronic left maxillary sinusitis.
[2023-10-14 19:33] VITALS: BP 146/113; PULSE 98; RESP 18; TEMP 37.1; O2SAT 98
--- NOTE | 2023-10-14 19:33 | ECG_ITS ---
Test Date: 2023-10-14 19:46:41 Measurements Intervals [place] Rate: 98 P: 0 ME: 0 QRS: -24 QRSD: 92 T: 97 QT: 365 QTc: 468 Interpretive Statements ATRIAL FIBRILLATION WITH ABERRANT CONDUCTION OR VENTRICULAR PREMATURE COMPLEXES BORDERLINE LEFT AXIS DEVIATION [QRS AXIS < -20] INCOMPLETE RIGHT BUNDLE BRANCH BLOCK [90+ ms QRS DURATION, TERMINAL R IN V1/V2, 40+ ms S IN I/aVL/V4/V5/V6] NONSPECIFIC ST & T-WAVE ABNORMALITY Compared to ECG 09/12/2023 09:30:19 no change Electronically Signed On 10-15-2023 13:42:43 CDT by Rogelio Diaz M.D.
--- NOTE | 2023-10-14 20:24 | PC.NURSE ---
popst insertion of 3 way catheter bladder scan shows greater than [address] Edwards notified.
--- NOTE | 2023-10-14 20:31 | PC.NURSE ---
Clot was flushed out now catheter is patent and draining. We have catheter clamped at 500 mls to prevent bladder spasms.
[2023-10-14 20:32] VITALS: BP 106/67; PULSE 87; RESP 18; O2SAT 100
--- NOTE | 2023-10-14 20:32 | PC.NURSE ---
Pt catheter is now unclamped and post catheter insertion total is 1400 mls. Bag emptied at this time.
[2023-10-14 20:50] LABS: Basophils Absolute Auto 0.1 K/mm3 (0.0-0.1); Basophils Percent Auto 0.3 % (0.2-1.2); Eosinophils Percent Auto 0.1 % (0-4.4); Hematocrit 36.9 % (42.0-52.0); Hemoglobin 11.9 g/dL (14.0-18.0); Immature Granulocyte Absolute 0.08 K/mm3 (0.00-0.031); Immature Granulocyte Percent A 0.5 % (0-0.5); Lymphocytes Absolute Auto 0.46 K/mm3 (0.9-3.2); Lymphocytes Percent Auto 3.1 % (18.3-44.2); Mean Corpuscular HGB Conc 32.2 g/dl (32-36); Mean Corpuscular Hemoglobin 34.2 pg (26-34); Mean Platelet Volume 10.1 fl (7.4-10.4); Monocytes Absolute Auto 1.1 K/mm3 (0.1-0.6); Monocytes Percent Auto 7.5 % (2.6-8.5); Neutrophils Absolute Auto 13.3 K/mm3 (1.3-6.7); Neutrophils Percent Auto 88.5 % (45.5-73.1); Platelet Count Result 250 k/mm3 (150-375); Red Blood Count 3.48 M/mm3 (4.6-6.20); Red Cell Distribution Width 13.8 % (11.5-14.5)
[2023-10-14 20:54] LABS: Add Urine Microscopic? YES; Appearance Urine Cloudy (Clear); Bacteria Urine None Seen /hpf; Bilirubin Urine Negative (Negative); Blood Urine 3+ (Negative); Color Urine Yellow (Yellow); Glucose Urine UA Negative (Negative); Ketones Urine Negative (Negative); Leukocyte Esterase Ur 2+ LEU/UL (Negative); Nitrate Urine Negative (Negative); Non Pathogenic Casts 0-2; Protein Urine 1+ mg/dL (Negative); RBC Urine 51-100 /hpf (0-2); Specific Grav Ur 1.015 (1.001-1.035); Squamous Epithelial Cell Urine None Seen /hpf (Few); Urobilinogen Urine 0.2 mg/dL (<2.0); WBC Urine 21-50 /hpf (0-3); pH Urine 5.5 (5.0-9.0)
[2023-10-14 20:58] LABS: Lactic Acid Reflex 1.4 mmol/L (0.7-2.0)
[2023-10-14 20:59] LABS: Alanine Aminotransferase 13 U/L (6-50); Albumin Level 3.5 g/dL (3.5-5.1); Alkaline Phosphatase 73 U/L (38-126); Anion Gap 10 mmol/L (4-12); Aspartate Amino Transferase 30 U/L (17-59); Bilirubin,Total 1.7 mg/dL (0.2-1.3); Blood Urea Nitrogen 54 mg/dL (9-20); Calcium 8.7 mg/dL (8.4-10.2); Carbon Dioxide 27 mmol/L (22-30); Chloride 102 mmol/L (98-107); Estimated CRCL calculation 37 ml/min; Estimated Glomerular Filt Rate > 60; Glucose 139 mg/dL (65-110); Lipase 190 U/L (23-300); Potassium 4.2 mmol/L (3.4-5.0); Sodium 139 mmol/L (137-145)
--- NOTE | 2023-10-14 23:44 | ED.ABDPAIN ---
HPI - Abdominal Pain General Chief Complaint: Abdominal Pain Stated Complaint: back pain, confusion Time Seen by Provider: 10/14/23 19:33 History of Present Illness HPI narrative: Patient presents here with abdominal pain, distension, confusion, lower back pain. Related Data Home Medications Medication Instructions Recorded Confirmed cetirizine 10 mg PO DAILY 06/15/22 09/12/23 ferrous sulfate 325 mg PO BID 06/15/22 09/12/23 finasteride 5 mg tablet 5 mg PO DAILY 06/15/22 09/12/23 metoprolol succinate 25 mg 25 mg PO DAILY 06/15/22 09/12/23 tablet,extended release 24 hr sacubitril 24 mg-valsartan 26 mg 1 tablet PO BID 07/19/23 09/12/23 tablet (Entresto) latanoprost 0.005 % eye drops 1 drp EACH EYE HS 08/08/23 09/12/23 arginine-vitamin C-vitamin E oral 9.2 g PO BID 08/29/23 09/12/23 4.5 gram-156 mg/9.2 gram powder pkt (Arginaid) azelastine 137 mcg (0.1 %) nasal 137 mcg intranasal DAILY 08/29/23 09/12/23 spray fluticasone propionate 50 2 spray intranasal DAILY 08/29/23 09/12/23 mcg/actuation nasal spray,suspension Allergies Allergy/AdvReac Type Severity Reaction Status Date / Time atorvastatin AdvReac Muscle Pain Verified 09/12/23 15:49 clarithromycin [From Biaxin] AdvReac Gastrointestinal Verified 09/12/23 15:49 Upset rofecoxib AdvReac Nausea and Verified 09/12/23 15:49 Vomiting Mfuzqtj-MVO-BmN Reductase AdvReac Muscle Pain Verified 09/12/23 15:49 Inhibitor Review of Systems Review of Systems: ROS unobtainable: Yes unobtainable due to mental status PMFSH Past Medical History Medical History Atrial fibrillation Basal cell carcinoma Chronic anticoagulation Glaucoma 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 Hypertension Iron deficiency anemia Surgical History Surgical History H/O cataract extraction H/O hemorrhoidectomy H/O shoulder replacement H/O thyroidectomy History of incision and drainage I&D of infected left lower extremity hematoma by Dr. Sandra on 07/24/23 History of removal of skin mole History of tonsillectomy Family History Family History Mother Cerebrovascular accident Father Testicle cancer Sibling Malignant neoplasm of prostate Social History Social History Social History: Code status: Do not resuscitate. Smoking packs per day: 2 Smoking cigarettes per day: 40.0 Years smoked: 31 Smoking pack-years: 62.00 Smoking status: Former smoker Tobacco type: cigarettes Second hand tobacco smoke exposure: No Alcohol intake: never Substance use: never Substance use type: does not use Do You Feel Safe in your Home?: Yes Lack of Transportation: No Lack of Food: Never True Current Housing: I Have Housing Concerned About Future Housing: No Difficulty Paying Gas/Electric Bills: No Difficulty Paying for Meds: No Currently Unemployed: No Education: Decline to Answer Difficulty w/ Childcare or Family Care: No Additional living arrangements comments: Lives with son. 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 Spiritual care concerns: No Exam Narrative: EXAMINATION OF ORGAN SYSTEMS/BODY AREAS: Constitutional: Vital signs per nursing GENERAL: Appears uncomfortable HEAD: Normal with no signs of head trauma. EYES: EOMI, conjunctiva normal ENT: Hearing grossly intact LUNGS: Nonlabored breathing. HEART: [Regular rate and rhythm] ABD: [Soft], [tender to palpation], distended bladder, Vinson in place EXT: Normal range of motion SKIN: [No rashes or lesions.] NEURO: [Alert and oriented x 3. No gross focal sensory or strength deficits
== END 2023-10-14 22:53 ==
PROVIDERS: Emergency Provider Emergency Medicine
DX: R33.9 Retention of urine, unspecified (principal); I48.91 Unspecified atrial fibrillation; I11.0 Hypertensive heart disease with heart failure; I50.9 Heart failure, unspecified; Z87.891 Personal history of nicotine dependence
CPT/HCPCS: 36415; 51700; 70450; 74177; 80053; 81001; 83605; 83690; 85025; 87086; 87088; 93005; 96365; 99284; J0696; Q9967

== ENCOUNTER 2023-10-18 07:40 | Emergency (ER) | payer MEDICARE, SELFPAY ==
[2023-10-18 07:53] VITALS: BP 127/82; PULSE 55; RESP 18; TEMP 37.7; O2SAT 99
--- NOTE | 2023-10-18 08:04 | WPDEDEXPGENP ---
HPI - General Ped General Chief complaint: Urogenital-Male Stated complaint: alas cath displaced Time Seen by Provider: 10/18/23 08:04 Source: patient and EMS Mode of arrival: EMS History of Present Illness HPI narrative: 88 years old, long-term, complain pain at his Alas catheter. Ambulance report that the catheter became dislodged Related Data Home Medications Medication Instructions Recorded Confirmed cetirizine 10 mg PO DAILY 06/15/22 09/12/23 ferrous sulfate 325 mg PO BID 06/15/22 09/12/23 finasteride 5 mg tablet 5 mg PO DAILY 06/15/22 09/12/23 metoprolol succinate 25 mg 25 mg PO DAILY 06/15/22 09/12/23 tablet,extended release 24 hr sacubitril 24 mg-valsartan 26 mg 1 tablet PO BID 07/19/23 09/12/23 tablet (Entresto) latanoprost 0.005 % eye drops 1 drp EACH EYE HS 08/08/23 09/12/23 arginine-vitamin C-vitamin E oral 9.2 g PO BID 08/29/23 09/12/23 4.5 gram-156 mg/9.2 gram powder pkt (Arginaid) azelastine 137 mcg (0.1 %) nasal 137 mcg intranasal DAILY 08/29/23 09/12/23 spray fluticasone propionate 50 2 spray intranasal DAILY 08/29/23 09/12/23 mcg/actuation nasal spray,suspension Allergies Allergy/AdvReac Type Severity Reaction Status Date / Time atorvastatin AdvReac Muscle Pain Verified 09/12/23 15:49 clarithromycin [From Biaxin] AdvReac Gastrointestinal Verified 09/12/23 15:49 Upset rofecoxib AdvReac Nausea and Verified 09/12/23 15:49 Vomiting Reiykoy-BWI-SkY Reductase AdvReac Muscle Pain Verified 09/12/23 15:49 Inhibitor Pediatric Review of Systems All systems ED: reviewed and negative except as stated PMFSH Past Medical History Medical History Atrial fibrillation Basal cell carcinoma Chronic anticoagulation Glaucoma 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 Hypertension Iron deficiency anemia Surgical History Surgical History H/O cataract extraction H/O hemorrhoidectomy H/O shoulder replacement H/O thyroidectomy History of incision and drainage I&D of infected left lower extremity hematoma by Dr. Sandra on 07/24/23 History of removal of skin mole History of tonsillectomy Family History Family History Mother Cerebrovascular accident Father Testicle cancer Sibling Malignant neoplasm of prostate Social History Social History Social History: Code status: Do not resuscitate. Smoking packs per day: 2 Smoking cigarettes per day: 40.0 Years smoked: 31 Smoking pack-years: 62.00 Smoking status: Former smoker Tobacco type: cigarettes Second hand tobacco smoke exposure: No Alcohol intake: never Substance use: never Substance use type: does not use Do You Feel Safe in your Home?: Yes Lack of Transportation: No Lack of Food: Never True Current Housing: I Have Housing Concerned About Future Housing: No Difficulty Paying Gas/Electric Bills: No Difficulty Paying for Meds: No Currently Unemployed: No Education: Decline to Answer Difficulty w/ Childcare or Family Care: No Additional living arrangements comments: Lives with son. 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
== END 2023-10-18 09:27 ==
PROVIDERS: Emergency Provider Emergency Medicine
DX: T83.028A Displacement of other urinary catheter, initial encounter (principal); Y84.6 Urinary catheterization as the cause of abnormal reaction of the patient, or of later complication, without mention of misadventure at the time of the procedure; I48.91 Unspecified atrial fibrillation; Z85.828 Personal history of other malignant neoplasm of skin; I11.0 Hypertensive heart disease with heart failure; I50.9 Heart failure, unspecified; E89.0 Postprocedural hypothyroidism
CPT/HCPCS: 51702; 99283

== ENCOUNTER 2023-11-27 12:11 | Outpatient (CLI) | payer MEDICARE, SELFPAY ==
--- NOTE | ~2023-11-27 | CT_ITS ---
EXAMINATION: CT abdomen pelvis wo con DATE: 11/27/2023 12:32 INDICATION: Displacement of the penile prosthesis implant. TECHNIQUE: Computed tomography (CT) of the abdomen and pelvis was performed without intravenous contr ast. Automated exposure control and iterative reconstruction technique were employed. The dose-length product was 213.95 mGy-cm. COMPARISON: CT abdomen and pelvis 10/14/2023 FINDINGS: The visualized portions of the lung bases demonstrate mild emphysema and mild chronic inter stitial lung disease. No pleural effusion. Cardiomegaly is noted. There are coronary artery calcifica tions. There are calcifications of the aortic valve. No pericardial effusion. There is bilateral gyne comastia. There are cysts in the liver measuring up to 16 mm. There are gallstones in the gallbladder , which is normal in size. The spleen, pancreas, and adrenal glands are normal. There are cysts in ri ght kidney measuring up to 13 mm. There is a 9 mm hemorrhagic cyst in left kidney. There are 1 mm and 2 mm stones in left kidney. The prostate is mildly enlarged. There is a Vinson catheter in expected p osition. There are 6 stones in the bladder measuring up to 12 mm. A penile prosthesis is noted. The p rosthesis extends beyond the end of the penis. There are no pathologically enlarged lymph nodes. Ther e is no free intraperitoneal fluid. There are old healed fractures of left parasymphyseal pubis and l eft superior and inferior pubic rami. There is thoracolumbar develops dextroscoliosis and severe spon dylosis. IMPRESSION: 1. Penile prosthesis in abnormal position. 2. Bladder stones. Reviewed, dictated and finalized at location A.
== END 2023-11-27 12:12 | disposition home or self-care (01) ==
PROVIDERS: Visit Provider Physician Assistant
DX: T83.420A Displacement of implanted penile prosthesis, initial encounter (principal); N21.0 Calculus in bladder
CPT/HCPCS: 74176

== ENCOUNTER 2023-11-30 10:31 | Inpatient (IN) | payer MEDICARE, SELFPAY ==
[2023-11-28 11:13] VITALS: BP 98/55; PULSE 64; RESP 13; TEMP 35.7; O2SAT 99
[2023-11-28 11:35] VITALS: BMI 19.0
--- NOTE | 2023-11-28 14:41 | PC.NURSE ---
Report to the Outpatient Waiting Room, entrance under the green pavilion located off [facility], at time _0930_ on date _[id number]_. Planned Procedure Time: _1130_.? Time changes happen often and if your time is changed the preop area will call you the afternoon before. - You and your visitor will be asked to self-screen and do not enter if you have any COVID symptoms. Please call surgeon if you need to reschedule. - A mask is optional within the hospital at this time. Patients may have clear liquids (water, carbonated beverages, clear teas, apple juice) until 3 hours prior to surgery with a maximum of 20 ounces. - No food from midnight until time of surgery and no smoking Take only the following medications with a SIP of water on the morning of surgery: ___Metoprolol, Incruse Ellipta, Azelastine and Flonase DO NOT STOP ANY OF YOUR OTHER PRESCRIPTION MEDICATIONS PRIOR TO SURGERY EXCEPT THE FOLLOWING Medications to discontinue per physician Plavix, vitamin C and Vitamin D3 Date to take last dose___Stop now. Please no make-up, nail maltese, hairspray, perfume, deodorant, or body powder the day of surgery.? No jewelry (including any body piercings) or valuables the day of surgery, leave them at home.? Please take a shower or bath the night before, or the morning of, surgery with an antibacterial soap.? Wear comfortable, loose fitting clothing.? - Jewelry must be removed prior to entering the operating room.? Rings and piercings that are not removed may be cut off. - The hospital will not accept responsibility for valuables.? - Please leave all valuables, including medications, at home the day of surgery. If you are going home after surgery, a licensed pizza delivery driver must drive you home.? - NO public transportation without another adult if you receive anesthesia. - We recommend that an adult stay with you for 24 hours following discharge. - We also recommend that you do not drive, make important decision, drink alcoholic beverages, or take any drugs that were not prescribed by your health care provider for at least 24 hours after your discharge time. Follow any additional instructions given to you from your surgeon. Telephone instructions given to __[address]__and asked if any additional questions and then verbalized understanding. Patient advised to call surgeon office or pre surgery nurse liaison [phone] if any additional questions.
[2023-11-29] VITALS (12 sets, daily range): BP systolic 96–123; BP diastolic 52–72; PULSE 43–80; RESP 12–18; TEMP 35.8–37.7; O2SAT 63–100; BMI 18.8
[2023-11-29] MEDS: LACTATED RINGERS 1,000 ML 30 ML IV CONT (10:49)
[2023-11-29] MEDS: ACETAMINOPHEN 500 MG TABLET 1000 MG PO (10:50)
--- NOTE | 2023-11-29 11:17 | WPDANESEPPF ---
Anes - Initial Pre Proc Eval Procedure: Operation Date: 11/29/23 11:30 Proposed Procedures p Removal Penile Prosthesis - Jayce Cadet MD Date/Time: 11/29/23 11:17 Surgeon: Jayce Cadet MD Pre Op Diagnosis: displacement of penile prosthesis Patient Data Age: 88 Gender: M Height: 1.73 m Weight: 56.2 kg Last Vital Signs Temp 99.8 F H 11/29/23 10:46 Pulse 63 11/29/23 10:46 BP 96/60 L 11/29/23 10:46 Pulse Ox 98 11/29/23 10:46 O2 Del Method Room Air 11/29/23 10:46 Allergies Allergy/AdvReac Type Severity Reaction Status Date / Time atorvastatin AdvReac Muscle Pain Verified 11/28/23 14:24 clarithromycin [From Biaxin] AdvReac Gastrointestinal Verified 11/28/23 14:24 Upset rofecoxib AdvReac Nausea and Verified 11/28/23 14:24 Vomiting Tnctnzc-EWL-TyP Reductase AdvReac Muscle Pain Verified 11/28/23 14:24 Inhibitor Home Medications Medication Instructions Recorded Confirmed Type finasteride 5 mg tablet 5 mg PO DAILY 06/15/22 11/28/23 History metoprolol succinate 25 mg 25 mg PO DAILY 06/15/22 11/28/23 History tablet,extended release 24 hr tamsulosin 0.4 mg capsule 0.4 mg PO DAILY #30 caps 06/21/22 11/28/23 Rx latanoprost 0.005 % eye drops 1 drp EACH EYE HS 08/08/23 11/28/23 History potassium chloride 20 mEq 20 meq PO DAILY #7 tabs 08/11/23 11/28/23 Rx tablet,extended release arginine-vitamin C-vitamin E oral 9.2 g PO BID 08/29/23 11/28/23 History 4.5 gram-156 mg/9.2 gram powder pkt (Arginaid) azelastine 137 mcg (0.1 %) nasal 137 mcg intranasal DAILY 08/29/23 11/28/23 History spray fluticasone propionate 50 2 spray intranasal DAILY 08/29/23 11/28/23 History mcg/actuation nasal spray,suspension spironolactone 25 mg tablet 25 mg PO QAM #30 tabs 09/03/23 11/28/23 Rx albuterol sulfate 90 mcg/actuation 2 puff inhalation QID PRN 09/05/23 11/28/23 Rx aerosol inhaler shortness of breath or wheezing #6.7 grams umeclidinium 62.5 mcg/actuation 1 inh inhalation DAILYRT #7 ea 09/05/23 11/28/23 Rx blister powder for inhalation (Incruse Ellipta) ascorbic acid (vitamin C) 500 mg 500 mg PO BID 11/28/23 11/28/23 History tablet cetirizine 10 mg tablet 10 mg PO DAILY 11/28/23 11/28/23 History cholecalciferol (vitamin D3) 10 10 mcg PO DAILY 11/28/23 11/28/23 History mcg (400 unit) capsule (Vitamin D3) clopidogrel 75 mg tablet 75 mg PO DAILY 11/28/23 11/28/23 History ferrous sulfate 325 mg (65 mg 325 mg PO BID 11/28/23 11/28/23 History iron) tablet furosemide 40 mg tablet 40 mg PO DAILY 11/28/23 11/28/23 History linagliptin 5 mg tablet (Tradjenta) 5 mg PO DAILY 11/28/23 11/28/23 History valsartan 80 mg tablet 80 mg PO DAILY 11/28/23 11/28/23 History Patient hx anesthesia problems: none Family hx anesthesia problems: none Results Review: All pre-operative results and documents have been reviewed as part of the pre-operative evaluation. [facility] Past Medical History Medical History Atrial fibrillation Basal cell carcinoma Chronic anticoagulation Glaucoma 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 Hypertension Iron deficiency anemia Surgical History Surgical History H/O cataract extraction H/O hemorrhoidectomy H/O shoulder replacement H/O thyroidectomy History of incision and drainage I&D of infected left lower extremity hematoma by Dr. Sandra on 07/24/23 History of removal of skin mole History of tonsillectomy Family History Family History Mother Cerebrovascular accident Father Testicle cancer Sibling Malignant neoplasm of prostate Social History Social History Social History: Co
--- NOTE | 2023-11-29 11:55 | WPDHPUPDATE1 ---
History and Physical Update Update Date/Time: 11/29/23 11:55 History and Physical has been reviewed, including an updated exam of the patient. There are NO changes in the patient's condition. Pt with extrusion of penile implant. Plan IPP removal. Risks, benefits, and alternatives have been discussed with patient and his family. Allquestions answered. Patient agrees to proceed with procedure.
[2023-11-29] MEDS: ceFAZolin 2 GM/D5W 50 ML 2 GM/50 ML BAG IVPB (12:07)
[2023-11-29] MEDS: NACL 0.9% IRRIG BAG 1,000 ML, ceFAZolin 1 GM, TOBRAMYCIN SULFATE INJ 40 MG IRRIGATION (12:51)
--- NOTE | 2023-11-29 13:38 | P.OP_ITS ---
Procedure Note - Detailed Date of Procedure 11/29/23 Pre-op Diagnosis displacement of penile prosthesis Post-op Diagnosis Same Procedure Performed -removal of extruded penile implant -scrotal exploration -antibiotic washout Surgeon Jayce Cadet MD Anesthesia General Description of Procedure Informed consents obtained with patient's family. He was given preoperative IV antibiotics. He was induced anesthesia. He was taken to the operating room. The patient had obvious extrusion of both penile implant cylinders through the glans penis. Patient was prepped with Betadine followed by ChloraPrep and draped. We placed a 16 F Vinson catheter with return of dark yellow urine. We then made a midline scrotal incision onto the pump that had a large pseudo capsule and induration around it. The pump was freed from surrounding structures. At this point we were able to mobilize the penile prosthesis cylin ders in as they were significantly extruded through the glans each cylinder was able to be fully removed with its corresponding rear tip through the glans. This at this point we then tracked the tubing into the left inguinal ring. Of note the tubing to the reservoir did track through the tunica vaginalis of the left testicle. We were able to remove it without injuring the testicle however did open the tunica vaginalis. We tracked the tubing to the inguinal ring. We then emptied the reservoir and were able to remove the reservoir through the ring. At this point we then copiously irrigated with antibiotic irrigant. At this point we then closed the scrotal incision with multiple layers of 2-0 followed by 3-0 Vicryl suture. The skin was then closed with interrupted 3-0 Vicryl suture. We then focused on reconstruction of the glans, reapproximating the distal corpora with interrupted 3-0 Vicryl suture. This allowed the patient to have Vinson catheter exit through the urethral meatus at the coronal margin. There was good hemostasis. Antibiotic ointment was placed over all incisions. A compressive dressing was placed. Patient was then taken to recovery room in stable condition. Complications No immediate complications Condition Stable Disposition PACU
[2023-11-29] MEDS: fentaNYL CITRATE INJ (*CRX) 100 MCG/2 ML VIAL 25 MCG IV PUSH ×4 (14:15→14:46)
--- NOTE | 2023-11-29 15:41 | ADMGEN ---
This patient, Jamey Cuadra, was admitted to [facility] Surg Room 306-01. Patient/family oriented to hospital policies and general routines including ID bracelet, bed and alarms, visiting hours, pain management, procedures, bathroom and other care routines, personal items, smoking policy, room service/diet, and visiting hours. Information on how to activate the Rapid Response Team has been discussed. Patient/Family are encouraged to report perceived risks to care and to ask questions if they do not understand what they are told or what they should do.
[2023-11-29 16:30] LABS: Estimated CRCL calculation 27 ml/min; Estimated Glomerular Filt Rate 48
[2023-11-29] MEDS: FERROUS SULFATE 325 MG TABLET DR PO (17:08)
[2023-11-29] MEDS: DOCUSATE SODIUM 100 MG CAPSULE PO (17:08)
[2023-11-29] MEDS: VANCOMYCIN 1,000 MG/NS 250 ML 1,000 MG/250 ML BAG 250 MG IVPB (17:14)
[2023-11-29] MEDS: DEXTROSE 5%/0.45% SOD CHL 1,000 ML 125 ML IV CONT (17:15)
[2023-11-29] MEDS: CEFEPIME 1 GM/NS 50 ML 1 GM/50 ML BAG IVPB (20:46)
[2023-11-29] MEDS: LATANOPROST 0.005% OP SOLN 2.5 ML BTL 1 DROP EACH EYE (21:26)
[2023-11-30] VITALS (7 sets, daily range): BP systolic 91–104; BP diastolic 40–70; PULSE 45–79; RESP 12–18; TEMP 36.1–36.7; O2SAT 100
[2023-11-30] MEDS: DEXTROSE 5%/0.45% SOD CHL 1,000 ML 125 ML IV CONT (03:00)
[2023-11-30 06:37] LABS: Hematocrit 29.2 % (42.0-52.0); Hemoglobin 9.4 g/dL (14.0-18.0)
[2023-11-30 06:43] LABS: Anion Gap 5 mmol/L (4-12); Blood Urea Nitrogen 54 mg/dL (9-20); Carbon Dioxide 24 mmol/L (22-30); Chloride 104 mmol/L (98-107); Estimated CRCL calculation 33 ml/min; Estimated Glomerular Filt Rate > 60; Glucose 128 mg/dL (65-110); Potassium 4.3 mmol/L (3.4-5.0); Sodium 133 mmol/L (137-145)
[2023-11-30] MEDS: UMECLIDINIUM BROMIDE 62.5 MCG ELLIPTA 1 PUFF INHALATION (07:59)
[2023-11-30] MEDS: FUROSEMIDE 40 MG TABLET PO (08:47)
[2023-11-30] MEDS: ENOXAPARIN 30 MG/0.3 ML SYRINGE SUB-Q (08:47)
[2023-11-30] MEDS: FINASTERIDE 5 MG TABLET PO (08:48)
[2023-11-30] MEDS: FERROUS SULFATE 325 MG TABLET DR PO ×2 (08:48→16:08)
[2023-11-30] MEDS: LORATADINE 10 MG TABLET PO (08:48)
[2023-11-30] MEDS: DOCUSATE SODIUM 100 MG CAPSULE PO ×2 (08:48→16:08)
[2023-11-30] MEDS: VALSARTAN 80 MG TABLET PO (08:49)
[2023-11-30] MEDS: METOPROLOL SUCCINATE EXT REL 25 MG TABCR PO (08:49)
[2023-11-30] MEDS: POTASSIUM CHLORIDE 20 MEQ ER TABLET PO (08:50)
[2023-11-30] MEDS: TAMSULOSIN HCL 0.4 MG CAPSULE PO (08:50)
[2023-11-30] MEDS: SITagliptin PHOSPHATE 100 MG TABLET PO (08:50)
--- NOTE | 2023-11-30 09:30 | WPDUROPN2 ---
Progress Note: A&P Assessment and Plan (1) Displacement of penile prosthesis implant: Code(s): T83.420A - Displacement of implanted penile prosthesis, initial encounter Status: Acute Assessment and Plan: S/p removal of extruded penile implant, scrotal exploration, antibiotic washout on 11/29/[address] Cadet. Tolerated procedure well. Will continue with IV antibiotics today and plan for hopeful discharge tomorrow if continued improvement. Continue Vinson catheter. Subjective Subjective Date/Time Seen: 11/30/23 09:30 Interval history: Doing well today. Offers no concerns. Pain is well controlled. Denies abdominal pain, nausea, vomiting, fever, or chills. No issues with Vinson catheter which is draining clear yellow urine. Review of Systems Review of Systems: All systems reviewed & are unremarkable except as noted in HPI and below Exam Narrative: General: Awake, alert, comfortable, no acute distress HEENT: Normocephalic, atraumatic, sclerae anicteric Respiratory: Normal respiratory effort, no accessory muscle use Abdomen: Nondistended, soft, nontender : Vinson catheter draining clear yellow urine Skin: Normal coloration, warm and dry Neurologic: No focal neuro deficits noted Psychiatric: Appropriate mood and affect, judgment and insight intact Objective Data Vital Signs Vital Signs: Vital Signs - 24 hr 11/29/23 10:46 11/29/23 13:38 11/29/23 13:50 Temperature 99.8 F H 97.7 F Pulse Rate 63 79 78 Respiratory Rate 12 16 Blood Pressure 96/60 L 101/63 115/66 Pulse Oximetry 98 100 100 Oxygen Delivery Room Air Simple Face Mask Simple Face Mask Oxygen Flow Rate 6 6 11/29/23 14:00 11/29/23 14:05 11/29/23 14:20 Temperature Pulse Rate 75 80 Respiratory Rate 18 18 Blood Pressure 123/69 122/72 Pulse Oximetry 100 100 Oxygen Delivery Room Air Room Air Room Air Oxygen Flow Rate 11/29/23 14:35 11/29/23 14:50 11/29/23 15:15 Temperature 97.5 F L 96.5 F L Pulse Rate 76 69 65 Respiratory Rate 18 14 14 Blood Pressure 120/52 L 100/54 L 108/64 Pulse Oximetry 98 96 98 Oxygen Delivery Room Air Room Air Oxygen Flow Rate 11/29/23 15:45 11/29/23 16:45 11/29/23 20:02 Temperature 96.9 F L 96.6 F L 97.6 F Pulse Rate 43 L 69 60 Respiratory Rate 12 14 16 Blood Pressure 106/57 L 111/58 L 104/56 L Pulse Oximetry 63 L 100 100 Oxygen Delivery Oxygen Flow Rate 11/29/23 20:00 11/30/23 00:31 11/30/23 04:45 Temperature 98.1 F 97.6 F Pulse Rate 60 60 50 L Respiratory Rate 16 18 18 Blood Pressure 104/40 L 92/70 L Pulse Oximetry 100 100 100 Oxygen Delivery Room Air Oxygen Flow Rate 11/30/23 08:49 11/30/23 08:45 Temperature 97.3 F L Pulse Rate 54 L 57 L Respiratory Rate 14 Blood Pressure 91/50 L Pulse Oximetry 100 Oxygen Delivery Oxygen Flow Rate Intake/Output Intake/Output: Intake & Output 11/27/23 11/28/23 11/29/23 11/30/23 23:59 23:59 23:59 23:59 Intake Total 1347 1100 Output Total 580 1200 Balance 767 -100 Meds/Results Medications: Active Medications Generic Name Dose Route Start Last Admin Trade Name Freq PRN Reason Stop Dose Admin Hydrocodone Bitart/Acetaminophen 1 tab 11/29/23 15:00 Hydrocodone/Acetaminophen (*Crx) 5-325 Mg Tablet PO Q4H PRN Pain Rated 1-6 Albuterol 2 puff 11/29/23 15:00 Albuterol Sulfate (*Sp) Aerosol 1 Puff INHALATION QID PRN shortness of breath or wheezing Azelastine HCl 1 spray 11/30/23 09:00 Azelastine Hcl Nasal 0.1% 137 Mcg/Spr 30 Ml Btl NASAL DAILY OMID Docusate Sodium 100 mg 11/29/23 17:00 11/30/23 08:48 Docusate Sodium 100 Mg Capsule PO 100 mg BID OMID Administration Enoxaparin Sodium 30 mg 11/30/23 09:00 11/30/23 08:47 Enoxaparin 30 Mg/0.3 Ml Syringe SUB-Q 30 mg DAILY OMID Administration Ferrous Sulfate 325 mg 11/29/23 17:00 11/30/23 08:48 Ferrous Sulfate [address] PO 325 mg BID [facility]
[2023-11-30] MEDS: FLUTICASONE PROPIONATE 0.05% NA SPR 16 GM BTL (*BKC) 2 SPRAY NASAL (12:30)
--- NOTE | 2023-11-30 13:54 | WPDANESPN ---
Anes - Prog Note Post-Op Date/Time: 11/30/23 13:54 Cardiovascular status: normal Respiratory status: normal Airway patency: baseline Mental status: baseline Post-Op hydration status: normal Vital Signs: Last Vital Signs Temp 36.3 C L 11/30/23 08:45 Pulse 54 L 11/30/23 08:49 Resp 14 11/30/23 08:45 BP 91/50 L 11/30/23 08:45 Pulse Ox 100 11/30/23 08:45 O2 Del Method Room Air 11/30/23 08:00 O2 Flow Rate 6 11/29/23 13:50 Pain Score (VAS): 05/13 I/O: Intake & Output 11/29/23 11/30/23 11/30/23 23:59 07:59 15:59 Intake Total 1147 1100 358 Output Total 500 1200 Balance 647 -100 358 Laboratory Tests 11/30/23 06:16 11/30/23 06:16 11/29/23 11/30/23 16:11 06:16 Hgb 9.4 L Hct 29.2 L Sodium 133 L Potassium 4.3 Chloride 104 Carbon Dioxide 24 Anion Gap 5 BUN 54 H Creatinine 1.40 H 1.10 Estim Creat Clear Calc 27 33 Estimated GFR 48 L > 60 Glucose 128 H Calcium 8.0 L Microbiology 11/29/23 13:27 Other Anaerobic Culture - Preliminary Post-procedural complaints: none Patient Feedback: Patient satisfied with anesthetic care.
[2023-11-30] MEDS: VANCOMYCIN 1,000 MG/NS 250 ML 1,000 MG/250 ML BAG 125 MG IVPB (16:08)
[2023-11-30] MEDS: CEFEPIME 1 GM/NS 50 ML 1 GM/50 ML BAG IVPB (21:05)
[2023-11-30] MEDS: LATANOPROST 0.005% OP SOLN 2.5 ML BTL 1 DROP EACH EYE (21:06)
[2023-12-01 05:47] VITALS: BP 116/58; PULSE 56; RESP 14; TEMP 36.5; O2SAT 100
[2023-12-01 06:25] LABS: Hematocrit 32.2 % (42.0-52.0); Hemoglobin 10.3 g/dL (14.0-18.0)
--- NOTE | 2023-12-01 06:27 | PC.NURSE ---
Patient pulled off dressing and refused a new dressing. Assessed the surgical site to best of ability found no signs of bleeding. The patient was noncompliance with the assessment and stated no one can touch it except for the doctor.
[2023-12-01 06:35] LABS: Anion Gap 6 mmol/L (4-12); Blood Urea Nitrogen 51 mg/dL (9-20); Calcium 8.4 mg/dL (8.4-10.2); Carbon Dioxide 26 mmol/L (22-30); Chloride 103 mmol/L (98-107); Estimated CRCL calculation 31 ml/min; Estimated Glomerular Filt Rate 57; Glucose 80 mg/dL (65-110); Potassium 4.8 mmol/L (3.4-5.0); Sodium 135 mmol/L (137-145)
[2023-12-01] MEDS: UMECLIDINIUM BROMIDE 62.5 MCG ELLIPTA 1 PUFF INHALATION (08:18)
[2023-12-01] MEDS: LORATADINE 10 MG TABLET PO (08:24)
[2023-12-01] MEDS: FUROSEMIDE 40 MG TABLET PO (08:24)
[2023-12-01] MEDS: TAMSULOSIN HCL 0.4 MG CAPSULE PO (08:24)
[2023-12-01] MEDS: SITagliptin PHOSPHATE 100 MG TABLET PO (08:24)
[2023-12-01] MEDS: VALSARTAN 80 MG TABLET PO (08:25)
[2023-12-01] MEDS: POTASSIUM CHLORIDE 20 MEQ ER TABLET PO (08:25)
[2023-12-01] MEDS: DOCUSATE SODIUM 100 MG CAPSULE PO (08:25)
[2023-12-01] MEDS: FINASTERIDE 5 MG TABLET PO (08:25)
[2023-12-01] MEDS: FERROUS SULFATE 325 MG TABLET DR PO (08:25)
[2023-12-01 08:26] VITALS: BP 118/61; PULSE 45; O2SAT 100
[2023-12-01] MEDS: FLUTICASONE PROPIONATE 0.05% NA SPR 16 GM BTL (*BKC) 2 SPRAY NASAL (08:26)
[2023-12-01] MEDS: AZELASTINE HCL NASAL 0.1% 137 MCG/SPR 30 ML BTL 1 SPRAY NASAL (08:26)
--- NOTE | 2023-12-01 09:16 | WPDUROPN2 ---
Progress Note: A&P Assessment and Plan (1) Displacement of penile prosthesis implant: Code(s): T83.420A - Displacement of implanted penile prosthesis, initial encounter Status: Acute Assessment and Plan: S/p removal of extruded penile implant, scrotal exploration, antibiotic washout on 11/29/[address] Cadet. Tolerated procedure well. Continue Vinson catheter. Hopeful discharge today if continued improvement, will await evaluation by Dr. Cadet this afternoon. Subjective Subjective Date/Time Seen: 12/01/23 09:16 Interval history: Doing well today. Offers no concerns. No issues with Vinson catheter which is draining clear yellow urine. Reports pain is well controlled. Has not been up or ambulating as of yet. He is tolerating his diet. Review of Systems Review of Systems: All systems reviewed & are unremarkable except as noted in HPI and below Exam Narrative: General: Awake, alert, comfortable, no acute distress HEENT: Normocephalic, atraumatic, sclerae anicteric Respiratory: Normal respiratory effort, no accessory muscle use Abdomen: Nondistended, soft, nontender : Scrotal incisions clean, dry, intact, glans and urethra without bleeding, erythema, edema, Vinson catheter draining clear yellow urine Skin: Normal coloration, warm and dry Neurologic: No focal neuro deficits noted Psychiatric: Appropriate mood and affect, judgment and insight intact Objective Data Vital Signs Vital Signs: Vital Signs - 24 hr 11/30/23 12:45 11/30/23 20:48 12/01/23 05:47 Temperature 97.4 F L 97.0 F L 97.7 F Pulse Rate 79 66 56 L Respiratory Rate 16 12 14 Blood Pressure 98/47 L 94/48 L 116/58 L Pulse Oximetry 100 100 100 12/01/23 08:26 12/01/23 08:26 Temperature Pulse Rate 45 L Respiratory Rate Blood Pressure 118/61 Pulse Oximetry 100 Intake/Output Intake/Output: Intake & Output 11/28/23 11/29/23 11/30/23 12/01/23 23:59 23:59 23:59 23:59 Intake Total 1397 1938 200 Output Total 483 6420 7150 Balance 704 -199 -6694 Meds/Results Medications: Active Medications Generic Name Dose Route Start Last Admin Trade Name Freq PRN Reason Stop Dose Admin Hydrocodone Bitart/Acetaminophen 1 tab 11/29/23 15:00 Hydrocodone/Acetaminophen (*Crx) 5-325 Mg Tablet PO Q4H PRN Pain Rated 1-6 Albuterol 2 puff 11/29/23 15:00 Albuterol Sulfate (*Sp) Aerosol 1 Puff INHALATION QID PRN shortness of breath or wheezing Azelastine HCl 1 spray 11/30/23 09:00 12/01/23 08:26 Azelastine Hcl Nasal 0.1% 137 Mcg/Spr 30 Ml Btl NASAL 1 spray DAILY OMID Administration Docusate Sodium 100 mg 11/29/23 17:00 12/01/23 08:25 Docusate Sodium 100 Mg Capsule PO 100 mg BID OMID Administration Enoxaparin Sodium 30 mg 11/30/23 09:00 12/01/23 08:26 Enoxaparin 30 Mg/0.3 Ml Syringe SUB-Q Not Given DAILY OMID Ferrous Sulfate 325 mg 11/29/23 17:00 12/01/23 08:25 Ferrous Sulfate [address] PO 325 mg BID OMID Administration Finasteride 5 mg 11/30/23 09:00 12/01/23 08:25 Finasteride 5 Mg Tablet PO 5 mg DAILY OMID Administration Fluticasone Propionate 2 spray 11/30/23 09:00 12/01/23 08:26 Fluticasone Propionate 0.05% Na Spr 16 Gm Btl (*Bkc) NASAL 2 spray DAILY OMID Administration Furosemide 40 mg 11/30/23 09:00 12/01/23 08:24 Furosemide 40 Mg Tablet PO 40 mg DAILY OMID Administration Vancomycin HCl 1,000 mg in 250 mls @ 250 mls/hr 11/30/23 17:00 11/30/23 16:08 Vancomycin 1,000 Mg/Ns 250 Ml IVPB 12/01/23 16:59 125 mls/hr Q24H OMID Administration Cefepime HCl 1 gm in 50 mls @ 100 mls/hr 11/29/23 21:00 11/30/23 21:05 Maxipime 1 Gm/Ns 50 Ml IVPB 12/01/23 20:59 100 mls/hr Q24H OMID Administration Latanoprost 1 drop 11/29/23 21:00 11/30/23 21:06 Latanoprost 0.005% Op Soln 2.5 Ml Btl EACH EYE 1 drop HS OMID Administration Loratadine 10 mg 11/30/23 09:00 12/01/23 08:24
[2023-12-01 14:00] VITALS: BP 108/65; PULSE 68; RESP 20; TEMP 36.3; O2SAT 100
--- NOTE | 2023-12-01 14:30 | PM.DS ---
DS: Admitting Diagnosis Discharge Date 12/01/23 Admitting Diagnosis Displacement of penile prosthesis DS: Discharge Diagnosis Discharge Diagnosis (1) Displacement of penile prosthesis implant: Code(s): T83.420A - Displacement of implanted penile prosthesis, initial encounter Status: Acute DS: Summary Hospital Course Hospital Course: Jamey Cuadra is an 88 year old male with history of BPH, urinary retention, and penile implant 30 years prior who presented to [facility] on 11/29/23 for scheduled surgery for management of extruded penile implant. Patient underwent removal of extruded implant, scrotal exploration, and antibiotic washout on 11/29/[address] Cadet. He tolerated this procedure well. He was treated with IV antibiotics perioperatively and will continue PO Augmentin on discharge. Intraoperative cultures were obtained which are negative. He will continue his alas catheter on discharge and will be referred to outpatient IR for consideration of possible suprapubic tube placement. He will follow up as an outpatient in 4 weeks. Given short course of analgesics as well as stool softeners postoperatively. He will hold plavix for 3 days postoperatively. Overall he was doing well and felt comfortable with plans to discharge back to his nursing facility. Time Spent with Patient Time attestation: Total time spent providing and/or coordinating discharge services: 35 minutes Time spent: Greater than 30 minutes Exam Narrative: General: Awake, alert, comfortable, no acute distress HEENT: Normocephalic, atraumatic, sclerae anicteric Respiratory: Normal respiratory effort, no accessory muscle use Abdomen: Nondistended, soft, nontender : Scrotal incisions clean, dry, intact, glans and urethra without bleeding, erythema, edema, Alas catheter draining clear yellow urine Skin: Normal coloration, warm and dry Neurologic: No focal neuro deficits noted Psychiatric: Appropriate mood and affect, judgment and insight intact DS: Data Data Completed and Pending Labs on day of discharge: Labs from last 24 hours 12/01/23 05:29 Hgb 10.3 L Hct 32.2 L Sodium 135 L Potassium 4.8 Chloride 103 Carbon Dioxide 26 Anion Gap 6 BUN 51 H Creatinine 1.20 Estim Creat Clear Calc 31 Estimated GFR 57 L Glucose 80 Calcium 8.4 Preliminary micro results at discharge 11/29/23 13:27 Anaerobic Culture - Preliminary Other Aerobic Culture - Preliminary Discharge Plan Discharge Attending physician on discharge: Jayce Cadet Discharging Clinician: Peggy Kearns Patient Disposition: DC Usp/Asst Living Activity: as tolerated Diet: regular Patient Instructions: Antibiotic Form, Pain Management (DC), Alas Catheter Placement and Care (DC), Urinary Leg Bag (GEN), How to Change a Catheter Drainage Bag (DC) Stand Alone Forms: General Discharge Information Follow-up/Referrals: Jayce Cadet MD [Physician] - 4 Weeks Discharge Medications: New hydrocodone-acetaminophen 5-325 mg Tablet 1 tablet PO Q6-8H PRN (Reason: breakthrough pain) Qty: 10 0RF docusate sodium 100 mg Capsule 100 mg PO BID Qty: 20 0RF amoxicillin-pot clavulanate 500-125 mg tablet 1 tablet PO Q12H Qty: 14 0RF Continued metoprolol succinate 25 mg tablet extended release 24 hr 25 mg PO DAILY finasteride 5 mg tablet 5 mg PO DAILY tamsulosin 0.4 mg capsule 0.4 mg PO DAILY Qty: 30 1RF latanoprost 0.005 % drops 1 drp EACH EYE HS potassium chloride 20 mEq tablet extended release 20 meq PO DAILY Qty: 7 0RF azelastine 137 mcg (0.1 %) Aerosol,[place] 137 mcg INTRANASAL DAILY Rx Instructions: administer into each nostril fluticasone propionate 50 mcg/actuation spray,suspension 2 spray INTRANASAL DAILY Arginaid 4.5 gram-156 mg/9.2 gram Powder In Packet 9.2 g PO BID spironolactone 25 mg Tablet 25 mg PO QAM Qty: 30 0RF Incruse Ellipta
== END 2023-12-01 15:27 | DRG 675 ==
LOC: ANHSURGERY 10:37 → ANH3MEDSUR 12-01 10:15
PROVIDERS: Admitting Provider Urology; Visit Provider Physician Assistant
PROC: 0VPS0JZ Removal of Synthetic Substitute from Penis, Open Approach (ICD-10-PCS; principal; 2023-11-29 11:30)
DX: T83.420A Displacement of implanted penile prosthesis, initial encounter (principal); N40.0 Benign prostatic hyperplasia without lower urinary tract symptoms; R33.9 Retention of urine, unspecified; I48.91 Unspecified atrial fibrillation; H40.9 Unspecified glaucoma; I11.0 Hypertensive heart disease with heart failure; I50.9 Heart failure, unspecified; D50.9 Iron deficiency anemia, unspecified; Z96.619 Presence of unspecified artificial shoulder joint; Z66 Do not resuscitate; Z98.49 Cataract extraction status, unspecified eye; Z79.01 Long term (current) use of anticoagulants; Z85.828 Personal history of other malignant neoplasm of skin; Z87.891 Personal history of nicotine dependence
CPT/HCPCS: 36415; 74176; 80048; 82565; 85014; 85018; 87070; 87075; 87205; 94640; A9270; C1813; J0690; J0692; J1100; J1580; J1650; J2371; J2405; J2704; J3010; J3260; J3370; J7030; J7120

== ENCOUNTER 2024-02-11 19:43 | Inpatient (IN) | payer MEDICARE, SELFPAY ==
--- NOTE | ~2024-02-11 | US_ITS ---
EXAMINATION: US renal BI DATE: 02/12/2024 16:52 INDICATION: Acute renal insufficiency TECHNIQUE: Multiple ultrasound grayscale images of the kidneys were obtained. COMPARISON: CT studies dated 02/12/2024, 11/27/2023 and 10/14/2023. FINDINGS: The right kidney measures 10.3 x 5.2 x 3.9 cm. The left kidney measures 12.1 x 6.2 x 4.5 cm. The kidn eys demonstrate normal echogenicity. 1.9 cm anechoic cyst at the lower pole of the right kidney. Ther e is no hydronephrosis in either kidney. No stones identified. Vinson catheter seen within the bladde r. There is a 1.5 cm echogenic and shadowing stone in the dependent bladder. There is a 4 similar ane choic fluid collection along the left anterior margin of the bladder which based on prior CTs images. Represent residual small hematoma or seroma at the site of earlier, since removed penile prosthesis reservoir. IMPRESSION: 1. 1.9 cm right renal cyst. Otherwise normal kidneys without hydronephrosis. 2. 1.5 cm bladder stone and a Vinson catheter within the otherwise unremarkable bladder. 3. 4 cm loculated fluid collection anterior left pelvis which when correlated with prior CT studies a ppears to represent a residual small hematoma/seroma at the site of recent explanted penile prosthesi s reservoir. Reviewed, dictated and finalized at location A. ERATURE CONTROL INSPECTOR IMPRESSION: 1. 1.9 cm right renal cyst. Otherwise normal kidneys without hydronephrosis. 2. 1.5 cm bladder stone and a Vinson catheter within the otherwise unremarkable bladder. 3. 4 cm loculated fluid collection anterior left pelvis which when correlated w ith prior CT studies appears to represent a residual small hematoma/seroma at t he site of recent explanted penile prosthesis reservoir.
--- NOTE | ~2024-02-11 | XR_ITS ---
XR chest 1V portable DATE: 02/11/2024 20:54 INDICATION: Confusion TECHNIQUE: Portable upright AP chest on 02/11/2024 at 2050 hours COMPARISON: 09/12/2023 AP chest FINDINGS: Cardiomegaly. There is tortuosity and extensive calcification of the thoracic aorta. No hilar or mediastinal enlargement. Mild residual left lower lobe infiltrate or atelectasis, improved substantially since 09/12/2023. There may be minimal infiltrate in the right upper lung. No pleural effusion or pulmonary vascular congestion or pneumothorax is detected. Bilateral shoulder arthroplasties. Osteopenia.. IMPRESSION: Mild infiltrate or atelectasis in the left lower lobe, minimal right upper lobe infiltrat e Cardiac magna, extensive aortic atherosclerosis Reviewed, dictated and finalized at location A. E PARENT IMPRESSION: Mild infiltrate or atelectasis in the left lower lobe, minimal righ t upper lobe infiltrate Cardiac magna, extensive aortic atherosclerosis
--- NOTE | ~2024-02-11 | XR_ITS ---
XR chest 1V portable Ordering provider: Alysha Jarquin MD History: 89 years Male with . history of CHF . Comparison: February 13, 2024 FINDINGS: MEDIASTINUM: The cardiac silhouette is slightly enlarged. LUNGS: No infiltrates, effusions or pneumothorax. Underlying fibrotic changes. OTHER: No free air under the diaphragm. Bilateral shoulder arthroplasty. IMPRESSION: No acute cardiopulmonary pathology. Reviewed, dictated and finalized at location A. CHEMIST
--- NOTE | ~2024-02-11 | CT_ITS ---
Non-contrast CT scan of the Abdomen and Pelvis Clinical indication: UTI Technique: 2.5 mm axial scans were obtained through the abdomen and pelvis without intravenous or or al contrast. Dose reduction technique was used on this scan by utilizing automated exposure control a nd iterative reconstruction technique. The dose-length product (DLP) was 256.39 mGy-cm. COMPARISON: 11/27/2023 Findings: Images through the lung bases reveal minimal chronic interstitial change and stable 5 mm l eft basilar pulmonary nodule (axial image 39). Cardiomegaly noted. There is no evidence of renal or ureteral calculi. The kidneys and the ureters are nondilated. Hepatic cysts are present. The spleen, pancreas, and adrenals appear normal. Calcified gallstones are present. There are atherosclerotic calcifications of the aorta. . There is no evidence of bowel obstruction. Images through the pelvis were performed. There is no evidence of ascites or lymphadenopathy. Bowel w all thickening diffusely irregular despite decompression with Vinson catheter present. Urinary bladder stones are present, largest measuring 1 cm in diameter. Penile prosthesis with reservoir present. No ascites. Impression: Probable cystitis, despite decompression with Vinson catheter. Correlate with urinalysis. Urinary bladder stones measuring up to 1 cm. Cardiomegaly. Reviewed, dictated and finalized at location . EDGE INKER MACHINE Impression: Probable cystitis, despite decompression with Vinson catheter. Correlate with ur inalysis. Urinary bladder stones measuring up to 1 cm. Cardiomegaly.
--- NOTE | ~2024-02-11 | CT_ITS ---
EXAMINATION: CT brain wo con DATE: 02/11/2024 21:17 INDICATION: Confusion TECHNIQUE: Computed tomography (CT) of the head was performed without intravenous contrast. The mA wa s adjusted according to patient size. Iterative reconstruction technique was employed. Exam dose: 68 1.00 mGy-cm total exam DLP. COMPARISON: 10/14/2023 CT brain FINDINGS: Bilateral carotid siphon internal carotid artery calcifications. There is nonspecific patchy moderately prominent diminished attenuation the cerebral white matter, li vicky due to chronic small vessel ischemic changes. No intracranial mass lesion or hemorrhage or recent cerebrovascular accident is evident. No midline s hift or mass effect. No subdural or epidural hematoma. Status post cataract repair. No orbital mass lesion. There is chronic thickening of the wall the left maxillary sinus and prominent Study of the left maxillary sinus. The paranasal sinuses and mastoid air cells otherwise are normally developed and aerated. No fracture or bone destruction of the cranial vault. IMPRESSION: Cerebral atherosclerosis and chronic small vessel ischemic changes of the cerebral white matter No acute intracranial finding Chronic left maxillary Reviewed, dictated and finalized at Location A. Reviewed, dictated and finalized at location A. NDER FEEDER
--- NOTE | ~2024-02-11 | XR_ITS ---
EXAMINATION: XR chest 1V portable DATE: 02/13/2024 15:55 INDICATION: Congestive heart failure TECHNIQUE: frontal view of the chest was obtained. COMPARISON: Chest radiograph dated 02/11/2024 FINDINGS: The basilar left lung and underlying left hemidiaphragm are excluded from the [id number]. No focal airspace opacities, pulmonary edema, pleural effusion or pneumothorax. Cardiomegaly. Surgical clips at the base of the neck. Bilateral shoulder hemiarthroplasties with chronic bilateral glenoid remodel ing with loss of bone stock. IMPRESSION: 1. Cardiomegaly. No evident acute cardiopulmonary disease although the basilar left lung is excluded from the [id number]. Reviewed, dictated and finalized at location A. ED SERVICES ANALYST IMPRESSION: 1. Cardiomegaly. No evident acute cardiopulmonary disease although the basilar left lung is excluded from the [id number].
[2024-02-11 19:47] VITALS: BP 94/47; PULSE 86; RESP 15; TEMP 36.1; O2SAT 98
--- NOTE | 2024-02-11 20:09 | ECG_ITS ---
Test Date: 2024-02-11 20:39:50 Measurements Intervals [place] Rate: 66 P: 0 DC: 0 QRS: -18 QRSD: 111 T: 46 QT: 404 QTc: 423 Interpretive Statements ATRIAL FIBRILLATION INCOMPLETE RIGHT BUNDLE BRANCH BLOCK [90+ ms QRS DURATION, TERMINAL R IN V1/V2, 40+ ms S IN I/aVL/V4/V5/V6] SEPTAL MYOCARDIAL INFARCTION , OF INDETERMINATE AGE [40+ ms Q WAVE IN V1/V2] Compared to ECG 10/14/2023 19:46:41 Myocardial infarct finding now present Ventricular premature complex(es) no longer present Aberrant conduction of supraventricular beat(s) no longer present Electronically Signed On 02-12-2024 12:49:09 [employer] by Jimbo Alexandre M.D.
[2024-02-11 20:16] VITALS: BP 122/97; PULSE 66; RESP 23; O2SAT 98
[2024-02-11 20:36] LABS: Base Excess ABG -9.4 mEq/l (+/-2.0); Fractional Inspired Oxygen 21 %; HCO3 ABG 15.1 mEq/l (22.0-26.0); Oxygen Content ABG 16.6 %vol (16.0-22.0); Oxyhemoglobin 96.7 % THb (90.0-100.0); PO2 FiO2 Ratio Arterial Blood 4.57 %; Total Hemoglobin 12.1 g/dL (12.0-18.0); pH ABG 7.335 (7.350-7.450)
[2024-02-11 20:37] LABS: Modified Allen's Test Pass; Site Drawn RIGHT RADIAL
[2024-02-11 20:43] VITALS: PULSE 66; O2SAT 99
[2024-02-11 20:46] VITALS: BP 136/92; PULSE 71; RESP 15; O2SAT 97
--- NOTE | 2024-02-11 21:08 | PC.NURSE ---
patient had urinary catheter in place upon arrival. pt had leg bag on the right leg with 600mls of urine in bag. pt was combative and verbally aggressive. pt had 25mls of sterile water inserted into the balloon upon removal. this rn placed new 16F alas catheter into patient with 10mls of sterile water into the balloon. pt began to hit this rn while inserting catheter. patient screaming at this rn at time of insertion. this rn was got spontaneous urine return. alas catheter stat locked applied the left inner thigh.
[2024-02-11 22:01] VITALS: BP 100/61; PULSE 64; RESP 15; O2SAT 100
[2024-02-11 22:17] LABS: Basophils Percent Auto 0.5 % (0.2-1.2); Eosinophils Absolute Auto 0.2 K/mm3 (0-0.3); Eosinophils Percent Auto 1.9 % (0-4.4); Hematocrit 33.9 % (42.0-52.0); Hemoglobin 11.6 g/dL (14.0-18.0); Immature Granulocyte Absolute 0.05 K/mm3 (0.00-0.031); Immature Granulocyte Percent A 0.6 % (0-0.5); Lymphocytes Absolute Auto 0.92 K/mm3 (0.9-3.2); Mean Corpuscular HGB Conc 34.2 g/dl (32-36); Mean Corpuscular Hemoglobin 33.5 pg (26-34); Monocytes Absolute Auto 0.7 K/mm3 (0.1-0.6); Monocytes Percent Auto 8.1 % (2.6-8.5); Neutrophils Absolute Auto 6.5 K/mm3 (1.3-6.7); Neutrophils Percent Auto 77.9 % (45.5-73.1); Platelet Count Result 184 k/mm3 (150-375); Red Blood Count 3.46 M/mm3 (4.6-6.20); Red Cell Distribution Width 13.2 % (11.5-14.5); White Blood Count 8.4 K/mm3 (4.5-10.0)
[2024-02-11 22:26] LABS: Ethanol < 10 mg/dL (<10)
[2024-02-11 22:29] LABS: INR 1.1; Lactic Acid Reflex 0.8 mmol/L (0.7-2.0); Prothrombin Time 14.4 Seconds (11.1-14.7)
[2024-02-11 22:30] LABS: Partial Thromboplastin Time 29.2 Seconds (22.3-36.8)
[2024-02-11 22:38] LABS: Amphetamine Screen Urine Negative (Negative); Barbiturate Screen Urine Negative (Negative); Benzodiazepines Screen Urine Negative (Negative); Cannabinoid Screen Urine Negative (Negative); Cocaine Screen Urine Negative (Negative); Methadone Screen Urine Negative (Negative); Opiate Screen Urine Negative (Negative); Phencyclidine Screen Urine Negative (Negative)
[2024-02-11 22:53] LABS: Add Urine Microscopic? YES; Appearance Urine Turbid (Clear); Bacteria Urine 2+ /hpf; Bilirubin Urine Negative (Negative); Blood Urine 3+ (Negative); Color Urine Yellow (Yellow); Glucose Urine UA Negative (Negative); Ketones Urine Negative (Negative); Leukocyte Esterase Ur 3+ LEU/UL (Negative); Need Manual Microscopic Reviewed; Nitrate Urine Negative (Negative); Protein Urine Trace mg/dL (Negative); RBC Urine 51-100 /hpf (0-2); Specific Grav Ur 1.014 (1.001-1.035); Squamous Epithelial Cell Urine None Seen /hpf (Few); Urobilinogen Urine 0.2 mg/dL (<2.0); WBC Clumps Urine Present /HPF; WBC Urine >100 /hpf (0-3)
[2024-02-11 22:56] LABS: Influenza A QL RT-PCR Negative (Negative); Influenza B QL RT-PCR Negative (Negative); RSV RNA, RT-PCR Negative (Negative); SARS-CoV-2 RNA PCR Negative (Negative)
[2024-02-11 23:04] LABS: Alanine Aminotransferase 12 U/L (6-50); Albumin Level 4.2 g/dL (3.5-5.1); Alkaline Phosphatase 70 U/L (38-126); Anion Gap 13 mmol/L (4-12); Aspartate Amino Transferase 25 U/L (17-59); Bilirubin,Total 0.5 mg/dL (0.2-1.3); Calcium 9.2 mg/dL (8.4-10.2); Carbon Dioxide 16 mmol/L (22-30); Chloride 105 mmol/L (98-107); Estimated CRCL calculation 13 ml/min; Estimated Glomerular Filt Rate 20; Glucose 87 mg/dL (65-110); Lipase 434 U/L (23-300); Magnesium 2.4 mg/dL (1.6-2.3); NT Pro B Type Natriuretic Pept 2480 pg/mL (19.9-100); Phosphorus 6.6 mg/dL (2.5-4.5); Potassium 6.4 mmol/L (3.4-5.0); Sodium 134 mmol/L (137-145); Troponin I 0.213 ng/mL (0.000-0.034)
[2024-02-11 23:06] LABS: Blood Urea Nitrogen 189 mg/dL (9-20)
--- NOTE | 2024-02-11 23:16 | PC.NURSE ---
this rn spoke with kalpesh Mendez at [facility] to give caregiver update about status.
[2024-02-11 23:32] VITALS: BP 118/44; PULSE 67; RESP 14; O2SAT 98
[2024-02-12] VITALS (18 sets, daily range): BP systolic 90–117; BP diastolic 44–76; PULSE 55–82; RESP 11–24; TEMP 36.4–36.7; O2SAT 96–100; BMI 16.1
[2024-02-12 00:53] LABS: Troponin I 0.202 ng/mL (0.000-0.034)
[2024-02-12] MEDS: SODIUM ZIRCONIUM CYCLOSILICATE 10 GM POWD.PACK PO (01:07)
[2024-02-12] MEDS: SODIUM BICARBONATE 8.4% 50 MEQ/50 ML SYRINGE IV PUSH (01:08)
[2024-02-12] MEDS: INSULIN HUMAN REGULAR (*BKC) 100 UNITS/ML 10 UNITS IV PUSH (01:08)
[2024-02-12] MEDS: DEXTROSE 50% 25 GM/50 ML SYRINGE IV PUSH ×2 (01:08→03:47)
--- NOTE | 2024-02-12 03:31 | ED_ITS ---
HPI - General Adult General Chief complaint: Weakness Stated complaint: weakness, dec. eating x1w Time Seen by Provider: 02/11/24 20:09 History of Present Illness HPI narrative: This is an 89-year-old male presenting from the longterm for weakness. The patient himself is denying any complaints. He does not know why he is in the emergency department. Patient has dementia. His son is at bedside who says that he has barely been eating over the last week. Additionally he is being verbally aggressive with the nurses and not letting them drain his Vinson. He is also more weak than usual. Related Data Home Medications Medication Instructions Recorded Confirmed finasteride 5 mg tablet 5 mg PO DAILY 06/15/22 11/28/23 metoprolol succinate 25 mg 25 mg PO DAILY 06/15/22 11/28/23 tablet,extended release 24 hr latanoprost 0.005 % eye drops 1 drp EACH EYE HS 08/08/23 11/28/23 arginine-vitamin C-vitamin E oral 9.2 g PO BID 08/29/23 11/28/23 4.5 gram-156 mg/9.2 gram powder pkt (Arginaid) azelastine 137 mcg (0.1 %) nasal 137 mcg intranasal DAILY 08/29/23 11/28/23 spray fluticasone propionate 50 2 spray intranasal DAILY 08/29/23 11/28/23 mcg/actuation nasal spray,suspension ascorbic acid (vitamin C) 500 mg 500 mg PO BID 11/28/23 11/28/23 tablet cetirizine 10 mg tablet 10 mg PO DAILY 11/28/23 11/28/23 cholecalciferol (vitamin D3) 10 10 mcg PO DAILY 11/28/23 11/28/23 mcg (400 unit) capsule (Vitamin D3) clopidogrel 75 mg tablet 75 mg PO DAILY 11/28/23 11/28/23 ferrous sulfate 325 mg (65 mg 325 mg PO BID 11/28/23 11/28/23 iron) tablet furosemide 40 mg tablet 40 mg PO DAILY 11/28/23 11/28/23 linagliptin 5 mg tablet (Tradjenta) 5 mg PO DAILY 11/28/23 11/28/23 valsartan 80 mg tablet 80 mg PO DAILY 11/28/23 11/28/23 Allergies Allergy/AdvReac Type Severity Reaction Status Date / Time atorvastatin AdvReac Muscle Pain Verified 02/11/24 22:34 clarithromycin [From Biaxin] AdvReac Gastrointestinal Verified 02/11/24 22:34 Upset rofecoxib AdvReac Nausea and Verified 02/11/24 22:34 Vomiting [id number] Reductase AdvReac Muscle Pain Verified 02/11/24 22:34 Inhibitor PMFSH Past Medical History Medical History Atrial fibrillation Basal cell carcinoma Chronic anticoagulation Glaucoma 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 Hypertension Iron deficiency anemia Surgical History Surgical History H/O cataract extraction H/O hemorrhoidectomy H/O shoulder replacement H/O thyroidectomy History of incision and drainage I&D of infected left lower extremity hematoma by Dr. Sandra on 07/24/23 History of removal of skin mole History of tonsillectomy Family History Family History Mother Cerebrovascular accident Father Testicle cancer Cerebrovascular accident Sibling Malignant neoplasm of prostate Social History Social History Social History: Code status: Do not resuscitate. Smoking packs per day: 2 Smoking cigarettes per day: 40.0 Years smoked: 31 Smoking pack-years: 62.00 Smoking status: Former smoker Second hand tobacco smoke exposure: No Alcohol intake: never Substance use: never Substance use type: does not use Do You Feel Safe in your Home?: Yes Lack of Transportation: No Lack of Food: Never True Current Housing: I Have Housing Concerned About Future Housing: No Difficulty Paying Gas/Electric Bills: No Difficulty Paying for Meds: No Currently Unemployed: No Education: Decline to Answer Difficulty w/ Childcare or Family Care: No Living arrangements: longterm Additional living arrangements comments: [facility] Additional 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 Spiritual care concerns: No Exam Narrative: APPEARANCE: No apparent distress. Head: atraumatic. EYES: EOMI, NOSE: Atraumatic NECK: Trachea midline RESPIRATORY: No increased rate of breathing, clear to auscultation CARDIOVASCULAR: RRR, no peripheral edema ABDOMINAL: tenderness to palpation in the suprapubic area, MUSCULOSKELETAl: No obvious deformities NEURO: Alert. Cranial nerves 2-12 grossly intact. Sensation light touch, motor function cerebellar function intact for 4 extremities. Gait exam was deferred SKIN:: Warm, dry. Normal color PSYCHIATRIC: Normal affect Course Vital Signs Vital signs: Vital Signs Temperature 97 F L 02/11/24 19:47 Pulse Rate 86 02/11/24 19:47 Respiratory Rate 15 02/11/24 19:47 Blood Pressure 94/47 L 02/11/24 19:47 Pulse Oximetry 98 02/11/24 19:47 Oxygen Delivery Room Air 02/11/24 19:47 Temperature 97 F L 02/11/24 19:47 Pulse Rate 70 02/12/24 03:15 Respiratory Rate 16 02/12/24 03:15 Blood Pressure 118/44 L 02/11/24 23:32 Pulse Oximetry 100 02/12/24 03:15 Oxygen Delivery Room Air 02/11/24 20:43 Medical Decision Making [facility] Narrative Medical decision making narrative: -Course: 89-year-old male presenting with 1 week of decreased appetite, weakness, agitation. Sepsis workup obtained. patient has acute kidney injury with a BUN of 186 and a creatinine of 3.0. Potassium is 6.3. No EKG changes. Patient given Lokelma, insulin and dextrose, bicarb. patient's old Vinson was replaced and a new Vinson was placed. 250 cc of immediate drainage. patient given a 1 L fluid bolus. Patient has severely reduced EF so cautious fluid resuscitation. patient's repeat glucose was 47 and was given a D50 amp. Urine with greater than 100 white blood cells, white blood cell clumps and +3 leuk esterase. Review of microbiology shows pansensitive E coli in the past. Patient started on ceftriaxone. Troponins are flat at 0.2. History of chronic trop elevations. No chest pain or EKG changes. Patient will be admitted the hospital for further management of his acute kidney failure and urinary tract infection. -DDX includes but is not limited to: Obstructive uropathy, prerenal injury, UTI, sepsis, pneumonia -Co-morbidities complicating care: heart failure with reduced ejection fraction, chronic Vinson catheter, dementia -Social determinants of health: longterm resident -Hx from independent Sources:Son at bedside. -Independent interpretation of studies: white count 8.4. Hemoglobin 11.6 ABG showed metabolic acidosis with respiratory compensation potassium 6.4 without hypokalemic EKG changes. BUN 189, creatinine 3.04 baseline of 1.2 troponin 0.2 x2, BNP 20 4 hour urine indicative infection viral swabs negative stat rad CT abd/pelvis impression: diffuse bladder wall thickening and sclerosis at her curry for the degree of underdistention. 1.1 cm calculi in the bladder. No radiopaque renal calculi or signs of collecting system dilatation Independent EKG interpretation: Rhythm [atrial fibrillation], Rate [66], [place] -[normal], NE -none, QRS [narrow], QTC [normal], T waves -[negative for concerning inversions], ST Segments - [Neg ative for concerning elevations] Final interpretations: atrial fibrillation -Discussion of Management/Consultants: Melvina -Shared decision making / Disposition: Admitted. Vital Signs Vital Signs: Vital Signs Temperature 97 F L 02/11/24 19:47 Pulse Rate 86 02/11/24 19:47 Respiratory Rate 15 02/11/24 19:47 Blood Pressure 94/47 L 02/11/24 19:47 Pulse Oximetry 98 02/11/24 19:47 Oxygen Delivery Room Air 02/11/24 19:47 Temperature 97 F L 02/11/24 19:47 Pulse Rate 70 02/12/24 03:15 Respiratory Rate 16 02/12/24 03:15 Blood Pressure 118/44 L 02/11/24 23:32 Pulse Oximetry 100 02/12/24 03:15 Oxygen Delivery Room Air 02/11/24 20:43 Lab Data 02/11/24 22:03 02/12/24 03:46 Labs: Lab Results 02/11/24 02/11/24 02/11/24 Range/Units 22:03 22:07 23:57 WBC 8.4 (4.5-10.0) K/mm3 RBC 3.46 L (4.6-6.20) M/mm3 Hgb 11.6 L (14.0-18.0) g/dL Hct 33.9 L (42.0-52.0) % MCV 98.0 (80-100) fl MCH 33.5 (26-34) pg MCHC 34.2 (32-36) g/dl RDW 13.2 (11.5-14.5) % Plt Count 184 (150-375) k/mm3 MPV 11.0 H (7.4-10.4) fl Immature Gran % (Auto) 0.6 H (0-0.5) % Neut % (Auto) 77.9 H (45.5-73.1) % Lymph % (Auto) 11.0 L (18.3-44.2) % [place] % (Auto) 8.1 (2.6-8.5) % Eos % (Auto) 1.9 (0-4.4) % Baso % (Auto) 0.5 (0.2-1.2) % Lymph # (Auto) 0.92 (0.9-3.2) K/mm3 [place] # (Auto) 0.7 H (0.1-0.6) K/mm3 Eos # (Auto) 0.2 (0-0.3) K/mm3 Baso # (Auto) 0.0 (0.0-0.1) K/mm3 Abs Immat Gran (auto) 0.05 H (0.00-0.031) K/mm3 Absolute Neuts (auto) 6.5 (1.3-6.7) K/mm3 Absolute Nucleated RBC 0.000 (0.0-0.012) K/mm3 Nucleated RBC % 0.0 (0.0-0.2) % PT 14.4 (11.1-14.7) Seconds INR 1.1 APTT 29.2 (22.3-36.8) Seconds Sodium 134 L (137-145) mmol/L Potassium 6.4 H* (3.4-5.0) mmol/L Chloride 105 (98-107) mmol/L Carbon Dioxide 16 L (22-30) mmol/L Anion Gap 13 H (4-12) mmol/L BUN 189 H D (9-20) mg/dL Creatinine 3.00 H (0.7-1.3) mg/dL Estim Creat Clear Calc 13 ml/min Estimated GFR 20 L (59 - ) Glucose 87 (65-110) mg/dL POC Capillary Glucose (65-105) mg/dl Lactic Acid 0.8 (0.7-2.0) mmol/L Calcium 9.2 (8.4-10.2) mg/dL Phosphorus 6.6 H (2.5-4.5) mg/dL Magnesium 2.4 H (1.6-2.3) mg/dL Total Bilirubin 0.5 (0.2-1.3) mg/dL AST 25 (17-59) U/L ALT 12 (6-50) U/L Alkaline Phosphatase 70 (38-126) U/L Troponin I 0.213 H* 0.202 H* (0.000-0.034) ng/mL NT-Pro-B Natriuret Pep 2480 H (19.9-100) pg/mL Total Protein 8.0 (6.3-8.2) g/dL Albumin 4.2 (3.5-5.1) g/dL Lipase 434 H (23-300) U/L TSH (Reflex) 1.430 (0.465-4.68) uIU/mL Urine Color Yellow (Yellow) Urine Appearance Turbid H (Clear) Urine pH 5.0 (5.0-9.0) Ur Specific [place] 1.014 (1.001-1.035) Urine Protein Trace (Negative) mg/dL Urine Glucose (UA) Negative (Negative) mg/dL Urine Ketones Negative (Negative) mg/dL Ur Blood (Man) 3+ H (Negative) Urine Nitrate Negative (Negative) Urine Bilirubin Negative (Negative) Urine Urobilinogen 0.2 (<2.0) mg/dL Add Ur Microanalysis Reviewed Leukocyte Esterase Rfl 3+ H (Negative) IRINA/UL Urine RBC 51-100 H (0-2) /hpf Urine WBC >100 H (0-3) /hpf Urine WBC Clumps Present H (None) /HPF Ur Squamous Epith Cells None seen (Few) /hpf Urine Bacteria 2+ H /hpf Urine Casts 11-20 Urine Opiates Screen Negative (Negative) Urine Methadone Screen Negative (Negative) Ur Barbiturates Screen Negative (Negative) Ur Phencyclidine Scrn Negative (Negative) Ur Amphetamine Screen Negative (Negative) U Benzodiazepines Scrn Negative (Negative) Urine Cocaine Screen Negative (Negative) U Cannabinoids Screen Negative (Negative) Ethyl Alcohol < 10 (<10) mg/dL Influenza A (RT-PCR) Negative (Negative) Influenza B (RT-PCR) Negative (Negative) RSV (RT-PCR) Negative (Negative) SARS-CoV-2 RNA (RT-PCR) Negative (Negative) 02/12/24 02/12/24 02/12/24 Range/Units 03:41 03:46 04:35 WBC (4.5-10.0) K/mm3 RBC (4.6-6.20) M/mm3 Hgb (14.0-18.0) g/dL Hct (42.0-52.0) % MCV (80-100) fl MCH (26-34) pg MCHC (32-36) g/dl RDW (11.5-14.5) % Plt Count (150-375) k/mm3 MPV (7.4-10.4) fl Immature Gran % (Auto) (0-0.5) % Neut % (Auto) (45.5-73.1) % Lymph % (Auto) (18.3-44.2) % [place] % (Auto) (2.6-8.5) % Eos % (Auto) (0-4.4) % Baso % (Auto) (0.2-1.2) % Lymph # (Auto) (0.9-3.2) K/mm3 [place] # (Auto) (0.1-0.6) K/mm3 Eos # (Auto) (0-0.3) K/mm3 Baso # (Auto) (0.0-0.1) K/mm3 Abs Immat Gran (auto) (0.00-0.031) K/mm3 Absolute Neuts (auto) (1.3-6.7) K/mm3 Absolute Nucleated RBC (0.0-0.012) K/mm3 Nucleated RBC % (0.0-0.2) % PT (11.1-14.7) Seconds INR APTT (22.3-36.8) Seconds Sodium 136 L (137-145) mmol/L Potassium 4.8 (3.4-5.0) mmol/L Chloride 106 (98-107) mmol/L Carbon Dioxide 18 L (22-30) mmol/L Anion Gap 12 (4-12) mmol/L BUN 183 H (9-20) mg/dL Creatinine 2.60 H (0.7-1.3) mg/dL Estim Creat Clear Calc 14 ml/min Estimated GFR 23 L (59 - ) Glucose 45 L* (65-110) mg/dL POC Capillary Glucose 59 L* 133 H (65-105) mg/dl Lactic Acid (0.7-2.0) mmol/L Calcium 8.8 (8.4-10.2) mg/dL Phosphorus (2.5-4.5) mg/dL Magnesium (1.6-2.3) mg/dL Total Bilirubin (0.2-1.3) mg/dL AST (17-59) U/L ALT (6-50) U/L Alkaline Phosphatase (38-126) U/L Troponin I (0.000-0.034) ng/mL NT-Pro-B Natriuret Pep (19.9-100) pg/mL Total Protein (6.3-8.2) g/dL Albumin (3.5-5.1) g/dL Lipase (23-300) U/L TSH (Reflex) (0.465-4.68) uIU/mL Urine Color (Yellow) Urine Appearance (Clear) Urine pH (5.0-9.0) Ur Specific [place] (1.001-1.035) Urine Protein (Negative) mg/dL Urine Glucose (UA) (Negative) mg/dL Urine Ketones (Negative) mg/dL Ur Blood (Man) (Negative) Urine Nitrate (Negative) Urine Bilirubin (Negative) Urine Urobilinogen (<2.0) mg/dL Add Ur Microanalysis Leukocyte Esterase Rfl (Negative) IRINA/UL Urine RBC (0-2) /hpf Urine WBC (0-3) /hpf Urine WBC Clumps (None) /HPF Ur Squamous Epith Cells (Few) /hpf Urine Bacteria /hpf Urine Casts Urine Opiates Screen (Negative) Urine Methadone Screen (Negative) Ur Barbiturates Screen (Negative) Ur Phencyclidine Scrn (Negative) Ur Amphetamine Screen (Negative) U Benzodiazepines Scrn (Negative) Urine Cocaine Screen (Negative) U Cannabinoids Screen (Negative) Ethyl Alcohol (<10) mg/dL Influenza A (RT-PCR) (Negative) Influenza B (RT-PCR) (Negative) RSV (RT-PCR) (Negative) SARS-CoV-2 RNA (RT-PCR) (Negative) ABG Data ABG results: 02/11/24 20:24 Puncture Site Right radial ABG pH 7.335 L ABG pCO2 29.0 L ABG pO2 96.0 ABG PO2/FiO2 Ratio 4.57 ABG HCO3 15.1 L ABG O2 Saturation 97.0 ABG O2 Content 16.6 ABG Base Excess -9.4 A-a Gradient 19.0 Oxyhemoglobin 96.7 Total Hemoglobin 12.1 O2 Delivery Device Not Reportable O2 Liters/Min Not Reportable FiO2 21 Critical Care Time Critical Care Time Critical Care Time: Yes Total Critical Care Time: 35 Discharge Plan Discharge Clinical Impression: Acute kidney injury, Elevated troponin, Acute hyperkalemia, Cystitis Patient Disposition: Still a Patient Condition: Guarded Prognosis Prescriptions: No Action metoprolol succinate 25 mg tablet extended release 24 hr 25 mg PO DAILY finasteride 5 mg tablet 5 mg PO DAILY tamsulosin 0.4 mg capsule 0.4 mg PO DAILY Qty: 30 1RF latanoprost 0.005 % drops 1 drp EACH EYE HS potassium chloride 20 mEq tablet extended release 20 meq PO DAILY Qty: 7 0RF azelastine 137 mcg (0.1 %) Aerosol,[place] 137 mcg INTRANASAL DAILY Rx Instructions: administer into each nostril fluticasone propionate 50 mcg/actuation spray,suspension 2 spray INTRANASAL DAILY Arginaid 4.5 gram-156 mg/9.2 gram Powder In Packet 9.2 g PO BID spironolactone 25 mg Tablet 25 mg PO QAM Qty: 30 0RF Incruse Ellipta 62.5 mcg/actuation Blister With Device 1 inh inhalation DAILYRT Qty: 7 0RF albuterol sulfate 90 mcg/actuation HFA aerosol inhaler 2 puff inhalation QID PRN (Reason: shortness of breath or wheezing) Qty: 6.7 0RF furosemide 40 mg tablet 40 mg PO DAILY cetirizine 10 mg Tablet 10 mg PO DAILY valsartan 80 mg tablet 80 mg PO DAILY clopidogrel 75 mg tablet 75 mg PO DAILY Hold Instructions: Resume on 12/05/23. ascorbic acid (vitamin C) 500 mg Tablet 500 mg PO BID ferrous sulfate 325 mg (65 mg iron) Tablet 325 mg PO BID cholecalciferol (vitamin D3) [Vitamin D3] 10 mcg (400 unit) Capsule 10 mcg PO DAILY Tradjenta 5 mg tablet 5 mg PO DAILY hydrocodone-acetaminophen 5-325 mg Tablet 1 tablet PO Q6-8H PRN (Reason: breakthrough pain) Qty: 10 0RF docusate sodium 100 mg Capsule 100 mg PO BID Qty: 20 0RF amoxicillin-pot clavulanate 500-125 mg tablet 1 tablet PO Q12H Qty: 14 0RF Follow-up/Referrals: PHYSICIAN NOT ON STAFF,NONSTAFF [Primary Care Provider] -
[2024-02-12] MEDS: SODIUM CHLORIDE 0.9% IV 1,000 ML 999 ML IV CONT (03:47)
[2024-02-12 03:54] LABS: Glucose Point of Care 59 mg/dl (65-105)
[2024-02-12 04:12] LABS: Anion Gap 12 mmol/L (4-12); Calcium 8.8 mg/dL (8.4-10.2); Carbon Dioxide 18 mmol/L (22-30); Chloride 106 mmol/L (98-107); Estimated CRCL calculation 14 ml/min; Estimated Glomerular Filt Rate 23; Glucose 45 mg/dL (65-110); Potassium 4.8 mmol/L (3.4-5.0); Sodium 136 mmol/L (137-145)
[2024-02-12 04:14] LABS: Blood Urea Nitrogen 183 mg/dL (9-20)
[2024-02-12 04:38] LABS: Glucose Point of Care 133 mg/dl (65-105)
[2024-02-12] MEDS: SODIUM BICARBONATE 8.4% 150 MEQ in DEXTROSE 5% 1,000 ML 950 ML 50 MEQ IV CONT (05:37)
[2024-02-12 05:51] LABS: Glucose Point of Care 104 mg/dl (65-105)
--- NOTE | 2024-02-12 05:52 | PC.NURSE ---
Addendum entered by Jigna Chavez RN 02/12/24 06:21: Med list received from [facility]; Home med rec completed and copy placed in patient chart. Addendum entered by Jigna Chavez RN 02/12/24 06:03: RN called [facility] to request a med list to be faxed to [facility]. Per staff, a list would be faxed to complete med recs. Original Note: RN left a message for patient's POA/son, Rafiq Cuadra to complete admission, unable to reach him. Admission complete via recall, unable to confirm with patient/family. Home medication recalled from external medication history; unable to confirm use of OTC/supplements that were recalled from external history. Patient is currently boarded and awaiting bed in IMU. Admission report provided to IMU/ICU drapery inspector, Abby.
[2024-02-12 06:54] LABS: Glucose Point of Care 98 mg/dl (65-105)
--- NOTE | 2024-02-12 07:27 | P.HP_ITS ---
H&P: HPI History of Present Illness Date/Time: 02/12/24 07:27 Chief Complaint: General weakness Narrative: Patient has dementia, per history, history is taken from ER physician This is an 89-year-old male with history of from multiple comorbidities including atrial fibrillation, dementia systolic heart failure, EF 20-25 % on echocardiogram July 24, 2023, hyperlipidemia brought to ED because of general weakness Patient does not know why his in the emergency room, has no complaints per patient's son, he has barely been eating over the last week. Additionally he is being verbally aggressive with the nurses and not letting them drain his Vinson. He is also more weak than usual. Upon arrival in the ED, patient is afebrile, blood pressure soft, 94/47, pulse ox 98 on room air, hemoglobin 11.6 above baseline, lab showed hyperkalemia 6.4, elevated BUN creatinine ratio on 189/3.0, GFR 13, baseline creatinine ratio 51/1.2 on December 01, 2023, glucose of 45, elevated troponin 0.2, EKG showed atrial fibrillation no specific ST or T-wave changes. lipase 434, UA showed cloudy urine, pyuria and hematuria bacteriuria 2+ CT abdomen pelvis showed Probable cystitis, despite decompression with Vinson catheter. Correlate with urinalysis.Urinary bladder stones measuring up to [address] head shows no acute intracranial issues . Chest x-ray showed mild infiltrate or atelectasis in the left lower lobe, minimal right upper lobe infiltrate Cardiac magna, extensive aortic atherosclerosis Review of Systems Review of Systems: ROS negative except [facility] Past Medical History Medical History Atrial fibrillation Basal cell carcinoma Chronic anticoagulation Glaucoma 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 Hypertension Iron deficiency anemia Surgical History Surgical History H/O cataract extraction H/O hemorrhoidectomy H/O shoulder replacement H/O thyroidectomy History of incision and drainage I&D of infected left lower extremity hematoma by Dr. Sandra on 07/24/23 History of removal of skin mole History of tonsillectomy Family History Family History Mother Cerebrovascular accident Father Testicle cancer Cerebrovascular accident Sibling Malignant neoplasm of prostate Social History Social History Social History: Code status: Do not resuscitate. Smoking packs per day: 2 Smoking cigarettes per day: 40.0 Years smoked: 31 Smoking pack-years: 62.00 Smoking status: Former smoker Second hand tobacco smoke exposure: No Alcohol intake: never Substance use: never Substance use type: does not use Do You Feel Safe in your Home?: Yes Lack of Transportation: No Lack of Food: Never True Current Housing: I Have Housing Concerned About Future Housing: No Difficulty Paying Gas/Electric Bills: No Difficulty Paying for Meds: No Currently Unemployed: No Education: Decline to Answer Difficulty w/ Childcare or Family Care: No Living arrangements: prison Additional living arrangements comments: [facility] Additional 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 Spiritual care concerns: No Meds Home Medications and Allergies Home Medications Medication Instructions Recorded Confirmed Type finasteride 5 mg tablet 5 mg PO DAILY 06/15/22 02/12/24 History metoprolol succinate 25 mg 25 mg PO DAILY 06/15/22 02/12/24 History tablet,extended release 24 hr tamsulosin 0.4 mg capsule 0.4 mg PO DAILY #30 caps 06/21/22 02/12/24 Rx latanoprost 0.005 % eye drops 1 drp EACH EYE HS 08/08/23 02/12/24 History potassium chloride 20 mEq 20 meq PO DAILY #7 tabs 08/11/23 02/12/24 Rx tablet,extended release arginine-vitamin C-vitamin E oral 9.2 g PO BID 08/29/23 02/12/24 History 4.5 gram-156 mg/9.2 gram powder pkt (Arginaid) azelastine 137 mcg (0.1 %) nasal 137 mcg intranasal DAILY 08/29/23 02/12/24 History spray fluticasone propionate 50 2 spray intranasal DAILY 08/29/23 02/12/24 History mcg/actuation nasal spray,suspension spironolactone 25 mg tablet 25 mg PO QAM #30 tabs 09/03/23 02/12/24 Rx umeclidinium 62.5 mcg/actuation 1 inh inhalation DAILYRT #7 ea 09/05/23 02/12/24 Rx blister powder for inhalation (Incruse Ellipta) ascorbic acid (vitamin C) 500 mg 500 mg PO BID 11/28/23 02/12/24 History tablet cetirizine 10 mg tablet 10 mg PO DAILY 11/28/23 02/12/24 History cholecalciferol (vitamin D3) 10 10 mcg PO DAILY 11/28/23 02/12/24 History mcg (400 unit) capsule (Vitamin D3) clopidogrel 75 mg tablet 75 mg PO DAILY 11/28/23 02/12/24 History ferrous sulfate 325 mg (65 mg 325 mg PO BID 11/28/23 02/12/24 History iron) tablet furosemide 40 mg tablet 40 mg PO DAILY 11/28/23 02/12/24 History linagliptin 5 mg tablet (Tradjenta) 5 mg PO DAILY 11/28/23 02/12/24 History valsartan 80 mg tablet 80 mg PO DAILY 11/28/23 02/12/24 History acetaminophen 325 mg tablet 650 mg PO Q6H PRN Pain 02/12/24 02/12/24 History albuterol sulfate 90 mcg/actuation 2 puff inhalation Q6H PRN 02/12/24 02/12/24 History aerosol inhaler shortness of breath or wheezing hydrocodone 5 mg-acetaminophen 325 1 tablet PO Q6H 02/12/24 02/12/24 History mg tablet loperamide 2 mg capsule (Imodium 4 mg PO Q2H PRN Diarrhea 02/12/24 02/12/24 History A-D) quetiapine 25 mg tablet 25 mg PO BID 02/12/24 02/12/24 History Allergies Allergy/AdvReac Type Severity Reaction Status Date / Time atorvastatin AdvReac Muscle Pain Verified 02/11/24 22:34 clarithromycin [From Biaxin] AdvReac Gastrointestinal Verified 02/11/24 22:34 Upset rofecoxib AdvReac Nausea and Verified 02/11/24 22:34 Vomiting [id number] Reductase AdvReac Muscle Pain Verified 02/11/24 22:34 Inhibitor Vital Signs Vital Signs - 24 hr 02/11/24 19:47 02/11/24 20:43 02/11/24 20:43 Temperature 97 F L Pulse Rate 86 66 Respiratory Rate 15 Blood Pressure 94/47 L Pulse Oximetry 98 99 Oxygen Delivery Room Air Room Air 02/11/24 20:16 02/11/24 20:46 02/11/24 22:01 Temperature Pulse Rate 66 71 64 Respiratory Rate 23 H 15 15 Blood Pressure 122/97 H 136/92 H 100/61 Pulse Oximetry 98 97 100 Oxygen Delivery 02/11/24 23:32 02/12/24 02:00 02/12/24 03:15 Temperature Pulse Rate 67 67 70 Respiratory Rate 14 17 16 Blood Pressure 118/44 L Pulse Oximetry 98 98 100 Oxygen Delivery 02/12/24 05:47 02/12/24 05:47 02/12/24 06:01 Temperature Pulse Rate 66 66 55 L Respiratory Rate 20 17 11 L Blood Pressure 91/57 L 90/57 L 95/49 L Pulse Oximetry 96 Oxygen Delivery 02/12/24 07:16 02/12/24 05:52 Temperature Pulse Rate 71 66 Respiratory Rate 16 20 Blood Pressure 92/58 L 91/57 L Pulse Oximetry 96 Oxygen Delivery Exam Narrative: GENERAL: Pleasant, in no acute distress. Well-nourished. - EYES: EOMI. Anicteric. - HENT: Dry mucous membranes. - LUNGS: Clear to auscultation bilateral ly, no wheezing, rhonchi, or rales. - CARDIOVASCULAR: Regular rate and rhyth m. No murmur. No JVD. - ABDOMEN: Soft, suprapubic tender and n on-distended. No palpable masses. - EXTREMITIES: No edema. Peripheral puls es 2+. Non-tender. - NEUROLOGIC: No focal neurological defi cits. CN II-XII grossly intact. General weakness - PSYCHIATRIC: Awake, Alert and not orie nted x 3. Appropriate mood and affect. - SKIN: No rashes or lesions. Warm. - LYMPH: No cervical lymphadenopathy. H&P: Results Labs Labs: Short CBC 02/11/24 Range/Units 22:03 WBC 8.4 (4.5-10.0) K/mm3 Hgb 11.6 L (14.0-18.0) g/dL Hct 33.9 L (42.0-52.0) % Plt Count 184 (150-375) k/mm3 [facility] 02/11/24 02/12/24 22:03 03:46 Sodium 134 L 136 L Potassium 6.4 H* 4.8 Chloride 105 106 Carbon Dioxide 16 L 18 L BUN 189 H D 183 H Creatinine 3.00 H 2.60 H Glucose 87 45 L* Calcium 9.2 8.8 Cardiac Enzymes 02/11/24 02/11/24 Range/Units 22:03 23:57 Troponin I 0.213 H* 0.202 H* (0.000-0.034) ng/mL Liver Function 02/11/24 Range/Units 22:03 Total Bilirubin 0.5 (0.2-1.3) mg/dL AST 25 (17-59) U/L ALT 12 (6-50) U/L Alkaline Phosphatase 70 (38-126) U/L Albumin 4.2 (3.5-5.1) g/dL Urine 02/11/24 Range/Units 22:03 Urine Color Yellow (Yellow) Urine Appearance Turbid H (Clear) Urine pH 5.0 (5.0-9.0) Ur Specific [place] 1.014 (1.001-1.035) Urine Protein Trace (Negative) mg/dL Urine Glucose (UA) Negative (Negative) mg/dL Assessment and Plan Assessment and plan (1) Acute renal failure superimposed on stage 3b chronic kidney disease: Code(s): N17.9 - Acute kidney failure, unspecified; N18.32 - Chronic kidney disease, stage 3b Status: Acute (2) Elevated troponin: Code(s): R79.89 - Other specified abnormal findings of blood chemistry Status: Acute (3) Acute hyperkalemia: Code(s): E87.5 - Hyperkalemia Status: Acute (4) Acute UTI: Code(s): N39.0 - Urinary tract infection, site not specified Status: Acute (5) Adult failure to thrive: Code(s): R62.7 - Adult failure to thrive Status: Acute (6) Dementia: Qualifiers: Dementia behavioral or psychological symptom: with other behavioral disturbance Dementia severity: unspecified severity Dementia type: unspecified type Qualified Code(s): F03.918 - Unspecified dementia, unspecified severity, with other behavioral disturbance Code(s): F03.90 - Unspecified dementia, unspecified severity, without behavioral distur bance, psychotic disturbance, mood disturbance, and anxiety Status: Acute (7) Chronic systolic heart failure: Code(s): I50.22 - Chronic systolic (congestive) heart failure Status: Acute (8) Chronic anemia: Code(s): D64.9 - Anemia, unspecified Status: Acute Plan General weakness Due to multiple comorbidities and physical deconditioning, exacerbated by UTI, worsening kidney function, possible dehydration Consult PT OT career discovery teacher for evaluation and assisting placement Acute encephalopathy Patient has dementia, mental status worse than baseline, patient had aggressive behavior in the ED, Suspecting acute encephalopathy superimposed with delirium Likely resulting from UTI, uremia, dehydration, electrolyte disorder Treat underlying disease Complicated UTI UA shows pyuria, hematuria, CT scan showed bladder stone 1 cm Patient has suprapubic tenderness Received ceftriaxone in the ED, continue ceftriaxone 1 g IV daily Folic catheter placed Consult urologist for evaluation treatment regarding the bladder stone ROMAIN on CKD, Patient has CKD stage 3 chronic a GFR decreased to 15 Likely resulting from UTI urinary obstruction and dehydration Gentle IV fluid Patient is on ceftriaxone Consult city wellness coordinator and urologist for evaluation treatment Chronic AFib, CAD, elevated troponin Patient is on Plavix 75 mg daily p.o., not on blood thinner Continue metoprolol 25 mg daily p.o. Elevated troponin likely secondary to worsening kidney function, UTI Telemetry monitoring Chronic systolic heart failure Continue furosemide 40 mg daily p.o. Hold spironolactone and potassium chloride supplement because of hyperkalemia Hyperkalemia Potassium 6.1 upon arrival in the ED. Patient received sodium bicarbonate, lokelma Corrected Essential hypertension Blood pressure low Hold losartan 80 mg daily p.o. COPD Continue albuterol inhaler 2 puffs q.6 hours p.r.n. and Incruse Ellipta 1 puff daily O2 therapy per and to keep pulse ox above 94 Chronic anemia Patient has chronic anemia due to multiple comorbidities Hemoglobin above baseline Continue ferrous sulfate p.o. No obvious bleeding Follow-up BMP Hypoglycemia Patient received insulin in the ED Start D5 normal saline IV 100 mL/hour Patient may stay more than 2 midnights in the hospital Hospitalist MIPS Advance Care Plan I have confirmed that the patient's Advanced Care Plan is present, code status is documented, or surrogate decision maker is listed in patient medical record.: Yes Medication Reconciliation I have utilized all available resources to obtain, update and review the patients current medications (includes all prescriptions, OTC, herbals, cannabis, and nutritional supplements).: Yes
[2024-02-12 08:26] LABS: Basophils Absolute Auto 0.1 K/mm3 (0.0-0.1); Basophils Percent Auto 0.7 % (0.2-1.2); Eosinophils Absolute Auto 0.3 K/mm3 (0-0.3); Hematocrit 29.2 % (42.0-52.0); Hemoglobin 10.1 g/dL (14.0-18.0); Immature Granulocyte Absolute 0.03 K/mm3 (0.00-0.031); Immature Granulocyte Percent A 0.4 % (0-0.5); Lymphocytes Absolute Auto 1.07 K/mm3 (0.9-3.2); Lymphocytes Percent Auto 14.9 % (18.3-44.2); Mean Corpuscular HGB Conc 34.6 g/dl (32-36); Mean Corpuscular Hemoglobin 33.6 pg (26-34); Mean Platelet Volume 10.6 fl (7.4-10.4); Monocytes Absolute Auto 0.7 K/mm3 (0.1-0.6); Monocytes Percent Auto 9.9 % (2.6-8.5); Neutrophils Percent Auto 70.1 % (45.5-73.1); Platelet Count Result 158 k/mm3 (150-375); Red Blood Count 3.01 M/mm3 (4.6-6.20); Red Cell Distribution Width 13.1 % (11.5-14.5); White Blood Count 7.2 K/mm3 (4.5-10.0)
[2024-02-12 08:40] LABS: Anion Gap 11 mmol/L (4-12); Calcium 8.3 mg/dL (8.4-10.2); Carbon Dioxide 18 mmol/L (22-30); Chloride 108 mmol/L (98-107); Estimated CRCL calculation 16 ml/min; Estimated Glomerular Filt Rate 27; Glucose 82 mg/dL (65-110); Potassium 4.7 mmol/L (3.4-5.0); Sodium 137 mmol/L (137-145)
[2024-02-12 08:52] LABS: Blood Urea Nitrogen 166 mg/dL (9-20)
--- NOTE | 2024-02-12 09:30 | ADMGEN ---
This patient, Jamey Cuadra, was admitted to IMU Room 206-01. Patient/family oriented to hospital policies and general routines including ID bracelet, bed and alarms, visiting hours, pain management, procedures, bathroom and other care routines, personal items, smoking policy, room service/diet, and visiting hours. Information on how to activate the Rapid Response Team has been discussed. Patient/Family are encouraged to report perceived risks to care and to ask questions if they do not understand what they are told or what they should do.
--- NOTE | 2024-02-12 09:46 | P.CONNP_ITS ---
Assessment and Plan Assessment and plan (1) Acute kidney injury: Code(s): N17.9 - Acute kidney failure, unspecified Status: Acute Assessment and Plan: * slow improvement noted * as noted by admission creatinine of 3.0mg/dl * multifactorial etiology: * prerenal factors (poor oral intake) * relative hypotension * infection (UTI) * ongoing use of diuretics/ARB prior to admission * urinary retention (alas has been replaced in ER) * check urine studies, CPK, and renal ultrasound * follow trend of repeat labs and UOP (2) Stage 3a chronic kidney disease: Code(s): N18.31 - Chronic kidney disease, stage 3a Status: Chronic Assessment and Plan: * baseline creatinine seems to run around 0.8 - 1.3mg/dl * this causes him to fluctuate between CKD stage 2 and stage 3A * presumably due to his hypertension, BPH, and an element of cardiorenal syndrome given depressed EF and chronic diuretic therapy (3) Hyperkalemia: Code(s): E87.5 - Hyperkalemia Status: Acute Assessment and Plan: * resolved currently * elevated at 6.1 on admission * s/p medical management * likely secondary to ROMAIN in the context of spironolactone and K+ supplement use * K+ supplements and spironolactone on hold * follow trend (4) UTI (urinary tract infection): Code(s): N39.0 - Urinary tract infection, site not specified Status: Acute Assessment and Plan: * admission UA highly suggestive * associated suprapubic tenderness noted as well * alas catheter in place * follow culture results * bladder stone noted by CT -- playing a role? (5) Altered mental status: Code(s): R41.82 - Altered mental status, unspecified Status: Acute Assessment and Plan: * as noted by history provided in ER * complicated by known history of dementia * however, currently, mentation seems significantly better * suspect secondary to ROMAIN, UTI, and poor oral intake * follow mentation (6) Chronic systolic heart failure: Code(s): I50.22 - Chronic systolic (congestive) heart failure Status: Chronic Assessment and Plan: * as noted by last Echo (EF 20 - 25%) * appears relatively compensated at this time * on oral lasix but spironolactone and K+ supplements on hold * follow volume status closely (7) Chronic anemia: Code(s): D64.9 - Anemia, unspecified Status: Chronic Assessment and Plan: * H/H relatively stable * no need for AGATA * follow trend I will continue to follow the patient with you while he remains hospitalized and make further recommendations as deemed necessary. Thank you for allowing me to participate in the care of this patient. History of Present Illness Reason for Consult Consult date: 02/12/24 Reason for consult: acute renal failure (on chronic kidney disease) Chief Complaint Chief complaint: UTI/ROMAIN History of Present Illness Narrative: All the information I have obtained is from review of the electronic medical record as well as discussion with the physician/nurses involved in the patient's care as is difficult to get a full and complete history in the patient due to his underlying dementia. The patient is an 89-year-old male with multiple medical problems as outlined below who presented to [facility] Emergency Room due to due to generalized weakness. According to the patient's son Who was present with him in the ER, the patient has been barely eating and drinking over last week if not longer. Her the more, he has been more verbally aggressive with the nurses at his care facility and not letting them administer medications or drain his Alas catheter. This is further complicated by the fact he has also been bit weaker than his baseline as well. Given these constellation of issues, he was brought to the ER for further assessment. Workup and evaluation emergency room demonstrated the patient to be afebrile but with a relatively soft blood pressure in the 90 systolic. Routine blood tests were significant for acute kidney injury/acute renal failure with a BUN of 189 and a creatinine of 3.0 in association with hyperkalemia with a potassium of 6.4. He was also hypoglycemic with a glucose of 45. His EKG showed atrial fibrillation with no acute evidence of ischemia and initial troponin was 0.2. Lipase was 4 3 for his urinalysis was highly suggestive a urinary tract infection. Given his poor oral intake and elevated lipase level, a CT scan of his abdomen pelvis done which demonstrated probable cystitis with a bladder stone noted to be 1 cm in, cardiomegaly but no other acute intra-abdominal pathology. CT scan of the head showed no acute intracranial issues and his chest x-ray showed a mild infiltrate or atelectasis the left lower lobe and a minimal right upper lobe infiltrate with extensive aortic atherosclerosis. He was given IV fluids and after appropriate cultures were obtained, started on antibiotics for his suspected urinary tract infection and admitted to the hospital for further evaluation and therapy. Since his admission, he has been tolerating IV fluids and antibiotic therapy with some improvement noted in his overall renal function/creatinine. Renal consultation was requested due to his acute kidney injury/acute renal failure (on his baseline chronic kidney disease) as evidence by his admission labs. As already mentioned, his creatinine has improved with current therapy. His admission creatinine was 3.0 mg/dL and has subsequently come down to 2.3 mg/dL by labs done earlier this morning. His baseline creatinine seems run around 0.8-1.3 mg/dL from review his records. His baseline CKD is likely due to hypertension, BPH, and an element of cardiorenal syndrome given his depressed EF and chronic diuretic therapy along with age-related change. Given his improvement in renal function/ creatinine with IV fluid resuscitation, there is likely a significant component of volume depletion / dehydration which would be consistent with his history of poor oral intake for last few weeks. Currently, at the time my visit, he appears to be in no acute distress. Review of Systems 2 Review of Systems: As per HPI. [facility] Past Medical History Medical History Atrial fibrillation Basal cell carcinoma Chronic anticoagulation Glaucoma 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 Hypertension Iron deficiency anemia Surgical History Surgical History H/O cataract extraction H/O hemorrhoidectomy H/O shoulder replacement H/O thyroidectomy History of incision and drainage I&D of infected left lower extremity hematoma by Dr. Sandra on 07/24/23 History of removal of skin mole History of tonsillectomy Family History Family History Mother Cerebrovascular accident Father Testicle cancer Cerebrovascular accident Sibling Malignant neoplasm of prostate Social History Social History Social History: Code status: Do not resuscitate. Smoking packs per day: 2 Smoking cigarettes per day: 40.0 Years smoked: 31 Smoking pack-years: 62.00 Smoking status: Former smoker Second hand tobacco smoke exposure: No Alcohol intake: never Substance use: never Substance use type: does not use Do You Feel Safe in your Home?: Yes Lack of Transportation: No Lack of Food: Never True Current Housing: I Have Housing Concerned About Future Housing: No Difficulty Paying Gas/Electric Bills: No Difficulty Paying for Meds: No Currently Unemployed: No Education: Decline to Answer Difficulty w/ Childcare or Family Care: No Living arrangements: jail Additional living arrangements comments: [facility] 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 Spiritual care concerns: No Meds Home Medications and Allergies Home Medications ?Medication ?Instructions ?Recorded ?Confirmed ?Type finasteride 5 mg tablet 5 mg PO DAILY 06/15/22 02/12/24 History metoprolol succinate 25 mg 25 mg PO DAILY 06/15/22 02/12/24 History tablet,extended release 24 hr tamsulosin 0.4 mg capsule 0.4 mg PO DAILY #30 caps 06/21/22 02/12/24 Rx latanoprost 0.005 % eye drops 1 drp EACH EYE HS 08/08/23 02/12/24 History potassium chloride 20 mEq 20 meq PO DAILY #7 tabs 08/11/23 02/12/24 Rx tablet,extended release arginine-vitamin C-vitamin E oral 9.2 g PO BID 08/29/23 02/12/24 History 4.5 gram-156 mg/9.2 gram powder pkt (Arginaid) azelastine 137 mcg (0.1 %) nasal 137 mcg intranasal DAILY 08/29/23 02/12/24 History spray fluticasone propionate 50 2 spray intranasal DAILY 08/29/23 02/12/24 History mcg/actuation nasal spray,suspension umeclidinium 62.5 mcg/actuation 1 inh inhalation DAILYRT #7 ea 09/05/23 02/12/24 Rx blister powder for inhalation (Incruse Ellipta) ascorbic acid (vitamin C) 500 mg 500 mg PO BID 11/28/23 02/12/24 History tablet cetirizine 10 mg tablet 10 mg PO DAILY 11/28/23 02/12/24 History cholecalciferol (vitamin D3) 10 10 mcg PO DAILY 11/28/23 02/12/24 History mcg (400 unit) capsule (Vitamin D3) clopidogrel 75 mg tablet 75 mg PO DAILY 11/28/23 02/12/24 History ferrous sulfate 325 mg (65 mg 325 mg PO BID 11/28/23 02/12/24 History iron) tablet furosemide 40 mg tablet 40 mg PO DAILY 11/28/23 02/12/24 History linagliptin 5 mg tablet (Tradjenta) 5 mg PO DAILY 11/28/23 02/12/24 History acetaminophen 325 mg tablet 650 mg PO Q6H PRN Pain 02/12/24 02/12/24 History albuterol sulfate 90 mcg/actuation 2 puff inhalation Q6H PRN 02/12/24 02/12/24 History aerosol inhaler shortness of breath or wheezing hydrocodone 5 mg-acetaminophen 325 1 tablet PO Q6H 02/12/24 02/12/24 History mg tablet loperamide 2 mg capsule (Imodium 4 mg PO Q2H PRN Diarrhea 02/12/24 02/12/24 History A-D) quetiapine 25 mg tablet 25 mg PO BID 02/12/24 02/12/24 History cephalexin 250 mg capsule 250 mg PO Q12HR #113 caps 02/15/24 Rx Allergies Allergy/AdvReac Type Severity Reaction Status Date / Time atorvastatin AdvReac Muscle Pain Verified 02/11/24 22:34 clarithromycin (From Biaxin) AdvReac Gastrointestinal Verified 02/11/24 22:34 Upset rofecoxib AdvReac Nausea and Verified 02/11/24 22:34 Vomiting [id number] Reductase AdvReac Muscle Pain Verified 02/11/24 22:34 Inhibitor Vital Signs Vital Signs Temp Pulse Resp BP Pulse Ox O2 Del Method 02/12/24 09:30 97.5 F L 76 22 H 107/44 L 100 02/12/24 08:18 66 14 02/12/24 08:03 60 12 02/12/24 07:43 68 12 90/55 L 02/12/24 07:16 71 16 92/58 L 02/12/24 06:01 55 L 11 L 95/49 L 02/12/24 05:52 66 20 91/57 L 02/12/24 05:47 66 20 91/57 L 96 02/12/24 03:15 70 16 100 02/12/24 02:00 67 17 98 02/11/24 23:32 67 14 118/44 L 98 02/11/24 22:01 64 15 100/61 100 02/11/24 20:46 71 15 136/92 H 97 02/11/24 20:16 66 23 H 122/97 H 98 02/11/24 20:43 99 Room Air 02/11/24 20:43 66 02/11/24 19:47 97 F L 86 15 94/47 L 98 Room Air Exam 2 Narrative: GENERAL APPEARANCE: frail and elderly male in no acute distress HEENT: normocephalic, atraumatic, normal conjunctiva and sclera, nares patient NECK: no lymphadenopathy, thyromegaly, or JVD MOUTH: normal lips, teeth, and gums CARDIOVASCULAR: RRR, normal S1 and S2, no rub RESPIRATORY: clear anteriorly ABDOMEN: soft, nontender, nondistended, positive bowel sounds present EXTREMITIES: no evidence of cyanosis, clubbing, or edema NEUROLOGICAL: awake and alert; CN II - XII intact bilaterally; no focal deficits noted Results Lab Results 02/15/24 07:17 02/15/24 07:17 Lab results: Most recent lab results ABG pH 7.335 (7.350-7.450) L 02/11/24 20:24 ABG pCO2 29.0 mmHg (35.0-45.0) L 02/11/24 20:24 ABG pO2 96.0 mmHg (80.0-100.0) 02/11/24 20:24 ABG HCO3 15.1 mEq/l (22.0-26.0) L 02/11/24 20:24 ABG O2 Saturation 97.0 % (95.0-100.0) 02/11/24 20:24 Calcium 8.3 mg/dL (8.4-10.2) L 02/12/24 08:22 Phosphorus 6.6 mg/dL (2.5-4.5) H 02/11/24 22:03 Magnesium 2.4 mg/dL (1.6-2.3) H 02/11/24 22:03
[2024-02-12] MEDS: DEXTROSE 5%/0.9% SOD CHL 1,000 ML 100 ML IV CONT (10:54)
[2024-02-12] MEDS: FINASTERIDE 5 MG TABLET PO (10:54)
[2024-02-12] MEDS: FERROUS SULFATE 325 MG TABLET DR PO ×2 (11:02→16:50)
[2024-02-12 11:29] LABS: Creatinine Urine 57.3 mg/dL
[2024-02-12 11:42] LABS: Creatinine Urine 57.5 mg/dL; Total Protein Urine Random 17 mg/dL
[2024-02-12 11:43] LABS: Total Protein Urine Random 17 mg/dL; Urea Random Urine 961 MG/DL
[2024-02-12 11:47] LABS: Eosinophil Urine Rare % (None Seen)
[2024-02-12 11:48] LABS: Urine Eos QC 2nd Tech Confirmed
[2024-02-12] MEDS: METOPROLOL SUCCINATE EXT REL 25 MG TABCR PO (12:00)
[2024-02-12 12:09] LABS: Sodium Urine Random 42 meq/L
--- NOTE | 2024-02-12 16:16 | P.CONUR_ITS ---
Assessment and Plan Assessment and plan (1) Bladder stone: Code(s): N21.0 - Calculus in bladder Status: Acute (2) Retention of urine: Code(s): R33.9 - Retention of urine, unspecified Status: Acute (3) BPH (benign prostatic hyperplasia): Qualifiers: Lower urinary tract symptom detail: urinary retention Code(s): N40.0 - Benign prostatic hyperplasia without lower urinary tract symptoms Status: Acute (4) UTI (urinary tract infection): Qualifiers: Indwelling urinary catheter type: indwelling urethral catheter Code(s): N39.0 - Urinary tract infection, site not specified Status: Acute (5) Dementia: Qualifiers: Dementia behavioral or psychological symptom: with other behavioral disturbance Dementia severity: unspecified severity Dementia type: unspecified type Qualified Code(s): F03.918 - Unspecified dementia, unspecified severity, with other behavioral disturbance Code(s): F03.90 - Unspecified dementia, unspecified severity, without behavioral disturbance, psychotic disturbance, mood disturbance, and anxiety Status: Acute Plan 89yo male with multiple comorbidities including BPH, recurrent urinary retention, frequent UTI, CKD III, penile implant presenting with general weakness, decreased oral intake, and agitation. Workup notable for ROMAIN on CKD with Cr 3.0 (baseline 1.2), hyperkalemia to 6.4 now resolved, and UA concerning for UTI. CT A/P shows 1 cm bladder stone and cystitis. Plan: - Plan for outpatient observation of 1 cm bladder stone given he is asymptomatic with advanced age/dementia. - Follow urine culture; currently on IV ceftriaxone for complicated UTI. - Continue monthly catheter exchanges at the nursing facility where he resides. Ensure catheter is off-tension. - Encourage oral fluid intake. - No plan for inpatient urology intervention. 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 Patient has dementia and son reports he has barely been eating over the last week. Additionally, he has been verbally aggressive with the nurses at his facility, not letting them drain his Vinson catheter bag. He is also more weak than usual. Urology consulted for incidental finding of 1cm bladder stone on CT imaging. He is asymptomatic on exam this afternoon. -PERTINENT LABS: 02/11/24 - WBC 8.4, Hgb 11.6, Hct 33.9, Plt 184, Cr 3 02/12/24 - Cr 2.60 -PERTINENT IMAGIN02/12/24 CT Abdomen/Pelvis (without contrast) - Probable cystitis, despite decompression with Vinson catheter. Urinary bladder stones measuring up to 1 cm. Cardiomegaly. Review of Systems Review of Systems: All systems reviewed & are unremarkable except as noted in HPI and below Constitutional: Constitutional: Reports as per HPI Eyes: Eyes: Reports no additional eye complaints ENT: Reports Normal hearing present Cardiovascular: Cardiovascular: Reports no additional cardiovascular complaints Respiratory: Respiratory: Reports no additional respiratory complaints Gastrointestinal: Gastrointestinal: Reports as per HPI Genitourinary: Genitourinary: Reports as per HPI Musculoskeletal: Musculoskeletal: Reports as per HPI Neurologic: Reports as per HPI Psychiatric: Psychiatric: Reports as per HPI [facility] Past Medical History Medical History Atrial fibrillation Basal cell carcinoma Chronic anticoagulation Glaucoma 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 Hypertension Iron deficiency anemia Surgical History Surgical History H/O cataract extraction H/O hemorrhoidectomy H/O shoulder replacement H/O thyroidectomy History of incision and drainage I&D of infected left lower extremity hematoma by Dr. Sandra on 07/24/23 History of removal of skin mole History of tonsillectomy Family History Family History Mother Cerebrovascular accident Father Testicle cancer Cerebrovascular accident Sibling Malignant neoplasm of prostate Social History Social History Social History: Code status: Do not resuscitate. Smoking packs per day: 2 Smoking cigarettes per day: 40.0 Years smoked: 31 Smoking pack-years: 62.00 Smoking status: Former smoker Second hand tobacco smoke exposure: No Alcohol intake: never Substance use: never Substance use type: does not use Do You Feel Safe in your Home?: Yes Lack of Transportation: No Lack of Food: Never True Current Housing: I Have Housing Concerned About Future Housing: No Difficulty Paying Gas/Electric Bills: No Difficulty Paying for Meds: No Currently Unemployed: No Education: Decline to Answer Difficulty w/ Childcare or Family Care: No Living arrangements: intermediate Additional living arrangements comments: [facility] Additional 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 Spiritual care concerns: No Meds Home Medications and Allergies Home Medications Medication Instructions Recorded Confirmed Type finasteride 5 mg tablet 5 mg PO DAILY 06/15/22 02/12/24 History metoprolol succinate 25 mg 25 mg PO DAILY 06/15/22 02/12/24 History tablet,extended release 24 hr tamsulosin 0.4 mg capsule 0.4 mg PO DAILY #30 caps 06/21/22 02/12/24 Rx latanoprost 0.005 % eye drops 1 drp EACH EYE HS 08/08/23 02/12/24 History potassium chloride 20 mEq 20 meq PO DAILY #7 tabs 08/11/23 02/12/24 Rx tablet,extended release arginine-vitamin C-vitamin E oral 9.2 g PO BID 08/29/23 02/12/24 History 4.5 gram-156 mg/9.2 gram powder pkt (Arginaid) azelastine 137 mcg (0.1 %) nasal 137 mcg intranasal DAILY 08/29/23 02/12/24 History spray fluticasone propionate 50 2 spray intranasal DAILY 08/29/23 02/12/24 History mcg/actuation nasal spray,suspension spironolactone 25 mg tablet 25 mg PO QAM #30 tabs 09/03/23 02/12/24 Rx umeclidinium 62.5 mcg/actuation 1 inh inhalation DAILYRT #7 ea 09/05/23 02/12/24 Rx blister powder for inhalation (Incruse Ellipta) ascorbic acid (vitamin C) 500 mg 500 mg PO BID 11/28/23 02/12/24 History tablet cetirizine 10 mg tablet 10 mg PO DAILY 11/28/23 02/12/24 History cholecalciferol (vitamin D3) 10 10 mcg PO DAILY 11/28/23 02/12/24 History mcg (400 unit) capsule (Vitamin D3) clopidogrel 75 mg tablet 75 mg PO DAILY 11/28/23 02/12/24 History ferrous sulfate 325 mg (65 mg 325 mg PO BID 11/28/23 02/12/24 History iron) tablet furosemide 40 mg tablet 40 mg PO DAILY 11/28/23 02/12/24 History linagliptin 5 mg tablet (Tradjenta) 5 mg PO DAILY 11/28/23 02/12/24 History valsartan 80 mg tablet 80 mg PO DAILY 11/28/23 02/12/24 History acetaminophen 325 mg tablet 650 mg PO Q6H PRN Pain 02/12/24 02/12/24 History albuterol sulfate 90 mcg/actuation 2 puff inhalation Q6H PRN 02/12/24 02/12/24 History aerosol inhaler shortness of breath or wheezing hydrocodone 5 mg-acetaminophen 325 1 tablet PO Q6H 02/12/24 02/12/24 History mg tablet loperamide 2 mg capsule (Imodium 4 mg PO Q2H PRN Diarrhea 02/12/24 02/12/24 H istory A-D) quetiapine 25 mg tablet 25 mg PO BID 02/12/24 02/12/24 History Allergies Allergy/AdvReac Type Severity Reaction Status Date / Time atorvastatin AdvReac Muscle Pain Verified 02/11/24 22:34 clarithromycin [From Biaxin] AdvReac Gastrointestinal Verified 02/11/24 22:34 Upset rofecoxib AdvReac Nausea and Verified 02/11/24 22:34 Vomiting [id number] Reductase AdvReac Muscle Pain Verified 02/11/24 22:34 Inhibitor Vital Signs Vital Signs - 24 hr 02/11/24 19:47 02/11/24 20:43 02/11/24 20:43 Temperature 97 F L Pulse Rate 86 66 Respiratory Rate 15 Blood Pressure 94/47 L Pulse Oximetry 98 99 Oxygen Delivery Room Air Room Air 02/11/24 20:16 02/11/24 20:46 02/11/24 22:01 Temperature Pulse Rate 66 71 64 Respiratory Rate 23 H 15 15 Blood Pressure 122/97 H 136/92 H 100/61 Pulse Oximetry 98 97 100 Oxygen Delivery 02/11/24 23:32 02/12/24 02:00 02/12/24 03:15 Temperature Pulse Rate 67 67 70 Respiratory Rate 14 17 16 Blood Pressure 118/44 L Pulse Oximetry 98 98 100 Oxygen Delivery 02/12/24 05:47 02/12/24 05:47 02/12/24 06:01 Temperature Pulse Rate 66 66 55 L Respiratory Rate 20 17 11 L Blood Pressure 91/57 L 90/57 L 95/49 L Pulse Oximetry 96 Oxygen Delivery 02/12/24 07:16 02/12/24 07:43 02/12/24 08:03 Temperature Pulse Rate 71 68 60 Respiratory Rate 16 12 12 Blood Pressure 92/58 L 90/55 L Pulse Oximetry Oxygen Delivery 02/12/24 08:18 02/12/24 09:30 02/12/24 12:00 Temperature 97.5 F L Pulse Rate 66 76 71 Respiratory Rate 14 22 H Blood Pressure 107/44 L Pulse Oximetry 100 Oxygen Delivery 02/12/24 12:00 02/12/24 12:00 02/12/24 14:00 Temperature 97.7 F Pulse Rate 64 77 77 Respiratory Rate 16 Blood Pressure 117/56 L Pulse Oximetry 100 Oxygen Delivery 02/12/24 05:52 Temperature Pulse Rate 66 Respiratory Rate 20 Blood Pressure 91/57 L Pulse Oximetry 96 Oxygen Delivery Exam Const: General: comfortable and no acute distress HENMT: Face/Nose/Sinus: Normal nares present Eyes: General: appearance normal, both eyes and all related structures Resp: Effort & Inspection: normal respiratory effort GI: Inspection: non-distended Urinary Catheter: Urinary Catheter: patent and draining and urine clear (yel low) Skin: General skin exam: normal color Neuro: Speech: normal speech Psych: Affect: Anxious affect present Results Labs 02/12/24 08:21 02/12/24 08:22 Labs: Short CBC 02/11/24 02/12/24 Range/Units 22:03 08:21 WBC 8.4 7.2 (4.5-10.0) K/mm3 Hgb 11.6 L 10.1 L (14.0-18.0) g/dL Hct 33.9 L 29.2 L (42.0-52.0) % Plt Count 184 158 (150-375) k/mm3 BMP 02/11/24 02/12/24 02/12/24 22:03 03:46 08:22 Sodium 134 L 136 L 137 Potassium 6.4 H* 4.8 4.7 Chloride 105 106 108 H Carbon Dioxide 16 L 18 L 18 L BUN 189 H D 183 H 166 H D Creatinine 3.00 H 2.60 H 2.30 H Glucose 87 45 L* 82 Calcium 9.2 8.8 8.3 L Cardiac Enzymes 02/11/24 02/11/24 Range/Units 22:03 23:57 Troponin I 0.213 H* 0.202 H* (0.000-0.034) ng/mL Liver Function 02/11/24 Range/Units 22:03 Total Bilirubin 0.5 (0.2-1.3) mg/dL AST 25 (17-59) U/L ALT 12 (6-50) U/L Alkaline Phosphatase 70 (38-126) U/L Albumin 4.2 (3.5-5.1) g/dL Urine 02/11/24 Range/Units 22:03 Urine Color Yellow (Yellow) Urine Appearance Turbid H (Clear) Urine pH 5.0 (5.0-9.0) Ur Specific [place] 1.014 (1.001-1.035) Urine Protein Trace (Negative) mg/dL Urine Glucose (UA) Negative (Negative) mg/dL
[2024-02-13] VITALS (13 sets, daily range): BP systolic 100–123; BP diastolic 40–68; PULSE 54–74; RESP 16–20; TEMP 36.4–36.8; O2SAT 96–100
[2024-02-13 07:23] LABS: Basophils Absolute Auto 0.1 K/mm3 (0.0-0.1); Basophils Percent Auto 0.8 % (0.2-1.2); Eosinophils Absolute Auto 0.4 K/mm3 (0-0.3); Eosinophils Percent Auto 4.2 % (0-4.4); Hematocrit 31.7 % (42.0-52.0); Hemoglobin 10.5 g/dL (14.0-18.0); Immature Granulocyte Absolute 0.04 K/mm3 (0.00-0.031); Immature Granulocyte Percent A 0.5 % (0-0.5); Lymphocytes Absolute Auto 1.11 K/mm3 (0.9-3.2); Lymphocytes Percent Auto 13.3 % (18.3-44.2); Mean Corpuscular HGB Conc 33.1 g/dl (32-36); Mean Corpuscular Hemoglobin 33.3 pg (26-34); Mean Corpuscular Volume 100.6 fl (80-100); Mean Platelet Volume 11.4 fl (7.4-10.4); Monocytes Percent Auto 11.4 % (2.6-8.5); Neutrophils Absolute Auto 5.8 K/mm3 (1.3-6.7); Neutrophils Percent Auto 69.8 % (45.5-73.1); Platelet Count Result 178 k/mm3 (150-375); Red Blood Count 3.15 M/mm3 (4.6-6.20); Red Cell Distribution Width 12.9 % (11.5-14.5); White Blood Count 8.3 K/mm3 (4.5-10.0)
[2024-02-13] MEDS: UMECLIDINIUM BROMIDE 62.5 MCG ELLIPTA 1 PUFF INHALATION (08:37)
[2024-02-13] MEDS: FERROUS SULFATE 325 MG TABLET DR PO ×2 (09:02→17:53)
[2024-02-13] MEDS: METOPROLOL SUCCINATE EXT REL 25 MG TABCR PO (09:02)
[2024-02-13] MEDS: CLOPIDOGREL BISULFATE 75 MG TABLET PO (09:02)
[2024-02-13] MEDS: FINASTERIDE 5 MG TABLET PO (09:03)
[2024-02-13 09:21] LABS: Albumin Level 3.3 g/dL (3.5-5.1); Anion Gap 7 mmol/L (4-12); Calcium 8.7 mg/dL (8.4-10.2); Carbon Dioxide 22 mmol/L (22-30); Chloride 111 mmol/L (98-107); Creatine Kinase 46 U/L (55-170); Estimated CRCL calculation 19 ml/min; Estimated Glomerular Filt Rate 38; Glucose 90 mg/dL (65-110); Phosphorus 4.4 mg/dL (2.5-4.5); Potassium 5.5 mmol/L (3.4-5.0); Sodium 140 mmol/L (137-145)
[2024-02-13] MEDS: SODIUM ZIRCONIUM CYCLOSILICATE 10 GM POWD.PACK PO (10:09)
[2024-02-13 10:58] LABS: Blood Urea Nitrogen 129 mg/dL (9-20)
--- NOTE | 2024-02-13 11:01 | P.PNNP_ITS ---
Progress Note: A&P Assessment and Plan (1) Acute kidney injury: Code(s): N17.9 - Acute kidney failure, unspecified Status: Acute Assessment and Plan: * slow improvement noted * as noted by admission creatinine of 3.0mg/dl * multifactorial etiology: * prerenal factors (poor oral intake) * relative hypotension * infection (UTI) * ongoing use of diuretics/ARB prior to admission * urinary retention (alas has been replaced in ER) * evaluation to date: * urine electrolytes suggest prerenal azotemia * CPK low * urine eosinophils rare - probably due to UTI * UA suggestive of infection * renal ultrasound w/o obstruction * gentle IVF hydration as tolerated * follow trend of repeat labs and UOP (2) Stage 3a chronic kidney disease: Code(s): N18.31 - Chronic kidney disease, stage 3a Status: Chronic Assessment and Plan: * baseline creatinine seems to run around 0.8 - 1.3mg/dl * this causes him to fluctuate between CKD stage 2 and stage 3A * presumably due to his hypertension, BPH, and an element of cardiorenal syndrome given depressed EF and chronic diuretic therapy (3) Hyperkalemia: Code(s): E87.5 - Hyperkalemia Status: Acute Assessment and Plan: * improving if not resolved * elevated at 6.1 on admission * s/p medical management - repeat as needed * likely secondary to ROMAIN in the context of spironolactone and K+ supplement use * K+ supplements and spironolactone on hold * follow trend (4) UTI (urinary tract infection): Qualifiers: Indwelling urinary catheter type: indwelling urethral catheter Code(s): N39.0 - Urinary tract infection, site not specified Status: Acute Assessment and Plan: * admission UA highly suggestive * associated suprapubic tenderness noted as well * alas catheter replaced in ER * follow culture results - culture with E.coli * bladder stone noted by CT -- playing a role? * on antibiotics (5) Altered mental status: Code(s): R41.82 - Altered mental status, unspecified Status: Acute Assessment and Plan: * as noted by history provided in ER * complicated by known history of dementia * however, currently, mentation seems to be doing better * suspect secondary to ROMAIN, UTI, and poor oral intake * follow mentation (6) Chronic systolic heart failure: Code(s): I50.22 - Chronic systolic (congestive) heart failure Status: Chronic Assessment and Plan: * as noted by last Echo (EF 20 - 25%) * appears relatively compensated at this time * diuretics (lasix and spironolactone) on hold * follow volume status closely (7) Chronic anemia: Code(s): D64.9 - Anemia, unspecified Status: Chronic Assessment and Plan: * H/H relatively stable * no need for AGATA * follow trend Will continue to follow. Subjective Date/time seen: 02/13/24 11:01 Interval history: Follow-up for acute kidney injury/acute renal failure. Renal function/creatinine has improved with current interventions with adequate urine output although BUN remains quite elevated; appears to be eating and drinking better as well; still reports significant fatigue/weakness at the time of my visit; no issues/events overnight or earlier this morning. Exam 2 Narrative: General: frail and elderly male in NAD Heart: normal S1 and S2; no rub Lungs: clear anteriorly Abdomen: soft, nontender, nondistended, positive bowel sounds Extremities: no cyanosis or clubbing; no edema Skin: warm and dry Objective Data Vital Signs Vital Signs: Vital Signs Temp Pulse Resp BP Pulse Ox 02/13/24 11:00 98.3 F 60 16 115/40 L 100 02/13/24 10:00 67 02/13/24 09:38 96 02/13/24 09:02 62 02/13/24 08:00 72 02/13/24 08:00 98.1 F 65 20 123/68 02/13/24 02:00 61 02/13/24 00:00 70 02/12/24 23:18 98.0 F 78 24 H 105/62 100 02/12/24 22:00 74 02/12/24 20:31 98.1 F 72 24 H 115/56 L 100 02/12/24 20:00 76 Intake/Output Intake/Output: Intake & Output 02/10/24 02/11/24 02/12/24 02/13/24 23:59 23:59 23:59 23:59 Intake Total 2420 [id number] Output Total 1900 1100 Balance 520 [id number] Meds/Results Medications: Active Medications Generic Name Dose Route Start Last Admin Trade Name Freq PRN Reason Stop Dose Admin Hydrocodone Bitart/Acetaminophen 1 tab 02/12/24 07:50 Hydrocodone/Acetaminophen (*Crx) 5-325 Mg Tablet PO Q6H PRN Pain Albuterol 2 puff 02/12/24 07:49 Albuterol Sulfate (*Sp) Aerosol 1 Puff INHALATION Q6H PRN shortness of breath or wheezing Clopidogrel Bisulfate 75 mg 02/12/24 09:00 02/13/24 09:02 Clopidogrel Bisulfate 75 Mg Tablet PO 75 mg DAILY OMID Administration Ferrous Sulfate 325 mg 02/12/24 09:00 02/13/24 17:53 Ferrous Sulfate [address] PO 325 mg BID OMID Administration Finasteride 5 mg 02/12/24 09:00 02/13/24 09:03 Finasteride 5 Mg Tablet PO 5 mg DAILY OMID Administration Furosemide 40 mg 02/12/24 09:00 02/12/24 11:52 Furosemide 40 Mg Tablet PO Not Given DAILY OMID Ceftriaxone Sodium 1 gm in 50 mls @ 100 mls/hr 02/13/24 01:00 02/13/24 02:15 Rocephin 1 Gm/Ns 50 Ml IVPB Infused Q24H OMID Infusion Sodium Chloride 1,000 mls @ 50 mls/hr 02/13/24 17:25 Normal Saline Iv IV CONT 02/14/24 13:24 .Q20H OMID Metoprolol Succinate 25 mg 02/12/24 09:00 02/13/24 09:02 Metoprolol Succinate Ext Rel 25 Mg Tabcr PO 25 mg DAILY OMID Administration Umeclidinium [place] 1 puff 02/12/24 08:00 02/13/24 08:37 Umeclidinium [place] 62.5 Mcg Ellipta INHALATION 1 puff DAILYRT OMID Administration Radiology Results: ITS Impressions Head CT 02/11/24 21:19 IMPRESSION: Cerebral atherosclerosis and chronic small vessel ischemic changes of the cerebral white matter No acute intracranial finding Chronic left maxillary Abdomen/Pelvis CT 02/12/24 06:07 Impression: Probable cystitis, despite decompression with Alas catheter. Correlate with urinalysis. Urinary bladder stones measuring up to 1 cm. Cardiomegaly. Renal Ultrasound 02/12/24 17:03 IMPRESSION: 1. 1.9 cm right renal cyst. Otherwise normal kidneys without hydronephrosis. 2. 1.5 cm bladder stone and a Alas catheter within the otherwise unremarkable bladder. 3. 4 cm loculated fluid collection anterior left pelvis which when correlated with prior CT studies appears to represent a residual small hematoma/seroma at the site of recent explanted penile prosthesis reservoir. Labs Labs: Laboratory Tests 02/13/24 05:35 02/13/24 05:33 Calcium 8.7 Phosphorus 4.4 Magnesium 2.0 Total Creatine Kinase 46 L Albumin 3.3 L Microbiology 02/11/24 22:03 Urine Catheterized Urine Culture - Preliminary Escherichia Coli 02/11/24 22:03 Blood Blood Culture - Preliminary 02/11/24 22:07 Blood Blood Culture - Preliminary
--- NOTE | 2024-02-13 11:08 | WPDUROPN2 ---
Progress Note: A&P Assessment and Plan (1) Bladder stone: Code(s): N21.0 - Calculus in bladder Status: Acute (2) UTI (urinary tract infection): Qualifiers: Indwelling urinary catheter type: indwelling urethral catheter Code(s): N39.0 - Urinary tract infection, site not specified Status: Acute (3) Retention of urine: Code(s): R33.9 - Retention of urine, unspecified Status: Acute Plan 89yo male with multiple comorbidities including BPH, recurrent urinary retention, frequent UTI, CKD III, recent penile explant presenting with general weakness, decreased oral intake, and agitation. Workup notable for ROMAIN on CKD with Cr 3 improved to 1.7 (baseline 1.2), and UA concerning for UTI. CT A/P shows 1 cm bladder stone and cystitis. Urine culture pending. - Plan for outpatient observation of 1 cm bladder stone given he is asymptomatic with advanced age/dementia. - Follow urine culture; currently on IV ceftriaxone - Continue monthly catheter exchanges at the nursing facility where he resides. Ensure catheter is off-tension. - Encourage oral fluid intake. - No plan for inpatient urology intervention. Signing off. Please call with questions. Subjective Subjective Date/Time Seen: 02/13/24 11:08 Interval history: NAEO; Patient doesn't recall our conversation from yesterday. No issues with Vinson, denies complaints. Asymptomatic bladder stone. Exam Const: General: comfortable and no acute distress Urinary Catheter: Urinary Catheter: patent and draining (yellow) and urine clear Objective Data Vital Signs Vital Signs: Vital Signs - 24 hr 02/12/24 12:00 02/12/24 12:00 02/12/24 12:00 Temperature 97.7 F Pulse Rate 71 64 77 Respiratory Rate 16 Blood Pressure 117/56 L Pulse Oximetry 100 02/12/24 14:00 02/12/24 16:00 02/12/24 16:00 Temperature 97.9 F Pulse Rate 77 82 68 Respiratory Rate 24 H Blood Pressure 104/76 Pulse Oximetry 100 02/12/24 18:00 02/12/24 20:00 02/12/24 20:31 Temperature 98.1 F Pulse Rate 71 76 72 Respiratory Rate 24 H Blood Pressure 115/56 L Pulse Oximetry 100 02/12/24 22:00 02/12/24 23:18 02/13/24 00:00 Temperature 98.0 F Pulse Rate 74 78 70 Respiratory Rate 24 H Blood Pressure 105/62 Pulse Oximetry 100 02/13/24 02:00 02/13/24 08:00 02/13/24 09:02 Temperature 98.1 F Pulse Rate 61 65 62 Respiratory Rate 20 Blood Pressure 123/68 Pulse Oximetry 02/13/24 09:38 Temperature Pulse Rate Respiratory Rate Blood Pressure Pulse Oximetry 96 Intake/Output Intake/Output: Intake & Output 02/10/24 02/11/24 02/12/24 02/13/24 23:59 23:59 23:59 23:59 Intake Total 2420 50 Output Total 1900 Balance 520 50 Meds/Results Medications: Active Medications Generic Name Dose Route Start Last Admin Trade Name Freq PRN Reason Stop Dose Admin Hydrocodone Bitart/Acetaminophen 1 tab 02/12/24 07:50 Hydrocodone/Acetaminophen (*Crx) 5-325 Mg Tablet PO Q6H PRN Pain Albuterol 2 puff 02/12/24 07:49 Albuterol Sulfate (*Sp) Aerosol 1 Puff INHALATION Q6H PRN shortness of breath or wheezing Clopidogrel Bisulfate 75 mg 02/12/24 09:00 02/13/24 09:02 Clopidogrel Bisulfate 75 Mg Tablet PO 75 mg DAILY OMID Administration Ferrous Sulfate 325 mg 02/12/24 09:00 02/13/24 09:02 Ferrous Sulfate [address] PO 325 mg BID OMID Administration Finasteride 5 mg 02/12/24 09:00 02/13/24 09:03 Finasteride 5 Mg Tablet PO 5 mg DAILY OMID Administration Furosemide 40 mg 02/12/24 09:00 02/12/24 11:52 Furosemide 40 Mg Tablet PO Not Given DAILY OMID Ceftriaxone Sodium 1 gm in 50 mls @ 100 mls/hr 02/13/24 01:00 02/13/24 02:15 Rocephin 1 Gm/Ns 50 Ml IVPB Infused Q24H OMID Infusion Metoprolol Succinate 25 mg 02/12/24 09:00 02/13/24 09:02 Metoprolol Succinate Ext Rel 25 Mg Tabcr PO 25 mg DAILY OMID Administration Umeclidinium [place] 1 puff 02/12/24 08:00 02/13/24 08:37 Umeclidinium [place] 62.5 Mcg Ellipta INHALATION 1 puff DAILYRT OMID Administration Radiology Results: ITS Impressions Chest X-Ray 02/11/24 20:56 IMPRESSION: Mild infiltrate or atelectasis in the left lower lobe, minimal right upper lobe infiltrate Cardiac magna, extensive aortic atherosclerosis Head CT 02/11/24 21:19 IMPRESSION: Cerebral atherosclerosis and chronic small vessel ischemic changes of the cerebral white matter No acute intracranial finding Chronic left maxillary Abdomen/Pelvis CT 02/12/24 06:07 Impression: Probable cystitis, despite decompression with Vinson catheter. Correlate with urinalysis. Urinary bladder stones measuring up to 1 cm. Cardiomegaly. Renal Ultrasound 02/12/24 17:03 IMPRESSION: 1. 1.9 cm right renal cyst. Otherwise normal kidneys without hydronephrosis. 2. 1.5 cm bladder stone and a Vinson catheter within the otherwise unremarkable bladder. 3. 4 cm loculated fluid collection anterior left pelvis which when correlated with prior CT studies appears to represent a residual small hematoma/seroma at the site of recent explanted penile prosthesis reservoir. Labs Labs: Laboratory Results - last 24 hr 02/12/24 02/12/24 02/12/24 11:02 11:02 11:02 WBC RBC Hgb Hct MCV MCH MCHC RDW Plt Count MPV Immature Gran % (Auto) Neut % (Auto) Lymph % (Auto) Frio % (Auto) Eos % (Auto) Baso % (Auto) Lymph # (Auto) Frio # (Auto) Eos # (Auto) Baso # (Auto) Abs Immat Gran (auto) Absolute Neuts (auto) Absolute Nucleated RBC Nucleated RBC % Sodium Potassium Chloride Carbon Dioxide Anion Gap BUN Creatinine Estim Creat Clear Calc Estimated GFR Glucose Calcium Phosphorus Magnesium Total Creatine Kinase Albumin Urine Eosinophils Rare U Random Total Protein 17 17 Ur Random Sodium 42 Ur Random Urea 961 Urine Creatinine 57.5 57.3 Protein/Creat Ratio 2 0.30 H 02/13/24 02/13/24 05:33 05:35 WBC 8.3 RBC 3.15 L Hgb 10.5 L Hct 31.7 L MCV 100.6 H MCH 33.3 MCHC 33.1 RDW 12.9 Plt Count 178 MPV 11.4 H Immature Gran % (Auto) 0.5 Neut % (Auto) 69.8 Lymph % (Auto) 13.3 L Frio % (Auto) 11.4 H Eos % (Auto) 4.2 Baso % (Auto) 0.8 Lymph # (Auto) 1.11 Frio # (Auto) 1.0 H Eos # (Auto) 0.4 H Baso # (Auto) 0.1 Abs Immat Gran (auto) 0.04 H Absolute Neuts (auto) 5.8 Absolute Nucleated RBC 0.000 Nucleated RBC % 0.0 Sodium 140 Potassium 5.5 H Chloride 111 H Carbon Dioxide 22 Anion Gap 7 BUN 129 H D Creatinine 1.70 H Estim Creat Clear Calc 19 Estimated GFR 38 L Glucose 90 Calcium 8.7 Phosphorus 4.4 Magnesium 2.0 Total Creatine Kinase 46 L Albumin 3.3 L Urine Eosinophils U Random Total Protein Ur Random Sodium Ur Random Urea Urine Creatinine Protein/Creat Ratio 2
--- NOTE | 2024-02-13 13:33 | P.PNIM_ITS ---
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: Code(s): N17.9 - Acute kidney failure, unspecified; N18.32 - Chronic kidney disease, stage 3b Status: Acute (2) Elevated troponin: Code(s): R79.89 - Other specified abnormal findings of blood chemistry Status: Acute (3) Acute hyperkalemia: Code(s): E87.5 - Hyperkalemia Status: Acute (4) Acute UTI: Code(s): N39.0 - Urinary tract infection, site not specified Status: Acute (5) Adult failure to thrive: Code(s): R62.7 - Adult failure to thrive Status: Acute (6) Dementia: Qualifiers: Dementia behavioral or psychological symptom: with other behavioral disturbance Dementia severity: unspecified severity Dementia type: unspecified type Qualified Code(s): F03.918 - Unspecified dementia, unspecified severity, with other behavioral disturbance Code(s): F03.90 - Unspecified dementia, unspecified severity, without behavioral disturbance, psychotic disturbance, mood disturbance, and anxiety Status: Acute (7) Chronic systolic heart failure: Code(s): I50.22 - Chronic systolic (congestive) heart failure Status: Chronic (8) Chronic anemia: Code(s): D64.9 - Anemia, unspecified Status: Chronic Plan General weakness Due to multiple comorbidities and physical deconditioning, exacerbated by UTI, worsening kidney function, possible dehydration Consult PT OT personal care aide for evaluation and assisting placement Acute encephalopathy Patient has dementia, mental status worse than baseline, patient had aggressive behavior in the ED, Suspecting acute encephalopathy superimposed with delirium Likely resulting from UTI, uremia, dehydration, electrolyte disorder Treat underlying disease Complicated UTI UA shows pyuria, hematuria, CT scan showed bladder stone 1 cm Patient has suprapubic tenderness Received ceftriaxone in the ED, continue ceftriaxone 1 g IV daily Folic catheter placed Consult urologist for evaluation treatment regarding the bladder stone ROMAIN on CKD, Patient has CKD stage 3 chronic a GFR decreased to 15 Likely resulting from UTI urinary obstruction and dehydration Gentle IV fluid Patient is on ceftriaxone Consult video system repairer and urologist for evaluation treatment Chronic AFib, CAD, elevated troponin Patient is on Plavix 75 mg daily p.o., not on blood thinner Continue metoprolol 25 mg daily p.o. Elevated troponin likely secondary to worsening kidney function, UTI Telemetry monitoring Chronic systolic heart failure Continue furosemide 40 mg daily p.o. Hold spironolactone and potassium chloride supplement because of hyperkalemia Hyperkalemia Potassium 6.1 upon arrival in the ED. Patient received sodium bicarbonate, lokelma Corrected Essential hypertension Blood pressure low Hold losartan 80 mg daily p.o. COPD Continue albuterol inhaler 2 puffs q.6 hours p.r.n. and Incruse Ellipta 1 puff daily O2 therapy per and to keep pulse ox above 94 Chronic anemia Patient has chronic anemia due to multiple comorbidities Hemoglobin above baseline Continue ferrous sulfate p.o. No obvious bleeding Follow-up BMP Hypoglycemia Patient received insulin in the ED Start D5 normal saline IV 100 mL/hour Patient may stay more than 2 midnights in the hospital Subjective Date/time seen: 02/13/24 13:33 Interval history: I saw exam patient today, patient feels better, still has weakness, afebrile, blood pressure stable, no new issue even overnight. Labs reviewed Exam Narrative: GENERAL: Pleasant, in no acute distress. Well-nourished. - EYES: EOMI. Anicteric. - HENT: Dry mucous membranes. - LUNGS: Clear to auscultation bilateral ly, no wheezing, rhonchi, or rales. - CARDIOVASCULAR: Regular rate and rhyth m. No murmur. No JVD. - ABDOMEN: Soft, suprapubic tender and n on-distended. No palpable masses. - EXTREMITIES: No edema. Peripheral puls es 2+. Non-tender. - NEUROLOGIC: No focal neurological defi cits. CN II-XII grossly intact. General weakness - PSYCHIATRIC: Awake, Alert and not orie nted x 3. Appropriate mood and affect. - SKIN: No rashes or lesions. Warm. - LYMPH: No cervical lymphadenopathy. Objective Data Vital Signs Vital Signs: Vital Signs - 24 hr 02/12/24 14:00 02/12/24 16:00 02/12/24 16:00 Temperature 97.9 F Pulse Rate 77 82 68 Respiratory Rate 24 H Blood Pressure 104/76 Pulse Oximetry 100 02/12/24 18:00 02/12/24 20:00 02/12/24 20:31 Temperature 98.1 F Pulse Rate 71 76 72 Respiratory Rate 24 H Blood Pressure 115/56 L Pulse Oximetry 100 02/12/24 22:00 02/12/24 23:18 02/13/24 00:00 Temperature 98.0 F Pulse Rate 74 78 70 Respiratory Rate 24 H Blood Pressure 105/62 Pulse Oximetry 100 02/13/24 02:00 02/13/24 08:00 02/13/24 08:00 Temperature 98.1 F Pulse Rate 61 65 72 Respiratory Rate 20 Blood Pressure 123/68 Pulse Oximetry 02/13/24 09:02 02/13/24 09:38 02/13/24 10:00 Temperature Pulse Rate 62 67 Respiratory Rate Blood Pressure Pulse Oximetry 96 02/13/24 12:00 Temperature 98.3 F Pulse Rate 60 Respiratory Rate 16 Blood Pressure 115/40 L Pulse Oximetry 100 Intake/Output Intake/Output: Intake & Output 02/10/24 02/11/24 02/12/24 02/13/24 23:59 23:59 23:59 23:59 Intake Total 2420 50 Output Total 1900 Balance 520 50 Meds/Results Medications: Active Medications Generic Name Dose Route Start Last Admin Trade Name Freq PRN Reason Stop Dose Admin Hydrocodone Bitart/Acetaminophen 1 tab 02/12/24 07:50 Hydrocodone/Acetaminophen (*Crx) 5-325 Mg Tablet PO Q6H PRN Pain Albuterol 2 puff 02/12/24 07:49 Albuterol Sulfate (*Sp) Aerosol 1 Puff INHALATION Q6H PRN shortness of breath or wheezing Clopidogrel Bisulfate 75 mg 02/12/24 09:00 02/13/24 09:02 Clopidogrel Bisulfate 75 Mg Tablet PO 75 mg DAILY OMID Administration Ferrous Sulfate 325 mg 02/12/24 09:00 02/13/24 09:02 Ferrous Sulfate [address] PO 325 mg BID OMID Administration Finasteride 5 mg 02/12/24 09:00 02/13/24 09:03 Finasteride 5 Mg Tablet PO 5 mg DAILY OMID Administration Furosemide 40 mg 02/12/24 09:00 02/12/24 11:52 Furosemide 40 Mg Tablet PO Not Given DAILY OMID Ceftriaxone Sodium 1 gm in 50 mls @ 100 mls/hr 02/13/24 01:00 02/13/24 02:15 Rocephin 1 Gm/Ns 50 Ml IVPB Infused Q24H OMID Infusion Metoprolol Succinate 25 mg 02/12/24 09:00 02/13/24 09:02 Metoprolol Succinate Ext Rel 25 Mg Tabcr PO 25 mg DAILY OMID Administration Umeclidinium [place] 1 puff 02/12/24 08:00 02/13/24 08:37 Umeclidinium [place] 62.5 Mcg Ellipta INHALATION 1 puff DAILYRT OMID Administration Radiology Results: ITS Impressions Chest X-Ray 02/11/24 20:56 IMPRESSION: Mild infiltrate or atelectasis in the left lower lobe, minimal right upper lobe infiltrate Cardiac magna, extensive aortic atherosclerosis Head CT 02/11/24 21:19 IMPRESSION: Cerebral atherosclerosis and chronic small vessel ischemic changes of the cerebral white matter No acute intracranial finding Chronic left maxillary Abdomen/Pelvis CT 02/12/24 06:07 Impression: Probable cystitis, despite decompression with Vinson catheter. Correlate with urinalysis. Urinary bladder stones measuring up to 1 cm. Cardiomegaly. Renal Ultrasound 02/12/24 17:03 IMPRESSION: 1. 1.9 cm right renal cyst. Otherwise normal kidneys without hydronephrosis. 2. 1.5 cm bladder stone and a Vinson catheter within the otherwise unremarkable bladder. 3. 4 cm loculated fluid collection anterior left pelvis which when correlated with prior CT studies appears to represent a residual small hematoma/seroma at the site of recent explanted penile prosthesis reservoir. Labs Labs: Laboratory Results - last 24 hr 02/13/24 02/13/24 05:33 05:35 WBC 8.3 RBC 3.15 L Hgb 10.5 L Hct 31.7 L MCV 100.6 H MCH 33.3 MCHC 33.1 RDW 12.9 Plt Count 178 MPV 11.4 H Immature Gran % (Auto) 0.5 Neut % (Auto) 69.8 Lymph % (Auto) 13.3 L [place] % (Auto) 11.4 H Eos % (Auto) 4.2 Baso % (Auto) 0.8 Lymph # (Auto) 1.11 [place] # (Auto) 1.0 H Eos # (Auto) 0.4 H Baso # (Auto) 0.1 Abs Immat Gran (auto) 0.04 H Absolute Neuts (auto) 5.8 Absolute Nucleated RBC 0.000 Nucleated RBC % 0.0 Sodium 140 Potassium 5.5 H Chloride 111 H Carbon Dioxide 22 Anion Gap 7 BUN 129 H D Creatinine 1.70 H Estim Creat Clear Calc 19 Estimated GFR 38 L Glucose 90 Calcium 8.7 Phosphorus 4.4 Magnesium 2.0 Total Creatine Kinase 46 L Albumin 3.3 L TSH (Reflex) 1.390
[2024-02-13] MEDS: SODIUM CHLORIDE 0.9% IV 1,000 ML 50 ML IV CONT (18:37)
[2024-02-14] VITALS (13 sets, daily range): BP systolic 106–162; BP diastolic 47–84; PULSE 52–96; RESP 16–24; TEMP 36.2–36.6; O2SAT 92–100
--- NOTE | 2024-02-14 04:46 | PC.NURSE ---
Jaspal RN placed an IV in patient, but patient refusing fluids. Pt said we can only use the IV for antibiotics.
[2024-02-14 05:28] LABS: Basophils Percent Auto 0.5 % (0.2-1.2); Eosinophils Absolute Auto 0.2 K/mm3 (0-0.3); Hematocrit 31.1 % (42.0-52.0); Hemoglobin 10.3 g/dL (14.0-18.0); Immature Granulocyte Absolute 0.05 K/mm3 (0.00-0.031); Immature Granulocyte Percent A 0.6 % (0-0.5); Lymphocytes Absolute Auto 1.14 K/mm3 (0.9-3.2); Lymphocytes Percent Auto 13.2 % (18.3-44.2); Mean Corpuscular HGB Conc 33.1 g/dl (32-36); Mean Corpuscular Hemoglobin 33.2 pg (26-34); Mean Corpuscular Volume 100.3 fl (80-100); Mean Platelet Volume 10.9 fl (7.4-10.4); Monocytes Percent Auto 11.9 % (2.6-8.5); Neutrophils Absolute Auto 6.2 K/mm3 (1.3-6.7); Neutrophils Percent Auto 71.8 % (45.5-73.1); Platelet Count Result 177 k/mm3 (150-375); Red Cell Distribution Width 13.1 % (11.5-14.5); White Blood Count 8.6 K/mm3 (4.5-10.0)
[2024-02-14 05:50] LABS: Albumin Level 3.3 g/dL (3.5-5.1); Anion Gap 8 mmol/L (4-12); Blood Urea Nitrogen 83 mg/dL (9-20); Calcium 8.6 mg/dL (8.4-10.2); Carbon Dioxide 23 mmol/L (22-30); Chloride 109 mmol/L (98-107); Estimated CRCL calculation 26 ml/min; Estimated Glomerular Filt Rate 52; Glucose 129 mg/dL (65-110); Magnesium 1.8 mg/dL (1.6-2.3); Phosphorus 3.1 mg/dL (2.5-4.5); Potassium 4.2 mmol/L (3.4-5.0); Sodium 140 mmol/L (137-145)
[2024-02-14] MEDS: UMECLIDINIUM BROMIDE 62.5 MCG ELLIPTA 1 PUFF INHALATION (07:45)
[2024-02-14] MEDS: FERROUS SULFATE 325 MG TABLET DR PO (09:21)
[2024-02-14] MEDS: METOPROLOL SUCCINATE EXT REL 25 MG TABCR PO (09:21)
[2024-02-14] MEDS: FINASTERIDE 5 MG TABLET PO (09:21)
[2024-02-14] MEDS: CLOPIDOGREL BISULFATE 75 MG TABLET PO (09:22)
--- NOTE | 2024-02-14 09:40 | PM.IMPN ---
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: Code(s): N17.9 - Acute kidney failure, unspecified; N18.32 - Chronic kidney disease, stage 3b Status: Acute (2) Elevated troponin: Code(s): R79.89 - Other specified abnormal findings of blood chemistry Status: Acute (3) Acute hyperkalemia: Code(s): E87.5 - Hyperkalemia Status: Acute (4) Acute UTI: Code(s): N39.0 - Urinary tract infection, site not specified Status: Acute (5) Adult failure to thrive: Code(s): R62.7 - Adult failure to thrive Status: Acute (6) Dementia: Qualifiers: Dementia behavioral or psychological symptom: with other behavioral disturbance Dementia severity: unspecified severity Dementia type: unspecified type Qualified Code(s): F03.918 - Unspecified dementia, unspecified severity, with other behavioral disturbance Code(s): F03.90 - Unspecified dementia, unspecified severity, without behavioral disturbance, psychotic disturbance, mood disturbance, and anxiety Status: Acute (7) Chronic systolic heart failure: Code(s): I50.22 - Chronic systolic (congestive) heart failure Status: Chronic (8) Chronic anemia: Code(s): D64.9 - Anemia, unspecified Status: Chronic Plan General weakness Due to multiple comorbidities and physical deconditioning, exacerbated by UTI, worsening kidney function, possible dehydration Consult PT OT family day care worker for evaluation and assisting placement Acute encephalopathy Patient has dementia, mental status worse than baseline, patient had aggressive behavior in the ED, Suspecting acute encephalopathy superimposed with delirium Likely resulting from UTI, uremia, dehydration, electrolyte disorder Treat underlying disease Complicated UTI UA shows pyuria, hematuria, CT scan showed bladder stone 1 cm Patient has suprapubic tenderness Received ceftriaxone in the ED, continue ceftriaxone 1 g IV daily Folic catheter placed Consult urologist for evaluation treatment regarding the bladder stone. Urologist will follow up patient in the office ROMAIN on CKD, Patient has CKD stage 3 chronic a GFR decreased to 15 Likely resulting from UTI and dehydration Gentle IV fluid Patient is on ceftriaxone Consult medical services assistant and urologist for evaluation treatment A patient urologist consultation,. Continue catheter exchange I remind Urine culture grows E coli, pending susceptibility Renal ultrasound shows no obstruction Continue antibiotics, IV fluid Creatinine is trending down to 1.3 02/13 Chronic AFib, CAD, elevated troponin Patient is on Plavix 75 mg daily p.o., not on blood thinner Continue metoprolol 25 mg daily p.o. Elevated troponin likely secondary to worsening kidney function, UTI Telemetry monitoring Chronic systolic heart failure Continue furosemide 40 mg daily p.o. Hold spironolactone and potassium chloride supplement because of hyperkalemia Hyperkalemia Potassium 6.1 upon arrival in the ED. Patient received sodium bicarbonate, lokelma Corrected Essential hypertension Blood pressure low Hold losartan 80 mg daily p.o. COPD Continue albuterol inhaler 2 puffs q.6 hours p.r.n. and Incruse Ellipta 1 puff daily O2 therapy per and to keep pulse ox above 94 Chronic anemia Patient has chronic anemia due to multiple comorbidities Hemoglobin above baseline Continue ferrous sulfate p.o. No obvious bleeding Follow-up BMP Hypoglycemia Patient received insulin in the ED Start D5 normal saline IV 100 mL/hour Patient may stay more than 2 midnights in the hospital Subjective Date/time seen: 02/14/24 09:40 Interval history: I saw exam patient today, patient still has general weakness, but feels better today, patient denies chest pain shortness breast abdomen pain, dysuria Exam Narrative: GENERAL: Pleasant, in no acute distress. Well-nourished. - EYES: EOMI. Anicteric. - HENT: Dry mucous membranes. - LUNGS: Clear to auscultation bilaterally, no wheezing, rhonchi, or rales. - CARDIOVASCULAR: Regular rate and rhythm. No murmur. No JVD. - ABDOMEN: Soft, suprapubic tender and non-distended. No palpable masses. - EXTREMITIES: No edema. Peripheral pulses 2+. Non-tender. - NEUROLOGIC: No focal neurological deficits. CN II-XII grossly intact. General weakness - PSYCHIATRIC: Awake, Alert and not oriented x 3. Appropriate mood and affect. - SKIN: No rashes or lesions. Warm. - LYMPH: No cervical lymphadenopathy. Objective Data Vital Signs Vital Signs: Vital Signs - 24 hr 02/13/24 10:00 02/13/24 12:00 02/13/24 12:00 Temperature 98.3 F Pulse Rate 67 60 67 Respiratory Rate 16 Blood Pressure 115/40 L Pulse Oximetry 100 Oxygen Delivery 02/13/24 14:00 02/13/24 16:00 02/13/24 16:00 Temperature 97.5 F L Pulse Rate 54 L 65 74 Respiratory Rate 16 Blood Pressure 117/57 L Pulse Oximetry Oxygen Delivery 02/13/24 18:00 02/13/24 20:00 02/13/24 20:00 Temperature Pulse Rate 65 56 L Respiratory Rate Blood Pressure Pulse Oximetry Oxygen Delivery Room Air 02/13/24 20:36 02/13/24 22:00 02/14/24 00:00 Temperature 97.7 F Pulse Rate 54 L 63 Respiratory Rate 16 Blood Pressure 100/40 L Pulse Oximetry 100 Oxygen Delivery Room Air 02/14/24 00:00 02/14/24 00:15 02/14/24 02:00 Temperature 97.7 F Pulse Rate 62 60 65 Respiratory Rate 16 Blood Pressure 106/73 Pulse Oximetry 100 Oxygen Delivery 02/14/24 04:00 02/14/24 04:00 02/14/24 05:12 Temperature 97.8 F Pulse Rate 64 72 Respiratory Rate 16 Blood Pressure 113/47 L Pulse Oximetry 96 Oxygen Delivery Room Air 02/14/24 06:00 02/14/24 08:00 02/14/24 09:21 Temperature 97.5 F L Pulse Rate 72 96 72 Respiratory Rate 20 Blood Pressure 162/84 H Pulse Oximetry Oxygen Delivery Intake/Output Intake/Output: Intake & Output 02/11/24 02/12/24 02/13/24 02/14/24 23:59 23:59 23:59 23:59 Intake Total 2420 023111.2 400 Output Total 1900 1100 1400 Balance 520 499516.2 -1000 Meds/Results Medications: Active Medications Generic Name Dose Route Start Last Admin Trade Name Freq PRN Reason Stop Dose Admin Hydrocodone Bitart/Acetaminophen 1 tab 02/12/24 07:50 Hydrocodone/Acetaminophen (*Crx) 5-325 Mg Tablet PO Q6H PRN Pain Albuterol 2 puff 02/12/24 07:49 Albuterol Sulfate (*Sp) Aerosol 1 Puff INHALATION Q6H PRN shortness of breath or wheezing Clopidogrel Bisulfate 75 mg 02/12/24 09:00 02/14/24 09:22 Clopidogrel Bisulfate 75 Mg Tablet PO 75 mg DAILY OMID Administration Ferrous Sulfate 325 mg 02/12/24 09:00 02/14/24 09:21 Ferrous Sulfate [address] PO 325 mg BID OMID Administration Finasteride 5 mg 02/12/24 09:00 02/14/24 09:21 Finasteride 5 Mg Tablet PO 5 mg DAILY OMID Administration Furosemide 40 mg 02/12/24 09:00 02/12/24 11:52 Furosemide 40 Mg Tablet PO Not Given DAILY OMID Ceftriaxone Sodium 1 gm in 50 mls @ 100 mls/hr 02/13/24 01:00 02/14/24 03:31 Rocephin 1 Gm/Ns 50 Ml IVPB Infused Q24H OMID Infusion Sodium Chloride 1,000 mls @ 50 mls/hr 02/13/24 17:25 02/13/24 20:00 Normal Saline Iv IV CONT 02/14/24 13:24 0 mls/hr .Q20H OMID Infusion Metoprolol Succinate 25 mg 02/12/24 09:00 02/14/24 09:21 Metoprolol Succinate Ext Rel 25 Mg Tabcr PO 25 mg DAILY OMID Administration Umeclidinium [place] 1 puff 02/12/24 08:00 02/14/24 07:45 Umeclidinium [place] 62.5 Mcg Ellipta INHALATION 1 puff DAILYRT OMID Administration Radiology Results: ITS Impressions Head CT 02/11/24 21:19 IMPRESSION: Cerebral atherosclerosis and chronic small vessel ischemic changes of the cerebral white matter No acute intracranial finding Chronic left maxillary Abdomen/Pelvis CT 02/12/24 06:07 Impression: Probable cystitis, despite decompression with Vinson catheter. Correlate with urinalysis. Urinary bladder stones measuring up to 1 cm. Cardiomegaly. Renal Ultrasound 02/12/24 17:03 IMPRESSION: 1. 1.9 cm right renal cyst. Otherwise normal kidneys without hydronephrosis. 2. 1.5 cm bladder stone and a Vinson catheter within the otherwise unremarkable bladder. 3. 4 cm loculated fluid collection anterior left pelvis which when correlated with prior CT studies appears to represent a residual small hematoma/seroma at the site of recent explanted penile prosthesis reservoir. Chest X-Ray 02/14/24 08:20 IMPRESSION: No acute cardiopulmonary pathology. Labs Labs: Laboratory Results - last 24 hr 02/13/24 02/13/24 02/14/24 05:33 05:35 05:05 WBC 8.6 RBC 3.10 L Hgb 10.3 L Hct 31.1 L MCV 100.3 H MCH 33.2 MCHC 33.1 RDW 13.1 Plt Count 177 MPV 10.9 H Immature Gran % (Auto) 0.6 H Neut % (Auto) 71.8 Lymph % (Auto) 13.2 L [place] % (Auto) 11.9 H Eos % (Auto) 2.0 Baso % (Auto) 0.5 Lymph # (Auto) 1.14 [place] # (Auto) 1.0 H Eos # (Auto) 0.2 Baso # (Auto) 0.0 Abs Immat Gran (auto) 0.05 H Absolute Neuts (auto) 6.2 Absolute Nucleated RBC 0.000 Nucleated RBC % 0.0 Sodium 140 Potassium 4.2 Chloride 109 H Carbon Dioxide 23 Anion Gap 8 BUN 129 H D 83 H D Creatinine 1.30 Estim Creat Clear Calc 26 Estimated GFR 52 L Glucose 129 H Calcium 8.6 Phosphorus 3.1 Magnesium 1.8 Albumin 3.3 L TSH (Reflex) 1.390
[2024-02-14 12:07] LABS: Glucose Point of Care 92 mg/dl (65-105)
--- NOTE | 2024-02-14 13:41 | P.PNNP_ITS ---
Progress Note: A&P Assessment and Plan (1) Acute kidney injury: Code(s): N17.9 - Acute kidney failure, unspecified Status: Acute Assessment and Plan: * improvement noted (if not back to baseline) * as noted by admission creatinine of 3.0mg/dl * multifactorial etiology: * prerenal factors (poor oral intake) * relative hypotension * infection (UTI) * ongoing use of diuretics/ARB prior to admission * urinary retention (alas has been replaced in ER) * evaluation to date: * urine electrolytes suggest prerenal azotemia * CPK low * urine eosinophils rare - probably due to UTI * UA suggestive of infection * renal ultrasound w/o obstruction * s/p gentle IVF hydration * follow trend of repeat labs and UOP (2) Stage 3a chronic kidney disease: Code(s): N18.31 - Chronic kidney disease, stage 3a Status: Chronic Assessment and Plan: * baseline creatinine seems to run around 0.8 - 1.3mg/dl * this causes him to fluctuate between CKD stage 2 and stage 3A * presumably due to his hypertension, BPH, and an element of cardiorenal syndrome given depressed EF and chronic diuretic therapy (3) Hyperkalemia: Code(s): E87.5 - Hyperkalemia Status: Acute Assessment and Plan: * improving if not resolved * elevated at 6.1 on admission * s/p medical management - repeat as needed * likely secondary to ROMAIN in the context of spironolactone and K+ supplement use * K+ supplements and spironolactone on hold * follow trend (4) UTI (urinary tract infection): Qualifiers: Indwelling urinary catheter type: indwelling urethral catheter Code(s): N39.0 - Urinary tract infection, site not specified Status: Acute Assessment and Plan: * admission UA highly suggestive * associated suprapubic tenderness noted as well * alas catheter replaced in ER * follow culture results - culture with E.coli * bladder stone noted by CT -- playing a role? * on antibiotics (5) Altered mental status: Code(s): R41.82 - Altered mental status, unspecified Status: Acute Assessment and Plan: * as noted by history provided in ER * complicated by known history of dementia * however, currently, mentation seems to be doing better * suspect secondary to ROMAIN, UTI, and poor oral intake * follow mentation (6) Chronic systolic heart failure: Code(s): I50.22 - Chronic systolic (congestive) heart failure Status: Chronic Assessment and Plan: * as noted by last Echo (EF 20 - 25%) * appears relatively compensated at this time * diuretics (lasix and spironolactone) on hold * will eventually need to restart at some point * follow volume status closely (7) Chronic anemia: Code(s): D64.9 - Anemia, unspecified Status: Chronic Assessment and Plan: * H/H relatively stable * no need for AGATA * follow trend Nothing much else to add -- will continue to follow from a distance. Subjective Date/time seen: 02/14/24 13:41 Interval history: Follow-up for acute kidney injury/acute renal failure. Renal function/creatinine continue to improve if not stabilize with ongoing therapy/interventions; still reports generalized weakness but feels it is improving; eating and drinking reasonably well; no apparent issues voiced at the time of my visit. Exam 2 Narrative: General: frail and elderly male in NAD Heart: normal S1 and S2; no rub Lungs: clear anteriorly Abdomen: soft, nontender, nondistended, positive bowel sounds Extremities: no cyanosis or clubbing; no edema Skin: warm and intact Objective Data Vital Signs Vital Signs: Vital Signs Temp Pulse Resp BP Pulse Ox O2 Del Method 02/14/24 12:00 70 02/14/24 12:00 69 24 H 135/55 L 99 02/14/24 11:28 Room Air 02/14/24 10:00 60 02/14/24 09:21 72 02/14/24 08:00 77 02/14/24 08:00 Room Air 02/14/24 08:00 97.5 F L 96 20 162/84 H 02/14/24 06:00 72 02/14/24 05:12 97.8 F 72 16 113/47 L 96 02/14/24 04:00 64 02/14/24 04:00 Room Air 02/14/24 02:00 65 02/14/24 00:15 97.7 F 60 16 106/73 100 02/14/24 00:00 62 02/14/24 00:00 Room Air 02/13/24 22:00 63 02/13/24 20:36 97.7 F 54 L 16 100/40 L 100 02/13/24 20:00 Room Air 02/13/24 20:00 56 L 02/13/24 18:00 65 Intake/Output Intake/Output: Intake & Output 02/11/24 02/12/24 02/13/24 02/14/24 23:59 23:59 23:59 23:59 Intake Total 2420 592816.2 400 Output Total 1900 1100 1400 Balance 520 555505.2 -1000 Meds/Results Medications: Active Medications Generic Name Dose Route Start Last Admin Trade Name Freq PRN Reason Stop Dose Admin Hydrocodone Bitart/Acetaminophen 1 tab 02/12/24 07:50 Hydrocodone/Acetaminophen (*Crx) 5-325 Mg Tablet PO Q6H PRN Pain Albuterol 2 puff 02/12/24 07:49 Albuterol Sulfate (*Sp) Aerosol 1 Puff INHALATION Q6H PRN shortness of breath or wheezing Cephalexin HCl 250 mg 02/14/24 21:00 Cephalexin 250 Mg Capsule PO 02/18/24 09:01 Q12HR [facility] Clopidogrel Bisulfate 75 mg 02/12/24 09:00 02/14/24 09:22 Clopidogrel Bisulfate 75 Mg Tablet PO 75 mg DAILY OMID Administration Ferrous Sulfate 325 mg 02/12/24 09:00 02/14/24 09:21 Ferrous Sulfate [address] PO 325 mg BID OMID Administration Finasteride 5 mg 02/12/24 09:00 02/14/24 09:21 Finasteride 5 Mg Tablet PO 5 mg DAILY OMID Administration Furosemide 40 mg 02/12/24 09:00 02/12/24 11:52 Furosemide 40 Mg Tablet PO Not Given DAILY OMID Metoprolol Succinate 25 mg 02/12/24 09:00 02/14/24 09:21 Metoprolol Succinate Ext Rel 25 Mg Tabcr PO 25 mg DAILY OMID Administration Umeclidinium [place] 1 puff 02/12/24 08:00 02/14/24 07:45 Umeclidinium [place] 62.5 Mcg Ellipta INHALATION 1 puff DAILYRT OMID Administration Radiology Results: ITS Impressions Head CT 02/11/24 21:19 IMPRESSION: Cerebral atherosclerosis and chronic small vessel ischemic changes of the cerebral white matter No acute intracranial finding Chronic left maxillary Abdomen/Pelvis CT 02/12/24 06:07 Impression: Probable cystitis, despite decompression with Alas catheter. Correlate with urinalysis. Urinary bladder stones measuring up to 1 cm. Cardiomegaly. Renal Ultrasound 02/12/24 17:03 IMPRESSION: 1. 1.9 cm right renal cyst. Otherwise normal kidneys without hydronephrosis. 2. 1.5 cm bladder stone and a Alas catheter within the otherwise unremarkable bladder. 3. 4 cm loculated fluid collection anterior left pelvis which when correlated with prior CT studies appears to represent a residual small hematoma/seroma at the site of recent explanted penile prosthesis reservoir. Chest X-Ray 02/14/24 08:20 IMPRESSION: No acute cardiopulmonary pathology. Labs Labs: Laboratory Tests 02/14/24 05:05 02/14/24 05:05 Calcium 8.6 Phosphorus 3.1 Magnesium 1.8 Albumin 3.3 L Microbiology 02/11/24 22:03 Urine Catheterized Urine Culture - Final Escherichia Coli
--- NOTE | 2024-02-14 14:06 | PCOTNOTE ---
Attempted to see pt. for occupational therapy evaluation. Pt. repeatedly agreeable to attempt activity, then agitated and declining to get out of bed when prompted. Pt. repeatedly educated on purpose and oriented to place, but due to pt.'s shorterm memory loss, unable to complete at this time. NUrsing aware.
--- NOTE | 2024-02-14 17:45 | PC.NURSE ---
This RN gave report to receiving RN, Naida. The pt transferred to [facility] room 307 at 1745.
--- NOTE | 2024-02-14 17:49 | PC.NURSE ---
Transfer received per hospital bed from IMU.
--- NOTE | 2024-02-14 17:50 | PC.NURSE ---
This patient, Jamey Cuadra, was received from IMU [id number] on 02/14/24 at 1750. Patient/family oriented to unit policies and routines
[2024-02-14] MEDS: CEPHALEXIN 250 MG CAPSULE PO (20:41)
[2024-02-15 06:00] VITALS: BP 125/59; PULSE 76; RESP 20; TEMP 36.6; O2SAT 99
[2024-02-15 07:29] LABS: Basophils Absolute Auto 0.1 K/mm3 (0.0-0.1); Basophils Percent Auto 0.7 % (0.2-1.2); Eosinophils Absolute Auto 0.3 K/mm3 (0-0.3); Eosinophils Percent Auto 2.2 % (0-4.4); Hematocrit 33.4 % (42.0-52.0); Hemoglobin 10.6 g/dL (14.0-18.0); Immature Granulocyte Absolute 0.06 K/mm3 (0.00-0.031); Immature Granulocyte Percent A 0.5 % (0-0.5); Immature Platelet Fraction Pct 4.1 % (0.9-11.2); Lymphocytes Absolute Auto 1.49 K/mm3 (0.9-3.2); Lymphocytes Percent Auto 12.4 % (18.3-44.2); Mean Corpuscular HGB Conc 31.7 g/dl (32-36); Mean Corpuscular Hemoglobin 33.2 pg (26-34); Mean Corpuscular Volume 104.7 fl (80-100); Mean Platelet Volume 11.1 fl (7.4-10.4); Monocytes Percent Auto 7.9 % (2.6-8.5); Neutrophils Absolute Auto 9.2 K/mm3 (1.3-6.7); Neutrophils Percent Auto 76.3 % (45.5-73.1); Platelet Count Result 145 k/mm3 (150-375); Red Blood Count 3.19 M/mm3 (4.6-6.20); White Blood Count 12.1 K/mm3 (4.5-10.0)
[2024-02-15 07:41] LABS: Albumin Level 3.6 g/dL (3.5-5.1); Anion Gap 8 mmol/L (4-12); Blood Urea Nitrogen 57 mg/dL (9-20); Carbon Dioxide 21 mmol/L (22-30); Chloride 112 mmol/L (98-107); Estimated CRCL calculation 27 ml/min; Estimated Glomerular Filt Rate > 60; Glucose 113 mg/dL (65-110); Magnesium 1.9 mg/dL (1.6-2.3); Potassium 4.7 mmol/L (3.4-5.0); Sodium 141 mmol/L (137-145)
--- NOTE | 2024-02-15 07:55 | P.PNIM_ITS ---
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: Code(s): N17.9 - Acute kidney failure, unspecified; N18.32 - Chronic kidney disease, stage 3b Status: Acute (2) Elevated troponin: Code(s): R79.89 - Other specified abnormal findings of blood chemistry Status: Acute (3) Acute hyperkalemia: Code(s): E87.5 - Hyperkalemia Status: Acute (4) Acute UTI: Code(s): N39.0 - Urinary tract infection, site not specified Status: Acute (5) Adult failure to thrive: Code(s): R62.7 - Adult failure to thrive Status: Acute (6) Dementia: Qualifiers: Dementia behavioral or psychological symptom: with other behavioral disturbance Dementia severity: unspecified severity Dementia type: unspecified type Qualified Code(s): F03.918 - Unspecified dementia, unspecified severity, with other behavioral disturbance Code(s): F03.90 - Unspecified dementia, unspecified severity, without behavioral disturbance, psychotic disturbance, mood disturbance, and anxiety Status: Acute (7) Chronic systolic heart failure: Code(s): I50.22 - Chronic systolic (congestive) heart failure Status: Chronic (8) Chronic anemia: Code(s): D64.9 - Anemia, unspecified Status: Chronic Plan General weakness Due to multiple comorbidities and physical deconditioning, exacerbated by UTI, worsening kidney function, possible dehydration Consult PT OT medicare interviewer for evaluation and assisting placement Acute encephalopathy Patient has dementia, mental status worse than baseline, patient had aggressive behavior in the ED, Suspecting acute encephalopathy superimposed with delirium Likely resulting from UTI, uremia, dehydration, electrolyte disorder Treat underlying disease Complicated UTI UA shows pyuria, hematuria, CT scan showed bladder stone 1 cm Patient has suprapubic tenderness Received ceftriaxone in the ED, continue ceftriaxone 1 g IV daily till 02/13 Folic catheter placed Consult urologist for evaluation treatment regarding the bladder stone. Urologist will follow up patient in the office ID pharmacist recommended to change to Keflex p.o. based on urine culture E coli growth ROMAIN on CKD, Patient has CKD stage 3 chronic a GFR decreased to 15 Likely resulting from UTI and dehydration Gentle IV fluid Patient is on ceftriaxone Consult anglesmith helper and urologist for evaluation treatment A patient urologist consultation,. Continue catheter exchange I remind Urine culture grows E coli, pending susceptibility Renal ultrasound shows no obstruction Continue antibiotics, IV fluid Creatinine is trending down to 1.3 02/13, 1.1 on 02/14 Chronic AFib, CAD, elevated troponin Patient is on Plavix 75 mg daily p.o., not on blood thinner Continue metoprolol 25 mg daily p.o. Elevated troponin likely secondary to worsening kidney function, UTI Telemetry monitoring, no ischemia Chronic systolic heart failure Continue furosemide 40 mg daily p.o. Hold spironolactone and potassium chloride supplement because of hyperkalemia Hyperkalemia Potassium 6.1 upon arrival in the ED. Patient received sodium bicarbonate, lokelma Corrected Essential hypertension Blood pressure low Hold losartan 80 mg daily p.o. COPD Continue albuterol inhaler 2 puffs q.6 hours p.r.n. and Incruse Ellipta 1 puff daily O2 therapy per and to keep pulse ox above 94 Chronic anemia Patient has chronic anemia due to multiple comorbidities Hemoglobin above baseline Continue ferrous sulfate p.o. No obvious bleeding Hemoglobin stable Hypoglycemia Patient received insulin in the ED Start D5 normal saline IV 100 mL/hour Resolved DC IV fluid Consult PT OT medicare interviewer for evaluation and assisting placement, patient will be discharged to assisted living with home health Subjective Date/time seen: 02/15/24 07:55 Interval history: I saw exam patient today, patient is comfortable, exercise tolerance has increased. Patient appetite also improving, patient denies chest pain shortness of breath, abdomen pain, dysuria. Patient is afebrile, blood pressure stable Exam Narrative: GENERAL: Pleasant, in no acute distress. Well-nourished. - EYES: EOMI. Anicteric. - HENT: Moisture mucous membranes. - LUNGS: Clear to auscultation bilateral ly, no wheezing, rhonchi, or rales. - CARDIOVASCULAR: Regular rate and rhyth m. No murmur. No JVD. - ABDOMEN: Soft, no tender and non-diste nded. No palpable masses. - EXTREMITIES: No edema. Peripheral puls es 2+. Non-tender. - NEUROLOGIC: No focal neurological defi cits. CN II-XII grossly intact. General weakness, but weakness has improved significantly - PSYCHIATRIC: Awake, Alert and not orie nted x 3. Appropriate mood and affect. - SKIN: No rashes or lesions. Warm. - LYMPH: No cervical lymphadenopathy. Objective Data Vital Signs Vital Signs: Vital Signs - 24 hr 02/14/24 08:00 02/14/24 08:00 02/14/24 08:00 Temperature 97.5 F L Pulse Rate 96 77 Respiratory Rate 20 Blood Pressure 162/84 H Pulse Oximetry Oxygen Delivery Room Air 02/14/24 09:21 02/14/24 10:00 02/14/24 11:28 Temperature Pulse Rate 72 60 Respiratory Rate Blood Pressure Pulse Oximetry Oxygen Delivery Room Air 02/14/24 12:00 02/14/24 12:00 02/14/24 18:52 Temperature 97.2 F L Pulse Rate 69 70 64 Respiratory Rate 24 H 16 Blood Pressure 135/55 L 118/63 Pulse Oximetry 99 92 Oxygen Delivery 02/14/24 20:00 02/14/24 22:14 02/15/24 06:00 Temperature 97.8 F 97.8 F Pulse Rate 64 52 L 76 Respiratory Rate 16 16 20 Blood Pressure 149/81 H 125/59 L Pulse Oximetry 92 95 99 Oxygen Delivery Room Air Intake/Output Intake/Output: Intake & Output 02/12/24 02/13/24 02/14/24 02/15/24 23:59 23:59 23:59 23:59 Intake Total 2420 675943.2 400 300 Output Total 1900 1100 1500 600 Balance 520 688262.2 -1100 -300 Meds/Results Medications: Active Medications Generic Name Dose Route Start Last Admin Trade Name Freq PRN Reason Stop Dose Admin Hydrocodone Bitart/Acetaminophen 1 tab 02/12/24 07:50 Hydrocodone/Acetaminophen (*Crx) 5-325 Mg Tablet PO Q6H PRN Pain Albuterol 2 puff 02/12/24 07:49 Albuterol Sulfate (*Sp) Aerosol 1 Puff INHALATION Q6H PRN shortness of breath or wheezing Cephalexin HCl 250 mg 02/14/24 21:00 02/14/24 20:41 Cephalexin 250 Mg Capsule PO 02/18/24 09:01 250 mg Q12HR OMID Administration Clopidogrel Bisulfate 75 mg 02/12/24 09:00 02/14/24 09:22 Clopidogrel Bisulfate 75 Mg Tablet PO 75 mg DAILY OMID Administration Ferrous Sulfate 325 mg 02/12/24 09:00 02/14/24 18:45 Ferrous Sulfate [address] PO Not Given BID OMID Finasteride 5 mg 02/12/24 09:00 02/14/24 09:21 Finasteride 5 Mg Tablet PO 5 mg DAILY OMID Administration Furosemide 40 mg 02/12/24 09:00 02/12/24 11:52 Furosemide 40 Mg Tablet PO Not Given DAILY OMID Metoprolol Succinate 25 mg 02/12/24 09:00 02/14/24 09:21 Metoprolol Succinate Ext Rel 25 Mg Tabcr PO 25 mg DAILY OMID Administration Umeclidinium [place] 1 puff 02/12/24 08:00 02/14/24 07:45 Umeclidinium [place] 62.5 Mcg Ellipta INHALATION 1 puff DAILYRT OMID Administration Radiology Results: ITS Impressions Head CT 02/11/24 21:19 IMPRESSION: Cerebral atherosclerosis and chronic small vessel ischemic changes of the cerebral white matter No acute intracranial finding Chronic left maxillary Abdomen/Pelvis CT 02/12/24 06:07 Impression: Probable cystitis, despite decompression with Vinson catheter. Correlate with urinalysis. Urinary bladder stones measuring up to 1 cm. Cardiomegaly. Renal Ultrasound 02/12/24 17:03 IMPRESSION: 1. 1.9 cm right renal cyst. Otherwise normal kidneys without hydronephrosis. 2. 1.5 cm bladder stone and a Vinson catheter within the otherwise unremarkable bladder. 3. 4 cm loculated fluid collection anterior left pelvis which when correlated with prior CT studies appears to represent a residual small hematoma/seroma at the site of recent explanted penile prosthesis reservoir. Chest X-Ray 02/14/24 08:20 IMPRESSION: No acute cardiopulmonary pathology. Labs Labs: Laboratory Results - last 24 hr 02/14/24 02/15/24 12:03 07:17 Sodium 141 Potassium 4.7 Chloride 112 H Carbon Dioxide 21 L Anion Gap 8 BUN 57 H D Creatinine 1.10 Estim Creat Clear Calc 27 Estimated GFR > 60 Glucose 113 H POC Capillary Glucose 92 Calcium 9.0 Phosphorus 3.0 Magnesium 1.9 Albumin 3.6
[2024-02-15] MEDS: UMECLIDINIUM BROMIDE 62.5 MCG ELLIPTA 1 PUFF INHALATION (09:09)
[2024-02-15 09:25] VITALS: PULSE 52
[2024-02-15] MEDS: FINASTERIDE 5 MG TABLET PO (09:25)
[2024-02-15] MEDS: FERROUS SULFATE 325 MG TABLET DR PO (09:25)
[2024-02-15] MEDS: CEPHALEXIN 250 MG CAPSULE PO (09:25)
[2024-02-15] MEDS: CLOPIDOGREL BISULFATE 75 MG TABLET PO (09:25)
[2024-02-15] MEDS: METOPROLOL SUCCINATE EXT REL 25 MG TABCR PO (09:25)
--- NOTE | 2024-02-15 12:17 | P.DS_ITS ---
DS: Admitting Diagnosis Discharge Date 02/15/24 Admitting Diagnosis (1) Acute renal failure superimposed on stage 3b chronic kidney disease: Code(s): N17.9 - Acute kidney failure, unspecified; N18.32 - Chronic kidney disease, stage 3b Status: Acute (2) Elevated troponin: Code(s): R79.89 - Other specified abnormal findings of blood chemistry Status: Acute (3) Acute hyperkalemia: Code(s): E87.5 - Hyperkalemia Status: Acute (4) Acute UTI: Code(s): N39.0 - Urinary tract infection, site not specified Status: Acute (5) Adult failure to thrive: Code(s): R62.7 - Adult failure to thrive Status: Acute (6) Dementia: Qualifiers: Dementia behavioral or psychological symptom: with other behavioral disturbance Dementia severity: unspecified severity Dementia type: unspecified type Qualified Code(s): F03.918 - Unspecified dementia, unspecified severity, with other behavioral disturbance Code(s): F03.90 - Unspecified dementia, unspecified severity, without behavioral disturbance, psychotic disturbance, mood disturbance, and anxiety Status: Acute (7) Chronic systolic heart failure: Code(s): I50.22 - Chronic systolic (congestive) heart failure Status: Chronic (8) Chronic anemia: Code(s): D64.9 - Anemia, unspecified Status: Chronic DS: Discharge Diagnosis Discharge Diagnosis (1) Acute renal failure superimposed on stage 3b chronic kidney disease: Code(s): N17.9 - Acute kidney failure, unspecified; N18.32 - Chronic kidney disease, stage 3b Status: Acute (2) Elevated troponin: Code(s): R79.89 - Other specified abnormal findings of blood chemistry Status: Acute (3) Acute hyperkalemia: Code(s): E87.5 - Hyperkalemia Status: Acute (4) Acute UTI: Code(s): N39.0 - Urinary tract infection, site not specified Status: Acute (5) Adult failure to thrive: Code(s): R62.7 - Adult failure to thrive Status: Acute (6) Dementia: Qualifiers: Dementia behavioral or psychological symptom: with other behavioral disturbance Dementia severity: unspecified severity Dementia type: unspecified type Qualified Code(s): F03.918 - Unspecified dementia, unspecified severity, with other behavioral disturbance Code(s): F03.90 - Unspecified dementia, unspecified severity, without behavioral disturbance, psychotic disturbance, mood disturbance, and anxiety Status: Acute (7) Chronic systolic heart failure: Code(s): I50.22 - Chronic systolic (congestive) heart failure Status: Chronic (8) Chronic anemia: Code(s): D64.9 - Anemia, unspecified Status: Chronic DS: Summary Hospital Course Hospital Course: This is an 89-year-old male with history of from multiple comorbidities including atrial fibrillation, dementia systolic heart failure, EF 20-25 % on echocardiogram July 24, 2023, hyperlipidemia brought to ED because of general weakness Patient does not know why his in the emergency room, has no complaints per patient's son, he has barely been eating over the last week. Additionally he is being verbally aggressive with the nurses and not letting them drain his Vinson. He is also more weak than usual. Upon arrival in the ED, patient is afebrile, blood pressure soft, 94/47, pulse ox 98 on room air, hemoglobin 11.6 above baseline, lab showed hyperkalemia 6.4, elevated BUN creatinine ratio on 189/3.0, GFR 13, baseline creatinine ratio 51/1.2 on December 01, 2023, glucose of 45, elevated troponin 0.2, EKG showed atrial fibrillation no specific ST or T-wave changes. lipase 434, UA showed cloudy urine, pyuria and hematuria bacteriuria 2+ CT abdomen pelvis showed Probable cystitis, despite decompression with Vinson catheter. Correlate with urinalysis.Urinary bladder stones measuring up to [address] head shows no acute intracranial issues . Chest x-ray showed mild infiltrate or atelectasis in the left lower lobe, minimal right upper lobe infiltrate Cardiac magna, extensive aortic atherosclerosis The following med issues have been addressed during hospitalization General weakness Due to multiple comorbidities and physical deconditioning, exacerbated by UTI, worsening kidney function, possible dehydration Consult PT OT caregivers non medical for evaluation and assisting placement Acute encephalopathy Patient has dementia, mental status worse than baseline, patient had aggressive behavior in the ED, Suspecting acute encephalopathy superimposed with delirium Likely resulting from UTI, uremia, dehydration, electrolyte disorder Treat underlying disease Complicated UTI UA shows pyuria, hematuria, CT scan showed bladder stone 1 cm Patient has suprapubic tenderness Received ceftriaxone in the ED, continue ceftriaxone 1 g IV daily till 02/13 Folic catheter placed Consult urologist for evaluation treatment regarding the bladder stone. Urologist will follow up patient in the office ID pharmacist recommended to change to Keflex p.o. based on urine culture E coli growth ROMAIN on CKD, Patient has CKD stage 3 chronic a GFR decreased to 15 Likely resulting from UTI and dehydration Gentle IV fluid Patient is on ceftriaxone Consult public health analyst and urologist for evaluation treatment A patient urologist consultation,. Continue catheter exchange I remind Urine culture grows E coli, pending susceptibility Renal ultrasound shows no obstruction Continue antibiotics, IV fluid Creatinine is trending down to 1.3 02/13, 1.1 on 02/14 Chronic AFib, CAD, elevated troponin Patient is on Plavix 75 mg daily p.o., not on blood thinner Continue metoprolol 25 mg daily p.o. Elevated troponin likely secondary to worsening kidney function, UTI Telemetry monitoring, no ischemia Chronic systolic heart failure Continue furosemide 40 mg daily p.o. Hold spironolactone and potassium chloride supplement because of hyperkalemia Hyperkalemia Potassium 6.1 upon arrival in the ED. Patient received sodium bicarbonate, lokelma Corrected Continue hold spironolactone, resume medication per primary care doctor after evaluation Essential hypertension Blood pressure low Hold losartan 80 mg daily p.o. Blood pressure stable without anti-hypertension medications Continue hold losartan on discharge, resume medication per primary care doctor COPD Continue albuterol inhaler 2 puffs q.6 hours p.r.n. and Incruse Ellipta 1 puff daily O2 therapy per and to keep pulse ox above 94 Stable Chronic anemia Patient has chronic anemia due to multiple comorbidities Hemoglobin above baseline Continue ferrous sulfate p.o. No obvious bleeding Hemoglobin stable Hypoglycemia Patient received insulin in the ED Start D5 normal saline IV 100 mL/hour Resolved DC IV fluid Consult PT OT caregivers non medical for evaluation and assisting placement, patient will be discharged to assisted living with home health per recommendations Time Spent with Patient Time attestation: Total time spent providing and/or coordinating discharge services: Exam Narrative: GENERAL: Pleasant, in no acute distress. Well-nourished. - EYES: EOMI. Anicteric. - HENT: Moisture mucous membranes. - LUNGS: Clear to auscultation bilateral ly, no wheezing, rhonchi, or rales. - CARDIOVASCULAR: Regular rate and rhyth m. No murmur. No JVD. - ABDOMEN: Soft, no tender and non-diste nded. No palpable masses. - EXTREMITIES: No edema. Peripheral puls es 2+. Non-tender. - NEUROLOGIC: No focal neurological defi cits. CN II-XII grossly intact. General weakness, but weakness has improved significantly - PSYCHIATRIC: Awake, Alert and not orie nted x 3. Appropriate mood and affect. - SKIN: No rashes or lesions. Warm. - LYMPH: No cervical lymphadenopathy. DS: Data Data Completed and Pending Labs on day of discharge: Labs from last 24 hours 02/15/24 07:17 WBC 12.1 H RBC 3.19 L Hgb 10.6 L Hct 33.4 L MCV 104.7 H MCH 33.2 MCHC 31.7 L RDW 13.0 Plt Count 145 L MPV 11.1 H Immature Gran % (Auto) 0.5 Neut % (Auto) 76.3 H Lymph % (Auto) 12.4 L [place] % (Auto) 7.9 Eos % (Auto) 2.2 Baso % (Auto) 0.7 Lymph # (Auto) 1.49 [place] # (Auto) 1.0 H Eos # (Auto) 0.3 Baso # (Auto) 0.1 Abs Immat Gran (auto) 0.06 H Absolute Neuts (auto) 9.2 H Absolute Nucleated RBC 0.000 Nucleated RBC % 0.0 % Immature Plt Fraction 4.1 Sodium 141 Potassium 4.7 Chloride 112 H Carbon Dioxide 21 L Anion Gap 8 BUN 57 H D Creatinine 1.10 Estim Creat Clear Calc 27 Estimated GFR > 60 Glucose 113 H Calcium 9.0 Phosphorus 3.0 Magnesium 1.9 Albumin 3.6 Preliminary micro results at discharge 02/11/24 22:03 Blood Culture - Preliminary Blood 02/11/24 22:07 Blood Culture - Preliminary Blood Discharge Plan Discharge Attending physician on discharge: Tonya Devi Consulting providers: Margaret Rock; Alysha Jarquin; Eamon Alvarado Discharging Clinician: Tonya Devi Anticipated Discharge Date/Time: 02/15/24 12:12 Patient Disposition: Home Health Service Activity: as tolerated Diet: as tolerated and heart healthy Discharge Instructions: Per Care Coordination. Patient to resume [facility] for RN/PT/OT eval and treat [phone]. RN please fax discharge instructions to: F: [phone] Patient Instructions: Antibiotic Form, Clopidogrel (By mouth), Heart Failure (DC), Pain Management (DC) Patient Language: American Stand Alone Forms: General Discharge Information Follow-up/Referrals: PHYSICIAN NOT ON STAFF,NONSTAFF [Primary Care Provider] - (Patient needs to see primary care doctor in 1 week) Discharge Medications: New cephalexin 250 mg Capsule 250 mg PO Q12HR Qty: 113 0RF Continued metoprolol succinate 25 mg tablet extended release 24 hr 25 mg PO DAILY finasteride 5 mg tablet 5 mg PO DAILY tamsulosin 0.4 mg capsule 0.4 mg PO DAILY Qty: 30 1RF latanoprost 0.005 % drops 1 drp EACH EYE HS potassium chloride 20 mEq tablet extended release 20 meq PO DAILY Qty: 7 0RF azelastine 137 mcg (0.1 %) Aerosol,[place] 137 mcg INTRANASAL DAILY Rx Instructions: administer into each nostril fluticasone propionate 50 mcg/actuation spray,suspension 2 spray INTRANASAL DAILY [place] 4.5 gram-156 mg/9.2 gram Powder In Packet 9.2 g PO BID Incruse Ellipta 62.5 mcg/actuation Blister With Device 1 inh inhalation DAILYRT Qty: 7 0RF furosemide 40 mg tablet 40 mg PO DAILY cetirizine 10 mg Tablet 10 mg PO DAILY clopidogrel 75 mg tablet 75 mg PO DAILY ascorbic acid (vitamin C) 500 mg Tablet 500 mg PO BID ferrous sulfate 325 mg (65 mg iron) Tablet 325 mg PO BID cholecalciferol (vitamin D3) [Vitamin D3] 10 mcg (400 unit) Capsule 10 mcg PO DAILY Tradjenta 5 mg tablet 5 mg PO DAILY quetiapine 25 mg tablet 25 mg PO BID acetaminophen 325 mg Tablet 650 mg PO Q6H PRN (Reason: Pain) loperamide [Imodium A-D] 2 mg Capsule 4 mg PO Q2H PRN (Reason: Diarrhea) Rx Instructions: administer after each loose stool until symptoms controlled; do not exceed 8 mg per 24 hrs hydrocodone-acetaminophen 5-325 mg tablet 1 tablet PO Q6H albuterol sulfate 90 mcg/actuation HFA aerosol inhaler 2 puff inhalation Q6H PRN (Reason: shortness of breath or wheezing) Discontinued spironolactone 25 mg Tablet 25 mg PO QAM Qty: 30 0RF valsartan 80 mg tablet 80 mg PO DAILY Date of admission: 02/12/24 04:40 Primary Care Provider: PHYSICIAN NOT ON STAFF,NONSTAFF Admitting Provider: Elissa Hein Attending physician on admission: Elissa Hein Condition: Guarded Prognosis
== END 2024-02-15 14:30 | DRG 699 ==
LOC: ANHED 02-12 04:40 → ANHIMU 02-12 06:36 → ANH3MEDSUR 02-15 12:13 → ANHIMU 02-16 11:06
PROVIDERS: Internal Medicine Nephrology; Admitting Provider Internal Medicine; Emergency Provider Emergency Medicine; Visit Provider Hospitalist
DX: T83.511A Infection and inflammatory reaction due to indwelling urethral catheter, initial encounter (principal); G93.49 Other encephalopathy; N17.9 Acute kidney failure, unspecified; I50.22 Chronic systolic (congestive) heart failure; I13.0 Hypertensive heart and chronic kidney disease with heart failure and stage 1 through stage 4 chronic kidney disease, or unspecified chronic kidney disease; I48.20 Chronic atrial fibrillation, unspecified; N39.0 Urinary tract infection, site not specified; B96.20 Unspecified Escherichia coli [E. coli] as the cause of diseases classified elsewhere; N18.32 Chronic kidney disease, stage 3b; E87.5 Hyperkalemia; R62.7 Adult failure to thrive; F03.90 Unspecified dementia, unspecified severity, without behavioral disturbance, psychotic disturbance, mood disturbance, and anxiety; D64.9 Anemia, unspecified; I25.10 Atherosclerotic heart disease of native coronary artery without angina pectoris; J44.9 Chronic obstructive pulmonary disease, unspecified; E16.2 Hypoglycemia, unspecified; R33.9 Retention of urine, unspecified; N21.0 Calculus in bladder; H40.9 Unspecified glaucoma; E78.5 Hyperlipidemia, unspecified; E86.0 Dehydration; N40.0 Benign prostatic hyperplasia without lower urinary tract symptoms; Z85.828 Personal history of other malignant neoplasm of skin; Z96.619 Presence of unspecified artificial shoulder joint; Z66 Do not resuscitate; Z87.891 Personal history of nicotine dependence
CPT/HCPCS: 36415; 36600; 70450; 71045; 74176; 76775; 80048; 80053; 80069; 80307; 81001; 81050; 82077; 82550; 82570; 82805; 82948; 83605; 83690; 83735; 83880; 84100; 84156; 84300; 84443; 84484; 84540; 85018; 85025; 85055; 85610; 85730; 85999; 87040; 87086; 87186; 87637; 93005; 94640; 96365; 96375; 96376; 97110; 97162; 97165; 97530; 99285; A9270; J0696; J1815; J7030; J7042; J7070

== ENCOUNTER 2024-06-04 16:41 | Inpatient (IN) | payer MEDICARE, SELFPAY ==
[2024-06-04] VITALS (10 sets, daily range): BP systolic 87–110; BP diastolic 46–61; PULSE 91–117; RESP 13–25; TEMP 36.4–37.1; O2SAT 91–100; BMI 16.6
--- NOTE | ~2024-06-04 | XR_ITS ---
HISTORY: injury COMPARISON: 10/02/2023 TECHNIQUE: 3 views of the right elbow were performed FINDINGS: No acute fracture is identified. No elevation of the anterior or posterior fat pads are identified to suggest a supracondylar fracture . Redemonstration of ossification of the insertion of the triceps tendon, unchanged from prior. Remaining overlying soft tissues are otherwise unremarkable. Bone demineralization is age-appropriate. IMPRESSION: Degenerative disease without acute fracture. Reviewed, dictated and finalized at location A.
--- NOTE | ~2024-06-04 | XR_ITS ---
CHEST RADIOGRAPH CLINICAL HISTORY: weakness, fever . COMPARISON: 02/14/2024 TECHNIQUE: Single portable view of the chest. FINDINGS The cardiomediastinal silhouette is enlarged, unchanged. Patchy opacification of the superior segment of the right lower lobe with air bronchograms suggesting a early infiltrate The remainder of the lungs are clear. IMPRESSION: Possible early infiltrate within the superior segment of the right lower lobe, as detailed above. Reviewed, dictated and finalized at location A.
--- NOTE | ~2024-06-04 | XR_ITS ---
HISTORY: injury, BRUISING TO KNEE COMPARISON: None TECHNIQUE: 3 views of the right knee were performed FINDINGS: No acute or subacute fracture. Medial and lateral tibiofemoral joint space narrowing is identified. No suprapatellar joint effusion is identified. The infrapatellar joint space is clear. Vascular calcifications are present. IMPRESSION: Degenerative disease, without acute fracture. Reviewed, dictated and finalized at location A.
[2024-06-04] MEDS: SODIUM CHLORIDE 0.9% IV 1,000 ML 999 ML IV CONT ×2 (16:40→17:46)
--- NOTE | 2024-06-04 16:43 | ECG_ITS ---
Test Date: 2024-06-04 17:08:20 Measurements Intervals [place] Rate: 95 P: 0 IA: 0 QRS: -31 QRSD: 100 T: 36 QT: 341 QTc: 429 Interpretive Statements ATRIAL FIBRILLATION WITH VENTRICULAR PREMATURE COMPLEX LEFT AXIS DEVIATION INCOMPLETE RIGHT BUNDLE BRANCH BLOCK BORDERLINE R WAVE PROGRESSION, ANTERIOR LEADS CONSIDER INFERIOR INFARCT, AGE INDETERMINATE BASELINE ARTIFACT- I, II, III, AVR, AVL, AVF, V1-V6 ABNORMAL ECG Compared to ECG 02/11/2024 20:39:50 HEART RATE HAS INCREASED Electronically Signed On 06-04-2024 17:34:33 CDT by Carter Pool D.O.
--- NOTE | 2024-06-04 17:18 | ED.GENADULT ---
HPI - General Adult General Chief complaint: Weakness Stated complaint: weakness, fever History of Present Illness HPI narrative: 89-year-old male present to the emergency department from local [facility] care unit for increased generalized weakness. Patient is DNI DNR comfort care. Patient does have an injury to his right elbow and right knee. Patient was tachycardic and hypotensive on arrival this did improve with rehydration. Patient does have an increased O2 requirement with a productive cough. Related Data Home Medications ?Medication ?Instructions ?Recorded ?Confirmed ?Last Taken ?Type finasteride 5 mg tablet 5 mg PO DAILY 06/15/22 02/12/24 08/28/23 09:00 History metoprolol succinate 25 mg 25 mg PO DAILY 06/15/22 02/12/24 08/28/23 History tablet,extended release 24 hr latanoprost 0.005 % eye drops 1 drp EACH EYE HS 08/08/23 02/12/24 08/27/23 History arginine-vitamin C-vitamin E oral 9.2 g PO BID 08/29/23 02/12/24 08/28/23 09:00 History 4.5 gram-156 mg/9.2 gram powder pkt (Arginaid) azelastine 137 mcg (0.1 %) nasal 137 mcg intranasal DAILY 08/29/23 02/12/24 08/28/23 History spray fluticasone propionate 50 2 spray intranasal DAILY 08/29/23 02/12/24 08/28/23 History mcg/actuation nasal spray,suspension ascorbic acid (vitamin C) 500 mg 500 mg PO BID 11/28/23 02/12/24 Unknown History tablet cetirizine 10 mg tablet 10 mg PO DAILY 11/28/23 02/12/24 Unknown History cholecalciferol (vitamin D3) 10 10 mcg PO DAILY 11/28/23 02/12/24 Unknown History mcg (400 unit) capsule (Vitamin D3) clopidogrel 75 mg tablet 75 mg PO DAILY 11/28/23 02/12/24 Unknown History ferrous sulfate 325 mg (65 mg 325 mg PO BID 11/28/23 02/12/24 Unknown History iron) tablet furosemide 40 mg tablet 40 mg PO DAILY 11/28/23 02/12/24 Unknown History linagliptin 5 mg tablet (Tradjenta) 5 mg PO DAILY 11/28/23 02/12/24 Unknown History acetaminophen 325 mg tablet 650 mg PO Q6H PRN Pain 02/12/24 02/12/24 Unknown History albuterol sulfate 90 mcg/actuation 2 puff inhalation Q6H PRN 02/12/24 02/12/24 Unknown History aerosol inhaler shortness of breath or wheezing hydrocodone 5 mg-acetaminophen 325 1 tablet PO Q6H 02/12/24 02/12/24 Unknown History mg tablet loperamide 2 mg capsule (Imodium 4 mg PO Q2H PRN Diarrhea 02/12/24 02/12/24 Unknown History A-D) quetiapine 25 mg tablet 25 mg PO BID 02/12/24 02/12/24 Unknown History Allergies Allergy/AdvReac Type Severity Reaction Status Date / Time atorvastatin AdvReac Muscle Pain Verified 06/04/24 17:00 clarithromycin (From Biaxin) AdvReac Gastrointestinal Verified 06/04/24 17:00 Upset rofecoxib AdvReac Nausea and Verified 06/04/24 17:00 Vomiting [id number] Reductase AdvReac Muscle Pain Verified 06/04/24 17:00 Inhibitor Review of Systems Review of Systems: ROS unobtainable: Yes unobtainable due to medical condition [facility] Past Medical History Medical History Atrial fibrillation Basal cell carcinoma Chronic anticoagulation Glaucoma 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 Hypertension Iron deficiency anemia Surgical History Surgical History H/O cataract extraction H/O hemorrhoidectomy H/O shoulder replacement H/O thyroidectomy History of incision and drainage I&D of infected left lower extremity hematoma by Dr. Sandra on 07/24/23 History of removal of skin mole History of tonsillectomy Family History Family History Mother Cerebrovascular accident Father Testicle cancer Cerebrovascular accident Sibling Malignant neoplasm of prostate Social History Social History Social History: Code status: Do not resuscitate. Smoking packs per day: 2 Smoking cigarettes per day: 40.0 Years smoked: 31 Smoking pack-years: 62.00 Smoking status: Former smoker Second hand tobacco smoke exposure: No Alcohol intake: never Substance use: never Substance use type: does not use Do You Feel Safe in your Home?: Yes Lack of Transportation: No Lack of Food: Never True Current Housing: I Have Housing Concerned About Future Housing: No Difficulty Paying Gas/Electric Bills: No Difficulty Paying for Meds: No Currently Unemployed: No Education: Decline to Answer Difficulty w/ Childcare or Family Care: No Living arrangements: group home Additional living arrangements comments: [facility] Additional 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 Spiritual care concerns: No Exam Narrative: APPEARANCE: Cachectic and ill-appearing HEAD: normocephalic, atraumatic. EYES: PERRLA/EOMI, conjunctivae clear. NOSE: Normal no drainage EARS:TMS clear with good light reflex. THROAT: Pharynx clear, no exudate. NECK: Supple. No adenopathy, no masses. RESPIRATORY: Productive cough with congested lung sounds CARDIOVASCULAR: Regular rate and rhythm without murmurs rubs or gallops. ABDOMINAL: Soft, nontender, nondistended, normal bowel sounds MUSCULOSKELETAL: Abrasions to right elbow and ecchymosis to right knee NEURO: Responsive to verbal stimuli, grossly intact SKIN: Warm, dry. Normal Color Course Vital Signs Vital signs: Vital Signs Temperature 98.8 F 06/04/24 16:45 Pulse Rate 117 H 06/04/24 16:45 Respiratory Rate 20 06/04/24 16:45 Blood Pressure 87/57 L 06/04/24 16:45 Pulse Oximetry 91 06/04/24 16:45 Oxygen Delivery Room Air 06/04/24 16:45 Temperature 98.8 F 06/04/24 16:45 Pulse Rate 99 06/04/24 17:44 Respiratory Rate 16 06/04/24 17:44 Blood Pressure 87/57 L 06/04/24 16:45 Pulse Oximetry 98 06/04/24 17:45 Oxygen Delivery Nasal Cannula 06/04/24 17:45 Oxygen Flow Rate 2 06/04/24 17:45 Medical Decision Making MDM Narrative Medical decision making narrative: 89-year-old male presents emergency department for evaluation for increased generalized weakness. Patient is afebrile with no leukocytosis and hemoglobin of 10.4. INR is 1.2. Patient was treated with 2 L of IV fluids. Patient is hypoxic and chest x-rays concerning for pneumonia. Patient was started on Levaquin. Patient is DNI DNR and comfort directed care Case was discussed with the hospitalist and admitted to the IMU. Patient's blood pressure was improved at time of admission but due to him having some lower blood pressures patient will be admitted to the IMU for closer observation. Differential Diagnosis Differential Diagnosis: Pneumonia, COVID, RSV, influenza, UTI, acute kidney injury, dehydration Vital Signs Vital Signs: Vital Signs Temperature 98.8 F 06/04/24 16:45 Pulse Rate 117 H 06/04/24 16:45 Respiratory Rate 20 06/04/24 16:45 Blood Pressure 87/57 L 06/04/24 16:45 Pulse Oximetry 91 06/04/24 16:45 Oxygen Delivery Room Air 06/04/24 16:45 Temperature 98.8 F 06/04/24 16:45 Pulse Rate 99 06/04/24 17:44 Respiratory Rate 16 06/04/24 17:44 Blood Pressure 87/57 L 06/04/24 16:45 Pulse Oximetry 98 06/04/24 17:45 Oxygen Delivery Nasal Cannula 06/04/24 17:45 Oxygen Flow Rate 2 06/04/24 17:45 Lab Data Lab results reviewed: Yes I reviewed the patient's lab results. 06/04/24 17:11 Labs: Lab Results 06/04/24 06/04/24 06/04/24 Range/Units 17:11 17:25 17:52 WBC 9.2 (4.5-10.0) K/mm3 RBC 3.04 L (4.6-6.20) M/mm3 Hgb 10.4 L (14.0-18.0) g/dL Hct 31.6 L (42.0-52.0) % MCV 103.9 H (80-100) fl MCH 34.2 H (26-34) pg MCHC 32.9 (32-36) g/dl RDW 13.1 (11.5-14.5) % Plt Count 208 (150-375) k/mm3 MPV 11.1 H (7.4-10.4) fl Immature Gran % (Auto) 0.7 H (0-0.5) % Neut % (Auto) 87.1 H (45.5-73.1) % Lymph % (Auto) 2.6 L (18.3-44.2) % [place] % (Auto) 8.5 (2.6-8.5) % Eos % (Auto) 0.7 (0-4.4) % Baso % (Auto) 0.4 (0.2-1.2) % Lymph # (Auto) 0.24 L (0.9-3.2) K/mm3 [place] # (Auto) 0.8 H (0.1-0.6) K/mm3 Eos # (Auto) 0.1 (0-0.3) K/mm3 Baso # (Auto) 0.0 (0.0-0.1) K/mm3 Abs Immat Gran (auto) 0.06 H (0.00-0.031) K/mm3 Absolute Neuts (auto) 8.0 H (1.3-6.7) K/mm3 Absolute Nucleated RBC 0.000 (0.0-0.012) K/mm3 Nucleated RBC % 0.0 (0.0-0.2) % PT 15.4 H (11.1-14.7) Seconds INR 1.2 APTT 31.7 (22.3-36.8) Seconds Lactic Acid 0.9 (0.7-2.0) mmol/L C-Reactive Protein 15.3 H (<1.0) mg/dL Influenza A (RT-PCR) Negative (Negative) Influenza B (RT-PCR) Negative (Negative) RSV (RT-PCR) Negative (Negative) SARS-CoV-2 RNA (RT-PCR) Negative (Negative) Imaging Data Radiologist's impression: Impressions Chest X-Ray 06/04/24 17:22 IMPRESSION: Possible early infiltrate within the superior segment of the right lower lobe, as detailed above. Discharge Plan Discharge Clinical Impression: Weakness, Pneumonia, Hypotension Patient Disposition: Still a Patient Condition: Serious Patient Language: Ukrainian Prescriptions: No Action metoprolol succinate 25 mg tablet extended release 24 hr 25 mg PO DAILY finasteride 5 mg tablet 5 mg PO DAILY tamsulosin 0.4 mg capsule 0.4 mg PO DAILY Qty: 30 1RF latanoprost 0.005 % drops 1 drp EACH EYE HS potassium chloride 20 mEq tablet extended release 20 meq PO DAILY Qty: 7 0RF azelastine 137 mcg (0.1 %) Aerosol,[place] 137 mcg INTRANASAL DAILY Rx Instructions: administer into each nostril fluticasone propionate 50 mcg/actuation spray,suspension 2 spray INTRANASAL DAILY Arginaid 4.5 gram-156 mg/9.2 gram Powder In Packet 9.2 g PO BID Incruse Ellipta 62.5 mcg/actuation Blister With Device 1 inh inhalation DAILYRT Qty: 7 0RF furosemide 40 mg tablet 40 mg PO DAILY cetirizine 10 mg Tablet 10 mg PO DAILY clopidogrel 75 mg tablet 75 mg PO DAILY ascorbic acid (vitamin C) 500 mg Tablet 500 mg PO BID ferrous sulfate 325 mg (65 mg iron) Tablet 325 mg PO BID cholecalciferol (vitamin D3) [Vitamin D3] 10 mcg (400 unit) Capsule 10 mcg PO DAILY Tradjenta 5 mg tablet 5 mg PO DAILY quetiapine 25 mg tablet 25 mg PO BID acetaminophen 325 mg Tablet 650 mg PO Q6H PRN (Reason: Pain) loperamide [Imodium A-D] 2 mg Capsule 4 mg PO Q2H PRN (Reason: Diarrhea) Rx Instructions: administer after each loose stool until symptoms controlled; do not exceed 8 mg per 24 hrs hydrocodone-acetaminophen 5-325 mg tablet 1 tablet PO Q6H albuterol sulfate 90 mcg/actuation HFA aerosol inhaler 2 puff inhalation Q6H PRN (Reason: shortness of breath or wheezing) cephalexin 250 mg Capsule 250 mg PO Q12HR Qty: 113 0RF Follow-up/Referrals: PHYSICIAN NOT ON STAFF,NONSTAFF [Non-Staff] -
[2024-06-04 17:24] LABS: Basophils Percent Auto 0.4 % (0.2-1.2); Eosinophils Absolute Auto 0.1 K/mm3 (0-0.3); Eosinophils Percent Auto 0.7 % (0-4.4); Hematocrit 31.6 % (42.0-52.0); Hemoglobin 10.4 g/dL (14.0-18.0); Immature Granulocyte Absolute 0.06 K/mm3 (0.00-0.031); Immature Granulocyte Percent A 0.7 % (0-0.5); Lymphocytes Absolute Auto 0.24 K/mm3 (0.9-3.2); Lymphocytes Percent Auto 2.6 % (18.3-44.2); Mean Corpuscular HGB Conc 32.9 g/dl (32-36); Mean Corpuscular Hemoglobin 34.2 pg (26-34); Mean Corpuscular Volume 103.9 fl (80-100); Mean Platelet Volume 11.1 fl (7.4-10.4); Monocytes Absolute Auto 0.8 K/mm3 (0.1-0.6); Monocytes Percent Auto 8.5 % (2.6-8.5); Neutrophils Percent Auto 87.1 % (45.5-73.1); Platelet Count Result 208 k/mm3 (150-375); Red Blood Count 3.04 M/mm3 (4.6-6.20); Red Cell Distribution Width 13.1 % (11.5-14.5); White Blood Count 9.2 K/mm3 (4.5-10.0)
[2024-06-04 17:32] LABS: INR 1.2; Prothrombin Time 15.4 Seconds (11.1-14.7)
[2024-06-04 17:33] LABS: Partial Thromboplastin Time 31.7 Seconds (22.3-36.8)
[2024-06-04] MEDS: ALBUTEROL SULFATE NEB 2.5 MG/3 ML INH INHALATION (17:42)
[2024-06-04 18:06] LABS: Influenza A QL RT-PCR Negative (Negative); Influenza B QL RT-PCR Negative (Negative); RSV RNA, RT-PCR Negative (Negative); SARS-CoV-2 RNA PCR Negative (Negative)
--- OUTSIDE RECORDS SUMMARY | 2024-06-04 18:11 | XMS_ITS | Encounter Summary ---
Author Organization [employer] [facility] Address [address] [place] [address] Care Team Providers Care Street Supervisor Name Role Phone Harman Chauhan MD Primary Care Provider [phone] Encounter Details Date Type Department Care Team (Latest Contact Info) Description 09/20/2005 Outpatient Historical HIS [facility] JACOB Schrader, Cordell Berrios MD NO ADDRESS ON FILE Pure Hypercholesterolemia (Primary Dx) Social History Tobacco Use Types Packs/Day Years Used Date Smoking Tobacco: Never Assessed Sex and Gender Information Value Date Recorded Sex Assigned at Male 09/03/2023 1:10 AM CDT Legal Sex Male 4:13 AM [employer] Gender Identity Male 09/03/2023 1:10 AM CDT Sexual Orientation Not on file documented as of this encounter Plan of Treatment Not on file documented as of this encounter Procedures Procedure Name Priority Date/Time Associated Diagnosis Comments URINALYSIS W/REFLEX MICROSCOPIC Routine 09/20/2005 7:44 AM CDT PSA MEDICARE SCREEN Routine 09/20/2005 7 :42 AM CDT TSH REFLEXIVE Routine 09/20/2005 7:42 AM CDT CBC WITH DIFFERENTIAL Routine 09/20/2005 7:42 AM CDT CBC WITH DIFFERENTIAL Routine 09/20/2005 7:42 AM CDT LIPID PANEL Routine 09/20/2005 7:42 AM CDT COMPREHENSIVE METABOLIC PANEL Routine 09/20/2005 7:42 AM CDT documented in this encounter Results * (ABNORMAL) URINALYSIS (09/20/2005 7:44 AM CDT) COLOR UA Yellow INTERFACE SYSTEM CLARITY UA Clear Clear INTERFACE SYSTEM SPECIFIC GRAVITY UA 1.010 1.001 - 1.035 INTERFACE SYSTEM PH UA 6.5 5.0 - 8.0 INTERFACE SYSTEM LEUKOCYTE ESTERASE UA Trace(A) Negative INTERFACE SYSTEM NITRITE UA Negative Negative INTERFACE SYSTEM PROTEIN UA Negative Negative INTERFACE SYSTEM GLUCOSE UA Negative Negative INTERFACE SYSTEM KETONES UA Negative Negative INTERFACE SYSTEM UROBILINOGEN UA <1 <=1 mg/dL INTE RFACE SYSTEM BILIRUBIN UA Negative Negative INTERFA CE SYSTEM BLOOD UA Negative Negative INTERFACE SYSTEM WBC UA 1 0 - 3 /HPF INTERFACE SYSTEM RBC UA <1 0 - 3 /HPF INTERFACE SYSTEM 09/20/2005 7:44 AM CDT us Cordell Schrader MD URINE ORDERABLES Final Res ult Performing Organization Address City/[facility] de Phone Number INTERFACE SYSTEM Refer to clinic/hospital department * CBC WITH DIFFERENTIAL (09/20/2005 7:42 AM CDT) NEUTROPHILS 55 45 - 70 % INTERFAC E SYSTEM LYMPHOCYTES 31 16 - 45 % INTERFAC E SYSTEM MONOCYTES 9 3 - 13 % INTERFACE SYSTEM EOSINOPHILS 4 0 - 7 % INTERFAC E SYSTEM BASOPHILS 1 0 - 2 % INTERFACE SYSTEM NEUTROPHIL ABSOLUTE 4.86 1.90 - 7.00 K/uL INTERFACE SYSTEM LYMPHOCYTE ABSOLUTE 2.71 0.70 - 4.50 K/uL INTERFACE SYSTEM MONOCYTE ABSOLUTE 0.80 0.10 - 1.30 K/uL INTERFACE SYSTEM EOSINOPHIL ABSOLUTE 0.36 0.00 - 0.70 K/uL INTERFACE SYSTEM BASOPHILS ABSOLUTE 0.07 0.00 - 0.20 K/uL INTERFACE SYSTEM 09/20/2005 7:42 AM CDT us Cordell Schrader MD HEMATOLOGY ORDERABLES Lauren l Result Performing Organization Address City/[facility]/ZIP Co de Phone Number INTERFACE SYSTEM Refer to clinic/hospital department * CBC WITH DIFFERENTIAL (09/20/2005 7:42 AM CDT) WBC 8.8 4.0 - 9.8 K/uL INTERFACE SYSTEM RBC 4.76 4.50 - 5.40 M/uL INTERFACE SYSTEM HEMOGLOBIN 15.3 13.6 - 16.5 g/dL INTERFACE SYSTEM HEMATOCRIT 44.0 40.0 - 48.0 % INTERFACE SYSTEM MCV 92.4 82.0 - 99.0 fL INTERFACE SYSTEM MCH 32.1 27.2 - 32.6 pg INTERFACE SYSTEM MCHC 34.8 31.5 - 35.5 % INTERFACE SYSTEM RDW 12.7 11.5 - 14.5 % INTERFACE SYSTEM RDW-STDEV 42.9 37.1 - 48.7 fL INTERFACE SYSTEM PLATELETS 245 140 - 350 K/uL INTERFACE SYSTEM MPV 10.9 9.3 - 12.4 fL INTERFACE SYSTEM 09/20/2005 7:42 AM CDT us Cordell Schrader MD HEMATOLOGY ORDERABLES Lauren l Result Performing Organization Address City/[facility] Phone Number INTERFACE SYSTEM Refer to clinic/hospital department * TSH REFLEXIVE (09/20/2005 7:42 AM CDT) TSH 2.40 0.27 - 4.20 uU/mL INTERFACE SYSTEM 09/20/2005 7:42 AM CDT us Cordell Schrader MD CHEMISTRY ORDERABLES Final Result Performing Organization Address [facility] Phone Number INTERFACE SYSTEM Refer to clinic/hospital department * PSA MEDICARE SCREEN (09/20/2005 7:42 AM CDT) PSA, SCREEN 1.6 0.0 - 4.0 ng/mL INTERFACE SYSTEM Comment:Performed on Erika M [employer]ular E170 System 09/20/2005 7:42 AM CDT us Cordell Schrader MD CHEMISTRY ORDERABLES COM F inal Result INTERFACE SYSTEM Refer to clinic/hospital department * (ABNORMAL) LIPID PANEL (09/20/2005 7:42 AM CDT) CHOLESTEROL 190 100 - 199 mg/dL INTERFACE SYSTEM TRIGLYCERIDE 125 10 - 149 mg/dL INTERFACE SYSTEM HDL 47 40 - 59 mg/dL INTERFACE SYSTEM CHOL/HDL RATIO 4.0 2.0 - 5.0 INTER FACE SYSTEM LDL CALCULATED 118(H) <=99 mg/dL INTERFACE SYSTEM LIPID PANEL COMMENT See Below INTERFACE SYSTEM Comment: The adult ATP and pediatric NCEP classifications for lipids are available on the [facility] Intranet at: [email or web address] Select: Lab Policies and Procedures Select: Reference Ranges - Lipids 09/20/2005 7:42 AM CDT Cordell Schrader MD CHEMISTRY ORDERABLES Final Result INTERFACE SYSTEM Refer to clinic/hospital department * (ABNORMAL) COMPREHENSIVE METABOLIC PANEL (09/20/2005 7:42 AM CDT) GLUCOSE 104(H) 65 - 99 mg/dL INTERFACE SYSTEM Comment:Note: Effective July 19, 2005, reference range now reflects a fasting st ate. CREATININE 1.2 0.5 - 1.3 mg/dL INTERFACE SYSTEM CALCIUM 9.1 8.6 - 10.2 mg/dL INTERFACE SYSTEM ALKALINE PHOSPHATASE 68 40 - 129 U/L INTERFACE SYSTEM AST 31 12 - 38 U/L INTERFACE SYSTEM ALT 27 0 - 41 U/L INTERFACE SYSTEM TOTAL PROTEIN 7.8 6.3 - 8.6 g/dL INTERFACE SYSTEM ALBUMIN 4.2 3.4 - 4.8 g/dL INTERFACE SYSTEM BILIRUBIN TOTAL 0.8 0.2 - 1.0 mg/dL INTERFACE SYSTEM BUN 22(H) 6 - 20 mg/dL INTERFACE SYSTEM SODIUM 138 135 - 145 mmol/L INTERFACE SYSTEM POTASSIUM 4.9 3.5 - 4.9 mmol/L INTERFACE SYSTEM CHLORIDE 101 96 - 108 mmol/L INTERFACE SYSTEM CO2 27 22 - 30 mmol/L INTERFACE SYSTEM 09/20/2005 7:42 AM CDT us Cordell Schrader MD CHEMISTRY ORDERABLES Final Result INTERFACE SYSTEM Refer to clinic/hospital department documented in this encounter Visit Diagnoses Diagnosis Pure hypercholesterolemia- Primary documented in this encounter Care Teams Street Supervisor Relationship Specialty Start Date End Date Harman Chauhan MD [address] [place] [id number] PCP - General Internal Medicine 04/11/17 documented as of this encounter
--- OUTSIDE RECORDS SUMMARY | 2024-06-04 18:11 | XMS_ITS | Continuity of Care Document ---
Author Organization [facility] Address [id number] [place] [address] [address] [place] [address] Phone Care Team Providers Care Recycling Coordinator Name Role Phone Brad Baugh MD, MD Unavailab le Allergies, Adverse Reactions, Alerts Substance Reaction Status Criticality clarithromycin Active No Informatio n Medications Medication Instructions Dosage Effective Dates (start - stop) Status Comments latanoprost 0.005 % eye drops instill 1 drop by ophthalmic route every day into both eyes in the evening 1.00 drop - Active TobraDex 0.3 %-0.1 % eye ointment apply by ophthalmic route 1 times every day a small amount into the conjunctival sac(s) into right eye at bedtime - Active Systane Balance 0.6 % eye drops 1 Gtt PRN OU - Active benazepril 20 mg tablet take 1 tablet (20MG) by oral route every day 20 MG - Active amlodipine 5 mg tablet take 1 tablet (5MG) by oral route every day 5 MG - Active Flonase 50 mcg/actuation Nasal [place] spray 1 spray by intranasal route every day in each nostril - Active Astelin 137 mcg Nasal [place] Aerosol spray 2 spray by intranasal route 2 times every day in each nostril - Active Zyrtec 10 mg tablet take 1 tablet (10MG) by oral route every day 10 MG - Active Vitamins & Minerals tablet QD - Active LIPITOR (unknown strength) take 1 tablet by oral route every day Not Available - Active IRON (unknown strength) Not Available - Active Eliquis 5 mg tablet take 1 tablet by oral route 2 times every day 5 MG - Active Prolia 60 mg/mL subcutaneous syringe inject 1 milliliter by subcutaneous route every 6 months in the upper arm, upper thigh or abdomen 60 MG - Active latanoprost 0.005 % eye drops instill 1 drop by ophthalmic route every day into both eyes in the evening 1.00 drop - No Longer Active Procedures Procedure Date OFFICE/OUTPATIENT VISIT, EST GDX Optic Nerve OFFICE/OUTPATIENT VISIT, EST VISUAL FIELD- EXTENDED OFFICE/OUTPATIENT VISIT, EST GDX Optic Nerve OFFICE/OUTPATIENT VISIT, EST VISUAL FIELD- EXTENDED OFFICE/OUTPATIENT VISIT, EST GDX Optic Nerve OFFICE/OUTPATIENT VISIT, EST VISUAL FIELD- EXTENDED OFFICE/OUTPATIENT VISIT, EST GDX Optic Nerve REFRACTION MCR OFFICE/OUTPATIENT VISIT, EST VISUAL FIELD EXAMINATION(S) OFFICE/OUTPATIENT VISIT, EST OFFICE/OUTPATIENT VISIT, EST GDX Optic Nerve OFFICE/OUTPATIENT VISIT, EST OFFICE/OUTPATIENT VISIT, EST VISUAL FIELD EXAMINATION(S) OFFICE/OUTPATIENT VISIT, EST GDX Optic Nerve OFFICE/OUTPATIENT VISIT, EST VISUAL FIELD EXAMINATION(S) OFFICE/OUTPATIENT VISIT, EST GDX Optic Nerve OFFICE/OUTPATIENT VISIT, EST SPECIAL EYE EXAM, SUBSEQUENT RIGHT EYE M SPECIAL EYE EXAM, SUBSEQUENT LEFT EYE Ma AFTER CATARACT LASER SURGERY Dec- AFTER CATARACT LASER SURGERY EYE EXAM ESTABLISHED PAT GDX Optic Nerve SPECIAL EYE EXAM, SUBSEQUENT RIGHT EYE S SPECIAL EYE EXAM, SUBSEQUENT LEFT EYE Se OFFICE/OUTPATIENT VISIT, EST VISUAL FIELD EXAMINATION(S) REFRACTION MEDICARE OFFICE/OUTPATIENT VISIT, EST GDX Optic Nerve OPTIC NERVE HEAD EVAL DONE OFFICE/OUTPATIENT VISIT, EST OPTIC NERVE HEAD EVAL DONE POSTOP FOLLOW-UP VISIT POSTOP FOLLOW-UP VISIT CATARACT SURG W/IOL, 1 STAGE DILATED FUNDUS EVAL DONE PRE-SURG EYE MEASURES DOC'D POSTOP FOLLOW-UP VISIT POSTOP FOLLOW-UP VISIT CATARACT SURG W/IOL, 1 STAGE DILATED FUNDUS EVAL DONE PRE-SURG EYE MEASURES DOC'D EYE EXAM & TREATMENT SPECIAL EYE EXAM, SUBSEQUENT SPECIAL EYE EXAM, SUBSEQUENT GDX Optic Nerve VISUAL FUNCT STATUS ASSESS OPTIC NERVE HEAD EVAL DONE EYE EXAM, NEW PATIENT OPTIC NERVE HEAD EVAL DONE E-Prescribing VISUAL FUNCT STATUS ASSESS SPECIAL EYE EXAM, INITIAL SPECIAL EYE EXAM, INITIAL REFRACTION Advance Directives Directive Yes / No Effective Date File Name No Information Encounters Encounter Description Practice Location Reason(s) For Visit Diagnoses Date Provider Providers Copied on Encounter [facility], [address] [place] [address], [place], [place], [id number], tel:[phone] [facility] No Information 4 Lupis Salinas. [address] , [address], [place], [place], [id number], [place]. tel:[phone] OFFICE/OUTPA TIENT VISIT, EST [facility], [address] [place] [address], [place], [place], [id number], tel:[phone] [facility] QUINTEROS POAG OU (chief complaint) Primary open-angle glaucoma, bilateral, mild stageTear film insufficiency of bilateral lacrimal glandsPresenc e of intraocular lensBlepharit is of both upper and lower eyelid 3 Lupis Salinas. [address] [facility], [address], [place], [place], [address], [place]. tel:[phone] Referring Provider: Harman Norris, [address] [facility] [address], [place], [address]. tel:[phone] [facility], [address] [place] [address], [id number], [place] tel:[phone] [facility] QUINTER[facility] No Information 3 Lupis Salinas. [address] [facility], [address] [place] [address], [id number], [place]. tel:[phone] OFFICE/OUTPA TIENT VISIT, EST [facility], [address] [place] [address], [id number], [place] tel:[phone] OPH CONS[facility] QUINTEROS POAG OU (chief complaint) Primary open-angle glaucoma, bilateral, mild stagePresence of intraocular lensBlepharit is of both upper and lower eyelid 3 Lupis Salinas. [address] [facility], [address], [place], [place], [address], [place]. tel:[phone] Referring Provider: Harman Norris, [address] [facility] [address], [place], [address]. tel:[phone] [facility], [address] [place] [address], [id number], [place] tel:[phone] OPH CONSULT J[facility] QUINTEROS No Information 3 Lupis Salinas. [address] [facility], [address], [address], [place]. tel:[phone] OFFICE/OUTPA TIENT VISIT, EST [facility], [address] [place] [address], [id number], [place] tel:[phone] [facility] POAG (chief complaint) Primary open-angle glaucoma, bilateral, mild stageTear film insufficiency of bilateral lacrimal glandsPresenc e of intraocular lens Oct-2 2 Lupis Salinas. [address] [facility], [address], [place], [place], [address], [place]. tel:[phone] Referring Provider: Harman Norris, [facility] [address] [facility] [address], [place], [address]. tel:[phone] OFFICE/OUTPA TIENT VISIT, EST [facility], [address] [place] [address], [id number], [place] tel:[phone] OPH CONSULT [facility] QUINTEROS glaucoma F/U (chief complaint) Primary open-angle glaucoma, bilateral, mild stageTear film insufficiency of bilateral lacrimal glandsPresenc e of intraocular lens May- 2 Lupis Salinas. [address] [facility], [address], [place], [place], [id number], [place]. tel:[phone] Referring Provider: Harman Norris, [facility] [address] [facility] [address], [place], [address]. tel:[phone] OFFICE/OUTPA TIENT VISIT, EST [facility], [address] [place] [address], [id number], [place] tel:[phone] OPH CONSULT JAM[facility] QUINTEROS glaucoma f/u (chief complaint) Primary open-angle glaucoma, bilateral, mild stagePresence of intraocular lensTear film insufficiency of bilateral lacrimal glands Sep- 1 Lupis Salinas. [address] [facility], [address], [place], [place], [address], [place]. tel:[phone] Referring Provider: Harman Norris, [facility] [address] [facility] [address], [place], [address]. tel:[phone] OFFICE/OUTPA TIENT VISIT, EST [facility], [address] [place] [address], [id number], tel:[phone] OPH CONSULT [facility] QUINTEROS glaucoma F/U (chief complaint) Primary open-angle glaucoma, bilateral, mild stagePresence of intraocular lens 1 Lupis Salinas. [address] [facility], [address], [place], [place], [address], . tel:[phone] Referring Provider: Harman Norris, [address] [facility] [address], [place], [address]. tel:[phone] OFFICE/OUTPA TIENT VISIT, EST [facility], [address] [place] [address], [id number], tel:[phone] OPH CONSULT [facility] QUINTEROS irritation (chief complaint)POA G (chief complaint) Primary open-angle glaucoma, right eye, mild stageMeibomia n gland dysfunction of unspecified eye, unspecified eyelid 0 Lupis Salinas. [address] [facility], [address], [place], [place], [address], [place]. tel:[phone] Referring Provider: Harman Norris, [facility] [address] [facility] [address] [place], [address]. tel:[phone] OFFICE/OUTPA TIENT VISIT, EST [facility], [address] [place] [address], [id number], tel:[phone] OPH CONSULT [facility] QUINTEROS Glaucoma, followup (chief complaint) Presence of intraocular lensInsuffici ency of tear film of both eyesPrimary open-angle glaucoma, right eye, mild stageMeibomia n gland dysfunction of unspecified eye, unspecified eyelid 0 Lupis Salinas. [address] [facility], [address], [place], [place], [address], [place]. tel:[phone] Referring Provider: Harman Norris, [facility] [address] [facility] [address], [place], [address]. tel:[phone] OFFICE/OUTPA TIENT VISIT, EST [facility], [address] [place] [address], [place], [place], [id number], [place] tel:[phone] [facility] burning and irritation (chief complaint) Meibomian gland dysfunction (MGD) of left eyeInsufficie ncy of tear film of both eyesPresence of intraocular lensMeibomian gland dysfunction (MGD) of right eye 9 Violeta Colbert. [address] [place] [address], [address], [place], [address], [place]. tel:[phone] Referring Provider: Harman Chauhan MD K, [address] [facility] [address], [place], [address]. tel:[phone] OFFICE/OUTPA TIENT VISIT, EST [facility], [address] [place] [address], [id number], [place] tel:[phone] OPH CONSULT J[facility] QUINTEROS POAG OU (chief complaint) Primary open-angle glaucoma, right eye, mild stagePresence of intraocular lensInsuffici ency of tear film of both eyes 9 Lupis Salinas. [address] [facility], [address], [place], [place], [address], [place]. tel:[phone] Referring Provider: Brad Baugh MD P, [address] [facility] [address], [place], [address] . tel:[phone] OFFICE/OUTPA TIENT VISIT, EST [facility], [address] [place] [address], [id number], [place] tel:[phone] OPH CONSULT J[facility] QUINTEROS tearing (chief complaint) Primary open-angle glaucoma, right eye, mild stagePresence of intraocular lensBilateral keratoconjunc tivitis sicca, 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Alle rgic conjunctiviti s of both eyes 9 Jose OD Felecia. [address] [facility], [address], [place], [place], [address], [place]. tel:[phone] Referring Provider: Felecia Garcia OD, [address], [address] . tel:[phone] OFFICE/OUTPA TIENT VISIT, EST [facility], [address] [place] [address], [id number], tel:[phone] OPH CONSULT [facility] QUINTEROS POAG (chief complaint) Primary open-angle glaucoma, right eye, mild stagePresence of intraocular lensPVD (posterior vitreous detachment), both eyesBilateral keratoconjunc tivitis sicca, 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 Raj- 9 Lupis Salinas. [address], [address], [address], [place]. tel:[phone] Referring Provider: Brad Rosenbaum, [address] [place] [address], [address] . tel:[phone] OFFICE/OUTPA TIENT VISIT, EST [facility], [address] [place] [address], [id number], tel:[phone] OPH CONSULT J[facility] QUINTEROS Glaucoma Suspect (chief complaint) Primary open-angle glaucoma, right eye, mild stagePresence of intraocular lens Dec-0 8 Lupis Salinas. [address], [place], [place], [address], [place]. tel:[phone] Referring Provider: Brad Rosenbaum, [address], [address] . tel:[phone] OFFICE/OUTPA TIENT VISIT, EST [facility], [address] [place] [address], [id number], tel:[phone] OPH CONSULT JAMARI QUINTEROS IOP check (chief complaint)tea ring and burning (chief complaint) At low risk for open-angle glaucoma in both eyesPresence of intraocular lens May- 8 Lupis Salinas. [address], [address], [address], [place]. tel:[phone] Referring Provider: Brad Rosenbaum, [address], [place], [address] . tel:[phone] OFFICE/OUTPA TIENT VISIT, EST [facility], [address] [place] [address], [id number], tel:[phone] OPH CONSULT [facility] QUINTEROS physician directed glaucoma exam (chief complaint) At low risk for open-angle glaucoma in both eyesPresence of intraocular lensPVD (posterior vitreous detachment), both eyes Nov- 7 Lupis Salinas. [address], [place], [place], [address], [place]. tel:[phone] Referring Provider: Brad Rosenbaum, [address], [place], [address] . tel:[phone] OFFICE/OUTPA TIENT VISIT, EST [facility], [address] [place] [address], [id number], [place] tel:[phone] OPH CONSULT J[facility] QUINTEROS Pseudophakia Check (chief complaint)Gla ucoma Suspect (chief complaint) At low risk for open-angle glaucoma in both eyesPVD (posterior vitreous detachment), both eyesPresence of intraocular lens May- 7 Lupis Salinas. [address], [place], [place], [address], [place]. tel:[phone] Referring Provider: Brad Rosenbaum, [address], [place], [address] . tel:[phone] [facility], [address] [place] [address], [id number], tel:[phone] [facility] [place] No Information Dec-0 6 Lupis Salinas. [address], [address], [id number], [place]. tel:[phone] Referring Provider: Brad Rosenbaum, [address], [address] . tel:[phone] [facility], [address] [place] [address], [id number], tel:[phone] [facility] No Information Nov- 6 Lupis Salinas. [address], [address], [id number], [place]. tel:[phone] Referring Provider: Brad Rosenbaum, [address] [place] [address], [address] . tel:[phone] [facility], [address] [place] [address], [id number], tel:[phone] OPH CONSULT [facility] QUINTEROS glaucoma check (chief complaint)damián aters (chief complaint)irr itation and itching (chief complaint)jona rry vision (chief complaint) After-catarac t with vision obscured, bilateralPVD (posterior vitreous detachment), both eyesTear film insufficiency of bilateral lacrimal glandsAt low risk for open-angle glaucoma in both eyes Nov- 6 Lupis Salinas. [address], [address] [place] [address], [id number], [place]. tel:[phone] Referring Provider: Brad Rosenbaum, [address] [place] [address], [address] . tel:[phone] OFFICE/OUTPA TIENT VISIT, EST [facility], [address] [place] [address], [id number], tel:[phone] [facility] QUINTEROS Glaucoma, suspect (chief complaint)jona rry vision (chief complaint) Open angle with borderline glaucoma findingsLens replaced by other means 5 Lupis Salinas. [address], [address], [address], [place]. tel:[phone] Referring Provider: Brad Rosenbaum, [address], [address] . tel:[phone] OFFICE/OUTPA TIENT VISIT, EST [facility], [address] [place] [address], [id number], tel:[phone] OPH CONSULT J[facility] QUINTEROS Physician Directed Glaucoma Exam (chief complaint) Open angle with borderline glaucoma findingsLens replaced by other meansVitreous degeneration May- 5 Lupis Salinas. [address], [address], [place], [address], [place]. tel:[phone] Referring Provider: Brad Rosenbaum, [address] [place] [address], [address] . tel:[phone] OFFICE/OUTPA TIENT VISIT, EST [facility], [address] [place] [address], [id number], tel:[phone] OPH CONSULT [facility] QUINTEROS Open angle with borderline glaucoma findingsLens replaced by other means Nov-0 4 Lupis Salinas. [address], [address], [address], [place]. tel:[phone] Referring Provider: Brad Rosenbaum, [address], [address] . tel:[phone] [facility], [address] [place] [address], [id number], tel:[phone] [facility]PH CONSULT [facility] QUINTEROS vision is improved OD (chief complaint) No Information 4 Lupis Salinas. [address], [address], [address], [place]. tel:[phone] Referring Provider: Brad Rosenbaum, [address], [address] . tel:[phone] [facility], [address] [place] [address], [id number], tel:[phone] OPH CONSULT J[facility]I QUINTEROS vision is improved- blurry yest. pm OD (chief complaint) No Information 4 Lupis Salinas. [address], [address], [place], [place], [address], [place]. tel:[phone] Referring Provider: Brad Rosenbaum, [address], [address] . tel:[phone] [facility], [address] [place] [address], [id number], tel:[phone] [facility] [place] No Information 4 Lupis Salinas. [address], [address], [place], [place], [address], . tel:[phone] Referring Provider: Brad Rosenbaum, [address], [place], [address] . tel:[phone] [facility], [address] [place] [address], [id number], tel:[phone] Oph Consult [facility] no complaints OS (chief complaint) No Information 4 Lupis Salinas. [address], [place], [place], [address], [place]. tel:[phone] Referring Provider: Brad Rosenbaum, [address], [address] . tel:[phone] [facility], [address] [place] [address], [id number], tel:[phone] OPH CONSULT JAMARI QUINTEROS vision is improved- brighter OS (chief complaint) No Information 4 Lupis Salinas. [address], [address], [id number], [place]. tel:[phone] Referring Provider: Brad Rosenbaum, [address], [address] . tel:[phone] [facility], [address] [place] [address], [id number], tel:[phone] [facility] No Information 4 Lupis Salinas. [address], [address], [address], [place]. tel:[phone] Referring Provider: Brad Rosenbaum, [address], [address] . tel:[phone] [facility], [address] [place] [address], [id number], tel:[phone] [facility] Open angle with borderline glaucoma findingsSenil e nuclear sclerosisVitr eous degeneration 4 Lupis Salinas. [address], [address], [address], [place]. tel:[phone] Referring Provider: Brad Rosenbaum, [address], [address] . tel:[phone] [facility], [address] [place] [address], [id number], tel:[phone] [facility] Senile nuclear sclerosisVitr eous degenerationO pen angle with borderline glaucoma findings 3 Lupis Salinas. [address], [address], [address], [place]. tel:[phone] Referring Provider: Brad Rosenbaum, [address], [place], [address] . tel:[phone] Family History Family Member Type Diagnosis Age At Onset Problem No family history of Macular degeneration Problem No family history of Glaucom a Problem No family history of Hyperte nsion Problem No family history of Diabete s mellitus Payers Payer name Insurance type Covered green party ID Authorrivera barone(s) [place] MB [id number] [facility] CI [id number] Social History Type Description Quantity Date Captured Comments Sex Male Smoking Status No Information Chief Complaint And Reason For Visit No Information Reason For Referral Reason For Referral No Information Plan Of Treatment Date Type Action Status Goal Tobacco cessation counseling completed Future Order: Radiology Order Ze iss Cirrus HD-OCT JAMARI ([id number]), Sent on: Sent History Of Present Illness Encounter Date Complaint History Of Prese nt Illness POAG OU The 88 year old male presents for evaluation of POAG OU mild stage, PT reports no changes to his VA OU for both distance and near but he has severe seasonal allergies which affects his eyes and uses Zaditor TID OU, he also had used a gtts for infection in OD, when he visited last time and he feels it might have occurred again after a period of 2 months, he feels slightly better today Continues to use Latanoprost QHS OU with good compliance. S/p PCIOL OU & YAG OUOCT ON ordered today. POAG OU The 87 year old male presents for evaluation of POAG OU 6 month follow up, The PT reports no changes to his VA OU since the last visit, he does report that he has discharge every day in the morning in his OD for the past 6 months, denies any pain or discomfort, continues to use Latanoprost OU QHS POAG The 86 year old male presents for 6 month follow up of POAG OU. Patient is using Latanoprost QHS OU. He's scheduled for OCT OU. He complains of decreased vision, OU, mild, constant, and stable since his last visit. glaucoma F/U The 86 year old male presents for evaluation of glaucoma F/U in the right eye and left eye. It started about 6 month(s) ago. It occurs all the time. The condition is stable. Pt states no complaints/changes, since last OV. A HVF was ordered today. gtts: Latanoprost qhs OU glaucoma f/u The 85 year old male presents for evaluation of glaucoma f/u. Patient has not noticed any vision changes. Really liked his last rx he got from last visit but fell face first and broke them so he got a replacement pair. Cannot see as well out of the replacement pair. They are slightly different prescriptions. Patient has been taking glasses off in order to watch television because they are that bad. Still using Latanoprost QHS OU. glaucoma F/U The 85 year old male presents for evaluation of glaucoma F/U in the right eye and left eye. It started about 6 month(s) ago. It occurs all the time. The condition is mild. Pt states no complaints/changes since last VA. He had new specs but fell and destroyed them. A HVF was ordered today. gtts: Latanoprost qhs OU POAG The patient is p resent for a 6 month IOP check. Patient reports good compliance w/ [place] OU, but insurance has increased the cost by $115 a month. Pt would like to talk about a generic or alternative. Pt has broken glasses and would like an updated glasses Rx - ABN discussed.Testing today: ON OCT.s/p PC IOL OU and YAG PC OU. irritation The 84 year old male presents for evaluation of irritation in the left eye. Patient reports severe irritation and itching OS over the last 2 weeks. Reports waking up to matted lids that patient needs to force open. States the itching seems constant.*Pt's brother recently dx w/ Fuch's. Father was also dx. Glaucoma, followup The 84 year o ld male presents for evaluation of Glaucoma, followup in the right eye. It occurs all the time. It affects VA not affected. The condition is stable. Pt c/o OU feeling itchy, pt uses Zaditor QD OU. PT uses Lumigan QHS OD only. Pt denies eye pain. Pt thinks his vision OU is about the same since last visit.VF ordered today. burning and irritation The 84 ye ar old male presents for evaluation of burning and irritation in the left eye. It started about 5 hour(s) ago. The symptom is constant. The condition is significant. The pt states he woke up this morning and his OS was swollen shut. He states the OS is red, mcnamara, irritated, itchy, mild drainage, and swelling around the OS. Systane OU QAM, Zaditor OU BID. POAG OU The 83 year old male presents for six month of POAG OU. Patient reports a decrease in Va, OU, gradual, it started about 2-3 years ago and seems to be getting worse. Pt is using Lumigan QHS OD only. Pt scheduled for OCT ONH and MAC OU. tearing The 83 year old male presents for evaluation of tearing in the left eye. It started about 6 day(s) ago. It occurs all the time. The condition is significant. Last Monday morning OS was glued shut. Eye has been tearing a lot and now mcnamara and is swollen. Pt is unsure if his eye is red. gtts: Systane qam, Zaditor BID OU, Lumigan qhs OD. POAG The 83 year old male presents for evaluation of POAG in the right eye. It started about 3 month(s) ago. It affects OD. The symptom is constant. The condition is mild. Pt presents for a physician directed IOP check since starting on Lumigan QHS OD in December. VF ordered today. Pt states Lumigan mcnamara for less than a minute when he puts it in. He states sometimes he gets foreign body sensation after putting Lumigan in. Pt states he had a stroke on December 13, 2017. Glaucoma Suspect The 82 year old male presents for evaluation of Glaucoma Suspect in the right eye and left eye. It started about 6 month(s) ago. It affects OU. The symptom is constant. The condition is mild. Pt presents for a physician directed IOP check. He is not being treated with IOP gtts. ON OCT ordered today. IOP check The 82 year old male presents for evaluation of IOP check in the right eye and left eye. It started about 6 month(s) ago. The symptom is constant. The condition is significant. No medicated gtts at this time, VF was ordered for todays exam. tearing and burning The patient is present for evaluation of tearing and burning in the right eye and left eye. It started about 2 year(s) ago. The symptom is infrequent. The condition is significant. Pt c/o of his eyes tearing, burning and itching.Zaditor OU BID and Systane Balance OU QAM-prn. physician directed glaucoma exam The 81 year old male is present for a physician directed glaucoma exam in the right eye and left eye. Pt was last seen about 6 month(s) ago. The condition is stable. 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 Not being treated with gtts. Uses Systane Balanace PRN OU and Zaditor PRN OU.ON OCT was ordered today. Pseudophakia Check The 81 year o ld male presents for evaluation of Pseudophakia Check in the right eye and left eye. It started about 6 month(s) ago. It affects OU. The symptom is constant. The condition is stable. s/p Yag OU.Pt currently uses Zaditor, BID OU and Systane, PRN OU Glaucoma Suspect The patient is present for evaluation of Glaucoma Suspect in the right eye and left eye. It started about 6 month(s) ago. It affects OU. The symptom is constant. The condition is mild. Pt currently not using any gtts. glaucoma check The 80 year old male presents for glaucoma check in the right eye and left eye. It started about 1 year(s) ago. Condition is mild and constant. Pt is borderline d/t cupping assymetry. ON OCT today. Not being treated with gtts. floaters The patient is p resent for evaluation of floaters in the unsure which eye. It started about 2 month(s) ago. The onset was sudden. Pt reports having lots of new floaters suddenly in the past couple of months. Denies any flashes of light, cobwebs, curtain. irritation and itching The patie nt is present for evaluation of irritation and itching in the left > right. It started about 1 year(s) ago. Condition is pretty common. Pt uses Systane and Zatidor with much relief. blurry vision The patient is p resent for evaluation of blurry vision in the right eye and left eye. It started about 2 month(s) ago. The symptom is constant. The condition is significant. Both near and distance vision is affected. Pt states it seems like cataracts are coming back. S/p PC IOL OU Glaucoma, suspect The 79 year ol d male presents for evaluation of Glaucoma, suspect in the right eye and left eye. It started about 6 month(s) ago. The symptom is constant. The condition is stable. blurry vision The patient is p resent for evaluation of blurry vision in the right eye and left eye. It started about 1 year(s) ago. The symptom is frequent. The condition is not any better. Pt having trouble with computer with out trifocal in glasses. Physician Directed Glaucoma Exam The 79 year old male presents for evaluation of Physician Directed Glaucoma Exam in the right eye and left eye. It started about 1 year(s) ago. The symptom is constant. The condition is stable. No Gtts at this time.Pseudophakic OU-VA stable OU. Passed drivers test without correction. vision is improved vision is imp roved OD vision is improved- blurry yest. pm vision is improved- blurry yest. 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, bilateral, mild stage Impression/Plan Related to Prese nce of intraocular lens Impression/Plan 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 Impression/Plan 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, bilateral, mild stage Impression/Plan 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 Impression/Plan Related to Prese nce of intraocular lens Impression/Plan 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, bilateral, mild stage Impression/Plan 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 Impression/Plan Related to Prese nce of intraocular lens Impression/Plan 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 Impression/Plan 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, bilateral, mild stage Impression/Plan Related to Prese nce of intraocular lens Impression/Plan 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, bilateral, mild stage Impression/Plan Related to Prese nce of intraocular lens Impression/Plan 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, right eye, mild stage Impression/Plan Related to Meibo tez gland dysfunction of unspecified eye, unspecified eyelid Impression/Plan Related to Prese nce of intraocular lens Impression/Plan 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, right eye, mild stage Impression/Plan Related to Insuf ficiency of tear film of both eyes Impression/Plan Related to Meibo tez gland dysfunction of unspecified eye, unspecified eyelid Impression/Plan 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 Impression/Plan Related to Prese nce of intraocular lens Impression/Plan Related to Insuf ficiency of tear film of both eyes Impression/Plan 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 Impression/Plan Related to Insuf ficiency of tear film of both eyes Impression/Plan 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, right eye, mild stage Impression/Plan Related to Prese nce of intraocular lens Impression/Plan 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, right eye, mild stage Impression/Plan Related to Prese nce of intraocular lens Impression/Plan 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, 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 Impression/Plan Related to Aller gic conjunctivitis of both eyes Impression/Plan 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, right eye, mild stage Impression/Plan Related to Prese nce of intraocular lens Impression/Plan 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), both eyes Impression/Plan 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 No treatment is required at this time. ON OCT was ordered today the results show Stable from ON OCT 11/2015 Related to At low risk for open-angle glaucoma in both eyes Impression/Plan - st able will continue to observes/p Yag OU Related to Presence of intraocular lens Impression/Plan - Th ere is no evidence of retinal pathology. All signs and risks of retinal detachment and tears were discussed in detail. Patient instructed to call office immediately if any symptoms noted. Educational materials provided:Flashers/floaters. Related to PVD (posterior vitreous detachment), both eyes Follow up - RTO 6 months with VF Impression/Plan - Re assured patient of current condition and treatment. No treatment is required at this time. No testing today. Related to At low risk for open-angle glaucoma in both eyes Impression/Plan - Th ere is no evidence of retinal pathology. All signs and risks of retinal detachment and tears were discussed in detail. Patient instructed to call office immediately if any symptoms noted. Recommend the patient return to the office for consult. 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 Discussed treatment options with patient. Surgical risks and benefits were discussed, explained and understood by patient. Patient elects to have surgery. Educational materials provided:Yag Capsulotomy. Related to After-cataract with vision obscured, bilateral Impression/Plan - Th ere is no evidence of retinal pathology. All signs and risks of retinal detachment and tears were discussed in detail. Patient instructed to call office immediately if any symptoms noted. Recommend the patient return to the office for consult. 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 Explained condition does not have a cure and will need artificial tears for maintenance. 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 No treatment is required at this time. Discussed risks and benefits and patient understands. Advised patient of condition. IOP slightly > observe closely.Physician ordered OCT today, test was ordered to help assess glaucoma OU.OCT WNL OUNo gtts at this time Related to At low risk for open-angle glaucoma in both eyes Follow up - RTO for YAG with MPD Related to At low risk for open- angle glaucoma in both eyes Follow up - RTO in 1 year for Complete Exam and OCT Impression/Plan - St able, will continue to observe. New glasses Rx was given today. Related to Lens replaced by other means Impression/Plan - St able. Intraocular pressure stable without medication. Continue without medication and observe.VF today-Normal OU Related to Open angle with borderline glaucoma findings Impression/Plan - St able, will continue to observe. Related to Lens replaced by other means Impression/Plan - Al l signs and risks of retinal detachment and tears were discussed in detail. Patient instructed to call the office immediately if any symptoms noted. Related to Vitreous degeneration Impression/Plan - Di scussed diagnosis in detail with patient. No treatment is required at this time. Will continue to monitor IOP. Related to Open angle with borderline glaucoma findings - Return in 6 months with Brad Baugh MD for IOP check and VF Related to Lens replaced by other means Lens replaced by oth er means OU - Stable, will continue to observe. Related to Lens replaced by other means Open angle with bord courtney glaucoma findings OU-CD asymetryIOP normal OU - Discussed diagnosis in detail with patient. No treatment is required at this time. Will continue to monitor IOP. Related to Open angle with borderline glaucoma findings - 2nd eye scheduled 04/29/13Standard lens Related to Cataract 1week, 1st [id number] Senile nuclear scler osis OU OS>OD (slightly) - Cataracts account for the patient's complaints. Discussed all risks, benefits, procedures and recovery. Patient understands changing glasses will not improve vision. Patient desires to have surgery, recommend phacoemulsification with intraocular lens.Toric vs Standard lens, discussed both with pt today.Pt will call when ready, advised pt of cost of each lens. Related to Senile nuclear sclerosis Vitreous degeneratio n OU - Posterior vitreous detachment accounts for the patient's complaints. There is no evidence of retinal pathology. All signs and risks of retinal detachment and tears were discussed in detail. Patient instructed to call the office immediately if any symptoms noted. Recommend the patient return to office for follow up. Related to Vitreous degeneration Open angle with bord courtney glaucoma findings OU - VF today- normal OUIOP within normal range, will cont to monitor. Related to Open angle with borderline glaucoma findings - Return in 1 yr danielle h Brad Baugh MD for IOP check. Related to Open angle with borderline glaucoma findings Cataract, Nuclear Sc lerosis OU - Cataracts are the cause for Pt's complaints. Discussed risks and benefits of surgery. Discussed Torric lens. Patient elects to try new glasses rx first. Related to Cataract, Nuclear Sclerosis Vitreous degeneratio n OU - Discussed diagnosis in detail with patient. Discussed signs and symptoms of retinal detachment. Educational materials provided:Flashers/floaters. Related to Vitreous degeneration Glaucoma Suspect OU - IOP slightly elevated. 1 year Cataract eval with VF. Related to Glaucoma Suspect Assessments Type Assessment Date No Information Patient Care Teams Name Effective Dates (start - stop) Status Members No Information
--- OUTSIDE RECORDS SUMMARY | 2024-06-04 18:11 | XMS_ITS | Patient Health Record ---
Author Organization [facility] Address [address] [place], [place] [id number] Care Team Providers Care Process Design Engineer Name Role Phone TANIA RÍOS Unavailable [phone] Reason For Referral No Information Plan Of Treatment No Information
--- OUTSIDE RECORDS SUMMARY | 2024-06-04 18:11 | XMS_ITS | Clinical Summary ---
Author Organization [facility] Address [address] [place] [address] Phone Care Team Providers Care Warehouse Representative Name Role Phone Harman Chauhan MD Primary Care Provider [phone] [phone] Allergies Active Allergy Reactions Criticality Noted Date Comments Atorvastatin Muscle Pain Medium 03/03/2021 Clarithromycin Unknown,Nausea and Vomiting Low 05/29/2012 Other reaction(s): vomiting Lovastatin Muscle Pain Low 11/02/2021 Mold Other (See Comments) 08/08/2017 sneezing Pollen Extracts Other (See Comments) 07/13/2020 Sneeze and congestion Pravastatin Muscle Pain Low 05/04/2021 Rofecoxib Nausea and Vomiting Low 06/19/2018 Rosuvastatin Muscle Pain Low 05/04/2021 Medications cetirizine (ZyrTEC) 10 mg tablet Take 10 mg by mouth daily. 2 Active finasteride (PROSCAR) 5 mg tablet 1 Tablet late in the day. M-T---F 4 Active KETOTIFEN FUMARATE (ZADITOR OP) 1 Drop by Ophthalmic route 2 times daily. Active ASCORBIC ACID (VITAMIN C ORAL) Take 500 mg by mouth daily. Active coenzyme Q10 Capsule Take 10 mg by mouth daily. Active acetaminophen (TYLENOL EXTRA STRENGTH ORAL) Take 2 Tablets by mouth 2 times daily. Active B-complex with vitamin C (VITAMIN B COMPLEX-C ORAL) Take 1 Capsule by mouth daily. Active denosumab (PROLIA) 60 mg/mL SyringeIndicati ons:Every 6 months Inject 1 mL (60 mg) by subcutaneous injection Every twentysix weeks. 1 mL 1 8 Active Additional Information Patient not taking.Reported on 08/03/2023 latanoprost (XALATAN) 0.005 % solution Administer 1 Drop in both eyes daily at bedtime. Active chlorpheniramin e (CHLOR-TRIMETON ) 4 mg tablet Take 4 mg by mouth daily at bedtime. Active cholecalciferol , Vitamin D3, (VITAMIN D3) 25 mcg (1,000 unit) Capsule Take 1,000 Units by mouth daily. Active apixaban (Eliquis) 5 mg tablet TAKE 1 TABLET TWICE A DAY 180 Tablet 2 3 Active ferrous sulfate 325 mg (65 mg iron) tabletIndicatio ns:MGUS (monoclonal gammopathy of unknown significance),O ther iron deficiency anemia Take 1 Tablet (325 mg) by mouth 2 times daily. 180 Tablet 1 3 Active furosemide (LASIX) 20 mg tablet Take 20 mg by mouth daily. Active QUEtiapine (SEROquel) 25 mg tablet Take 25 mg by mouth 2 times daily. Active tamsulosin (FLOMAX) 0.4 mg capsule Take 0.4 mg by mouth daily. Active sacubitriL-vals sanket (Entresto) 24-26 mg Tablet Take 1 Tablet by mouth 2 times daily. 3 Active fluticasone propionate (FLONASE) 50 mcg/spray [place], Suspension nasal inhaler Administer 2 Sprays in each nostril 2 times daily. 96 Gram 3 3 Active azelastine (ASTELIN) 137 mcg/actuation nasal spray Administer 2 Sprays in each nostril 2 times daily. 600 mL 3 3 Active metoprolol succinate (TOPROL XL) 25 mg Extended Release 24 hour tablet TAKE 1 TABLET DAILY (STARTING 04/28) 103 Tablet 2 4 Active Active Problems Patient Care Coordination No te Formatting of this note migh t be different from the original. Dr. Cordell Garcia - Formal Waiter/Waitress ([facility] @ ) Problem Noted Date Diagnosed Date Frequent falls 08/04/2023 Cognitive impairment 08/04/2023 Chronic systolic CHF (congestive heart failure) 08/03/2022 Protein-calorie malnutrition, moderate Chronic anticoagulation 04/23/2022 Traumatic hematoma of buttock 04/23/2022 Anemia 04/23/2022 Fluid overload 04/23/2022 Kidney lesion, chilkoot, left 04/23/2022 History of falling 11/03/2021 Statin myopathy 11/03/2021 Benign essential tremor 02/18/2020 Basal cell carcinoma, face 05/16/2018 Monoclonal gammopathy of unknown significance (M JAY) 05/16/2018 Chronic atrial fibrillation, unspecified 018 Primary osteoarthritis of left shoulder 12/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 Started on Prolia in 2017. Discussed use in this patient given hypercalcemia, Dr. Olivas thinks it is safe and appropriate with monitoring of calcium levels every 6 months before he is due for his next injection. 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 stroke Resolved Problems Problem Noted Date Diagnosed Date Resolved Date Fall 12/13/2017 08/21/2019 Primary osteoarthritis of right shoulder 12/09/2015 07/18/2016 Disorder of bone and cartilage, unspecified 05/02/2011 05/30/2012 Encounters Date Type Department Care Team Description 05/11/2024 External Device Data STL ABSTRACTION Provider, Abstract 05/10/2024 External Device Data ST[facility] ABSTRACTION Provider, Abstract 04/23/2024 External Device Data [facility] ABSTRACTION Provider, Abstract 03/27/2024 External Device Data [facility] ABSTRACTION Provider, Abstract 03/26/2024 External Device Data ST[facility] ABSTRACTION Provider, Abstract from Last 3 Months Immunizations Immunization Administration Dates Next Due (ADACEL/BOOSTRIX)(10 YR UP) TDAP VACCINE, 0.5ML, IM 05/18/2011 (PNEUMOVAX 23)(50 YRS UP) PN EUMOCOCCAL POLYSACCHARIDE (PPV23) 0.5 ML, IM 02/03/2006,12/05/1999 (PREVNAR 13)(6 WKS UP) PNEUM OCOCCAL CONJUGATE (PCV13) 0.5 ML, IM 09/15/2014 (TDVAX)(7 YRS UP) TETANUS AN D DIPHTHERIA TOXOIDS, ADSORBED (2 LF OF TETANUS TOXOID AND 2 LF OF DIPHTHERIA TOXOID), 0.5ML (PF), IM 06/04/1998 Influenza Seasonal Unspecified Formulation IM ,12/03/2016 Influenza Vaccine High Dose 65+ Yrs IM 9 PREVNAR (PCV13) pneumococcal 13-valent conjugate Vaccine 09/15/2014 Zoster Vaccine Live SQ 09/24/2010 Family History Medical History Relation Name Comments Osteoporosis Brother Prostate Cancer Brother Cancer Father Testicular canc er Hypertension Mother Stroke Mother Colon Cancer Neg Hx Heart Disease Neg Hx Relation Name Status Comments Brother Father Mother Social History Tobacco Use Types Packs/Day Years Used Date Smoking Tobacco: Former Cigarettes 3 30 0 05/30/1956 - 05/30/1986 Smokeless Tobacco: Never Tobacco Cessation:Counseling Given: Not Answered Alcohol Use Standard Drinks/Week Comments Yes 0 (1 standard drink = 0.6 oz pur e alcohol) every 2-3 weeks Financial Resource Strain Answer Date R ecorded How hard is it for you to pa y for the very basics like food, housing, medical care, and heating? Not very hard 11/04/2021 Food Insecurity Answer Date Recorded In the past 12 months, have you worried that your food would run out before you had money to buy more? Never true 11/04/2021 In the past 12 months, did y ou run out of food and didn't have money to buy more? Never true 11/04/2021 Transportation Needs Answer Date Record ed In the past 12 months, has l ack of transportation kept you from medical appointments or from getting medications? 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 Gender Identity Male 09/03/2023 1:10 AM CDT Sexual Orientation Not on file Last Filed Vital Signs Vital Sign Reading Time Taken Comments Blood Pressure 102/60 08/03/2023 11:15 AM CDT Pulse 53 08/03/2023 11:15 AM CDT Temperature 36.3 C (97.4 F) 08/03/2023 11:15 AM CDT Respiratory Rate 14 08/03/2023 11:15 AM CDT Oxygen Saturation 99% 08/03/2023 11:15 AM CDT Inhaled Oxygen Concentration - - Weight 60.3 kg (133 lb) 08/03/2023 11:15 AM CDT Height 172.7 cm (5' 8 ) 08/03/2023 11:15 AM CDT Body Mass Index 20.22 08/03/2023 11:15 AM CDT Plan of Treatment Health Maintenance Due Date Last Done Comments ZOSTER VACCINE (2 of 3) 11/19/2010 09/24/2010 RSV VACCINE (60+ or ) (1 - 1-dose 75+ series) 01/01/2011 DTAP/TDAP/TD VACCINES (2 - T d or Tdap) 05/17/2021 05/18/2011, 06/04/1998 INFLUENZA VACCINE (#1) 2023 , 12/01/2020, 12/18/2018, Additional history exists Traditional Medicare (ACO) A nnual Wellness Visit 02/23/2024 02/21/2023, 11/03/2021, 08/18/2020, Additional history exists PNEUMOCOCCAL VACCINE 50+ YEARS Completed 0 09/15/2014, 09/15/2014, 02/03/2006, Additional history exists Medical Devices Implanted Type Area Last Marker Device Identifier Shelf Expiration Date Model / Serial / Lot Clip Ligating Horizon Sm Ti [id number] - Csc - [id number] Implanted:Qty: 2 on 07/16/2020 by Jaison Benitez MD at [facility] Clip N/A: Neck [employer] 12/28/2024 [id number] / / [id number] Clip Ligating Horizon Med Ti [id number] - Csc - [id number] Implanted:Qty: 1 on 07/16/2020 by Jaison Benitez MD at [facility] Clip N/A: Neck TELEFLEX- WECK CLOSURE SYS 06/23/2024 [id number] / / [id number] Stem Hum Ascnd Flx Ptc Std Sz4a [id number] - [id number] Implanted:Qty: 1 on 08/10/2016 by Yara Khan MD at [facility] Shoulder Left: Shoulder [employer] 02/23/2021 [id number] / [id number] / Head Hum Ascnd Flx Cocr Os [id number] - [id number] Implanted:Qty: 1 on 08/10/2016 by Yara Khan MD at [facility] Shoulder Left: Shoulder [employer] 09/27/2020 [id number] / [id number] / Head Hum Ascnd Flx Cocr Os [id number] - [id number] Implanted:Qty: 1 on 08/08/2017 by Yara Khan MD at [facility] Shoulder Right: Shoulder [employer] 10/07/2021 [id number] / [id number] / Stem Hum Ascnd Flx Ptc Std Sz5a [id number] - [id number] Implanted:Qty: 1 on 08/08/2017 by Yara Khan MD at [facility] Shoulder Right: Shoulder [employer] 04/08/2021 [id number] / [id number] / Penile Description:MRI conditional - bing 12/13/[address] [place] [address] MEDICARE PART A AND B [facility] [address] [place] [address] RX [employer] Commercial RX EX-DME Medicare Part B RX [facility] Medicare Part D RX [employer] (INTERNAL) [facility] Internal Plans Advance Directives For more information, please contact: [phone] * Full Code (Latest Code Status on File) Date Activated Date Inactivated Comments 04/23/2022 4:58 PM 04/27/2022 4:58 PM * Full Code Date Activated Date Inactivated Comments 07/16/2020 6:06 AM 07/16/2020 2:33 PM * Full Code Date Activated Date Inactivated Comments 12/09/2019 2:02 PM 12/09/2019 7:05 PM * Full Code Date Activated Date Inactivated Comments 10/29/2019 11:27 AM 10/29/2019 3:20 PM * Full Code Date Activated Date Inactivated Comments 08/10/2016 7:01 PM 08/11/2016 2:32 PM Care Teams Warehouse Representative Relationship Specialty Start Date End Date Harman Chauhan MD [address], [place] [id number] [place] [id number] PCP - General Internal Medicine 04/11/17
--- OUTSIDE RECORDS SUMMARY | 2024-06-04 18:11 | XMS_ITS | Encounter Summary ---
Author Organization [facility] Address [address] [place] [address] Care Team Providers Care Personal Lines Account Executive Name Role Phone Harman Chauhan MD Primary Care Provider [phone] Encounter Details Date Type Department Care Team (Latest Contact Info) Description 02/05/2001 Outpatient Historical HIS [facility] Benitez, Jaison Denise MD [address] [facility] [id number] [place] [phone] NONTOX UNINODULAR GOITER (Primary Dx) Social History Tobacco Use Types Packs/Day Years Used Date Smoking Tobacco: Never Assessed Sex and Gender Information Value Date Recorded Sex Assigned at Male 09/03/2023 1:10 AM CDT 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
--- OUTSIDE RECORDS SUMMARY | 2024-06-04 18:11 | XMS_ITS | Encounter Summary ---
Author Organization [email or web address] Address [address] [place] [address] Care Team Providers Care Bouffant Curtain Machine Tender Name Role Phone Harman Chauhan MD Primary Care Provider [phone] Encounter Details Date Type Department Care Team (Latest Contact Info) Description 04/06/2004 Outpatient Historical HIS [facility] Schrader, Cordell Berrios MD NO ADDRESS ON FILE [place] NOS (Primary Dx) Social History Tobacco Use Types Packs/Day Years Used Date Smoking Tobacco: Never Assessed Sex and Gender Information Value Date Recorded Sex Assigned at Male 09/03/2023 1:10 AM CDT Legal Sex Male 4:13 AM PATTERN MECHANIC Gender Identity Male 09/03/2023 1:10 AM CDT Sexual Orientation Not on file documented as of this encounter Plan of Treatment Not on file documented as of this encounter Procedures Procedure Name Priority Date/Time Associated Diagnosis Comments URINALYSIS W/REFLEX MICROSCOPIC Routine 04/06/2004 1:42 PM PATTERN MECHANIC PSA MEDICARE SCREEN Routine 04/06/2004 1 :39 PM PATTERN MECHANIC TSH REFLEXIVE Routine 04/06/2004 1:39 PM PATTERN MECHANIC CBC WITH DIFFERENTIAL Routine 04/06/2004 1:39 PM PATTERN MECHANIC CBC WITH DIFFERENTIAL Routine 04/06/2004 1:39 PM PATTERN MECHANIC LIPID PANEL Routine 04/06/2004 1:39 PM PATTERN MECHANIC COMPREHENSIVE METABOLIC PANEL Routine 04/06/2004 1:39 PM PATTERN MECHANIC documented in this encounter Results * (ABNORMAL) URINALYSIS (04/06/2004 1:42 PM PATTERN MECHANIC) COLOR UA Yellow INTERFACE SYSTEM CLARITY UA Clear Clear INTERFACE SYSTEM SPECIFIC GRAVITY UA 1.020 1.001 - 1.035 INTERFACE SYSTEM PH UA 6.0 5.0 - 8.0 INTERFACE SYSTEM LEUKOCYTE ESTERASE UA Negative Negative INTERFACE SYSTEM NITRITE UA Negative Negative INTERFACE SYSTEM PROTEIN UA Trace(A) Negative INTERFACE SYSTEM GLUCOSE UA Negative Negative INTERFACE SYSTEM KETONES UA Negative Negative INTERFACE SYSTEM UROBILINOGEN UA <1 <1 EU INTE RFACE SYSTEM BILIRUBIN UA Negative Negative INTERFA CE SYSTEM BLOOD UA Negative Negative INTERFACE SYSTEM WBC UA 3 0 - 3 /HPF INTERFACE SYSTEM RBC UA 1 0 - 3 /HPF INTERFACE SYSTEM EPITHELIAL CELLS, URINE 0-2 /HPF INTERFACE SYSTEM 04/06/2004 1:42 PM PATTERN MECHANIC Cordell Schrader MD URINE ORDERABLES Final Res ult Performing Organization Address [facility] Phone Number INTERFACE SYSTEM Refer to clinic/hospital department * CBC WITH DIFFERENTIAL (04/06/2004 1:39 PM PATTERN MECHANIC) NEUTROPHILS 58 45 - 70 % INTERFAC E SYSTEM LYMPHOCYTES 30 16 - 45 % INTERFAC E SYSTEM MONOCYTES 9 3 - 13 % INTERFACE SYSTEM EOSINOPHILS 3 0 - 7 % INTERFAC E SYSTEM BASOPHILS 1 0 - 2 % INTERFACE SYSTEM NEUTROPHIL ABSOLUTE 4.16 1.90 - 7.00 K/uL INTERFACE SYSTEM LYMPHOCYTE ABSOLUTE 2.15 0.70 - 4.50 K/uL INTERFACE SYSTEM MONOCYTE ABSOLUTE 0.64 0.10 - 1.30 K/uL INTERFACE SYSTEM EOSINOPHIL ABSOLUTE 0.22 0.00 - 0.70 K/uL INTERFACE SYSTEM BASOPHILS ABSOLUTE 0.04 0.00 - 0.20 K/uL INTERFACE SYSTEM 04/06/2004 1:39 PM PATTERN MECHANIC Cordell Schrader MD HEMATOLOGY ORDERABLES Lauren l Result Performing Organization Address [facility] de Phone Number INTERFACE SYSTEM Refer to clinic/hospital department * CBC WITH DIFFERENTIAL (04/06/2004 1:39 PM PATTERN MECHANIC) WBC 7.2 4.0 - 9.8 K/uL INTERFACE SYSTEM RBC 4.78 4.50 - 5.40 M/uL INTERFACE SYSTEM HEMOGLOBIN 15.2 13.6 - 16.5 g/dL INTERFACE SYSTEM HEMATOCRIT 46.0 40.0 - 48.0 % INTERFACE SYSTEM MCV 96.2 82.0 - 99.0 fL INTERFACE SYSTEM MCH 31.8 27.2 - 32.6 pg INTERFACE SYSTEM MCHC 33.0 31.5 - 35.5 % INTERFACE SYSTEM RDW 13.1 11.5 - 14.5 % INTERFACE SYSTEM RDW-STDEV 45.9 37.1 - 48.7 fL INTERFACE SYSTEM PLATELETS 242 140 - 350 K/uL INTERFACE SYSTEM MPV 10.7 9.3 - 12.4 fL INTERFACE SYSTEM 04/06/2004 1:39 PM PATTERN MECHANIC Cordell Schrader MD HEMATOLOGY ORDERABLES Lauren l Result Performing Organization Address [facility] de Phone Number INTERFACE SYSTEM Refer to clinic/hospital department * TSH REFLEXIVE (04/06/2004 1:39 PM PATTERN MECHANIC) TSH 1.10 0.27 - 4.20 uU/mL INTERFACE SYSTEM 04/06/2004 1:39 PM PATTERN MECHANIC Cordell Schrader MD CHEMISTRY ORDERABLES Final Result Performing Organization Address [facility]/ZIP Co de Phone Number INTERFACE SYSTEM Refer to clinic/hospital department * PSA MEDICARE SCREEN (04/06/2004 1:39 PM PATTERN MECHANIC) PSA, SCREEN 1.9 0.0 - 4.0 ng/mL INTERFACE SYSTEM Comment:Performed on Erika M odular E170 System 04/06/2004 1:39 PM PATTERN MECHANIC Cordell Schrader MD CHEMISTRY ORDERABLES COM F inal Result Performing Organization Address [facility] Co de Phone Number INTERFACE SYSTEM Refer to clinic/hospital department * (ABNORMAL) LIPID PANEL (04/06/2004 1:39 PM PATTERN MECHANIC) CHOLESTEROL 186 100 - 199 mg/dL INTERFACE SYSTEM TRIGLYCERIDE 63 10 - 149 mg/dL INTERFACE SYSTEM HDL 52 40 - 59 mg/dL INTERFACE SYSTEM LDL CALCULATED 121(H) <=99 mg/dL INTERFACE SYSTEM CHOL/HDL RATIO 3.6 2.0 - 5.0 INTER FACE SYSTEM Comment:See interpretive armando a section for risk classifications. LIPID PANEL COMMENT See below INTERFACE SYSTEM Comment: Adult ATP III Classifications: Cholesterol (mg/dL) Triglyceride (mg/dL) Desirable <200 Normal <150 Borderline 200 - 239 Borderline High 150 - 199 High >=240 High 200 - 499 Very High >=500 HDL Cholesterol (mg/dL) LDL (mg/dL) Low (increased risk) <40 Optimal <100 High (reduced risk) >=60 Near or above optimal 100 - 129 Borderline 130 - 159 High 160 - 189 Very High >=190 LDL calculation is not accurate if Triglycerides are greater than 400 mg /dL Pediatric NCEP Classifications: Cholesterol(<20 years),(mg/dL) Triglyceride Desirable <170 Pediatric classification Borderline 170 - 199 not defined. High >=200 HDL (<5 years) LDL (mg/dL) No Reference Range Established Desirable <110 Borderline 110 - 129 High >=130 04/06/2004 1:39 PM PATTERN MECHANIC Cordell Schrader MD CHEMISTRY ORDERABLES Final Result INTERFACE SYSTEM Refer to clinic/hospital department * (ABNORMAL) COMPREHENSIVE METABOLIC PANEL (04/06/2004 1:39 PM PATTERN MECHANIC) GLUCOSE 99 65 - 109 mg/dL INTERFACE SYSTEM CREATININE 1.1 0.5 - 1.3 mg/dL INTERFACE SYSTEM CALCIUM 9.0 8.6 - 10.2 mg/dL INTERFACE SYSTEM AST 25 12 - 38 U/L INTERFACE SYSTEM ALKALINE PHOSPHATASE 80 40 - 129 U/L INTERFACE SYSTEM BUN 29(H) 6 - 20 mg/dL INTERFACE SYSTEM BILIRUBIN TOTAL 0.6 0.2 - 1.0 mg/dL INTERFACE SYSTEM ALBUMIN 4.3 3.4 - 4.8 g/dL INTERFACE SYSTEM TOTAL PROTEIN 8.0 6.3 - 8.6 g/dL INTERFACE SYSTEM ALT 19 0 - 41 U/L INTERFACE SYSTEM SODIUM 141 135 - 145 mmol/L INTERFACE SYSTEM POTASSIUM 4.3 3.5 - 4.9 mmol/L INTERFACE SYSTEM CHLORIDE 105 96 - 108 mmol/L INTERFACE SYSTEM CO2 27 22 - 30 mmol/L INTERFACE SYSTEM 04/06/2004 1:39 PM PATTERN MECHANIC us Cordell Schrader MD CHEMISTRY ORDERABLES Final Result INTERFACE SYSTEM Refer to clinic/hospital department documented in this encounter Visit Diagnoses Diagnosis Diarrhea- Primary documented in this encounter Care Teams Bouffant Curtain Machine Tender Relationship Specialty Start Date End Date Harman Chauhan MD [address] [place], [address] [place] [phone] PCP - General Internal Medicine 04/11/17 documented as of this encounter
--- OUTSIDE RECORDS SUMMARY | 2024-06-04 18:11 | XMS_ITS | Patient Health Record ---
Author Organization [facility] Address [address] [place] [address] Care Team Providers Care Radio Division Captain Name Role Phone Jones Lemus Unavailable [phone] ZZ-Migration, Provider Unavailable Unavailab le Allergies Allergen (clinical drug ingredient) Drug/Non Drug Allergy documented on EMR Reaction Allergy Type Onset Date Status BIAXIN XL-HAKEEM (uncoded) vomiting Allergy Active Reason For Referral No Information Medications Medication SIG (Take, Route, Frequency, Duration) Notes Start Date End Date Status FINASTERIDE 5 mg 1 tab(s) orally once a day Active PROLIA 60 mg/mL as directed subcutaneously every 6 months Active ATORVASTATIN 40 mg 1 tab(s) orally once a day Active BENAZEPRIL 20 mg 1 tab(s) orally once a day Active AMLODIPINE 10 mg 1 tab(s) orally once a day Active Fiber Choice 1.5 GM 2 tab(s) chewed 3 times a day Active Cetirizine HCl 10 MG 1 tab(s) orally onc e a day for 30 days Active NASAL WASHES N/A DIRECTED INTRANASALLY NEEDED for 30 *Please review for potential replacement for e-prescription and drug interaction check* Active Fluticasone Propionate 50 MCG/ACT 2 spray(s) in each nostril BID for 30 day(s) Active CHLORPHENIRAMINE (ALLERGY) 4MG *Please review for potential replacement for e-prescription and drug interaction check* Active ZyrTEC Allergy 10 MG 1 tab(s) orally onc e a day Active Vitamin B-12 250 MCG 1 tab(s) orally onc e a day for 30 day(s) Active EpiPen 2-Hakeem 0.3 MG/0.3ML as directed intramuscularly once for 30 days Active Fluticasone Propionate 50 MCG/ACT 1 spray(s) in each nostril once a day for 90 days Active Azelastine HCl 137 MCG/SPRAY 2 spray(s) intranasally 2 times a day for 90 days Active FIBER CHOICE 1.5 g 2 tab(s) chewed 3 times a day Active TYLENOL 8 HOUR 650 mg 2 tab(s) orally ev karl 8 hours Active ZADITOR 0.025% 1 gtt each eye twice daily Active LATANOPROST OPHTHALMIC 0.005% 1 gtt in each eye once a day (in the evening) Active VITAMIN B12 250 mcg 1 tab(s) orally once a day for 30 day(s) Active ZYRTEC 10 mg 1 tab(s) orally once a day Active FLUTICASONE NASAL 50 mcg/inh 2 spray(s) in each nostril BID for 30 day(s) Active CETIRIZINE 10 mg 1 tab(s) orally once a day for 30 days Active amLODIPine Besylate 10 MG 1 tab(s) orally once a day Active Benazepril HCl 20 MG 1 tab(s) orally onc e a day Active Atorvastatin Calcium 40 MG 1 tab(s) orally once a day Active Prolia 60 MG/ML as directed subcutaneously every 6 months Active Finasteride 5 MG 1 tab(s) orally once a day Active Latanoprost 0.005 % 1 gtt in each eye once a day (in the evening) Active ELIQUIS STARTER PACK FOR TREATMENT OF DVT AND PE 5 MG DIRECTED ORALLY 2 TIMES A DAY *Please review for potential replacement for e-prescription and drug interaction check* Active Zaditor 0.025% 1 GTT EACH EYE TWICE DAILY *Please review and pick correct strength-formula tion from [employer] options. If intended option is not shown, discontinue and re-order from Quick Search* Active Tylenol 8 Hour 650 MG 2 tab(s) orally ev karl 8 hours Active AZELASTINE NASAL 137 mcg/inh 2 spray(s) intranasally 2 times a day for 90 days Active FLUTICASONE NASAL 50 mcg/inh 1 spray(s) in each nostril once a day for 90 days Active EPIPEN 2-HAKEEM 0.3 mg as directed intramuscularly once for 30 days Active Social History Tobacco Use: Social History Observation Description Date Details (start date - stop date) Never Smoker NA - NA Smoking Smart Form: Question Answer Notes Are you a: never smoker Problems Problem Type SNOMED Code ICD Code Onset Dates Problem Status W/U Status Risk Notes Problem Chronic allergic conjunctivitis (12266629) Other chronic allergic conjunctivitis (H10.45) Active confirmed Problem Atrial fibrillation (71079327) Unspecified atrial fibrillation (I48.91) Active confirmed Problem Cerebral infarction (247132432) Cerebral infarction, unspecified (I63.9) Active confirmed Problem Allergic rhinitis caused by pollen (disorder) (07855112) Allergic rhinitis due to pollen (J30.1) Active confirmed Problem Allergic rhinitis caused by animal hair and dander (556144005600021) Allergic rhinitis due to animal (cat) (dog) hair and dander (J30.81) Active confirmed Problem Allergic rhinitis (73448134) Other allergic rhinitis (J30.89) Active confirmed Problem Chronic rhinitis (73658663) Chronic rhinitis (J31.0) Active confirmed Problem Hypertrophy of nasal turbinates (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) 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) Active confirmed Problem Allergic rhinitis caused by pollen (disorder) (06823843) Allergic rhinitis due to pollen (J30.1) Active confirmed Problem Allergic rhinitis caused by animal hair and dander (562169262683124) Allergic rhinitis due to animal (cat) (dog) hair and dander (J30.81) Active confirmed Problem Allergic rhinitis (83392453) Other allergic rhinitis (J30.89) Active confirmed Problem Chronic allergic conjunctivitis (14874043) Other chronic allergic conjunctivitis (H10.45) Active confirmed Problem Essential hypertension (35331205) Essential (primary) hypertension (I10) Active confirmed Encounters Encounter Location Date Provider Diagnosis RANULFO Daniels [address] [place] [id number] 08/19/2023 Provider ZZ-Migration Plan Of Treatment No Information Insurance Providers Payer Name Payer Address Payer Phone Subscriber Number Group Number Insured Name Patient Relationship to Insured Coverage Start Date Coverage End Date [employer] (Medicare) Attention Claims [address] [place] [address] [id number] Jamey Cuadra Self - patient is the insured [facility] [address] [place] [address] [id number] Jamey Cuadra Self - patient is the insured Medical (General) History Medical History History ICD Code Unspecified atrial fibrillation I48.91 Cerebral infarction, unspecified I63.9 Surgical History Surgery Date(Month/Year) parathyroid (2019) bone marrow retrieval
--- OUTSIDE RECORDS SUMMARY | 2024-06-04 18:11 | XMS_ITS | Encounter Summary ---
Author Organization [facility] Address [address] [place] [address] Care Team Providers Care Property Staff Accountant Name Role Phone Harman Chauhan MD Primary Care Provider +1 [phone] Encounter Details Date Type Department Care Team (Late st Contact Info) Description 08/22/2006 Outpatient Historical [facility] Support Serv. ([facility]) [address] 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
--- OUTSIDE RECORDS SUMMARY | 2024-06-04 18:11 | XMS_ITS | Encounter Summary ---
Author Organization [facility] Address 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
--- OUTSIDE RECORDS SUMMARY | 2024-06-04 18:11 | XMS_ITS | Encounter Summary ---
Author Organization [facility] Address 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 Gender Identity Male 09/03/2023 1:10 AM CDT Sexual Orientation Not on file documented as of this encounter Plan of Treatment Not on file documented as of this encounter Procedures Procedure Name Priority Date/Time Associated Diagnosis Comments POC, BLOOD GASES Routine 09/04/2006 7:52 AM CDT URINALYSIS WITH REFLEX CULTURE Routine 08/22/2006 10:13 AM CDT HEMOGLOBIN AND HEMATOCRIT Routine 08/22/2006 10:13 AM CDT URINALYSIS W/REFLEX MICROSCOPIC Routine 08/22/2006 10:13 AM CDT BASIC METABOLIC PANEL Routine 08/22/2006 10:13 AM CDT documented in this encounter Results * POC RT, BLOOD GASES (09/04/2006 7:52 AM CDT) PATIENT'S TEMPERATURE 37.0 Degree C INTERFACE SYSTEM POTASSIUM POC 4.2 3.5 - 4.9 mmol/L INTERFACE SYSTEM COMMENT, GASES POC NOTIFIED INTERFACE SYSTEM 09/04/2006 7:52 AM CDT Cordell Perez MD CHEMISTRY ORDERABLES Edite d Performing Organization Address [facility] Phone Number INTERFACE SYSTEM Refer to clinic/hospital department * URINALYSIS (08/22/2006 10:13 AM CDT) COLOR UA Pale Yellow INTERFAC E SYSTEM CLARITY UA Clear Clear INTERFACE SYSTEM SPECIFIC GRAVITY UA 1.006 1.001 - 1.035 INTERFACE SYSTEM PH UA 5.5 5.0 - 8.0 INTERFACE SYSTEM LEUKOCYTE ESTERASE UA Negative Negative INTERFACE SYSTEM NITRITE UA Negative Negative INTERFACE SYSTEM PROTEIN UA Negative Negative INTERFACE SYSTEM GLUCOSE UA Negative Negative INTERFACE SYSTEM KETONES UA Negative Negative INTERFACE SYSTEM UROBILINOGEN UA <1 <=1 mg/dL INTE RFACE SYSTEM BILIRUBIN UA Negative Negative INTERFA CE SYSTEM BLOOD UA Negative Negative INTERFACE SYSTEM 08/22/2006 10:1 3 AM CDT us Cordell Perez MD URINE ORDERABLES Final Res ult Performing Organization Address [facility] Phone Number INTERFACE SYSTEM Refer to clinic/hospital department * URINALYSIS WITH REFLEX CULTURE (08/22/2006 10:13 AM CDT) URINE CULTURE ORDER Not indicated INTERFACE SYSTEM Comment: Criteria for a reflex culture include one or more of the following: Abn ormal nitrite, leukocyte esterase, WBCs or RBCs. Lack of qualifying criteria does not exclude the possiblity of a urinary tract infection. Dilute urine, drug interference, etc. may decrease the sensitivity of the criteria analytes. 08/22/2006 10:1 3 AM CDT Cordell Perez MD URINE ORDERABLES Final Res ult Performing Organization Address [facility] Phone Number INTERFACE SYSTEM Refer to clinic/hospital department * BASIC METABOLIC PANEL (08/22/2006 10:13 AM CDT) GLUCOSE 97 65 - 99 mg/dL INTERFACE SYSTEM CREATININE 1.02 0.67 - 1.17 mg/dL INTERFACE SYSTEM CALCIUM 10.0 8.4 - 10.2 mg/dL INTERFACE SYSTEM BUN 20 6 - 20 mg/dL INTERFACE SYSTEM SODIUM 140 135 - 145 mmol/L INTERFACE SYSTEM POTASSIUM 5.0 3.5 - 4.9 mmol/L INTERFACE SYSTEM Comment:No significant hemol ysis CHLORIDE 105 96 - 108 mmol/L INTERFACE SYSTEM CO2 25 22 - 30 mmol/L INTERFACE SYSTEM GFR, >60 >=60 mL/min/1.7 sq meter INTERFACE SYSTEM GFR >60 >=60 mL/min/1.7 sq meter INTERFACE SYSTEM Comment: Estimated GFR rate interpretative information for both Americans and non- Americans is available on the [facility] Intranet at: [email or web address] Select: Lab Policies and Procedures Select: Reference Ranges - GFR 08/22/2006 10:1 3 AM CDT Cordell Perez MD CHEMISTRY ORDERABLES Final Result Performing Organization Address [facility] Phone Number INTERFACE SYSTEM Refer to clinic/hospital department * HEMOGLOBIN AND HEMATOCRIT (08/22/2006 10:13 AM CDT) HEMOGLOBIN 15.6 13.6 - 16.5 g/dL INTERFACE SYSTEM HEMATOCRIT 44.2 40.0 - 48.0 % INTERFACE SYSTEM 08/22/2006 10:1 3 AM CDT Cordell Perez MD HEMATOLOGY ORDERABLES Lauren l Result Performing Organization Address [facility] de Phone Number INTERFACE SYSTEM Refer to clinic/hospital department documented in this encounter Visit Diagnoses Diagnosis Impotence of organic origin- Primary documented in this encounter Care Teams Pollution Control Engineer Relationship Specialty Start Date End Date Harman Chauhan MD [address], [place] [address] [place] [phone] PCP - General Internal Medicine 04/11/17 documented as of this encounter
--- OUTSIDE RECORDS SUMMARY | 2024-06-04 18:11 | XMS_ITS ---
Author Organization [facility] Address [address] [place] [address] Phone Care Team Providers Care Laundry Technician Name Role Phone Harman Chauhan MD Primary Care Provider [phone] [phone] Active Problems Patient Care Coordination No te Formatting of this note migh t be different from the original. Dr. 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 Started on Prolia in 2018. Discussed use in this patient given hypercalcemia, Dr. Olivas thinks it is safe and appropriate with monitoring of calcium levels every 6 months before he is due for his next injection. 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 Olivas Nov 2017 and plan is to avoid surgery unless absolutely necessary, will aggressively treat osteoporosis Essential hypertension 05/18/2011 Spinal stenosis, lumbar joe on, without neurogenic claudication 05/02/2011 Overview (09/22/2015): L3-4, L4-5 decompression 12/18 Pure hypercholesterolemia 08/25/2010 History of left BRAIDING MACHINE TENDER stroke Current Treatment and Therapy Plans No current plan information found. Past Treatment and Therapy Plans No past plan information found. Lifetime Dose Tracking * Chemical Lifetime Dose Automatic Entry Manual Entr y Effective Dose 10.4 mSv 10.4 mSv 0 mSv Total DLP 1,640 DLP 1,640 DLP 0 DLP CTDIvol Max 72.4 mGy 72.4 mGy 0 mGy CTDIvol Min 72.4 mGy 72.4 mGy 0 mGy Resolved Problems Problem Noted Date Diagnosed Date Resolved Date Fall 12/13/2017 08/21/2019 Primary osteoarthritis of right shoulder 12/09/2015 07/18/2016 Disorder of bone and cartilage, unspecified 05/02/2011 05/30/2012
--- OUTSIDE RECORDS SUMMARY | 2024-06-04 18:11 | XMS_ITS | Encounter Summary ---
Author Organization [employer] Address [address] [place] [address] Care Team Providers Care Supervisor Education Name Role Phone Harman Chauhan MD Primary Care Provider [phone] [phone] Encounter Details Date Type Department Care Team (Latest Contact Info) Description 05/20/2002 Outpatient Historical [facility] J[facility]OB Benitez, Jaison Denise MD [address] [facility] [address] [place] [address] LOC OSTEOARTH NOS-SHLDER (Primary Dx) Social History Tobacco Use Types Packs/Day Years Used Date Smoking Tobacco: Never Assessed Sex and Gender Information Value Date Recorded Sex Assigned at Male 09/03/2023 1:10 AM CDT 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
--- OUTSIDE RECORDS SUMMARY | 2024-06-04 18:11 | XMS_ITS | Encounter Summary ---
Author Organization [employer] Address [address] [place] [address] Care Team Providers Care Training And Development Officer Name Role Phone Harman Chauhan MD Primary Care Provider +1 [phone] Encounter Details Date Type Department Care Team (Latest Contact Info) Description 09/05/2002 Outpatient Historical HIS [facility] Schrader, Cordell Berrios MD NO ADDRESS ON FILE ALLERGIC RHINITIS NOS (Primary Dx) Social History Tobacco Use Types Packs/Day Years Used Date Smoking Tobacco: Never Assessed Sex and Gender Information Value Date Recorded Sex Assigned at Male 09/03/2023 1:10 AM CDT 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
--- OUTSIDE RECORDS SUMMARY | 2024-06-04 18:11 | XMS_ITS | Encounter Summary ---
Author Organization [employer] Address 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
--- OUTSIDE RECORDS SUMMARY | 2024-06-04 18:11 | XMS_ITS | Encounter Summary ---
Author Organization [employer] Address 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
--- OUTSIDE RECORDS SUMMARY | 2024-06-04 18:11 | XMS_ITS | Encounter Summary ---
Author Organization [employer] Address [address] [place] [address] Care Team Providers Care Director Toxicology Name Role Phone Harman Chauhan MD Primary Care Provider + -[phone] Encounter Details Date Type Department Care Team (Latest Contact Info) Description 04/24/2003 Outpatient Historical [facility],NON-PATIENT Brad Cunningham MD 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
--- OUTSIDE RECORDS SUMMARY | 2024-06-04 18:11 | XMS_ITS | Encounter Summary ---
Author Organization [employer] Address [address] [place] [address] Care Team Providers Care Sales Service Manager Name Role Phone Harman Chauhan MD Primary Care Provider [phone] [phone] Encounter Details Date Type Department Care Team (Latest Contact Info) Description 10/12/2004 Outpatient Historical [facility], [address] Brad Cunningham MD 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
[2024-06-04 18:12] LABS: Lactic Acid Reflex 0.9 mmol/L (0.7-2.0)
--- OUTSIDE RECORDS SUMMARY | 2024-06-04 18:12 | XMS_ITS | Encounter Summary ---
Author Organization [employer] Address 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
--- OUTSIDE RECORDS SUMMARY | 2024-06-04 18:12 | XMS_ITS | Encounter Summary ---
Author Organization [employer] Address 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
--- OUTSIDE RECORDS SUMMARY | 2024-06-04 18:12 | XMS_ITS | Continuity of Care Document ---
Author Organization [facility] Address [address] [place] [address] [address] [place] [address] Phone Care Team Providers Care Remediation Consultant Name Role Phone Mallorie Davis Unavailable Unavailable Advance Directives Directive Yes / No Effective Date File Name No Information Encounters Encounter Description Practice Location Reason(s) For Visit Diagnoses Date Provider Providers Copied on Encounter [facility], [address], [place], [place], [id number], [place] tel:[phone] [facility] No Information [address] [facility] , [address], [place], [address], [place]. tel:[phone] Family History Family Member Type Diagnosis Age At Onset No Information Payers Payer name Insurance type Covered democrat ID Authoriza tion(s) Medicare [facility] [id number] [facility] Medicare Supp [place] [id number] Social History Type Description Quantity Date Captured Comments Sex Male Smoking Status No Information Chief Complaint And Reason For Visit No Information Reason For Referral Reason For Referral No Information History Of Present Illness Encounter Date Complaint History Of Prese nt Illness No Information Functional Status Date Functional Assessmen t No Information Instructions Date Instruction Additional Infor mation No Information Assessments Type Assessment Date No Information Patient Care Teams Name Effective Dates (start - stop) Status Members No Information
--- OUTSIDE RECORDS SUMMARY | 2024-06-04 18:12 | XMS_ITS | Encounter Summary ---
Author Organization [employer] Address 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
--- OUTSIDE RECORDS SUMMARY | 2024-06-04 18:12 | XMS_ITS | Encounter Summary ---
Author Organization [facility] Address [address] [facility] Attn: Epic Prelude ADT [address] [place] [address] Care Team Providers Care Warehouse Order Puller Name Role Phone Harman Chauhan MD Primary Care Provider +1 [phone] Encounter Details Date Type Department Care Team (Late st Contact Info) Description 04/23/1990 Outpatient Historical Cordell Schrader MD NO ADDRESS ON FILE Social History Tobacco Use Types Packs/Day Years Used Date Smoking Tobacco: Never Assessed Sex and Gender Information Value Date Recorded Sex Assigned at Male 09/03/2023 1:10 AM CDT 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
--- OUTSIDE RECORDS SUMMARY | 2024-06-04 18:12 | XMS_ITS | Encounter Summary ---
Author Organization [employer] Address 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
--- OUTSIDE RECORDS SUMMARY | 2024-06-04 18:12 | XMS_ITS | Encounter Summary ---
Author Organization [employer] Address 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
--- OUTSIDE RECORDS SUMMARY | 2024-06-04 18:12 | XMS_ITS ---
Author Organization [facility] Address [address] [place], [place] [address] Care Team Providers Care Paramedic Instructor Name Role Phone KHUSHBU TANIA Unavailable [phone] REASON FOR VISIT in hospital Encounters Encounter Location Date Provider Diagnosis [facility] [address] [place], [place] [id number] 08/10/2023 TANIA ACUÑA Plan Of Treatment No Information Progress Notes * Fox CUAD[birth year]inDOB:[birth year] (89 yo M)Acc No.[id number]:08/10/2023 Progress Notes Patient: Jamey BELTRAN Provider: Josh Acuña DPM :1935 A ge:88 Y S ex:Male Date:08/10/2023 Address:[address] [place], [place] [id number] Subjective: * Chief Complaints: * 1 . In hospital. * Medical History: Objective: * Vitals: Assessment: Plan: * Treatment: * Billing Information: * Visit Code: * Procedure Codes: * Electronic signature of TANIA ACUÑA DPM on 06/04/2024 at 06:12 PM CDT Sign off status: Pending * Provider: Josh Acuña DPM Date: 08/10/2023 Generated for Robi mckeon/Kaleigh/Vadim on: 06/04/2024 06:12 PM CDT
--- OUTSIDE RECORDS SUMMARY | 2024-06-04 18:12 | XMS_ITS | Encounter Summary ---
Author Organization [employer] Address 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) Social History Tobacco Use Types Packs/Day Years Used Date Smoking Tobacco: Never Assessed Sex and Gender Information Value Date Recorded Sex Assigned at Male 09/03/2023 1:10 AM CDT 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
--- OUTSIDE RECORDS SUMMARY | 2024-06-04 18:12 | XMS_ITS | Encounter Summary ---
Author Organization [employer] Address [address] [place] [address] Care Team Providers Care Event Decorator Name Role Phone Harman Chauhan MD Primary Care Provider +1 [phone] Encounter Details Date Type Department Care Team (Latest Contact Info) Description 11/20/2000 Outpatient Historical [facility] Cordell Lubin MD 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
--- OUTSIDE RECORDS SUMMARY | 2024-06-04 18:12 | XMS_ITS | Encounter Summary ---
Author Organization [facility] Address [address] [facility] Attn: Epic Prelude ADT [address] [place] [address] Care Team Providers Care Turbine Subassembler Name Role Phone Harman Chauhan MD Primary Care Provider +1 [phone] Encounter Details Date Type Department Care Team (Late st Contact Info) Description 02/06/1990 Outpatient Historical Cordell Schrader MD NO ADDRESS ON FILE Social History Tobacco Use Types Packs/Day Years Used Date Smoking Tobacco: Never Assessed Sex and Gender Information Value Date Recorded Sex Assigned at Male 09/03/2023 1:10 AM CDT 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
--- OUTSIDE RECORDS SUMMARY | 2024-06-04 18:12 | XMS_ITS ---
Author Organization [facility] Address [address] [place] [address] Care Team Providers Care Aoc Director Combat Operations Officer Name Role Phone Jones Lemus Unavailable [phone] [facility], Provider Unavailable Unavailab le Allergies Allergen (clinical drug ingredient) Drug/Non Drug Allergy documented on EMR Reaction Allergy Type Onset Date Status BIAXIN XL-HAKEEM (uncoded) vomiting Allergy [facility] Con[facility] Encounter Medications Medication SIG (Take, Route, Frequency, Duration) Notes Start Date End Date Status Zaditor 0.025% 1 GTT EACH EYE TWICE DAILY *Please review and pick correct strength-formula [facility]ion from [facility]. If intended option is not shown, discontinue and re-order from Quick Search* Active Tylenol 8 Hour 650 MG 2 tab(s) orally ev karl 8 hours Active Fiber Choice 1.5 GM 2 tab(s) chewed 3 times a day Active Cetirizine HCl 10 MG 1 tab(s) orally onc e a day for 30 days Active ELIQUIS STARTER PACK FOR TREATMENT OF DVT AND PE 5 MG DIRECTED ORALLY 2 TIMES A DAY *Please review for potential replacement for e-prescription and drug interaction check* Active Benazepril HCl 20 MG 1 tab(s) orally onc e a day Active Atorvastatin Calcium 40 MG 1 tab(s) orally once a day Active Prolia 60 MG/ML as directed subcutaneously every 6 months Active Finasteride 5 MG 1 tab(s) orally once a day Active Latanoprost 0.005 % 1 gtt in each eye once a day (in the evening) Active Azelastine HCl 137 MCG/SPRAY 2 spray(s) intranasally 2 times a day for 90 days Active amLODIPine Besylate 10 MG 1 tab(s) orally once a day Active Vitamin B-12 250 MCG 1 tab(s) orally onc e a day for 30 day(s) Active EpiPen 2-Hakeem 0.3 MG/0.3ML as directed intramuscularly once for 30 days Active Fluticasone Propionate 50 MCG/ACT 1 spray(s) in each nostril once a day for 90 days Active NASAL WASHES N/A DIRECTED INTRANASALLY NEEDED for 30 *Please review for potential replacement for e-prescription and drug interaction check* Active Fluticasone Propionate 50 MCG/ACT 2 spray(s) in each nostril BID for 30 day(s) Active CHLORPHENIRAMINE (ALLERGY) 4MG *Please review for potential replacement for e-prescription and drug interaction check* Active ZyrTEC Allergy 10 MG 1 tab(s) orally onc e a day Active Encounters Encounter Location Date Provider Diagnosis [address] [address] 08/19/2023 Provider ZZ-Migration Plan Of Treatment No Information Progress Notes * Fox CUADRAinDOB:[birth year] (89 yo M)Acc No.[id number]:08/19/2023 Patient: Jamey BELTRAN Provider: Ilsa Leiva :1935 A ge:88 Y S ex:Male Date:08/19/2023 Address:[address] [place], [place] [address] Subjective: * Chief Complaints: * 1 . [facility] En[facility]. * Medical History: * Medications: T aking amLODIPine Besylate 10 MG Tablet 1 tab(s) orally once a day , Taking Benazepril HCl 20 MG Tablet 1 tab(s) orally once a day , Taking Atorvastatin Calcium 40 MG Tablet 1 tab(s) orally once a day , Taking Prolia 60 MG/ML Solution Prefilled Syringe as directed subcutaneously every 6 months , Taking Finasteride 5 MG Tablet 1 tab(s) orally once a day , Taking Latanoprost 0.005 % Solution 1 gtt in each eye once a day (in the evening) , Taking ELIQUIS STARTER PACK FOR TREATMENT OF DVT AND PE 5 MG TABLET DIRECTED ORALLY 2 TIMES A DAY , Notes to Pharmacist: *Please review for potential replacement for e-prescription and drug interaction check*, Taking Zaditor 0.025% SOLUTION 1 GTT EACH EYE TWICE DAILY , Notes to Pharmacist: *Please review and pick correct strength-formulation from [facility] options. If intended option is not shown, discontinue and re-order from Quick Search*, Taking Tylenol 8 Hour 650 MG Tablet Extended Release 2 tab(s) orally every 8 hours , Taking Fiber Choice 1.5 GM Tablet Chewable 2 tab(s) chewed 3 times a day , Taking Cetirizine HCl 10 MG Tablet 1 tab(s) orally once a day , Taking NASAL WASHES N/A 1 QUART OF STERILIZED TAP WATER OR DISTILLED WATER, 1 TSP NACL, 1 PINCH OF BAKING SODA DIRECTED INTRANASALLY NEEDED , Notes to Pharmacist: *Please review for potential replacement for e-prescription and drug interaction check*, Taking Fluticasone Propionate 50 MCG/ACT Suspension 2 spray(s) in each nostril BID , Taking CHLORPHENIRAMINE (ALLERGY) , Notes to Pharmacist: 4MG *Please review for potential replacement for e-prescription and drug interaction check*, Taking ZyrTEC Allergy 10 MG Tablet 1 tab(s) orally once a day , Taking Vitamin B-12 250 MCG Tablet 1 tab(s) orally once a day , Taking EpiPen 2-Hakeem 0.3 MG/0.3ML Solution Auto-injector as directed intramuscularly once , Taking Fluticasone Propionate 50 MCG/ACT Suspension 1 spray(s) in each nostril once a day , Taking Azelastine HCl 137 MCG/SPRAY Solution 2 spray(s) intranasally 2 times a day * Allergies: B IAXIN XL-HAKEEM: vomiting. Objective: * Vitals: Assessment: Plan: * Treatment: * Billing Information: * Visit Code: * Procedure Codes: * Electronic signature of Jose REID-Migration on 06/04/2024 at 06:12 PM CDT Sign off status: Pending * Provider: Ilsa owen Migration Date: 0 08/19/2023 Generated for Robi mckeon/Kaleigh/Vadim on: 0 06/04/2024 06:12 PM CDT
--- OUTSIDE RECORDS SUMMARY | 2024-06-04 18:12 | XMS_ITS | Encounter Summary ---
Author Organization [facility] Address [address] [facility] Attn: Epic Prelude ADT [address] [place] [address] Care Team Providers Care Manufacturing Executive Name Role Phone Harman Chauhan MD Primary Care Provider +1 [phone] Encounter Details Date Type Department Care Team (Late st Contact Info) Description 07/29/1988 Outpatient Historical Cordell Schrader MD NO ADDRESS ON FILE Social History Tobacco Use Types Packs/Day Years Used Date Smoking Tobacco: Never Assessed Sex and Gender Information Value Date Recorded Sex Assigned at Male 09/03/2023 1:10 AM CDT 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
[2024-06-04 18:20] LABS: CRP 15.3 mg/dL (<1.0)
--- NOTE | 2024-06-04 18:48 | PC.NURSE ---
Noted pt to have bruising in various stages to bilateral lower extremities & bilateral upper extremities. With abrasion to right posterior upper arm
--- NOTE | 2024-06-04 18:53 | PM.IMHP ---
H&P: HPI History of Present Illness Date/Time: 06/04/24 18:53 Chief Complaint: Weakness, Fever Narrative: 89 y/o M with PMH of Afib, basal cell carcinoma, glaucoma, HFrEF, HTN, and iron deficiency anemia with generalized weakness. The patient presents here via EMS from [facility] for further evaluation of generalized weakness and fever. HPI obtained through EMS report, monica review, and patient account (A/Ox1, limited). Temp prior to arrival was 100.8F, given Tylenol by EMS. The patient reports cough and a mild head ache. He denies shortness of breath, chest pain, fever, chills, body aches, nausea, vomiting, or diarrhea. No further history available. Initial VS at presentation: 98.8F, HR 117, RR 20, 87/57, 91 RA. Now 99% on 2L NC. ED workup showed: no leukocytosis, Hgb 10.4 (previously 10.6 02/2024), CRP 15.3, lactic 0.9, viral PCR. CXR showed a possible early infiltrate within the superior segment of the right lower lobe, as detailed above. Elbow XR (R) degenerative disease without acute fracture. Knee XR (R) degenerative disease. EKG showed AFib with PVCs, left axis deviation, incomplete RBBB, borderline R-wave progression anterior leads, consider inferior infarct age indeterminate, baseline artifact (when compared to previous EKG done in February of 2024, heart rate has increased). Review of Systems Review of Systems: All systems reviewed & are unremarkable except as noted in HPI and below (limited) [facility] Past Medical History Medical History Heart failure with reduced ejection fraction 07/2023: Severe global hypokinesis and low EF, estimated at 20-25%. Chronic anticoagulation Basal cell carcinoma Glaucoma Iron deficiency anemia Hypertension Atrial fibrillation Surgical History Surgical History History of incision and drainage I&D of infected left lower extremity hematoma by Dr. Sandra on 07/24/23 H/O thyroidectomy H/O hemorrhoidectomy History of removal of skin mole History of tonsillectomy H/O shoulder replacement H/O cataract extraction Family History Family History Mother Cerebrovascular accident Father Testicle cancer Cerebrovascular accident Sibling Malignant neoplasm of prostate Social History Social History Social History: Code status: Do not resuscitate. Smoking packs per day: 2 Smoking cigarettes per day: 40.0 Years smoked: 31 Smoking pack-years: 62.00 Smoking status: Former smoker Tobacco type: cigarettes Second hand tobacco smoke exposure: No Alcohol intake: never Substance use: never Substance use type: does not use Do You Feel Safe in your Home?: Yes Lack of Transportation: No Lack of Food: Never True Current Housing: I Have Housing Concerned About Future Housing: No Difficulty Paying Gas/Electric Bills: No Difficulty Paying for Meds: No Currently Unemployed: No Education: Decline to Answer Difficulty w/ Childcare or Family Care: No Living arrangements: shelter Additional living arrangements comments: [facility] Additional 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 Spiritual care concerns: No Meds Home Medications and Allergies Home Medications ?Medication ?Instructions ?Recorded ?Confirmed ?Type finasteride 5 mg tablet 5 mg PO DAILY 06/15/22 06/04/24 History metoprolol succinate 25 mg 25 mg PO DAILY 06/15/22 06/04/24 History tablet,extended release 24 hr tamsulosin 0.4 mg capsule 0.4 mg PO DAILY #30 caps 06/21/22 06/04/24 Rx latanoprost 0.005 % eye drops 1 drp EACH EYE HS 08/08/23 06/04/24 History potassium chloride 20 mEq 20 meq PO DAILY #7 tabs 08/11/23 06/04/24 Rx tablet,extended release arginine-vitamin C-vitamin E oral 9.2 g PO BID 08/29/23 06/04/24 History 4.5 gram-156 mg/9.2 gram powder pkt (Arginaid) azelastine 137 mcg (0.1 %) nasal 137 mcg intranasal DAILY 08/29/23 06/04/24 History spray fluticasone propionate 50 2 spray intranasal DAILY 08/29/23 06/04/24 History mcg/actuation nasal spray,suspension umeclidinium 62.5 mcg/actuation 1 inh inhalation DAILYRT #7 ea 09/05/23 06/04/24 Rx blister powder for inhalation (Incruse Ellipta) ascorbic acid (vitamin C) 500 mg 500 mg PO BID 11/28/23 06/04/24 History tablet cetirizine 10 mg tablet 10 mg PO DAILY 11/28/23 06/04/24 History cholecalciferol (vitamin D3) 10 10 mcg PO DAILY 11/28/23 06/04/24 History mcg (400 unit) capsule (Vitamin D3) clopidogrel 75 mg tablet 75 mg PO DAILY 11/28/23 06/04/24 History ferrous sulfate 325 mg (65 mg 325 mg PO BID 11/28/23 06/04/24 History iron) tablet linagliptin 5 mg tablet (Tradjenta) 5 mg PO DAILY 11/28/23 06/04/24 History acetaminophen 325 mg tablet 650 mg PO Q6H PRN Pain 02/12/24 06/04/24 History albuterol sulfate 90 mcg/actuation 2 puff inhalation Q6H PRN 02/12/24 06/04/24 History aerosol inhaler shortness of breath or wheezing hydrocodone 5 mg-acetaminophen 325 1 tablet PO Q6H 02/12/24 06/04/24 History mg tablet loperamide 2 mg capsule (Imodium 4 mg PO Q2H PRN Diarrhea 02/12/24 06/04/24 History A-D) quetiapine 25 mg tablet 25 mg PO BID 02/12/24 06/04/24 History spironolactone 25 mg tablet 25 mg PO DAILY 06/04/24 06/04/24 History valsartan 80 mg tablet 40 mg PO DAILY 06/04/24 06/04/24 History Allergies Allergy/AdvReac Type Severity Reaction Status Date / Time atorvastatin AdvReac Muscle Pain Verified 06/04/24 17:00 clarithromycin (From Biaxin) AdvReac Gastrointestinal Verified 06/04/24 17:00 Upset rofecoxib AdvReac Nausea and Verified 06/04/24 17:00 Vomiting Axvanws-FUV-EcW Reductase AdvReac Muscle Pain Verified 06/04/24 17:00 Inhibitor Vital Signs Vital Signs - 24 hr 06/04/24 16:45 06/04/24 17:44 06/04/24 17:45 Temperature 98.8 F Pulse Rate 117 H 99 Respiratory Rate 20 16 Blood Pressure 87/57 L Pulse Oximetry 91 98 Oxygen Delivery Room Air Nasal Cannula Oxygen Flow Rate 2 06/04/24 18:00 06/04/24 18:30 Temperature Pulse Rate 98 105 H Respiratory Rate 24 H 25 H Blood Pressure 99/48 L 106/56 L Pulse Oximetry 99 99 Oxygen Delivery Oxygen Flow Rate Exam Narrative: cacethtic. A/Ox1, unable to provide correct place/year/or sitatuational. dry membranes. Const: General: comfortable and no acute distress Other: , male, ill-appearing, frail/cachectic HENMT: Face/Nose/Sinus: Normal nares present Mouth: Yes dry mucous membranes Eyes: General: appearance normal, both eyes and all related structures Sclera: sclerae normal Pupils: Equal, round and reactive pupils present EOM: EOMs intact bilaterally Resp: Other: No respiratory distress. No accessory muscle use. Coarse lung sounds bilaterally, crackles in the left lung base. Cardio: Rate: regular rate Rhythm: regular rhythm Other: Occasional ectopy, no murmur GI: Other: Abdomen soft, nondistended, nontender. Normoactive bowel sounds in all quadrants. Skin: General skin exam: normal color and no rashes or lesions noted Wounds: no wounds Neuro: Speech: normal speech Motor exam (neuro): 5/5 motor strength present throughout Sensory Exam: normal sensation Other: A&O x1, self only. Extrem: General: normal to inspection Psych: Mental Status: mental status grossly normal Affect: normal affect Other: Poor insight and judgment, pleasant. H&P: Results Labs Labs: Short CBC 06/04/24 Range/Units 17:11 WBC 9.2 (4.5-10.0) K/mm3 Hgb 10.4 L (14.0-18.0) g/dL Hct 31.6 L (42.0-52.0) % Plt Count 208 (150-375) k/mm3 Assessment and Plan Assessment and plan (1) Sepsis: Qualifiers: Acute respiratory failure type: with hypoxia Sepsis acute organ dysfunction status: with acute organ dysfunction Sepsis type: sepsis due to unspecified organism Severe sepsis acute organ dysfunction type: acute respiratory failure Severe sepsis shock status: without septic shock Qualified Code(s): A41.9 - Sepsis, unspecified organism; R65.20 - Severe sepsis without septic shock; J96.01 - Acute respiratory failure with hypoxia Code(s): A41.9 - Sepsis, unspecified organism Status: Acute Assessment and Plan: - meets SIRS criteria: HR, RR. +hypoxia. - lactic acid: 0.9 - 30 mL/kg = 1.5L, given 2L bolus BP 87/57 -> 106/56 - suspected source: PNA - started on Levaquin - blood cultures drawn on 06/04, follow - UA equivocal for UTI, on Levaquin, follow urine culture - CXR:Possible early infiltrate within the superior segment of the right lower lobe, as detailed above. - monitor hemodynamic stability, currently DNR/DNI and does not want pressors (2) CAP (community acquired pneumonia): Qualifiers: Laterality: unspecified laterality Qualified Code(s): J18.9 - Pneumonia, unspecified organism Code(s): J18.9 - Pneumonia, unspecified organism Status: Acute Assessment and Plan: - see CXR impression above - risk factors and complicating factors: NH resident, sepsis - started on CAP tx: Levaquin on 06/04 - check MRSA PCR and sputum culture - Viral PCR negative - sputum culture - currently has a new supplemental O2 requirement, 2L NC. Continue to maintain O2 saturation greater than 92%, wean as tolerated. 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 Previously 1.1, BUN 57, GFR >60 on 02/15/2024 - has history of severe CHF, estimated EF 20-25% on echo 07/2023. given 2L bolus -> 75 mL/hr x1L. monitor toleration. - bladder scan post void - monitor I&Os - dry on exam, hold spironolactone and resume when appropriate. - trend renal function - trend electrolytes, correct as needed (4) UTI (urinary tract infection): Qualifiers: Urinary tract infection type: site unspecified Hematuria presence: without hematuria Qualified Code(s): N39.0 - Urinary tract infection, site not specified Code(s): N39.0 - Urinary tract infection, site not specified Status: Suspected Assessment and Plan: - UA: Cloudy, 1+ protein, 3+ leuks, greater than 100 WBC, no epithelial cells or bacteria. - UC pending - previous micro reviewed, E coli pansensitive on 02/11/2024, 10/11/2023, 09/12/2023 - started on Levaquin on 06/04 (5) Hypertension: Qualifiers: Hypertension type: primary hypertension Qualified Code(s): I10 - Essential (primary) hypertension Code(s): I10 - Essential (primary) hypertension Status: Acute Assessment and Plan: - chronic, currently soft between 87/57 to 106/56 - hold home medications: Spironolactone, valsartan. Will continue metoprolol ER 25 mg daily. - monitor Plan Diet: Regular GI Prophylaxis: Not currently indicated DVT Prophylaxis: Lines: Peripheral Code Status: DNR/DNI, w/comfort focus. Bedside RN spoke with the patient's POA, he is okay with fluids and antibiotics. No further life-saving measures including anti arrhythmics, pressors, etc. Will forgo further work up that is not already in place. Quality VTE Prophylaxis VTE prophylaxis: mechanical ordered Hospitalist MIPS Advance Care Plan I have confirmed that the patient's Advanced Care Plan is present, code status is documented, or surrogate decision maker is listed in patient medical record.: Yes Medication Reconciliation I have utilized all available resources to obtain, update and review the patients current medications (includes all prescriptions, OTC, herbals, cannabis, and nutritional supplements).: Yes
[2024-06-04 19:09] LABS: Add Urine Microscopic? YES; Appearance Urine Cloudy (Clear); Bacteria Urine None Seen /hpf; Bilirubin Urine Negative (Negative); Blood Urine Negative (Negative); Color Urine Yellow (Yellow); Glucose Urine UA Negative (Negative); Ketones Urine Negative (Negative); Leukocyte Esterase Ur 3+ LEU/UL (Negative); Need Manual Microscopic Reviewed; Nitrate Urine Negative (Negative); Protein Urine 1+ mg/dL (Negative); RBC Urine 0-2 /hpf (0-2); Specific Grav Ur 1.013 (1.001-1.035); Squamous Epithelial Cell Urine None Seen /hpf (Few); Urobilinogen Urine 0.2 mg/dL (<2.0); WBC Urine >100 /hpf (0-3)
[2024-06-04] MEDS: levoFLOXacin 750 MG/D5W 150 ML 750 MG/150 ML BAG 100 MG IVPB (19:40)
[2024-06-04 20:04] LABS: Alanine Aminotransferase 12 U/L (6-50); Albumin Level 3.6 g/dL (3.5-5.1); Alkaline Phosphatase 65 U/L (38-126); Anion Gap 16 mmol/L (4-12); Aspartate Amino Transferase 26 U/L (17-59); Bilirubin,Total 0.6 mg/dL (0.2-1.3); Calcium 8.5 mg/dL (8.4-10.2); Carbon Dioxide 14 mmol/L (22-30); Chloride 110 mmol/L (98-107); Estimated CRCL calculation 14 ml/min; Estimated Glomerular Filt Rate 25; Glucose 111 mg/dL (65-110); Potassium 5.1 mmol/L (3.4-5.0); Sodium 140 mmol/L (137-145)
[2024-06-04 20:13] LABS: Blood Urea Nitrogen 123 mg/dL (9-20)
[2024-06-04] MEDS: guaiFENesin 12 HR 600 MG TABCR PO (21:15)
[2024-06-04] MEDS: LACTATED RINGERS 1,000 ML 75 ML IV CONT (21:31)
--- NOTE | 2024-06-04 21:43 | ADMGEN ---
This patient, Jamey Cuadra, was admitted to IMU Room 203-01. Patient/family oriented to hospital policies and general routines including ID bracelet, bed and alarms, visiting hours, pain management, procedures, bathroom and other care routines, personal items, smoking policy, room service/diet, and visiting hours. Information on how to activate the Rapid Response Team has been discussed. Patient/Family are encouraged to report perceived risks to care and to ask questions if they do not understand what they are told or what they should do.
[2024-06-05] VITALS (12 sets, daily range): BP systolic 95–130; BP diastolic 53–91; PULSE 84–117; RESP 20; TEMP 36.4–37.4; O2SAT 92–98; BMI 16.6
[2024-06-05 04:50] LABS: Basophils Percent Auto 0.1 % (0.2-1.2); Hematocrit 29.8 % (42.0-52.0); Hemoglobin 9.6 g/dL (14.0-18.0); Immature Granulocyte Absolute 0.06 K/mm3 (0.00-0.031); Immature Granulocyte Percent A 0.8 % (0-0.5); Lymphocytes Absolute Auto 0.39 K/mm3 (0.9-3.2); Lymphocytes Percent Auto 4.9 % (18.3-44.2); Mean Corpuscular HGB Conc 32.2 g/dl (32-36); Mean Corpuscular Hemoglobin 33.4 pg (26-34); Mean Corpuscular Volume 103.8 fl (80-100); Mean Platelet Volume 10.4 fl (7.4-10.4); Monocytes Percent Auto 12.1 % (2.6-8.5); Neutrophils Absolute Auto 6.5 K/mm3 (1.3-6.7); Neutrophils Percent Auto 82.1 % (45.5-73.1); Platelet Count Result 175 k/mm3 (150-375); Red Blood Count 2.87 M/mm3 (4.6-6.20); Red Cell Distribution Width 13.1 % (11.5-14.5); White Blood Count 7.9 K/mm3 (4.5-10.0)
[2024-06-05 04:57] LABS: Anion Gap 13 mmol/L (4-12); Blood Urea Nitrogen 107 mg/dL (9-20); Calcium 8.2 mg/dL (8.4-10.2); Carbon Dioxide 16 mmol/L (22-30); Chloride 115 mmol/L (98-107); Estimated CRCL calculation 16 ml/min; Estimated Glomerular Filt Rate 31; Glucose 82 mg/dL (65-110); Potassium 5.2 mmol/L (3.4-5.0); Sodium 144 mmol/L (137-145)
[2024-06-05 05:22] LABS: Band Neutrophils Percent 0 % (0-6); Burr Cells 1+; Ovalocytes 1+; Platelet Estimate Adequate (Adequate); Schistocytes None Seen
[2024-06-05 06:23] LABS: MRSA (PCR) NOT DETECTED (NOT DETECTE)
[2024-06-05] MEDS: METOPROLOL SUCCINATE EXT REL 25 MG TABCR PO (08:49)
[2024-06-05] MEDS: SPIRONOLACTONE 25 MG TABLET PO (08:49)
[2024-06-05] MEDS: SITagliptin PHOSPHATE 100 MG TABLET PO (08:49)
[2024-06-05] MEDS: QUEtiapine FUMARATE 25 MG TABLET PO ×2 (08:49→20:09)
[2024-06-05] MEDS: LORATADINE 10 MG TABLET PO (08:50)
[2024-06-05] MEDS: CLOPIDOGREL BISULFATE 75 MG TABLET PO (08:50)
[2024-06-05] MEDS: TAMSULOSIN HCL 0.4 MG CAPSULE PO (08:50)
[2024-06-05] MEDS: FINASTERIDE 5 MG TABLET PO (08:50)
[2024-06-05] MEDS: FERROUS SULFATE 325 MG TABLET DR PO (08:50)
[2024-06-05] MEDS: ASCORBIC ACID 500 MG TABLET PO (08:50)
[2024-06-05] MEDS: guaiFENesin 12 HR 600 MG TABCR PO ×2 (08:50→20:09)
[2024-06-05] MEDS: CHOLECALCIFEROL 400 UNITS TABLET (VIT D) PO (08:51)
[2024-06-05] MEDS: VALSARTAN 40 MG TABLET PO (08:51)
[2024-06-05 10:28] LABS: Iron 28 ug/dL (49-181)
[2024-06-05 10:40] LABS: Percent Iron Saturation 16 % (20-50)
--- NOTE | 2024-06-05 11:26 | P.PNIM_ITS ---
Progress Note: A&P Assessment and Plan (1) Sepsis: Qualifiers: Sepsis type: sepsis due to unspecified organism Sepsis acute organ dysfunction status: with acute organ dysfunction Severe sepsis acute organ dysfunction type: acute respiratory failure Acute respiratory failure type: with hypoxia Severe sepsis shock status: without septic shock Qualified Code(s): A41.9 - Sepsis, unspecified organism; R65.20 - Severe sepsis without septic shock; J96.01 - Acute respiratory failure with hypoxia Code(s): A41.9 - Sepsis, unspecified organism Status: Acute Assessment and Plan: vital signs improving, HR 85 and YARELIS 130/91 Hypotension resolved - started on Levaquin - F/u blood and urine culture - CXR:Possible early infiltrate within the superior segment of the right lower lobe, as detailed above. 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: Qualifiers: Acute renal failure type: unspecified Qualified Code(s): N17.9 - Acute kidney failure, unspecified; N18.32 - Chronic kidney disease, stage 3b Code(s): N17.9 - Acute kidney failure, unspecified; N18.32 - Chronic kidney disease, stage 3b Status: Acute Assessment and Plan: Creatinine 2.06, 2.48 Baseline is normal, likely from dehydration Contineu IVF (4) UTI (urinary tract infection): Qualifiers: Hematuria presence: without hematuria Urinary tract infection type: site unspecified Qualified Code(s): N39.0 - Urinary tract infection, site not specified Code(s): N39.0 - Urinary tract infection, site not specified Status: Suspected Assessment and Plan: - UA: Cloudy, 1+ protein, 3+ leuks, greater than 100 WBC, no epithelial cells or bacteria. - UC pending - previous micro reviewed, E coli pansensitive on 02/11/2024, 10/11/2023, 09/12/2023 - started on Levaquin on 06/04 (5) Hypertension: Qualifiers: Hypertension type: primary hypertension Qualified Code(s): I10 - Essential (primary) hypertension Code(s): I10 - Essential (primary) hypertension Status: Acute Assessment and Plan: - chronic, currently soft between 87/57 to 106/56 - hold home medications: Spironolactone, valsartan. Will continue metoprolol ER 25 mg daily. - monitor Plan DVT Prophylaxis: on Sq lovenox Code Status: DNR/DNI, w/comfort focus. Awaiting hospice eval Subjective Date/time seen: 06/05/24 11:26 Interval history: Comfortable at bedside Discussed with son at bedside and he noted patient has had 18 hospitalizations in the past year, also stated he eats infrequently and has been progressively weaker the past 5 weeks. Review of Systems Review of Systems: All systems reviewed & are unremarkable except as noted in HPI and below (limited) Exam Narrative: cacethtic. A/Ox1, unable to provide correct place/year/or sitatuational. dry membranes. Const: General: comfortable and no acute distress Other: , male, ill-appearing, frail/cachectic HENMT: Face/Nose/Sinus: Normal nares present Mouth: Yes dry mucous membranes Eyes: General: appearance normal, both eyes and all related structures Sclera: sclerae normal Pupils: Equal, round and reactive pupils present EOM: EOMs intact bilaterally Resp: Other: No respiratory distress. No accessory muscle use. Coarse lung sounds bilaterally, crackles in the left lung base. Cardio: Rate: regular rate Rhythm: regular rhythm Other: Occasional ectopy, no murmur GI: Other: Abdomen soft, nondistended, nontender. Normoactive bowel sounds in all quadrants. Skin: General skin exam: normal color and no rashes or lesions noted Wounds: no wounds Neuro: Cranial nerves: Yes Equal, round and reactive pupils present Speech: normal speech Motor exam (neuro): 5/5 motor strength present throughout Sensory Exam: normal sensation Other: A&O x1, self only. Extrem: General: normal to inspection Psych: Mental Status: mental status grossly normal Affect: normal affect Other: Poor insight and judgment, pleasant. Objective Data Vital Signs Vital Signs: Vital Signs - 24 hr 06/04/24 16:45 06/04/24 17:44 06/04/24 17:45 Temperature 98.8 F Pulse Rate 117 H 99 Respiratory Rate 20 16 Blood Pressure 87/57 L Pulse Oximetry 91 98 Oxygen Delivery Room Air Nasal Cannula Oxygen Flow Rate 2 06/04/24 18:00 06/04/24 18:30 06/04/24 20:10 Temperature 98.7 F Pulse Rate 98 105 H 103 H Respiratory Rate 24 H 25 H 13 Blood Pressure 99/48 L 106/56 L 102/61 Pulse Oximetry 99 99 100 Oxygen Delivery Oxygen Flow Rate 06/04/24 20:25 06/04/24 21:00 06/04/24 22:00 Temperature 98.8 F Pulse Rate 107 H 95 Respiratory Rate 20 Blood Pressure 110/52 L Pulse Oximetry 95 95 Oxygen Delivery Nasal Cannula Oxygen Flow Rate 2 06/04/24 23:58 06/05/24 00:00 06/05/24 00:00 Temperature 97.5 F L Pulse Rate 91 113 H Respiratory Rate 20 Blood Pressure 100/46 L Pulse Oximetry 92 92 Oxygen Delivery Nasal Cannula Oxygen Flow Rate 2 06/05/24 02:00 06/05/24 04:00 06/05/24 04:00 Temperature Pulse Rate 101 H 91 Respiratory Rate Blood Pressure Pulse Oximetry 97 Oxygen Delivery Nasal Cannula Oxygen Flow Rate 2 06/05/24 04:58 06/05/24 06:00 06/05/24 08:00 Temperature 98.4 F Pulse Rate 117 H 93 Respiratory Rate 20 Blood Pressure 112/85 Pulse Oximetry 97 98 Oxygen Delivery Nasal Cannula Oxygen Flow Rate 2 06/05/24 08:00 06/05/24 08:09 06/05/24 08:49 Temperature 97.6 F Pulse Rate 102 H 101 H 95 Respiratory Rate 20 Blood Pressure 130/91 H Pulse Oximetry 97 Oxygen Delivery Oxygen Flow Rate 06/05/24 08:50 06/05/24 09:58 06/05/24 10:00 Temperature Pulse Rate 85 Respiratory Rate Blood Pressure Pulse Oximetry 95 95 Oxygen Delivery Room Air Room Air Oxygen Flow Rate Intake/Output Intake/Output: Intake & Output 06/02/24 06/03/24 06/04/24 06/05/24 23:59 23:59 23:59 23:59 Intake Total 1999 600 Output Total 200 Balance 1999 400 Meds/Results Medications: Active Medications Generic Name Dose Route Start Last Admin Trade Name Freq PRN Reason Stop Dose Admin Acetaminophen 650 mg 06/04/24 22:55 Acetaminophen 325 Mg Tablet PO Q6H PRN Pain Hydrocodone Bitart/Acetaminophen 1 tab 06/04/24 22:55 Hydrocodone/Acetaminophen (*Crx) 5-325 Mg Tablet PO Q6H PRN Pain Rated 4-6 Albuterol/Ipratropium 3 ml 06/04/24 19:26 Ipratropium 0.5 Mg/Albuterol Sulfate 2.5 Mg Ampul.Neb 3 Ml INHALATION Q6HRT PRN Shortness Of Breath Or Wheezing Ascorbic Acid 500 mg 06/05/24 09:00 06/05/24 08:50 Ascorbic Acid 500 Mg Tablet PO 500 mg BID OMID Administration Azelastine HCl 1 spray 06/05/24 09:00 06/05/24 09:04 Azelastine Hcl Nasal 0.1% 137 Mcg/Spr 30 Ml Btl NASAL Not Given DAILY [facility] Clopidogrel Bisulfate 75 mg 06/05/24 09:00 06/05/24 08:50 Clopidogrel Bisulfate 75 Mg Tablet PO 75 mg DAILY [facility] Administration Ferrous Sulfate 325 mg 06/05/24 09:00 06/05/24 08:50 Ferrous Sulfate [address] PO 325 mg BID OMID Administration Finasteride 5 mg 06/05/24 09:00 06/05/24 08:50 Finasteride 5 Mg Tablet PO 5 mg DAILY [facility] Administration Fluticasone Propionate 2 spray 06/05/24 09:00 06/05/24 09:04 Fluticasone Propionate 0.05% Na Spr 16 Gm Btl (*Bkc) NASAL Not Given DAILY [facility] Guaifenesin 600 mg 06/04/24 21:00 06/05/24 08:50 Guaifenesin 12 Hr 600 Mg Tabcr PO 600 mg Q12HR [facility] Administration Levofloxacin/Dextrose 500 mg in 100 mls @ 66.667 mls/hr 06/06/24 20:00 Levaquin 500 Mg/D5w 100 Ml IVPB Q48H [facility] Latanoprost 1 drop 06/05/24 21:00 Latanoprost 0.005% Op Soln 2.5 Ml Btl EACH EYE HS [facility] Loperamide HCl 4 mg 06/04/24 22:55 Loperamide Hcl 2 Mg Capsule PO Q2H PRN Diarrhea Loratadine 10 mg 06/05/24 09:00 06/05/24 08:50 Loratadine 10 Mg Tablet PO 10 mg QAM OMID Administration Metoprolol Succinate 25 mg 06/05/24 09:00 06/05/24 08:49 Metoprolol Succinate Ext Rel 25 Mg Tabcr PO 25 mg DAILY OMID Administration Arginine-Vitamin C- 1 each 06/05/24 09:00 06/05/24 11:04 Vitamin E [Arginaid] XX 06/06/24 08:59 Not Given 4.5 Gram-156 Mg/9.2 BID [facility] Gram Powder Quetiapine Fumarate 25 mg 06/05/24 09:00 06/05/24 08:49 Quetiapine Fumarate 25 Mg Tablet PO 25 mg Q12HR [facility] Administration Sitagliptin Phosphate 100 mg 06/05/24 09:00 06/05/24 08:49 Sitagliptin Phosphate 100 Mg Tablet PO 100 mg QAM [facility] Administration Spironolactone 25 mg 06/05/24 09:00 06/05/24 08:49 Spironolactone 25 Mg Tablet PO 25 mg DAILY OMID Administration Tamsulosin HCl 0.4 mg 06/05/24 09:00 06/05/24 08:50 Tamsulosin Hcl 0.4 Mg Capsule PO 0.4 mg DAILY OMID Administration Umeclidinium [place] 1 puff 06/05/24 08:00 06/05/24 10:06 Umeclidinium [place] 62.5 Mcg Ellipta INHALATION Not Given DAILYRT [facility] Valsartan 40 mg 06/05/24 09:00 06/05/24 08:51 Valsartan 40 Mg Tablet PO 40 mg DAILY OMID Administration Vitamin D 400 units 06/05/24 09:00 06/05/24 08:51 Cholecalciferol 400 Units Tablet (Vit D) PO 400 units DAILY OMID Administration Radiology Results: ITS Impressions Chest X-Ray 06/04/24 17:22 IMPRESSION: Possible early infiltrate within the superior segment of the right lower lobe, as detailed above. Elbow X-Ray 06/04/24 18:43 IMPRESSION: Degenerative disease without acute fracture. Knee X-Ray 06/04/24 18:45 IMPRESSION: Degenerative disease, without acute fracture. Labs Labs: Laboratory Results - last 24 hr 06/04/24 06/04/24 06/04/24 17:11 17:25 17:52 WBC 9.2 RBC 3.04 L Hgb 10.4 L Hct 31.6 L MCV 103.9 H MCH 34.2 H MCHC 32.9 RDW 13.1 Plt Count 208 MPV 11.1 H Immature Gran % (Auto) 0.7 H Neut % (Auto) 87.1 H Lymph % (Auto) 2.6 L [place] % (Auto) 8.5 Eos % (Auto) 0.7 Baso % (Auto) 0.4 Lymph # (Auto) 0.24 L [place] # (Auto) 0.8 H Eos # (Auto) 0.1 Baso # (Auto) 0.0 Abs Immat Gran (auto) 0.06 H Absolute Neuts (auto) 8.0 H Absolute Nucleated RBC 0.000 Band Neutrophils % Nucleated RBC % 0.0 Platelet Estimate Ovalocytes [place] Cells Schistocytes PT 15.4 H INR 1.2 APTT 31.7 Sodium 140 Potassium 5.1 H Chloride 110 H Carbon Dioxide 14 L Anion Gap 16 H BUN 123 H D Creatinine 2.48 H Estim Creat Clear Calc 14 Estimated GFR 25 L Glucose 111 H Lactic Acid 0.9 Calcium 8.5 Iron TIBC % Saturation Ferritin Total Bilirubin 0.6 AST 26 ALT 12 Alkaline Phosphatase 65 C-Reactive Protein 15.3 H Total Protein 7.0 Albumin 3.6 Urine Color Urine Appearance Urine pH Ur Specific [place] Urine Protein Urine Glucose (UA) Urine Ketones Ur Blood (Man) Urine Nitrate Urine Bilirubin Urine Urobilinogen Add Ur Microanalysis Leukocyte Esterase Rfl Urine RBC Urine WBC Ur Squamous Epith Cells Urine Bacteria Urine Casts Nasal MRSA (PCR) Influenza A (RT-PCR) Negative Influenza B (RT-PCR) Negative RSV (RT-PCR) Negative SARS-CoV-2 RNA (RT-PCR) Negative 06/04/24 06/05/24 06/05/24 18:38 03:58 05:03 WBC 7.9 RBC 2.87 L Hgb 9.6 L Hct 29.8 L MCV 103.8 H MCH 33.4 MCHC 32.2 RDW 13.1 Plt Count 175 MPV 10.4 Immature Gran % (Auto) 0.8 H Neut % (Auto) 82.1 H Lymph % (Auto) 4.9 L [place] % (Auto) 12.1 H Eos % (Auto) 0.0 Baso % (Auto) 0.1 L Lymph # (Auto) 0.39 L [place] # (Auto) 1.0 H Eos # (Auto) 0.0 Baso # (Auto) 0.0 Abs Immat Gran (auto) 0.06 H Absolute Neuts (auto) 6.5 Absolute Nucleated RBC 0.000 Band Neutrophils % 0 Nucleated RBC % 0.0 Platelet Estimate Adequate Ovalocytes 1+ Loki Cells 1+ Schistocytes None seen PT INR APTT Sodium 144 Potassium 5.2 H Chloride 115 H Carbon Dioxide 16 L Anion Gap 13 H BUN 107 H D Creatinine 2.06 H Estim Creat Clear Calc 16 Estimated GFR 31 L Glucose 82 Lactic Acid Calcium 8.2 L Iron TIBC % Saturation Ferritin Total Bilirubin AST ALT Alkaline Phosphatase C-Reactive Protein Total Protein Albumin Urine Color Yellow Urine Appearance Cloudy H Urine pH 5.0 Ur Specific [place] 1.013 Urine Protein 1+ H Urine Glucose (UA) Negative Urine Ketones Negative Ur Blood (Man) Negative Urine Nitrate Negative Urine Bilirubin Negative Urine Urobilinogen 0.2 Add Ur Microanalysis Reviewed Leukocyte Esterase Rfl 3+ H Urine RBC 0-2 Urine WBC >100 H Ur Squamous Epith Cells None seen Urine Bacteria None seen Urine Casts 11-20 Nasal MRSA (PCR) Not detected Influenza A (RT-PCR) Influenza B (RT-PCR) RSV (RT-PCR) SARS-CoV-2 RNA (RT-PCR) 06/05/24 08:58 WBC RBC Hgb Hct MCV MCH MCHC RDW Plt Count MPV Immature Gran % (Auto) Neut % (Auto) Lymph % (Auto) [place] % (Auto) Eos % (Auto) Baso % (Auto) Lymph # (Auto) [place] # (Auto) Eos # (Auto) Baso # (Auto) Abs Immat Gran (auto) Absolute Neuts (auto) Absolute Nucleated RBC Band Neutrophils % Nucleated RBC % Platelet Estimate Ovalocytes [place] Cells Schistocytes PT INR APTT Sodium Potassium Chloride Carbon Dioxide Anion Gap BUN Creatinine Estim Creat Clear Calc Estimated GFR Glucose Lactic Acid Calcium Iron 28 L TIBC 177 L % Saturation 16 L Ferritin 913.00 H Total Bilirubin AST ALT Alkaline Phosphatase C-Reactive Protein Total Protein Albumin Urine Color Urine Appearance Urine pH Ur Specific [place] Urine Protein Urine Glucose (UA) Urine Ketones Ur Blood (Man) Urine Nitrate Urine Bilirubin Urine Urobilinogen Add Ur Microanalysis Leukocyte Esterase Rfl Urine RBC Urine WBC Ur Squamous Epith Cells Urine Bacteria Urine Casts Nasal MRSA (PCR) Influenza A (RT-PCR) Influenza B (RT-PCR) RSV (RT-PCR) SARS-CoV-2 RNA (RT-PCR) Quality VTE Prophylaxis VTE prophylaxis: mechanical ordered
[2024-06-05 11:39] LABS: Folic Acid 9.2 ng/mL (2.76->20)
--- NOTE | 2024-06-05 13:24 | P.CDI_ITS ---
CDI Query Clarification Request BMI: 16.6 Nutritional Diagnostic Statement: Please refer to the comprehensive nutrition assessment for further information. If you agree with diagnosis of Severe protein calorie malnutrition related to inadequate energy intake as evidenced by charted intake, a significant weight loss of -10% x 6 months, and NFPE findings for severe subcutaneous fat loss and muscle wasting. Please specify severity if known: * Mild * Moderate * Severe * Other/Unknown <Suzanne Welch RN - Last Filed: 06/05/24 13:25> Clarified Diagnosis Clarified Diagnosis: * Severe <Marisela Chandra MD - Last Filed: 06/05/24 13:37>
--- NOTE | 2024-06-05 15:20 | PC.NURSE ---
This patient, Jamey Cuadra, was received from [[id number]] on 06/05/24 at 1520. Patient/family oriented to unit policies and routines
[2024-06-05] MEDS: LATANOPROST 0.005% OP SOLN 2.5 ML BTL 1 DROP EACH EYE (20:09)
[2024-06-06 04:34] VITALS: BP 113/63; PULSE 80; RESP 18; TEMP 36.5; O2SAT 90
[2024-06-06 09:09] VITALS: PULSE 70
[2024-06-06] MEDS: guaiFENesin 12 HR 600 MG TABCR PO (09:09)
[2024-06-06] MEDS: METOPROLOL SUCCINATE EXT REL 25 MG TABCR PO (09:09)
[2024-06-06] MEDS: CLOPIDOGREL BISULFATE 75 MG TABLET PO (09:09)
[2024-06-06] MEDS: SPIRONOLACTONE 25 MG TABLET PO (09:09)
[2024-06-06] MEDS: FERROUS SULFATE 325 MG TABLET DR PO (09:09)
[2024-06-06] MEDS: VALSARTAN 40 MG TABLET PO (09:10)
[2024-06-06] MEDS: LORATADINE 10 MG TABLET PO (09:10)
[2024-06-06] MEDS: ENOXAPARIN 30 MG/0.3 ML SYRINGE SUB-Q (09:10)
[2024-06-06] MEDS: ASCORBIC ACID 500 MG TABLET PO (09:10)
[2024-06-06] MEDS: QUEtiapine FUMARATE 25 MG TABLET PO (09:10)
[2024-06-06] MEDS: TAMSULOSIN HCL 0.4 MG CAPSULE PO (09:10)
[2024-06-06] MEDS: FINASTERIDE 5 MG TABLET PO (09:10)
[2024-06-06] MEDS: SITagliptin PHOSPHATE 100 MG TABLET PO (09:10)
[2024-06-06] MEDS: CHOLECALCIFEROL 400 UNITS TABLET (VIT D) PO (09:10)
[2024-06-06] MEDS: FLUTICASONE PROPIONATE 0.05% NA SPR 16 GM BTL (*BKC) 2 SPRAY NASAL (09:11)
[2024-06-06] MEDS: AZELASTINE HCL NASAL 0.1% 137 MCG/SPR 30 ML BTL 1 SPRAY NASAL (09:11)
[2024-06-06] MEDS: UMECLIDINIUM BROMIDE 62.5 MCG ELLIPTA 1 PUFF INHALATION (09:15)
--- NOTE | 2024-06-06 11:34 | PM.DS ---
DS: Admitting Diagnosis Discharge Date 06/06/24 Admitting Diagnosis Weakness, Fever DS: Discharge Diagnosis Discharge Diagnosis (1) Sepsis: Qualifiers: Sepsis type: sepsis due to unspecified organism Sepsis acute organ dysfunction status: with acute organ dysfunction Severe sepsis acute organ dysfunction type: acute respiratory failure Acute respiratory failure type: with hypoxia Severe sepsis shock status: without septic shock Qualified Code(s): A41.9 - Sepsis, unspecified organism; R65.20 - Severe sepsis without septic shock; J96.01 - Acute respiratory failure with hypoxia Code(s): A41.9 - Sepsis, unspecified organism Status: Acute (2) CAP (community acquired pneumonia): Qualifiers: Laterality: unspecified laterality Qualified Code(s): J18.9 - Pneumonia, unspecified organism Code(s): J18.9 - Pneumonia, unspecified organism Status: Acute DS: Summary Hospital Course Hospital Course: 89 y/o M with PMH of Afib, basal cell carcinoma, glaucoma, HFrEF, HTN, and iron deficiency anemia with generalized weakness. The patient presents here via EMS from [facility] for further evaluation of generalized weakness and fever. HPI obtained through EMS report, monica review, and patient account (A/Ox1, limited). Temp prior to arrival was 100.8F, given Tylenol by EMS. The patient reports cough and a mild head ache. He denies shortness of breath, chest pain, fever, chills, body aches, nausea, vomiting, or diarrhea. No further history available. Initial VS at presentation: 98.8F, HR 117, RR 20, 87/57, 91 RA. Now 99% on 2L NC. ED workup showed: no leukocytosis, Hgb 10.4 (previously 10.6 02/2024), CRP 15.3, lactic 0.9, viral PCR. CXR showed a possible early infiltrate within the superior segment of the right lower lobe, as detailed above. Elbow XR (R) degenerative disease without acute fracture. Knee XR (R) degenerative disease. EKG showed Afib with PVCs, left axis deviation, incomplete RBBB, borderline R-wave progression anterior leads, consider inferior infarct age indeterminate, baseline artifact (when compared to previous EKG done in February of 2024, heart rate has increased). Discussed with son at bedside who noted that patient has been hospitalized 18 times the past year and has been progressively weak the past 6 weeks with one occasion of fall. Also noted that oral intake has been very poor as well. Discussed hospice care given the above and he decided to transition hospice. Thus patient was discharge prior to hospice care patient was managed for Sepsis, CAP, Acute renal failure, and UTI. Patient will follow up with hospice care. Time Spent with Patient Time attestation: Total time spent providing and/or coordinating discharge services: DS: Data Data Completed and Pending Labs on day of discharge: Labs from last 24 hours 06/05/24 08:58 Vitamin B12 360.0 Folate 9.2 Preliminary micro results at discharge 06/04/24 18:38 Urine Culture - Preliminary Urine Clean Catch Staphylococcus aureus 06/04/24 17:52 Blood Culture - Preliminary Blood 06/04/24 17:11 Blood Culture - Preliminary Blood Discharge Plan Discharge Attending physician on discharge: Marisela Chandra Discharging Clinician: Marisela Chandra Anticipated Discharge Date/Time: 06/06/24 11:30 Patient Disposition: Hospice - Medical Facility Activity: as tolerated Diet: regular Patient Instructions: Antibiotic Form, Heart Failure (DC) Patient Language: Syriac Stand Alone Forms: General Discharge Information Follow-up/Referrals: Margaret Rock [Other] (F/u with PCP in 3-5 days ) Discharge Medications: Continued metoprolol succinate 25 mg tablet extended release 24 hr 25 mg PO DAILY finasteride 5 mg tablet 5 mg PO DAILY tamsulosin 0.4 mg capsule 0.4 mg PO DAILY Qty: 30 1RF latanoprost 0.005 % drops 1 drp EACH EYE HS potassium chloride 20 mEq tablet extended release 20 meq PO DAILY Qty: 7 0RF azelastine 137 mcg (0.1 %) Aerosol,Pelzer 137 mcg INTRANASAL DAILY Rx Instructions: administer into each nostril fluticasone propionate 50 mcg/actuation spray,suspension 2 spray INTRANASAL DAILY Arginaid 4.5 gram-156 mg/9.2 gram Powder In Packet 9.2 g PO BID Incruse Ellipta 62.5 mcg/actuation Blister With Device 1 inh inhalation DAILYRT Qty: 7 0RF cetirizine 10 mg Tablet 10 mg PO DAILY clopidogrel 75 mg tablet 75 mg PO DAILY ascorbic acid (vitamin C) 500 mg Tablet 500 mg PO BID ferrous sulfate 325 mg (65 mg iron) Tablet 325 mg PO BID cholecalciferol (vitamin D3) [Vitamin D3] 10 mcg (400 unit) Capsule 10 mcg PO DAILY Tradjenta 5 mg tablet 5 mg PO DAILY quetiapine 25 mg tablet 25 mg PO BID acetaminophen 325 mg Tablet 650 mg PO Q6H PRN (Reason: Pain) loperamide [Imodium A-D] 2 mg Capsule 4 mg PO Q2H PRN (Reason: Diarrhea) Rx Instructions: administer after each loose stool until symptoms controlled; do not exceed 8 mg per 24 hrs hydrocodone-acetaminophen 5-325 mg tablet 1 tablet PO Q6H albuterol sulfate 90 mcg/actuation HFA aerosol inhaler 2 puff inhalation Q6H PRN (Reason: shortness of breath or wheezing) spironolactone 25 mg tablet 25 mg PO DAILY valsartan 80 mg tablet 40 mg PO DAILY Date of admission: 06/05/24 08:04 Primary Care Provider: Margaret Rock Admitting Provider: Sang Modi Attending physician on admission: Sang Modi Condition: Serious
== END 2024-06-06 16:49 | disposition hospice, home (50) | DRG 871 ==
LOC: ANHED 18:42 → ANHIMU 19:13 → ANH3MEDSUR 06-06 08:41 → ANHIMU 06-07 11:52
PROVIDERS: Student in an Organized Health Care Education/Training Program; Admitting Provider Internal Medicine; Emergency Provider Emergency Medicine; Visit Provider Internal Medicine
DX: A41.9 Sepsis, unspecified organism (principal); E43 Unspecified severe protein-calorie malnutrition; J18.9 Pneumonia, unspecified organism; J96.01 Acute respiratory failure with hypoxia; I50.22 Chronic systolic (congestive) heart failure; I13.0 Hypertensive heart and chronic kidney disease with heart failure and stage 1 through stage 4 chronic kidney disease, or unspecified chronic kidney disease; N17.9 Acute kidney failure, unspecified; N39.0 Urinary tract infection, site not specified; Z68.1 Body mass index [BMI] 19.9 or less, adult; B95.62 Methicillin resistant Staphylococcus aureus infection as the cause of diseases classified elsewhere; Z66 Do not resuscitate; D50.9 Iron deficiency anemia, unspecified; I48.91 Unspecified atrial fibrillation; N18.32 Chronic kidney disease, stage 3b; R65.20 Severe sepsis without septic shock; Z20.822 Contact with and (suspected) exposure to COVID-19; Z79.02 Long term (current) use of antithrombotics/antiplatelets; Z79.84 Long term (current) use of oral hypoglycemic drugs; Z85.828 Personal history of other malignant neoplasm of skin
CPT/HCPCS: 36415; 71045; 73080; 73562; 80048; 80053; 81001; 82607; 82728; 82746; 83540; 83550; 83605; 85025; 85610; 85730; 86140; 87040; 87086; 87181; 87637; 87641; 93005; 94640; 96361; 96365; 99285; A9270; G0378; J1650; J1956; J7030; J7120